=== PATIENT | female | born 2000 | race Caucasian/White ===

== ENCOUNTER 2025-04-14 09:21 | Inpatient (IN) | payer OTHER, SELFPAY ==
[2025-04-14] VITALS (8 sets, daily range): BP systolic 135–145; BP diastolic 93–105; PULSE 64–86; RESP 16–18; TEMP 36.4–37.1; O2SAT 98–100; BMI 34.4; BMI 34.1
--- NOTE | 2025-04-14 09:45 | US_ITS ---
PROCEDURE: GALLBLADDER 04/14/2025 REASON FOR EXAM: PAIN TECHNIQUE: Procedure Code: USGB Modality: US Procedure: GALLBLADDER COMPARISON: None. FINDINGS: Liver: Unremarkable. Gallbladder: The gallbladder is distended. Layering stones in the gallbladder. No gallbladder wall thickening. No pericholecystic fluid. The technologist reported a negative sonographic Rice's sign. Common bile duct: The common bile duct measures 6 mm in inner diameter which is within normal limits. Pancreas: Unremarkable as visualized. US/Gallbladder IMPRESSION: Cholelithiasis with no evidence of acute cholecystitis. Reading Location: [facility]
--- NOTE | 2025-04-14 09:46 | EDS_ITS ---
HPI HPI - GI History of Present Illness Chief Complaint: Abd Pain Narrative Narrative: 24-year-old female who by significant past medical history with the exception of being diagnosed with gallstones about a month ago in [place], presents with what she considers a gallbladder attack that she has been having more frequently. It was about a month ago when her symptoms began and she was diagnosed with gallstones. She states she has an appointment on Wednesday with a surgeon for possible outpatient cholecystectomy. Yesterday evening at around 6 PM after eating she developed right upper quadrant pain, nausea and vomiting. She states her last attack of biliary colic was earlier in the week on Wednesday, approximately 3 days ago, but it lasted longer than usual. She has been having more frequent attacks. While she denies any fevers or chills, no hematemesis, no problems with bowel movements, she still having pain in the right upper quadrant radiating to her back. She denies any lower abdominal pain or pelvic pain. Last menstrual period was last week. [facility] Medical History (Updated 04/14/25 @ 12:57 by Cornell Serna MD) Gallstones Home Medications ?Medication ?Instructions ?Recorded ?Last Taken ?Type NK 04/14/25 Unknown History Allergy/AdvReac Type Severity Reaction Status Date / Time No Known Allergies Allergy Verified 04/14/25 09:22 Social History Smoking Status: Never smoker ROS ROS ED ROS Narrative Review of systems is positive for right upper quadrant abdominal pain radiating to back, positive nausea and vomiting. No fevers or chills. No hematemesis. No problems with bowel movements. No exacerbating or alleviating factors. Increasing frequency of biliary colic episodes. Lasting longer as well. EXAM Physical Exam Narrative Exam Narrative: Afebrile. Vital signs noted. Nontoxic appearing. Cardiovascular examination reveals regular rate and rhythm. Lungs are clear to auscultation bilaterally. The abdomen is soft with positive tenderness to palpation of the right upper quadrant. No guarding or rebound. Questionable Rice sign. Positive bowel sounds. Neurological examination nonfocal, nonlateralizing. No noted jaundice or scleral icterus. Const Vital Signs: 04/14/25 09:23 04/14/25 11:56 04/14/25 12:20 Temperature 98.7 F Temperature Source Oral Pulse Rate 78 83 64 Respiratory Rate 18 16 18 Blood Pressure 145/105 H 144/101 H 145/98 H Blood Pressure Mean 118 115 113 Pulse Ox 98 100 100 Oxygen Delivery Method Room Air Room Air Room Air MDM MDM MDM Narrative Medical decision making narrative: The differential diagnosis includes but not limited to biliary colic versus acute cholecystitis versus choledocholithiasis/pancreatitis. Patient will be administered morphine and ondansetron for pain and nausea. She was bolused normal saline. An ultrasound, CBC, CMP, lipase, and serum were ordered.. Patient initially administered morphine for analgesia, but she states that her pain was worsening with it. She was then given fentanyl. I reviewed her laboratory work and she has a white count that is normal at 9.6, hemoglobin normal at 14.9, platelet count normal at 344. CMP is significant for glucose of 120 with a normal anion gap of 13, normal BUN, creatinine low at 0.69. AST is elevated at 554 with ALT of 403 and alk phos of 195. Total bilirubin elevated at 2.47. Lipase is greater than 3000. This is consistent with gallstone pancreatitis. Serum is negative. Ultrasound was obtained of the gallbladder/right upper quadrant which shows cholelithiasis without evidence of acute cholecystitis. MRI was available as they were here for another patient, so MRCP was ordered. I discussed patient with Dr. Curiel who has confirmed that gastroenterology is rounding and available for ERCP. Disposition is admitted in stable condition. History & Record Review Discussion w/independent historian: Patient and Family () Additional record(s) reviewed:: No prior records (No prior ED visit) Lab Data Attestation: I reviewed the patient's lab results. Labs: Laboratory Results - last 24 hr 04/14/25 10:00 WBC 9.6 RBC 5.16 Hgb 14.9 Hct 44.2 MCV 85.7 MCH 28.9 MCHC 33.7 RDW Std Deviation 40.2 RDW Coeff of Miles 12.9 Plt Count 344 MPV 9.2 Immature Gran % (Auto) 0.200 Neut % (Auto) 82.7 H Lymph % (Auto) 10.7 L [place] % (Auto) 5.7 Eos % (Auto) 0.4 Baso % (Auto) 0.3 Absolute Neuts (auto) 7.9 H Absolute Lymphs (auto) 1.03 Nucleated RBC % 0 Sodium 139 Potassium 4.2 Chloride 104 Carbon Dioxide 22.7 Anion Gap 13 BUN 8 Creatinine 0.69 L Est GFR (MDRD) Non-Af 124 BUN/Creatinine Ratio 12.0 Glucose 120 H Calcium 9.8 Total Bilirubin 2.47 H AST 554 H ALT 403 H Alkaline Phosphatase 195 H Total Protein 8.3 Albumin 4.5 Globulin 3.7 Albumin/Globulin Ratio 1.2 Lipase > 3000 H Serum , Qual NEGATIVE Radiography Diagnostic Testing: Clinical Impression(s) from Imaging Studies Gallbladder Ultrasound 04/14/25 09:45 IMPRESSION: Cholelithiasis with no evidence of acute cholecystitis. Reading Location: [facility] Discharge Plan Triage Chief Complaint: Abd Pain ED Provider: Cornell Serna Dx/Rx/DC Orders Clinical Impression: Gallstone pancreatitis, Nausea and vomiting, Transaminitis, Intractable epigastric abdominal pain Prescriptions: No Action NK Primary Care Provider: Jesica Feng NP Referrals: Jesica Feng NP, BUSINESS CONTINUITY MANAGEMENT DIRECTOR-C [Primary Care Provider, Medical] Print Language: Bangladeshi
[2025-04-14] MEDS: 0.9% Normal Saline (1000mL) 1,000 ML 999 ML IV (10:02)
[2025-04-14 10:11] LABS: Hematocrit 44.2 % (37-47); Hemoglobin 14.9 g/dL (12.0-15.0); Immature Granulocytes Count 0.020 X10^3/uL (0.0-0.0); Mean Corp Hgb Conc 33.7 g/dL (32-36); Mean Corpuscular Volume 85.7 fL (81-99); Mean Platelet Vol. 9.2 fl (6.2-12.0); NRBC Flagged by Analyzer 0 % (0-5); Platelet Count 344 K/mm3 (150-450); RBC Distribution Width CV 12.9 % (11.6-14.6); RBC Distribution Width SD 40.2 fl (35.1-43.9); Red Blood Count 5.16 M/mm3 (4.2-5.4); White Blood Count 9.6 K/mm3 (4.4-11.0)
[2025-04-14 10:26] LABS: Internal QC Validated? YES +Cl - CLEAR BKGD; Pregnancy, Serum, hCG Quali. NEGATIVE Negative; Record Kit Lot#, Serum Preg. 980607
[2025-04-14 10:32] LABS: AST(SGOT) 554 U/L (<=31); Alanine Aminotransfer ALT/SGPT 403 U/L (<=34); Albumin, Serum 4.5 g/dL (3.5-5.0); Alkaline Phosphatase 195 U/L (35-104); Anion Gap 13 (5-15); BUN 8 mg/dL (4-19); BUN/Creat Ratio 12.0 RATIO (10-20); Calcium,Total 9.8 mg/dL (7.6-11.0); Carbon Dioxide 22.7 mmol/L (21.0-32.0); Chloride 104 mmol/L (98-108); Globulin 3.7 g/dL (2.2-4.2); Glucose 120 mg/dL (70-99); Potassium 4.2 mmol/L (3.3-5.1)
[2025-04-14] MEDS: fentaNYL 100 MCG/2 ML Ampul 50 MCG IV ×2 (10:39→12:24)
--- NOTE | 2025-04-14 10:43 | MRI_ITS ---
PROCEDURE: MRCP ABDOMEN WITHOUT CONTRAST 04/14/2025 REASON FOR EXAM: RIGHT UPPER QUADRANT PAIN, HISTORY OF GALLSTONES TECHNIQUE: Procedure Code: MRIMRCP Modality: MR Procedure: MRCP ABDOMEN WITHOUT CONTRAST Multiplanar and multisequence images were obtained. COMPARISON: 14-Apr-2025 US FINDINGS: Diffusely swollen pancreas showing high signal with extensive surrounding fat stranding and edema associated non and partially encapsulated fluid signal extending along the mesenteric roots and retroperitoneal spaces. Distended gall bladder showing mural thickening and edema with multiple tiny low signal calculi and sludge. Relatively prominent intra and extra-hepatic biliary tracts with no obvious intraluminal low signal calculi or obvious masses. Average sized liver showing homogenous parenchymal signal. The spleen and adrenals are normal in size and signal intensity. Both kidneys are normal in size and position. No hydronephrosis or focal masses could be seen in both kidneys. Small and large bowel loops appear largely collapsed however, is grossly unremarkable. Stomach shows no significant abnormality. Minimal ascites. No significant lymph node enlargement is seen in the abdomen. The visualized osseous structure in thoracolumbar spine shows No marrow infiltrative lesions. MRI/MRCP Abdomen without Contrast IMPRESSION: Findings are suggestive of interstitial edematous pancreatitis with acute perip ancreatic fluid (Elizabeth C). Advise clinical and laboratory correlation. Gall bladder calculi with mural thickening/edema, possibly cholecystitis. Prominent biliary tracts with no obvious intraluminal low signal calculi or obv ious masses. Reading Location[facility]
[2025-04-14 10:56] LABS: Lipase > 3000 U/L (13-75)
--- NOTE | 2025-04-14 12:41 | HP.PCM.HOS_ITS ---
HPI - General General Date of Admission: 04/14/25 Date of Service: 04/14/25 Chief Complaint: Abdominal pain and nausea with vomiting HPI Narrative NEL ALBRECHT, is a 24 F who presented to [facility] ED on 04/14/2025 with abdominal pain and nausea with vomiting. Patient lives at home with her , has good functional status at baseline. She notes that she went to [facility] about a month ago and was diagnosed with gallstones there. She was going to meet with a surgeon this coming Wednesday to discuss possible outpatient cholecystectomy. Noted that she had been having more frequent gallbladder attacks over the past several weeks. She developed right upper quadrant pain and nausea with vomiting yesterday evening around 6 PM after eating dinner. She continued to have fairly consistent pain overnight and into this morning, so she came in for further evaluation. Labs in the ED notable for total bilirubin 2.47, AST 554, ALT 4 3, alk phos 195, lipase greater than 3000. Gallbladder ultrasound showed a distended gallbladder with layering stones in the gallbladder but no gallbladder wall thickening or pericholecystic fluid and normal common bile duct measurements. MRCP was completed with read currently pending. She otherwise had a normal white blood cell count and was afebrile, normotensive and mentating appropriately. Given concern for pancreatitis, hospitalist was contacted for admission. I saw the patient at bedside in the ED. Patient had been given doses of IV pain medication and noted feeling moderately improved with these. On abdominal exam she did still have tenderness to palpation fairly diffusely but her abdomen was soft and nondistended. She stated she was feeling thirsty but not hungry at this point. Denied any other acute concerns currently. Will be admitted for further management. [facility] Medical History (Updated 04/14/25 @ 12:57 by Cornell Serna MD) Gallstones Home Medications ?Medication ?Instructions ?Recorded ?Last Taken ?Type NK 04/14/25 Unknown History Allergy/AdvReac Type Severity Reaction Status Date / Time No Known Allergies Allergy Verified 04/14/25 09:22 Social History Smoking Status: Never smoker ROS Constitutional Constitutional: Reports fatigue; Denies chills, fever(s) or weakness Cardiovascular Cardiovascular: Denies chest pain Respiratory/Chest Respiratory/Chest: Denies shortness of breath at rest Gastrointestinal Gastrointestinal: Reports abdominal pain, nausea and vomiting; Denies constipation or diarrhea Genitourinary Genitourinary: Denies dysuria Musculoskeletal Musculoskeletal: Denies arthralgias or myalgias Neurologic Neurologic: Denies dizziness, focal weakness or headache(s) Vital Signs Vital Signs Vital Signs: 04/14/25 09:23 04/14/25 11:56 04/14/25 12:20 Temperature 98.7 F Temperature Source Oral Pulse Rate 78 83 64 Respiratory Rate 18 16 18 Blood Pressure 145/105 H 144/101 H 145/98 H Blood Pressure Mean 118 115 113 Pulse Ox 98 100 100 Oxygen Delivery Method Room Air Room Air Room Air Weight Weight: 93.8 kg Body Mass Index (BMI) 34.4 Physical Exam Const alert, oriented x3 and no apparent distress Constitutional Narrative: Young female, mildly fatigued and mildly uncomfortable appearing due to ongoing abdominal pain, otherwise sitting back in bed and answering questions appropriately. General Appearance: cooperative HEENT normocephalic, head/scalp atraumatic, hearing grossly normal bilaterally, nasal mucous membranes and turbinates normal and moist oral mucous membranes Eyes PERRL, EOMs intact bilaterally and conjunctivae normal Neck full ROM Chest inspection of chest normal Resp normal respiratory effort, normal air movement, no use of accessory muscles and clear to auscultation bilaterally Cardio regular rate, regular rhythm, no murmurs and peripheral pulses 2+ throughout GI GI Narrative: Abdomen mild to moderately tender diffusely on palpation; otherwise soft and nondistended on palpation. Back/Spine normal ROM Extremity normal to inspection, full ROM and no pedal edema Skin no rashes or lesions noted Psych mental status grossly normal Results Lab / Micro Data 04/14/25 10:00 04/14/25 10:00 Labs: Laboratory Results - last 24 hr 04/14/25 10:00: WBC 9.6, RBC 5.16, Hgb 14.9, Hct 44.2, MCV 85.7, MCH 28.9, MCHC 33.7, RDW Std Deviation 40.2, RDW Coeff of Miles 12.9, Plt Count 344, MPV 9.2, Immature Gran % (Auto) 0.200, Neut % (Auto) 82.7 H, Lymph % (Auto) 10.7 L, [place] % (Auto) 5.7, Eos % (Auto) 0.4, Baso % (Auto) 0.3, Absolute Neuts (auto) 7.9 H, Absolute Lymphs (auto) 1.03, Nucleated RBC % 0, Sodium 139, Potassium 4.2, Chloride 104, Carbon Dioxide 22.7, Anion Gap 13, BUN 8, Creatinine 0.69 L, Est GFR (MDRD) Non-Af 124, BUN/Creatinine Ratio 12.0, Glucose 120 H, Calcium 9.8, T otal Bilirubin 2.47 H, AST 554 H, ALT 403 H, Alkaline Phosphatase 195 H, Total Protein 8.3, Albumin 4.5, Globulin 3.7, Albumin/Globulin Ratio 1.2, Lipase > 3000 H, Serum , Qual NEGATIVE Imaging Radiology Impression Gallbladder Ultrasound 04/14/25 09:45 IMPRESSION: Cholelithiasis with no evidence of acute cholecystitis. Reading Location: [facility] Assessment & Plan Assessment/Plan (1) Gallstone pancreatitis: PLAN: Plan Patient is a 24-year-old female who presented to [facility] ED on 04/14/2025 with abdominal pain and nausea with vomiting. 1. Suspected gallstone pancreatitis ? Admit under inpatient status to [facility]. GI consulted. Labs on admit notable for T. bili 2.47, AST 554, ALT 403, alk phos 195, lipase greater than 3000. Gallbladder ultrasound showed cholelithiasis but no evidence of cholecystitis or common bile duct dilation. MRCP completed, read pending. Presentation seems most consistent with gallstone pancreatitis. Discussed with Dr. Rogers and will treat for now with aggressive IV fluids, pain control and IV Zosyn. Patient notably with normal WBC count, afebrile and with normal mentation so no concern for acute cholangitis. Okay for clear liquid diet for now. Tentatively planning for ERCP on Wednesday. Will follow closely. 2. Class I obesity ? BMI 34 on admit. Complicates hospital course and care. Encouraged lifestyle modifications. DVT prophylaxis: Lovenox CODE STATUS: Full code, verified Expected disposition: Home, TBD Total clinical time spent by myself addressing the patient's medical issues, reviewing all the data, and collaborating with patient's care team: 58 minutes. Charges/Coding Visit Charges Inpatient E&M: 57703 Init Hosp L2
[2025-04-14] MEDS: Piperacil/Tazobactam 3.375 GM in 0.9% Normal Saline (50mL MB+) 50 ML IV ×2 (15:01→20:17)
[2025-04-14] MEDS: 0.9% Normal Saline (1000mL) 1,000 ML 200 ML IV ×2 (15:01→20:17)
[2025-04-14] MEDS: 0.9% Saline Lock 10 ML Syringe IV (16:23)
[2025-04-14] MEDS: HYDROmorphone 0.5 MG/0.5 ML SYRINGE IV (16:23)
--- NOTE | 2025-04-14 21:01 | CON.PCM.GI_ITS ---
HPI Consult Data Date of Consult: 04/14/25 HPI Narrative Reason for Consultation: Gallstone pancreatitis HPI Narrative: NEL ALBRECHT, is a 24-year-old female who by significant past medical history with the exception of being diagnosed with gallstones about a month ago in [place], presents with what she considers a gallbladder attack that she has been having more frequently. It was about a month ago when her symptoms began and she was diagnosed with gallstones. She states she has an appointment on Wednesday with a surgeon for possible outpatient cholecystectomy. Yesterday evening at around 6 PM after eating she developed right upper quadrant pain, nausea and vomiting. She states her last attack of biliary colic was earlier in the week on Wednesday, approximately 3 days ago, but it lasted longer than usual. She has been having more frequent attacks. Total Bilirubin 2.47 H, AST 554 H, ALT 403 H, Alkaline Phosphatase 195 H, Lipase > 3000 H Ultrasound of the right upper quadrant: Liver: Unremarkable. Gallbladder: The gallbladder is distended. Layering stones in the gallbladder. No gallbladder wall thickening. No pericholecystic fluid. The technologist reported a negative sonographic Rice's sign. Common bile duct: The common bile duct measures 6 mm PFSH Medical History Gallstones Home Medications ?Medication ?Instructions ?Recorded ?Last Taken ?Type NK 04/14/25 Unknown History Allergy/AdvReac Type Severity Reaction Status Date / Time No Known Allergies Allergy Verified 04/14/25 09:22 Social History Smoking Status: Never smoker ROS Constitutional Constitutional: Reports fatigue; Denies chills, fever(s) or weakness Cardiovascular Cardiovascular: Denies chest pain Respiratory/Chest Respiratory/Chest: Denies shortness of breath at rest Gastrointestinal Gastrointestinal: Reports abdominal pain, nausea and vomiting; Denies constipation or diarrhea Genitourinary Genitourinary: Denies dysuria Musculoskeletal Musculoskeletal: Denies arthralgias or myalgias Neurologic Neurologic: Denies dizziness, focal weakness or headache(s) Physical Exam Const alert, oriented x3 and no apparent distress General Appearance: cooperative HEENT normocephalic, head/scalp atraumatic, hearing grossly normal bilaterally, nasal mucous membranes and turbinates normal and moist oral mucous membranes Eyes PERRL, EOMs intact bilaterally and conjunctivae normal Neck full ROM Chest inspection of chest normal Resp normal respiratory effort, normal air movement, no use of accessory muscles and clear to auscultation bilaterally Cardio regular rate, regular rhythm, no murmurs and peripheral pulses 2+ throughout GI GI Narrative: Abdomen mild to moderately tender diffusely on palpation; otherwise soft and nondistended on palpation. Back/Spine normal ROM Extremity normal to inspection, full ROM and no pedal edema Skin no rashes or lesions noted Psych mental status grossly normal Lab / Micro Data 04/14/25 10:00 04/14/25 10:00 Labs: Laboratory Results - last 24 hr 04/14/25 10:00: WBC 9.6, RBC 5.16, Hgb 14.9, Hct 44.2, MCV 85.7, MCH 28.9, MCHC 33.7, RDW Std Deviation 40.2, RDW Coeff of Miles 12.9, Plt Count 344, MPV 9.2, Immature Gran % (Auto) 0.200, Neut % (Auto) 82.7 H, Lymph % (Auto) 10.7 L, [place] % (Auto) 5.7, Eos % (Auto) 0.4, Baso % (Auto) 0.3, Absolute Neuts (auto) 7.9 H, Absolute Lymphs (auto) 1.03, Nucleated RBC % 0, Sodium 139, Potassium 4.2, Chloride 104, Carbon Dioxide 22.7, Anion Gap 13, BUN 8, Creatinine 0.69 L, Est GFR (MDRD) Non-Af 124, BUN/Creatinine Ratio 12.0, Glucose 120 H, Calcium 9.8, T otal Bilirubin 2.47 H, AST 554 H, ALT 403 H, Alkaline Phosphatase 195 H, Total Protein 8.3, Albumin 4.5, Globulin 3.7, Albumin/Globulin Ratio 1.2, Lipase > 3000 H, Serum , Qual NEGATIVE Imaging Radiology Impression Gallbladder Ultrasound 04/14/25 09:45 IMPRESSION: Cholelithiasis with no evidence of acute cholecystitis. Reading Location: [facility] Assessment & Plan Assessment/Plan (1) Intractable epigastric abdominal pain: (2) Transaminitis: (3) Nausea and vomiting: (4) Gallstone pancreatitis: PLAN: The patient is a 24-year-old female with a known history of cholelithiasis presenting with a worsening frequency and severity of biliary colic episodes. The elevated liver enzymes (AST, ALT, ALP, total bilirubin) along with the significantly elevated lipase suggest a gallstone-related obstruction, causing pancreatitis and potentially affecting the common bile duct. The distended gallbladder with layering stones is consistent with her history. Although the ultrasound did not show common bile duct dilation (6 mm is within the normal range) or signs of acute cholecystitis (e.g., wall thickening, sonographic Rice's sign), the combination of lab results and clinical symptoms points toward gallstone pancreatitis with possible cholangitis and/or common bile duct obstruction. The pending MRCP will provide further detail on the biliary tree and rule out choledocholithiasis. Plan Diagnosis: * Gallstone pancreatitis. * Consider rule out cholangitis/choledocholithiasis. Monitoring: * Frequent vital signs and pain reassessment. * NPO for bowel rest. Treatment: * Pain Management:?Administer analgesics as needed. * Fluid Resuscitation:?Begin aggressive IV fluid hydration. * Anti-emetics:?Administer as needed for nausea/vomiting. * Antibiotics:?Consider broad-spectrum antibiotics, especially if signs of cholangitis develop. Diagnostics: * Stat MRCP to further evaluate the biliary tree and common bile duct is pending * Monitor lipase, liver function tests, and bilirubin. Therapeutics: She will need ERCP. Charges/Coding Visit Charges Inpatient E&M: 67353 Init Hosp L3
[2025-04-15] VITALS (8 sets, daily range): BP systolic 123–141; BP diastolic 84–95; PULSE 76–125; RESP 16–17; TEMP 36.6–36.9; O2SAT 98–100
[2025-04-15] MEDS: 0.9% Normal Saline (1000mL) 1,000 ML 200 ML IV ×2 (00:22→05:26)
[2025-04-15] MEDS: Piperacil/Tazobactam 3.375 GM in 0.9% Normal Saline (50mL MB+) 50 ML IV ×3 (05:26→20:55)
[2025-04-15 05:45] LABS: Hematocrit 39.3 % (37-47); Hemoglobin 12.9 g/dL (12.0-15.0); Mean Corp Hgb Conc 32.8 g/dL (32-36); Mean Corpuscular Volume 88.7 fL (81-99); Mean Platelet Vol. 9.3 fl (6.2-12.0); Platelet Count 272 K/mm3 (150-450); RBC Distribution Width CV 13.1 % (11.6-14.6); RBC Distribution Width SD 42.3 fl (35.1-43.9); Red Blood Count 4.43 M/mm3 (4.2-5.4); White Blood Count 8.5 K/mm3 (4.4-11.0)
[2025-04-15 06:00] LABS: AST(SGOT) 125 U/L (<=31); Alanine Aminotransfer ALT/SGPT 225 U/L (<=34); Albumin, Serum 3.5 g/dL (3.5-5.0); Alkaline Phosphatase 155 U/L (35-104); Anion Gap 8 (5-15); BUN 4 mg/dL (4-19); BUN/Creat Ratio 7.4 RATIO (10-20); Calcium,Total 8.2 mg/dL (7.6-11.0); Carbon Dioxide 22.3 mmol/L (21.0-32.0); Chloride 108 mmol/L (98-108); Estimated Creatinine Clearance 174.59 ml/min (50-250); Globulin 2.7 g/dL (2.2-4.2); Glucose 97 mg/dL (70-99); Potassium 3.7 mmol/L (3.3-5.1)
[2025-04-15] MEDS: Senna/Docusate Sodium 1 Tablet 2 TABLET PO ×2 (08:39→20:57)
--- NOTE | 2025-04-15 10:42 | PN.HOSP_ITS ---
Reason for Visit Chief Complaint: Abdominal pain and nausea with vomiting Subjective Subjective Saw patient at bedside this morning, present. Patient remained fatigued appearing but was otherwise laying back comfortably in bed in no acute distress. She had a heating pad on her stomach and noted this was helpful for her overnight. Notes that her pain and nausea are mild to moderately improved from yesterday. No other new concerns this morning. Objective Data Objective Data Vital Signs: Vital Signs Temp Pulse Resp BP Pulse Ox O2 Del Method 98.5 F 107 H 17 141/94 H 100 Room Air 04/15/25 09:51 04/15/25 08:07 04/15/25 08:07 04/15/25 08:07 04/15/25 08:07 04/15/25 08:07 Oxygen Delivery Method Room Air Weight: 92.986 kg Body Mass Index (BMI) 34.1 Intake & Output: Intake and Output for Last 24 Hours 04/13/25 04/14/25 04/15/25 23:59 23:59 23:59 Intake Total 2049 3160.00 / 3160.00 Balance 2049 3160.00 / 3160.00 Lab / Micro Data 04/15/25 05:20 04/15/25 05:20 Labs: Laboratory Results - last 24 hr 04/14/25 10:00: Lipase > 3000 H 04/15/25 05:20: WBC 8.5, RBC 4.43, Hgb 12.9, Hct 39.3, MCV 88.7, MCH 29.1, MCHC 32.8, RDW Std Deviation 42.3, RDW Coeff of Miles 13.1, Plt Count 272, MPV 9.3, Sodium 138, Potassium 3.7, Chloride 108, Carbon Dioxide 22.3, Anion Gap 8, BUN 4, Creatinine 0.56 L, Estim Creat Clear Calc 174.59, Est GFR (MDRD) Non-Af 131, BUN/Creatinine Ratio 7.4 L, Glucose 97, Calcium 8.2, Total Bilirubin 1.02, AST 125 H, ALT 225 H, Alkaline Phosphatase 155 H, Total Protein 6.2, Albumin 3.5, Globulin 2.7, Albumin/Globulin Ratio 1.3 Radiography Diagnostic Testing: Radiology Impression Gallbladder Ultrasound 04/14/25 09:45 IMPRESSION: Cholelithiasis with no evidence of acute cholecystitis. Reading Location: [facility] MRCP 04/14/25 10:43 IMPRESSION: Findings are suggestive of interstitial edematous pancreatitis with acute peripancreatic fluid (Elizabeth C). Advise clinical and laboratory correlation. Gall bladder calculi with mural thickening/edema, possibly cholecystitis. Prominent biliary tracts with no obvious intraluminal low signal calculi or obvious masses. Reading Location: [place] [id number] Physical Exam Const alert, oriented x3 and no apparent distress Constitutional Narrative: Young female, class I obesity, mildly fatigued appearing with fairly flat affect, otherwise laying back in bed comfortably and answering questions appropriately. General Appearance: cooperative and comfortable HEENT normocephalic, head/scalp atraumatic, hearing grossly normal bilaterally, nasal mucous membranes and turbinates normal and moist oral mucous membranes Eyes PERRL, EOMs intact bilaterally and conjunctivae normal Neck full ROM Chest inspection of chest normal Resp normal respiratory effort, normal air movement, no use of accessory muscles and clear to auscultation bilaterally Cardio regular rate, regular rhythm, no murmurs and peripheral pulses 2+ throughout GI GI Narrative: Abdomen mildly tender to palpation diffusely. Otherwise soft and nondistended on palpation. Back/Spine normal ROM Extremity normal to inspection, full ROM and no pedal edema Skin no rashes or lesions noted Psych mental status grossly normal Assessment & Plan Assessment/Plan (1) Gallstone pancreatitis: PLAN: Plan Patient is a 24-year-old female who presented to [facility] ED on 04/14/2025 with abdominal pain and nausea with vomiting. 1. Suspected gallstone pancreatitis ? GI and general surgery following. Labs on admit notable for T. bili 2.47, AST 554, ALT 403, alk phos 195, lipase greater than 3000. Gallbladder ultrasound showed cholelithiasis but no evidence of cholecystitis or common bile duct dilation. MRCP showed findings suggestive of interstitial pancreatitis with acute peripancreatic fluid, gallbladder calculi with mural thickening and edema concerning for cholecystitis and prominent biliary tract with no obvious intraluminal calculi or masses. Presentation seems most consistent with gallstone pancreatitis. Notably with normal WBC count, afebrile and normal mentation on admission so no concern for acute cholangitis. LFTs trending down well on hospital day 2 and patient with improvement in pain and nausea, possibly due to patient passing a large gallstone. Will continue IV fluids, IV Zosyn and pain control today. Okay for liquid diet today. N.p.o. at midnight with plan for ERCP tomorrow. 2. Class I obesity ? BMI 34 on admit. Complicates hospital course and care. Encouraged lifestyle modifications. DVT prophylaxis: Lovenox CODE STATUS: Full code, verified Expected disposition: Home, TBD Total clinical time spent by myself addressing the patient's medical issues, reviewing all the data, and collaborating with patient's care team: 38 minutes. Charges/Coding Visit Charges Inpatient E&M: 13945 Subs Hosp L2
--- NOTE | 2025-04-15 13:25 | EX.PCM.CON.S ---
Assessment & Plan Assessment/Plan (1) Gallstone pancreatitis: PLAN: Plan The patient is a 24-year-old female who was admitted with abdominal pain and was found to have gallstone pancreatitis. The tentative plan is for her to undergo ERCP tomorrow. From a general surgery standpoint she would certainly benefit from cholecystectomy to prevent further recurrences of pancreatitis secondary to gallstones. I explained to her that this does not help resolve the current episode of pancreatitis, and prevents this from occurring in the future. We discussed options of having this performed during this hospitalization versus waiting for inflammation to subside and doing this as an outpatient. At this point I tend to lean towards outpatient cholecystectomy in a few weeks. The reason for this, is the fact that Sharon- pancreatic fluid was identified on MRI suggesting more advanced pancreatitis. Will continue to follow along and see how her pancreatitis resolves in the next couple of days. Patient and are agreeable to this plan. HPI Consult Data Date of Consult: 04/15/25 HPI Narrative Reason for Consultation: Gallstone pancreatitis HPI Narrative: NEL ALBRECHT, is a 24 F who presented to [facility] emergency department on 04/14/2025 with abdominal pain. Patient also presented with nausea and vomiting. It sounds as though patient has been having issues with gallstones for the past 1 to 2 months. She was actually supposed to meet with a general surgeon in [place] next week. Patient was having worsening right upper quadrant pain which prompted her visit to the emergency department. While in the emergency department, she underwent laboratory testing that showed an elevated bilirubin of about 2.5. Her AST and ALT were elevated as well. Alkaline phosphatase was about 200. Her lipase was greater than 3000. Right upper quadrant ultrasound showed a distended gallbladder with stones but no gallbladder wall thickening or surrounding fluid. She had an MRCP recently performed that showed no gallbladder wall thickening or fluid and common bile duct appeared normal. MRCP did show inflammation around the pancreas along with Sharon-pancreatic fluid consistent with pancreatitis. She is tentatively scheduled for ERCP tomorrow however her bilirubin has returned to normal. A general surgery consult was obtained to determine timing of cholecystectomy whether it is to be done during this hospitalization or performed in the near future as an outpatient. [facility] Medical History Gallstones Home Medications ?Medication ?Instructions ?Recorded ?Last Taken ?Type NK 04/14/25 Unknown History Allergy/AdvReac Type Severity Reaction Status Date / Time No Known Allergies Allergy Verified 04/14/25 09:22 Social History Smoking Status: Never smoker Physical Exam Narrative She is alert and oriented x 3. She is in no acute distress. Abdomen is soft. She has mild diffuse tenderness to palpation. Minimal right upper quadrant tenderness Lab / Micro Data 04/15/25 05:20 04/15/25 05:20 Labs: Laboratory Results - last 24 hr 04/15/25 05:20: WBC 8.5, RBC 4.43, Hgb 12.9, Hct 39.3, MCV 88.7, MCH 29.1, MCHC 32.8, RDW Std Deviation 42.3, RDW Coeff of Miles 13.1, Plt Count 272, MPV 9.3, Sodium 138, Potassium 3.7, Chloride 108, Carbon Dioxide 22.3, Anion Gap 8, BUN 4, Creatinine 0.56 L, Estim Creat Clear Calc 174.59, Est GFR (MDRD) Non-Af 131, BUN/Creatinine Ratio 7.4 L, Glucose 97, Calcium 8.2, Total Bilirubin 1.02, AST 125 H, ALT 225 H, Alkaline Phosphatase 155 H, Total Protein 6.2, Albumin 3.5, Globulin 2.7, Albumin/Globulin Ratio 1.3 Imaging Radiology Impression MRCP 04/14/25 10:43 IMPRESSION: Findings are suggestive of interstitial edematous pancreatitis with acute peripancreatic fluid (Elizabeth C). Advise clinical and laboratory correlation. Gall bladder calculi with mural thickening/edema, possibly cholecystitis. Prominent biliary tracts with no obvious intraluminal low signal calculi or obvious masses. Reading Location: [facility] Charges/Coding Visit Charges Inpatient E&M: 44587 Init Hosp L3
[2025-04-15] MEDS: 0.9% Normal Saline (1000mL) 1,000 ML 150 ML IV ×2 (13:47→19:40)
[2025-04-16] VITALS (16 sets, daily range): BP systolic 109–129; BP diastolic 69–85; PULSE 93–114; RESP 16–18; TEMP 36.6–38; O2SAT 96–100; BMI 34.1
[2025-04-16] MEDS: 0.9% Normal Saline (1000mL) 1,000 ML 150 ML IV (01:03)
[2025-04-16 04:13] LABS: Hematocrit 39.2 % (37-47); Hemoglobin 12.5 g/dL (12.0-15.0); Mean Corp Hgb Conc 31.9 g/dL (32-36); Mean Corpuscular Volume 88.7 fL (81-99); Mean Platelet Vol. 9.3 fl (6.2-12.0); Platelet Count 297 K/mm3 (150-450); RBC Distribution Width CV 13.1 % (11.6-14.6); RBC Distribution Width SD 42.2 fl (35.1-43.9); Red Blood Count 4.42 M/mm3 (4.2-5.4); White Blood Count 11.9 K/mm3 (4.4-11.0)
[2025-04-16 04:51] LABS: AST(SGOT) 45 U/L (<=31); Alanine Aminotransfer ALT/SGPT 140 U/L (<=34); Albumin, Serum 3.5 g/dL (3.5-5.0); Alkaline Phosphatase 134 U/L (35-104); Anion Gap 13 (5-15); BUN 4 mg/dL (4-19); BUN/Creat Ratio 6.8 RATIO (10-20); Calcium,Total 8.6 mg/dL (7.6-11.0); Carbon Dioxide 18.7 mmol/L (21.0-32.0); Chloride 107 mmol/L (98-108); Estimated Creatinine Clearance 184.47 ml/min (50-250); Globulin 3.2 g/dL (2.2-4.2); Glucose 85 mg/dL (70-99); Potassium 3.5 mmol/L (3.3-5.1)
[2025-04-16] MEDS: Piperacil/Tazobactam 3.375 GM in 0.9% Normal Saline (50mL MB+) 50 ML IV ×2 (05:24→14:37)
[2025-04-16 10:21] LABS: Lipase 271 U/L (13-75)
--- NOTE | 2025-04-16 10:42 | CASEMGMT ---
Dx:gallstone pancreatitis LACE:1 6-Clicks:24 Medical record reviewed and patient evaluated for identification of discharge planning needs. Based on this review, at this time criteria are not present to indicate a need for discharge planning. Will remain available to assist with discharge planning needs as identified or requested.
[2025-04-16] MEDS: Lactated Ringers 1,000 ML 15 ML IV (11:08)
[2025-04-16 11:23] LABS: Internal QC Validated? YES +Cl - CLEAR BKGD; Pregnancy, Urine Negative Negative
[2025-04-16 11:24] LABS: Record Kit Lot#,Urine Preg 0000980607
--- NOTE | 2025-04-16 11:40 | PRE.ANES_ITS ---
ASA Classification* ASA Classification ASA Classification: 2 Assessment & Plan Anesthesia* Anesthesia Assessment Anesthesia Assessment: Discussed sedation and/or anesthesia options, risks, benefits, and alternatives with patient/parents/legal guardian/POA. Questions invited. The patient/parents/legal guardian/POA seems to understand and agrees to proceed with anesthesia plan. Reviewed the physical assessment, medical history, allergy history and patient home medications list prior to surgery/procedure/anesthetic and documented any changes. Performed airway and anesthesia risk assessments. Anesthesia Type Anesthesia Type: General History Source History Obtained from:: Patient and Chart Anesthesia Focused Assessment* Temperature: 100.4 F Pulse Rate: 110 Blood Pressure: 119/81 Respiratory Rate: 16 Pulse Ox: 100 Oxygen Delivery Method: Room Air Airway Assessment Mouth opens: >3 cm Mallampati Score: IV Teeth Condition: Chipped/Broken (Patient has a couple of rotted teeth.) and Missing (Patient has several missing teeth. Rest are tight.) Neck Range of motion (ROM): Full ROM Labs Anesthesia Preop lab: CBC WBC, (4.4-11.0) 11.9 K/mm3 H Today, 03:44 RBC, (4.2-5.4) 4.42 M/mm3 Today, 03:44 Hgb, (12.0-15.0) 12.5 g/dL Today, 03:44 Hct, (37-47) 39.2 % Today, 03:44 Plt Count, (150-450) 297 K/mm3 Today, 03:44 CHEMISTRY Potassium, (3.3-5.1) 3.5 mmol/L Today, 03:44 Sodium, (133-145) 138 mmol/L Today, 03:44 BUN, (4-19) 4 mg/dL Today, 03:44 Creatinine, (0.70-1.20) 0.53 mg/dL L Today, 03:44 Glucose, (70-99) 85 mg/dL Today, 03:44 COAG Urine Test Negative Negative Today, 10:50 Pre-Assessment Diagnosis/Proposed Procedure Planned Operative Procedure(s): Endoscopic retrograde cholangiopancreatography Anesthesia History 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 When Was Last Pacemaker Check QUESTION #4 FULL TEXT: You/Your Family Experience fever (hyperthermia) with Anesthesia Last Oral Intake Last Oral intake: Last Oral Intake NPO since 00:00 04/16/25 08:55 Meds taken in AM with sips of water? Meds patient instructed to take am of surgery Any additional information?: Yes Meds taken in AM with sips of water?: Yes PONV PONV - livestock farmers: PONV - livestock farmers Female HX of Motion Sickness HX of N/V After Surgery Non-Smoker Duration of Surgery greater than 60 minutes Number of Risk Factors PONV Score Height & Weight Height & Weight: Anesthesia: Height & Weight Height 5 ft 5 in 04/16/25 08:55 Weight: 92.986 kg 04/16/25 08:55 Body Mass Index (BMI) 34.1 04/16/25 08:55 Respiratory Assessment Respiratory Assessment - livestock farmers: Respiratory Tract Infection Hx - livestock farmers Hx Respiratory Tract Infection No 04/16/25 08:58 STOP Sleep Apnea STOP Sleep Apnea - livestock farmers: STOP Sleep Apnea - livestock farmers Hx Hypertension No 04/14/25 14:07 Hx Sleep Apnea No 04/14/25 14:07 CPAP BIPAP Do you snore loudly (louder No 04/14/25 14:07 than talking or can be heard Do you often feel tired/ No 04/14/25 14:07 fatigued/ sleepy during daytime? Has anyone observed you stop No 04/14/25 14:07 breathing during sleep? STOP Results Negative 04/14/25 14:07 QUESTION #5 FULL TEXT : Do you snore loudly (louder than talking or can be heard through closed doors)? 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 Specify any problems Hx of Preganancy in last 3 Yes 04/14/25 14:07 Months Nurse Filling Out Transfusion [id number] 04/14/25 14:07 & Questions: Date: 04/14/25 04/14/25 14:07 Time: 14:21 04/14/25 14:07 Patient unable to answer at this time (ie. confused, unrespo /Reproduction History /Reproductive History - livestock farmers: /Reproductive Hx- livestock farmers Hx Now No 04/16/25 08:58 Gestational Age (in weeks): EDC: Hx Hx Para Hx Section SAB No 04/16/25 08:58 Active Medications Active Medications: Current Medications Generic Name Dose Route Start Last Admin Trade Name Freq PRN Reason Stop Dose Admin Acetaminophen 650 mg 04/14/25 14:07 04/16/25 03:38 Acetaminophen 325 Mg Tablet PO 650 mg Q6H PRN PRN Administration Pain 1-10 Or Fever>100.7 Enoxaparin Sodium 40 mg 04/15/25 10:00 04/15/25 08:39 Enoxaparin 40 Mg/0.4 Ml Syringe SC 40 mg DAILY CALLUM Administration Hydromorphone HCl 0.5 mg 04/14/25 14:07 04/14/25 16:23 Hydromorphone 0.5 Mg/0.5 Ml Syringe IV 0.5 mg Q4H PRN PRN Administration Pain Score 6-10 Piperacillin Sod/Tazobactam 50 mls @ 12.5 mls/hr 04/14/25 14:07 04/16/25 09:42 Sod 3.375 gm/ Sodium Chloride IV Infused Q8 CALLUM Infusion Sodium Chloride 250 mls @ 15 mls/hr 04/14/25 14:17 IV .[id number] PRN Saline Flush Sodium Chloride 250 mls @ 15 mls/hr 04/14/25 14:17 IV .[id number] PRN Additional IVPB Infusion Lactated Ringer's 1,000 mls @ 15 mls/hr 04/16/25 11:15 04/16/25 11:08 IV 15 mls/hr .Q48H CALLUM Administration Melatonin 3 mg 04/14/25 14:07 Melatonin 3 Mg Tablet PO QHS PRN PRN INSOMNIA Ondansetron HCl 4 mg 04/14/25 14:07 Ondansetron 4 Mg/2 Ml Vial IV Q8H PRN PRN NAUSEA/VOMITING Oxycodone HCl 5 mg 04/14/25 14:07 04/16/25 03:38 Oxycodone 5 Mg Tablet PO 5 mg Q4H PRN PRN Administration Pain Score 4-10 Senna/Docusate Sodium 2 tablet 04/15/25 08:00 04/15/25 20:57 Senna/Docusate Sodium 1 Tablet PO 2 tablet BID CALLUM Administration Sodium Chloride 10 - 40 ml 04/14/25 14:17 04/14/25 16:23 0.9% Saline Lock 10 Ml Syringe IV 10 ml UD PRN Administration SALINE FLUSH PFSH Medical History Gallstones Home Medications ?Medication ?Instructions ?Recorded ?Last Taken ?Type NK 04/14/25 Unknown History Allergy/AdvReac Type Severity Reaction Status Date / Time No Known Allergies Allergy Verified 04/14/25 09:22 no surgical history Social History Smoking Status: Never smoker Review of Systems (Anesthesia) ROS Narrative System reviewed and no additional complaints, except as documented.
--- NOTE | 2025-04-16 12:04 | PN_ITS ---
Progress Note Patient is getting little bit better today. Physical Exam Const alert, oriented x3 and no apparent distress General Appearance: cooperative and comfortable HEENT normocephalic, head/scalp atraumatic, hearing grossly normal bilaterally, nasal mucous membranes and turbinates normal and moist oral mucous membranes Eyes PERRL, EOMs intact bilaterally and conjunctivae normal Neck full ROM Chest inspection of chest normal Resp normal respiratory effort, normal air movement, no use of accessory muscles and clear to auscultation bilaterally Cardio regular rate, regular rhythm, no murmurs and peripheral pulses 2+ throughout GI GI Narrative: Abdomen mildly tender to palpation diffusely. Otherwise soft and nondistended on palpation. Back/Spine normal ROM Extremity normal to inspection, full ROM and no pedal edema Skin no rashes or lesions noted Psych mental status grossly normal Assessment & Plan Assessment/Plan (1) Intractable epigastric abdominal pain: (2) Transaminitis: (3) Nausea and vomiting: (4) Gallstone pancreatitis: PLAN: * Acute gallstone pancreatitis:?The patient's clinical presentation, elevated liver enzymes (AST, ALT, alkaline phosphatase, bilirubin), and imaging findings (pancreatitis, dilated common bile duct, cholecystitis) are highly consistent with acute pancreatitis caused by a gallstone obstructing the bile duct. * Cholecystitis:?Gallbladder mural thickening and edema on MRCP suggest acute cholecystitis in addition to the gallstone pancreatitis. * Elizabeth C pancreatitis:?The CT findings of interstitial edematous pancreatitis with acute peripancreatic fluid collection indicate a moderate severity of pancreatitis. Plan * Monitor and stabilize:?Closely monitor the patient's vital signs and clinical status. Provide supportive care, including intravenous fluids and pain control. * Endoscopic Retrograde Cholangiopancreatography:?Given the dilated common bile duct, the presence of choledocholithiasis (bile duct stone) is highly suspected despite not being explicitly seen on MRCP. An ERCP is indicated to visualize the bile ducts and remove any obstructing gallstones to relieve the obstruction and prevent further pancreatic inflammation. * Cholecystectomy: Patient has been seen by general surgery regarding laparoscopic cholecystectomy after the patient has recovered from the acute pancreatitis. The cholecystectomy is necessary to prevent recurrence of gallstone-related complications. Visit Charges Inpatient E&M: 70936 Subs Hosp L3
--- NOTE | 2025-04-16 12:15 | RAD_ITS ---
PROCEDURE: ERCP BILIARY/PANCREAS 04/16/2025 REASON FOR EXAM: ERCP TECHNIQUE: Procedure Code: RADERCP Modality: DX Procedure: ERCP BILIARY/PANCREAS. Fluoroscopic services provided for ERCP. Fluoroscopy: 28.6 seconds. 7.8 mGy radiation dose. 5 images were submitted. COMPARISON: None FINDINGS: Intraoperative imaging provided for ERCP. The ducts are not dilated. RAD/ERCP Biliary/Pancreas IMPRESSION: Intraoperative imaging provided for ERCP. Reading Location: [facility]
--- NOTE | 2025-04-16 12:53 | OP.ERCP_ITS ---
Patient Name: Beth Arechiga Procedure Date: 04/16/2025 11:59 AM Date of : 2000 Age: 24 Procedure: ERCP Indications: Bile duct stone(s), Abdominal pain of suspected biliary origin, Abdominal pain of suspected pancreatic origin, Evaluation and possible treatment of bile duct stone(s), Jaundice, Elevated liver enzymes, Acute pancreatitis Providers: Alonzo Rogers DO Medicines: Monitored Anesthesia Care Patient Profile: This is a 24 year old female. Refer to note in patient chart for documentation of history and physical. Patient has symptoms of acute right upper quadrant abdominal pain and acute jaundice. This patient has no history of previous ERCP. This patient has no history of surgical alteration of the upper digestive tract anatomy. Complications: No immediate complications. Procedure: Pre-Anesthesia Assessment: - Prior to the procedure, a History and Physical was performed, and patient medications and allergies were reviewed. The patient is competent. The risks and benefits of the procedure and the sedation options and risks were discussed with the patient. All questions were answered and informed consent was obtained. Patient identification and proposed procedure were verified by the physician in the pre-procedure area. Mental Status Examination: alert and oriented. Airway Examination: normal oropharyngeal airway and neck mobility. Respiratory Examination: clear to auscultation. CV Examination: normal. Prophylactic Antibiotics: The patient does not require prophylactic antibiotics. Prior Anticoagulants: The patient has taken no anticoagulant or antiplatelet agents except for NSAID medication. ASA Grade Assessment: II - A patient with mild systemic disease. After reviewing the risks and benefits, the patient was deemed in satisfactory condition to undergo the procedure. The anesthesia plan was to use monitored anesthesia care (MAC). Immediately prior to administration of medications, the patient was re-assessed for adequacy to receive sedatives. The heart rate, respiratory rate, oxygen saturations, blood pressure, adequacy of pulmonary ventilation, and response to care were monitored throughout the procedure. The physical status of the patient was re-assessed after the procedure. After obtaining informed consent, the scope was passed under direct vision. Throughout the procedure, the patient's blood pressure, pulse, and oxygen saturations were monitored continuously. The Duodenoscope was introduced through the mouth, and advanced to the duodenum and used to inject contrast into the bile duct. The ERCP was accomplished without difficulty. The patient tolerated the procedure well. Scope In: 12:37:30 PM Scope Out: 12:46:58 PM Total Procedure Duration Time 0 hours 9 minutes 28 seconds Findings: The labeling associate film was normal. The esophagus was successfully intubated under direct vision. The scope was advanced to a normal major papilla in the descending duodenum without detailed examination of the pharynx, larynx and associated structures, and upper GI tract. The upper GI tract was grossly normal. A long 0.021 inch Jagwire was passed into the biliary tree. The short-nosed traction sphincterotome was passed over the guidewire and the bile duct was then deeply cannulated. Contrast was injected. I personally interpreted the bile duct images. There was brisk flow of contrast through the ducts. Image quality was adequate. Contrast extended to the entire biliary tree. Opacification of the entire opacified area, main bile duct, common bile duct, cystic duct, gallbladder, common hepatic duct, hepatic duct bifurcation, left and right hepatic ducts and all intrahepatic branches and entire biliary tree was successful. The maximum diameter of the ducts was 10 mm. The lower third of the main bile duct contained a single localized stenosis 6 mm in length. The main bile duct and common hepatic duct were diffusely dilated, acquired. The largest diameter was 10 mm. A 5 mm biliary sphincterotomy was made with a traction (standard) sphincterotome using ERBE electrocautery. There was no post-sphincterotomy bleeding. The biliary tree was swept with a 12 mm balloon starting at the upper third of the main bile duct, middle third of the main bile duct, lower third of the main duct and bifurcation. One stone was removed. No stones remained. One 10 Fr by 5 cm temporary stent was placed 5 cm into the common bile duct. Bile flowed through the stent. The stent was in good position. Impression: - A single localized biliary stricture was found in the lower third of the main bile duct. The stricture was inflammatory. - The entire main bile duct and common hepatic duct were dilated, acquired. - Choledocholithiasis was found. Complete removal was accomplished by biliary sphincterotomy and balloon extraction. - A biliary sphincterotomy was performed. - The biliary tree was swept. - One temporary stent was placed into the common bile duct. Procedure Code(s): --- Professional --- 65331, Endoscopic retrograde cholangiopancreatography (ERCP); with placement of endoscopic stent into biliary or pancreatic duct, including pre- and post-dilation and guide wire passage, when performed, including sphincterotomy, when performed, each stent [id number], Endoscopic retrograde cholangiopancreatography (ERCP); with removal of calculi/debris from biliary/pancreatic duct(s) 86293, 26, Endoscopic catheterization of the biliary ductal system, radiological supervision and interpretation CPT copyright 2021 [employer]. All rights reserved. The codes documented in this report are preliminary and upon repair tech review may be revised to meet current compliance requirements. Alonzo Rogers DO 04/16/2025 12:53:21 PM This report has been signed electronically. Number of Addenda: 0 Note Initiated On: 04/16/2025 11:59 AM
--- NOTE | 2025-04-16 12:54 | OP.PROVAT_ITS ---
04/16/2025 Jesica Feng Strip Deburrer, Strip Deburrer-c Re : ERCP procedure for Beth Arechiga Lisetter Ping This procedure was performed on Wednesday, April 16, 2025. My impressions and recommendations are as follows: Impressions : - A single localized biliary stricture was found in the lower third of the main bile duct. The stricture was inflammatory. - The entire main bile duct and common hepatic duct were dilated, acquired. - Choledocholithiasis was found. Complete removal was accomplished by biliary sphincterotomy and balloon extraction. - A biliary sphincterotomy was performed. - The biliary tree was swept. - One temporary stent was placed into the common bile duct. Recommendations : My findings are described in the full procedure note, which is enclosed. If I can be of further assistance, please feel free to contact me at . Sincerely, Alonzo Rogers, 04/16/2025 12:53:21 PM This report has been signed electronically.
--- NOTE | 2025-04-16 13:16 | PCM.POST.ANE ---
Anesthesia: Postop Eval I Current Vital Signs Temperature: 98.2 F Pulse Rate: 102 Blood Pressure: 115/72 Respiratory Rate: 18 Pulse Ox: 96 Oxygen Delivery Method: Room Air Assessment Airway patent: Yes Spontaneous unlabored respirations: Yes Mental status: Awake nausea: No Vomiting: No Anesthesia Complication: No Fluid Hydration Crystalloid volume administer (ml): 900 Total IV fluid infused: 900 Progress Note Anesthesia document: Postop Eval 1 completed: Yes
--- NOTE | 2025-04-16 13:27 | PN.SURG_ITS ---
Subjective Subjective Patient off the floor for ERCP. I did discuss with Dr. Rogers the findings of the ERCP. Patient had a small inflammatory stricture along with a small associated stone. Objective Data Objective Data Vital Signs: Vital Signs Temp Pulse Resp BP Pulse Ox O2 Del Method 98.2 F 102 H 18 115/72 96 Room Air 04/16/25 13:17 04/16/25 13:17 04/16/25 13:17 04/16/25 13:17 04/16/25 13:17 04/16/25 13:17 Oxygen Delivery Method Room Air Weight: 205 lb Body Mass Index (BMI) 34.1 Intake & Output: Intake and Output for Last 24 Hours 04/14/25 04/15/25 04/16/25 23:59 23:59 23:59 Intake Total 2049 4405.00 / 4405.00 1107.5 / 1107.5 Balance 2049 4405.00 / 4405.00 1107.5 / 1107.5 Lab / Micro Data 04/16/25 03:44 04/16/25 03:44 Labs: Laboratory Results - last 24 hr 04/16/25 03:44: WBC 11.9 H, RBC 4.42, Hgb 12.5, Hct 39.2, MCV 88.7, MCH 28.3, M CHC 31.9 L, RDW Std Deviation 42.2, RDW Coeff of Miles 13.1, Plt Count 297, MPV 9.3, Sodium 138, Potassium 3.5, Chloride 107, Carbon Dioxide 18.7 L, Anion Gap 13, BUN 4, Creatinine 0.53 L, Estim Creat Clear Calc 184.47, Est GFR (MDRD) Non- Af 133, BUN/Creatinine Ratio 6.8 L, Glucose 85, Calcium 8.6, Total Bilirubin 0.89, AST 45 H, ALT 140 H, Alkaline Phosphatase 134 H, Total Protein 6.7, Albumin 3.5, Globulin 3.2, Albumin/Globulin Ratio 1.1, Lipase 271 H 04/16/25 10:50: Urine Test Negative Physical Exam Narrative Patient not seen today as she was in recovery after ERCP and still sleeping Assessment & Plan Assessment/Plan (1) Gallstone pancreatitis: PLAN: Plan Patient is a 24-year-old female with at least moderate to significant gallstone pancreatitis. Lipase is still in the range of 300 down from 3002 days ago. Patient's status post ERCP and stent placement. Given the amount of pancreatitis is visualized by MRCP, would tend to favor interval cholecystectomy to prevent future episodes of gallstone pancreatitis. Studies seem to indicate that with moderate to severe pancreatitis, it is safer to wait a period of time to perform cholecystectomy rather than cholecystectomy at time of admission. Charges/Coding Visit Charges Inpatient E&M: 55960 Subs Hosp L3
[2025-04-16] MEDS: Lactated Ringers 1,000 ML 999 ML IV (13:35)
[2025-04-16] MEDS: 0.9% Normal Saline (1000mL) 1,000 ML 250 ML IV (14:33)
[2025-04-16] MEDS: 0.9% Saline Lock 10 ML Syringe IV (14:33)
--- NOTE | 2025-04-16 17:41 | PCM.POSTANE2 ---
Anesthesia Postop Eval I Sum Postop Eval Completion status Anesthesia document: Postop Eval 1 completed: Yes Anesthesia Postop Eval I Summary Anesthesia Postop Eval I Summary: Anesthesia Postop Eval I: Assessment Summary Airway patent Yes 04/16/25 13:17 [email or web address] Spontaneous unlabored Yes 04/16/25 13:17 [email or web address] respirations Mental status Awake 04/16/25 13:17 [email or web address] nausea No 04/16/25 13:17 [email or web address] Vomiting No 04/16/25 13:17 [email or web address] Anesthesia Postop Eval I: Fluid Summary Crystalloid volume administer 900 04/16/25 13:17 [email or web address] (ml) Colloids volume administered ( ml) Blood Product volume administered (ml) Total IV fluid infused 900 04/16/25 13:17 [email or web address] Anesthesia Postop Eval I: Summary Notes Anesthesia Complication No 04/16/25 13:17 [email or web address] Anesthesia Complication Comment: Post-operative progress note Anesthesia: Postop Eval II Evaluation Mental status: Awake and Calm Pain Level: 1 nausea: No Vomiting: No Complications Anesthesia Complication: No
--- NOTE | 2025-04-16 18:55 | DCINST_ITS ---
Discharge Instructions DC O2, CPAP, BIPAP needs Home O2 Discharge instructions: No Dressing / Incision Discharge Activity: Return to Normal Activity Dressing / Incision Call your doctor if you observe: Fever of 101 or Higher, Shortness of breath, Dizziness, Fainting spells, Swelling in the ankles, Chest pain and Increased palpitations (irregular heartbeat) Follow Up Care Test Results: Test results from this visit will be discussed in further detail at your follow- up appointment, if applicable. Discharge Plan Admission Admit Date/Time: 04/14/25 12:41 Attending Provider: Tong Woods Primary Care Provider: Jesica Feng NP Consulting Providers: Louie Jean-Baptiste; Alonzo Rogers; Colleen Urbina; Amada Jones; Brea Miranda; Amaury Patel; Raghavendra Curiel Discharge Orders/Prescriptions Prescriptions: New oxycodone 5 mg Tablet 5 mg PO Q4H PRN PRN (Reason: Pain Score 4-10) 3 Days Qty: 10 0RF amoxicillin-pot clavulanate 875-125 mg tablet 1 tab PO BID Qty: 14 0RF Referrals / Follow Up: Alonzo Rogers DO [Med Staff - Active Staff, Gastroenterology] - Within 1 Month Amaury Patel MD [Med Staff - Active Staff, General Surgery] - Within 2 Weeks Jesica Feng NP, [employer] [Primary Care Provider, Medical] - Within 1 Week Disposition Disposition (needs filled in before D/C Order can be placed): Home, Self Care
--- NOTE | 2025-04-16 19:00 | PCM.DC.SUM ---
Providers Date of Admission: 04/14/25 Primary Care Physician: Jesica Feng, DA Consultations 04/14/25 14:07 Consult: Gastroenterology Routine Consulting Provider: [facility] Reason for Consult: suspected gallstone pancreatitis EMERGENT Consult: No Notified: Yes Date Notified: 04/14/25 Time Notified: 14:17 Method of Notification: Text 04/15/25 11:19 Consult: General Surgery Routine Consulting Provider: Amaury Patel Reason for Consult: gallstone pancreatitis EMERGENT Consult: No Notified: Yes Date Notified: 04/15/25 Time Notified: 11:28 Method of Notification: Text Reason For Visit: GALLSTONE PANCREATITIS Diagnosis Discharge Diagnosis (1) Gallstone pancreatitis: Status: Acute Code(s): K85.10 - Biliary acute pancreatitis without necrosis or infection Medications at Discharge Home Medications amoxicillin 875 mg-potassium clavulanate 125 mg tablet 1 tab PO BID #14 tabs 04/16/25 oxycodone 5 mg tablet 5 mg PO Q4H PRN PRN Pain Score 4-10 3 days #10 tabs 04/16/25 Hospital Course Operations ERCP Procedures None Summary of Care Provided Minutes Spent on Discharge: 36 Hospital Course: Per HPI: NEL ALBRECHT, is a 24 F who presented to [facility] ED on 04/14/2025 with abdominal pain and nausea with vomiting. Patient lives at home with her , has good functional status at baseline. She notes that she went to [facility] about a month ago and was diagnosed with gallstones there. She was going to meet with a surgeon this coming Wednesday to discuss possible outpatient cholecystectomy. Noted that she had been having more frequent gallbladder attacks over the past several weeks. She developed right upper quadrant pain and nausea with vomiting yesterday evening around 6 PM after eating dinner. She continued to have fairly consistent pain overnight and into this morning, so she came in for further evaluation. Labs in the ED notable for total bilirubin 2.47, AST 554, ALT 4 3, alk phos 195, lipase greater than 3000. Gallbladder ultrasound showed a distended gallbladder with layering stones in the gallbladder but no gallbladder wall thickening or pericholecystic fluid and normal common bile duct measurements. MRCP was completed with read currently pending. She otherwise had a normal white blood cell count and was afebrile, normotensive and mentating appropriately. Given concern for pancreatitis, hospitalist was contacted for admission. I saw the patient at bedside in the ED. Patient had been given doses of IV pain medication and noted feeling moderately improved with these. On abdominal exam she did still have tenderness to palpation fairly diffusely but her abdomen was soft and nondistended. She stated she was feeling thirsty but not hungry at this point. Denied any other acute concerns currently. Will be admitted for further management. Hospital Course: 1. Gallstone pancreatitis?24-year-old female presented to the hospital with right upper quadrant abdominal pain as well as nausea and vomiting. She was found to have acute and elevated lipase as well as LFTs. Her bilirubin was elevated though this subsequently improved appearing to have passed a gallstone. She been having issues for at least a month that she had gone to an outside hospital a month ago with similar issues. She is planning on following up with a general surgeon at that time however this episode occurred prior to having her cholecystectomy. She underwent an ERCP on 04/16/2025 that demonstrated a small gallstone in her duct with inflammatory stricture. The ducts were swept and a temporary stent was placed. On return from her ERCP she was started on a low-fat regular diet which she tolerated without any significant abdominal pain. I discussed with gastroenterology the possibility of discharge which they agreed to recommending 7 days of Augmentin on discharge. I discussed with the patient and her the plan for discharge and she expressed understanding of the risks and benefits of going home and would like to go home today. Will continue with Augmentin for 7 days and provide 3 days of pain medication. I recommend that she follow-up with gastroenterology in a month for stent removal and I also recommend that she follow-up with general surgery for cholecystectomy once inflammation has improved. Also recommend she follow-up with primary care doctor in 3 to 5 days. Physical Exam Narrative General: Alert, Oriented x3, Cooperative, No apparent distress HEENT: Atraumatic, PERRLA, EOMI, Normocephalic Oral: Moist Mucosa Neck: Supple, No JVD Lungs: Clear to auscultation, Normal air movement, No rhonchi, No wheeze, No rales Cardiovascular: Regular rate, Regular Rhythm, Normal S1, Normal S2, No murmurs Abdomen: Soft, minimally tender, Non-Distended, No Hepato-splenomegaly Extremities: No edema, Capillary Refill Less than 3 Seconds Skin: No rashes, No breakdown Musculoskeletal: No Tenderness to Palpation of Joints or Extremities Neurological: No focal neurological deficits, moves all extremities Psych/Mental Status: Normal Affect, Appropriate Weight / BMI Weight Weight: 205 lb Body Mass Index (BMI) 34.1 ABG / Lab / Microbiology Data 04/16/25 03:44 04/16/25 03:44 Laboratory: Laboratory Results - last 24 hr 04/16/25 03:44: Lipase 271 H 04/16/25 10:50: Urine Test Negative Radiography Diagnostic Testing: Radiology Impression Endo Retro Cholangiopancreatogram 04/16/25 12:15 IMPRESSION: Intraoperative imaging provided for ERCP. Reading Location: [id number] D/C Instructions Call your doctor if you observe: Fever of 101 or Higher, Shortness of breath, Dizziness, Fainting spells, Swelling in the ankles, Chest pain and Increased palpitations (irregular heartbeat) DC O2, CPAP, BIPAP Needs Home O2 Discharge instructions: No Meaningful Use Info Meaningful Use Meaningful Use Diagnoses (Choose all that apply): None applicable Discharge Plan Admission Admit Date/Time: 04/14/25 12:41 Attending Provider: Tong Woods Primary Care Provider: Jesica Feng NP Consulting Providers: Louie Jean-Baptiste; Alonzo Rogers; Colleen Urbina; Amada Jones; Brea Miranda; Amaury Patel; Raghavendra Curiel Discharge Orders/Prescriptions Prescriptions: New oxycodone 5 mg Tablet 5 mg PO Q4H PRN PRN (Reason: Pain Score 4-10) 3 Days Qty: 10 0RF amoxicillin-pot clavulanate 875-125 mg tablet 1 tab PO BID Qty: 14 0RF Referrals / Follow Up: Alonzo Rogers DO [Med Staff - Active Staff, Gastroenterology] - Within 1 Month Amaury Patel MD [Med Staff - Active Staff, General Surgery] - Within 2 Weeks Jesica Feng NP, [employer] [Primary Care Provider, Medical] - Within 1 Week Disposition Disposition (needs filled in before D/C Order can be placed): Home, Self Care Charges/Coding Visit Charges Inpatient E&M: 28722 Disch Hosp >30min
== END 2025-04-16 21:06 | disposition home or self-care (01) | DRG 440 ==
LOC: ED 10:49 → MS3 13:44
PROVIDERS: Internal Medicine Gastroenterology; Physician Assistant; Admitting Provider Hospitalist; Emergency Provider Emergency Medicine; PCP Nurse Practitioner Family; Visit Provider Family Medicine
PROC: 0FC98ZZ Extirpation of Matter from Common Bile Duct, Via Natural or Artificial Opening Endoscopic (ICD-10-PCS; CPT 43260; principal; 2025-04-16 11:40)
DX: K85.10 Biliary acute pancreatitis without necrosis or infection (principal); E66.811 Obesity, class 1; Z68.34 Body mass index [BMI] 34.0-34.9, adult; R74.01 Elevation of levels of liver transaminase levels
CPT/HCPCS: 36415; 74181; 74330; 76000; 76705; 80053; 81025; 83690; 84703; 85025; 85027; 93005; 94668; 99284; C2625; A4216; J2405

== ENCOUNTER 2025-04-18 10:39 | Inpatient (IN) | payer OTHER, SELFPAY ==
[2025-04-18] VITALS (8 sets, daily range): BP systolic 132–154; BP diastolic 80–114; PULSE 98–114; RESP 15–18; TEMP 36.8–37.3; O2SAT 94–99; BMI 34.4; BMI 34.6
--- NOTE | 2025-04-18 11:19 | ED.VIS.GI ---
HPI HPI - GI History of Present Illness Chief Complaint: Abd Pain Detail of Chief Complaint: Abdominal pain Informant: patient Narrative Narrative: Patient presents with abdominal pain that started this morning. Patient states that she was admitted last weekend and 3 days ago had a ERCP with a stent placed in her bile duct. She was discharged to home and had been doing relatively well till this morning. She denies nausea or vomiting. She denies fever. Denies urinary symptoms. Patient also states she had pancreatitis at the time and she was told they would not take her gallbladder until that improved. [facility] Medical History Gallstones Home Medications ?Medication ?Instructions ?Recorded ?Last Taken ?Type amoxicillin 875 mg-potassium 1 tab PO BID #14 tabs 04/16/25 Unknown Rx clavulanate 125 mg tablet oxycodone 5 mg tablet 5 mg PO Q4H PRN PRN Pain Score 04/16/25 Unknown Rx 4-10 3 days #10 tabs Allergy/AdvReac Type Severity Reaction Status Date / Time No Known Allergies Allergy Verified 04/18/25 10:43 Social History Smoking Status: Never smoker ROS ROS ED Review of Systems ROS Unobtainable: other Constitutional Constitutional ED: Reports lethargy; Denies chills, fever(s), sweats or weight loss Eyes Eyes: Denies blurry vision, change in vision or diplopia ENT ENT ED: Denies rhinorrhea or sore throat Cardiovascular Cardiovascular: Denies chest pain, orthopnea or racing heartbeat Respiratory/Chest Respiratory/Chest: Denies cough, dyspnea, dyspnea on exertion, orthopnea or sputum Gastrointestinal Gastrointestinal: Reports abdominal pain; Denies diarrhea, nausea or vomiting Genitourinary Genitourinary ED: Denies dysuria, hematuria or urinary frequency Musculoskeletal Musculoskeletal: Denies arthralgias, back pain, myalgias or neck pain Integumentary Denies abscess, Abrasions or rash Neurologic Neurologic: Denies headache(s) or weakness Psychiatric Psychiatric: Denies anxiety, depression or suicidal thoughts Endocrine Endocrinology: Denies polydipsia, polyphagia or polyuria Hematologic/Lymphatic Hematologic/Lymphatic: Denies easy bleeding, easy bruising or lymphadenopathy Allergic/Immunologic Allergic/Immunologic ED: Denies mouth swelling, tongue swelling or urticaria EXAM Physical Exam Const Vital Signs: 04/18/25 10:41 04/18/25 13:00 04/18/25 14:00 Temperature 99.1 F 98.3 F Temperature Source Oral Oral Pulse Rate 111 H 103 H 103 H Respiratory Rate 16 18 18 Blood Pressure 154/114 H 139/95 H 138/91 H Blood Pressure Mean 127 109 106 Pulse Ox 99 98 Oxygen Delivery Method Room Air Room Air 04/18/25 14:55 Temperature 98.7 F Temperature Source Pulse Rate 114 H Respiratory Rate 18 Blood Pressure 140/98 H Blood Pressure Mean 112 Pulse Ox 94 Oxygen Delivery Method Positive well nourished and well developed General Appearance ED: well developed and NAD HEENT Reports TM's clear and moist mucous membranes normocephalic and atraumatic; Negative for trauma or tenderness Tympanic Membrane ED: Yes TM's clear Eyes PERRL and EOMs intact bilaterally General Eye ED: Negative for pale conjunctiva or scleral icterus Neck no lymphadenopathy, supple and no JVD General: Negative for tenderness Chest Wall inspection of chest normal and palpation of chest normal Chest: Negative for tenderness Resp normal respiratory effort and clear to auscultation bilaterally Effort and Inspection: Negative for respiratory distress or pain with movement Auscultation: Negative for rhonchi, wheezes or diminished lung sounds Cardio regular rate, regular rhythm, S1 normal heart sound, S2 normal heart sound and no murmurs Peripheral Pulses: pulses 2+ throughout GI normal to inspection, nondistended, normoactive bowel sounds, soft to palpation, non-distended and no masses GI Narrative: Patient presents with tenderness to palpation over the epigastric region and right upper quadrant. There is a mild guarding. There is no rebound, rigidity, or peritoneal signs. Back/Spine no CVA tenderness and no thoracic nor lumbar tenderness Extremity normal to inspection General Extremety ED: Negative for edema General Extremity: Negative for edema Neuro oriented x3, CN's II-XII intact bilaterally, no sensory deficits noted and gait normal Sensorium / Orientation: awake, alert, oriented to person, oriented to place and oriented to time Motor Exam: strength 5/5 throughout and strength abnormal Psych mental status grossly normal Skin no rashes or lesions noted and no wounds MDM MDM MDM Narrative Medical decision making narrative: Patient presents with ongoing abdominal pain after being admitted to the hospital for gallstones and had stent placed to the bile duct by Dr. Rogers. Developed more pain last evening and more severe today despite oxycodone at home. Tenderness to palpation over the epigastric region radiating to her back. IV line established. She was medicated with Dilaudid and Zofran. CBC with differential obtained showed white count 9.7 with hemoglobin 11.3 and platelet count of 351. Chemistries unremarkable. LFTs showed minimal elevation in ALT at 58 and alk phos of 109 however these are improved compared to during her admission. hCG was negative. Lipase was normal at 51. CT scan of the abdomen pelvis was obtained to evaluate her stent placement and evaluate for cause of pain. Still had evidence of inflammatory changes around the pancreas as well as gallstones with Demetrio cholecystic fluid and gallbladder wall thickening. Discussed case with hospitalist who knows patient and admitted patient during her stay. He will evaluate patient for admission and he will consult with GI as well as general surgery for definitive care. Lab Data Attestation: I reviewed the patient's lab results. Labs: Laboratory Results - last 24 hr 04/18/25 11:45 WBC 9.7 RBC 3.89 L Hgb 11.3 L Hct 33.3 L MCV 85.6 MCH 29.0 MCHC 33.9 D RDW Std Deviation 41.8 RDW Coeff of Miles 13.2 Plt Count 351 MPV 9.0 Immature Gran % (Auto) 0.400 Neut % (Auto) 71.1 H Lymph % (Auto) 20.8 [place] % (Auto) 6.7 Eos % (Auto) 0.6 Baso % (Auto) 0.4 Absolute Neuts (auto) 6.9 Absolute Lymphs (auto) 2.01 Nucleated RBC % 0 Sodium 140 Potassium 2.9 L Chloride 104 Carbon Dioxide 24.5 Anion Gap 11 BUN 4 Creatinine 0.56 L Estim Creat Clear Calc 175.57 Est GFR (MDRD) Non-Af 131 BUN/Creatinine Ratio 6.4 L Glucose 87 Calcium 8.9 Total Bilirubin 0.37 AST 13 ALT 58 H Alkaline Phosphatase 109 H Total Protein 6.7 Albumin 3.6 Globulin 3.1 Albumin/Globulin Ratio 1.1 Lipase 51 Serum , Qual NEGATIVE Radiography Diagnostic Testing: Clinical Impression(s) from Imaging Studies Abdomen/Pelvis CT 04/18/25 12:30 IMPRESSION: Findings in keeping with acute pancreatitis as described. Biliary stent is seen within the common bile duct. Multiple small gallstones with the small amount of pericholecystic fluid and gallbladder wall thickening. Reading Location: [id number] Discharge Plan Dx/Rx/DC Orders Clinical Impression: Abdominal pain, Pancreatitis, Cholelithiasis Disposition Disposition: Acute Care Hospital [facility]
[2025-04-18 11:57] LABS: Hematocrit 33.3 % (37-47); Hemoglobin 11.3 g/dL (12.0-15.0); Immature Granulocytes Count 0.040 X10^3/uL (0.0-0.0); Mean Corp Hgb Conc 33.9 g/dL (32-36); Mean Corpuscular Volume 85.6 fL (81-99); Mean Platelet Vol. 9.0 fl (6.2-12.0); NRBC Flagged by Analyzer 0 % (0-5); Platelet Count 351 K/mm3 (150-450); RBC Distribution Width CV 13.2 % (11.6-14.6); RBC Distribution Width SD 41.8 fl (35.1-43.9); Red Blood Count 3.89 M/mm3 (4.2-5.4); White Blood Count 9.7 K/mm3 (4.4-11.0)
[2025-04-18 12:09] LABS: Internal QC Validated? YES +Cl - CLEAR BKGD; Pregnancy, Serum, hCG Quali. NEGATIVE Negative; Record Kit Lot#, Serum Preg. 0000980607
[2025-04-18] MEDS: 0.9% Normal Saline (1000mL) 1,000 ML 125 ML IV ×2 (12:13→17:18)
--- NOTE | 2025-04-18 12:30 | CT_ITS ---
PROCEDURE: CT/Abdomen/Pelvis W IV Cont ONLY
[2025-04-18 12:35] LABS: AST(SGOT) 13 U/L (<=31); Alanine Aminotransfer ALT/SGPT 58 U/L (<=34); Albumin, Serum 3.6 g/dL (3.5-5.0); Alkaline Phosphatase 109 U/L (35-104); Anion Gap 11 (5-15); BUN 4 mg/dL (4-19); BUN/Creat Ratio 6.4 RATIO (10-20); Calcium,Total 8.9 mg/dL (7.6-11.0); Carbon Dioxide 24.5 mmol/L (21.0-32.0); Chloride 104 mmol/L (98-108); Estimated Creatinine Clearance 175.57 ml/min (50-250); Globulin 3.1 g/dL (2.2-4.2); Glucose 87 mg/dL (70-99); Lipase 51 U/L (13-75); Potassium 2.9 mmol/L (3.3-5.1)
--- NOTE | 2025-04-18 14:07 | PCM.HP.STD ---
HPI - General General Date of Admission: 04/18/25 Date of Service: 04/18/25 Chief Complaint: Recurrent abdominal pain HPI Narrative NEL ALBRECHT, is a 24 F who presented to [facility] ED on 04/18/2025 with recurrent abdominal pain. Patient was hospitalized here from 04/14-04/16 for gallstone pancreatitis. ERCP with Dr. Rogers on 04/16 with choledocholithiasis found with complete removal, single localized biliary stricture found in the lower third of the main bile duct, one temporary stent placed into the common bile duct. Patient feeling well postoperatively and was able to tolerate diet, so she was discharged home that evening. She returned to the ED today with recurrent abdominal pain. CT abdomen pelvis showed continued acute pancreatitis and multiple small gallstones with gallbladder wall thickening. However, lipase and LFTs were continue to downtrend well. She was given doses of pain medication without much improvement, so hospitalist was contacted for admission. I saw the patient at bedside in the ED, was present. Patient was sitting back fairly comfortably in bed and answering questions appropriately. She has a flat affect and this was present on prior admission as well. She reported mild improvement in pain with the pain medication. Notes that she feels thirsty currently, does not feel hungry. No other acute concerns currently. Will be admitted for further management. [facility] Medical History Anxiety Depression Gallstones Home Medications ?Medication ?Instructions ?Recorded ?Last Taken ?Type amoxicillin 875 mg-potassium 1 tab PO BID #14 tabs 04/16/25 04/18/25 05:30 Rx clavulanate 125 mg tablet oxycodone 5 mg tablet 5 mg PO Q4H PRN PRN Pain Score 04/16/25 Unknown Rx 4-10 3 days #10 tabs Allergy/AdvReac Type Severity Reaction Status Date / Time No Known Allergies Allergy Verified 04/18/25 10:43 Social History Smoking Status: Never smoker ROS Constitutional Constitutional: Reports fatigue; Denies chills, fever(s) or weakness Cardiovascular Cardiovascular: Denies chest pain Respiratory/Chest Respiratory/Chest: Denies shortness of breath at rest Gastrointestinal Gastrointestinal: Reports abdominal pain; Denies constipation, diarrhea, nausea or vomiting Musculoskeletal Musculoskeletal: Denies arthralgias or myalgias Neurologic Neurologic: Denies dizziness, focal weakness or headache(s) Vital Signs Vital Signs Vital Signs: 04/18/25 10:41 04/18/25 13:00 Temperature 99.1 F 98.3 F Temperature Source Oral Oral Pulse Rate 111 H 103 H Respiratory Rate 16 18 Blood Pressure 154/114 H 139/95 H Blood Pressure Mean 127 109 Pulse Ox 99 98 Oxygen Delivery Method Room Air Room Air Weight Weight: 93.984 kg Body Mass Index (BMI) 34.4 Physical Exam Const alert, oriented x3 and no apparent distress Constitutional Narrative: Young female, class I obesity, flat affect, fairly comfortable appearing, otherwise sitting back in bed and answering questions appropriately, in no acute distress. General Appearance: cooperative HEENT normocephalic, head/scalp atraumatic, hearing grossly normal bilaterally, nasal mucous membranes and turbinates normal and moist oral mucous membranes Eyes PERRL, EOMs intact bilaterally and conjunctivae normal Neck full ROM Chest inspection of chest normal Resp normal respiratory effort, normal air movement, no use of accessory muscles and clear to auscultation bilaterally Cardio no murmurs and peripheral pulses 2+ throughout Cardio Narrative: Tachycardic, regular rhythm. GI GI Narrative: Abdomen mildly tender diffusely to palpation but otherwise soft and nondistended. Back/Spine normal ROM Extremity normal to inspection, full ROM and no pedal edema Skin no rashes or lesions noted Psych mental status grossly normal Psych Narrative: Flat affect noted. Results Lab / Micro Data 04/18/25 11:45 04/18/25 11:45 Labs: Laboratory Results - last 24 hr 04/18/25 11:45: WBC 9.7, RBC 3.89 L, Hgb 11.3 L, Hct 33.3 L, MCV 85.6, MCH 29.0, MCHC 33.9 D, RDW Std Deviation 41.8, RDW Coeff of Miles 13.2, Plt Count 351, MPV 9.0, Immature Gran % (Auto) 0.400, Neut % (Auto) 71.1 H, Lymph % (Auto) 20.8, Armstrong % (Auto) 6.7, Eos % (Auto) 0.6, Baso % (Auto) 0.4, Absolute Neuts (auto) 6.9, Absolute Lymphs (auto) 2.01, Nucleated RBC % 0, Sodium 140, Potassium 2.9 L, Chloride 104, Carbon Dioxide 24.5, Anion Gap 11, BUN 4, Creatinine 0.56 L, Estim Creat Clear Calc 175.57, Est GFR (MDRD) Non-Af 131, BUN/Creatinine Ratio 6.4 L, Glucose 87, Calcium 8.9, Total Bilirubin 0.37, AST 13, ALT 58 H, Alkaline Phosphatase 109 H, Total Protein 6.7, Albumin 3.6, Globulin 3.1, Albumin/Globulin Ratio 1.1, Lipase 51, Serum , Qual NEGATIVE Imaging Radiology Impression Abdomen/Pelvis CT 04/18/25 12:30 IMPRESSION: Findings in keeping with acute pancreatitis as described. Biliary stent is seen within the common bile duct. Multiple small gallstones with the small amount of pericholecystic fluid and gallbladder wall thickening. Reading Location: [id number] Assessment & Plan Assessment/Plan (1) Abdominal pain: PLAN: Plan Patient is a 24-year-old female who presented to [facility] on 04/18/2025 with recurrent abdominal pain. 1. Recurrent abdominal pain in setting of recent gallstone pancreatitis ? Admit under inpatient status to [facility]. GI and general surgery consulted. Recently hospitalized from 04/14-04/16 for gallstone pancreatitis. ERCP on 04/16 with choledocholithiasis found with complete removal, single localized biliary stricture found in the lower third of the main bile duct, one temporary stent placed into the common bile duct. Repeat CT abdomen pelvis on this admit showed ongoing acute pancreatitis, multiple small gallstones with small amount of pericholecystic fluid and gallbladder wall thickening. Lipase and LFTs have downtrended significantly from previous admission. Suspect recurrent pain may be due to ongoing pancreatitis. Will give judicious IV fluids overnight and as needed medications ordered for pain control. Okay for clear liquid diet for now, will keep n.p.o. at midnight. Appreciate further specialist recommendations. 2. Hypokalemia ? Potassium 2.9 on admit. Mag and Phos ordered. Will replete as needed. 3. Mild normocytic anemia ? Hemoglobin 11.3 on admit, was 12.5 on recent admission. Iron studies with ferritin ordered. Follow-up a.m. CBC. 4. Class I obesity ? BMI 34 on admit. Complicates hospital course and care. Encouraged lifestyle modifications. DVT prophylaxis: Lovenox CODE STATUS: Full code, verified Expected disposition: Home, TBD Total clinical time spent by myself addressing the patient's medical issues, reviewing all the data, and collaborating with patient's care team: 59 minutes. Charges/Coding Visit Charges Inpatient E&M: 84450 Init Hosp L2
--- NOTE | 2025-04-18 17:28 | EX.PCM.CON.G ---
HPI Consult Data Date of Consult: 04/18/25 HPI Narrative Reason for Consultation: Pancreatitis HPI Narrative: NEL ALBRECHT, is a 24 F who presents s to the Emergency Department (ED) on 04/18/2025 with worsening abdominal pain, following a recent hospitalization for gallstone pancreatitis. She had undergone an ERCP on 04/16/2025 with temporary biliary stenting and was discharged home on a low-fat diet. Patient is a 24-year-old female with a history of symptomatic gallstones. One month prior to her last hospitalization, she was diagnosed with gallstones at [facility] following similar symptoms. She reports an increase in the frequency of gallbladder attacks in recent weeks. The current illness began on 04/13/2025 at approximately 6 PM, with right upper quadrant pain, nausea, and vomiting, following dinner. The pain persisted overnight and prompted her presentation to [facility] ED on 04/14/2025. Diagnosed with gallstone pancreatitis and cholecystitis. Underwent ERCP on 04/16/2025, which confirmed a small gallstone in the common bile duct and an inflammatory stricture. A temporary stent was placed after duct sweeping. Following the procedure, she was started on a low-fat diet and was discharged home on 04/16/2025 after tolerating it well. She now presents on 04/18/2025 with worsening abdominal pain.] Labs (04/18/2025): WBC:?Normal Hgb:?11.3 (decreased from 12.5) Hct:?33.3% (decreased from 39.2%) K:?2.9 (decreased) BUN:?4 ALT:?58 (decreased from 140) Alk Phos:?109 (decreased from 134) Total Bili:?0.37 (decreased from 2.4) Imaging (CT Abdomen/Pelvis, 04/18/2025): Acute pancreatitis. Normal biliary stent. Multiple stones and cholecystitis. [facility] Medical History Anxiety Depression Gallstones Home Medications ?Medication ?Instructions ?Recorded ?Last Taken ?Type amoxicillin 875 mg-potassium 1 tab PO BID #14 tabs 04/16/25 04/18/25 05:30 Rx clavulanate 125 mg tablet oxycodone 5 mg tablet 5 mg PO Q4H PRN PRN Pain Score 04/16/25 Unknown Rx 4-10 3 days #10 tabs Allergy/AdvReac Type Severity Reaction Status Date / Time No Known Allergies Allergy Verified 04/18/25 10:43 Social History Smoking Status: Never smoker ROS Constitutional Constitutional: Denies fatigue, fever(s), poor appetite, weight gain or weight loss Gastrointestinal Gastrointestinal: Denies belching, bloating, change in bowel habits, change in stool character, chewing difficulty, coffee ground emesis, constipation, cramping, diarrhea, dyspepsia, dysphagia, early satiety, excessive flatus, fecal incontinence, heartburn, hematemesis, hematochezia, hemorrhoids, loose stools, melena, nausea, odynophagia, rectal bleeding, tenesmus, vomiting or weight changes Physical Exam Const alert, oriented x3, no apparent distress and healthy appearing General Appearance: cooperative GI normal to inspection, nondistended, normoactive bowel sounds, soft to palpation, non-tender and non-distended Percussion: normal to percussion Rectal Exam: deferred Lab / Micro Data 04/18/25 11:45 04/18/25 11:45 Labs: Laboratory Results - last 24 hr 04/18/25 11:45: WBC 9.7, RBC 3.89 L, Hgb 11.3 L, Hct 33.3 L, MCV 85.6, MCH 29.0, MCHC 33.9 D, RDW Std Deviation 41.8, RDW Coeff of Miles 13.2, Plt Count 351, MPV 9.0, Immature Gran % (Auto) 0.400, Neut % (Auto) 71.1 H, Lymph % (Auto) 20.8, [place] % (Auto) 6.7, Eos % (Auto) 0.6, Baso % (Auto) 0.4, Absolute Neuts (auto) 6.9, Absolute Lymphs (auto) 2.01, Nucleated RBC % 0, Sodium 140, Potassium 2.9 L, Chloride 104, Carbon Dioxide 24.5, Anion Gap 11, BUN 4, Creatinine 0.56 L, Estim Creat Clear Calc 175.57, Est GFR (MDRD) Non-Af 131, BUN/Creatinine Ratio 6.4 L, Glucose 87, Calcium 8.9, Total Bilirubin 0.37, AST 13, ALT 58 H, Alkaline Phosphatase 109 H, Total Protein 6.7, Albumin 3.6, Globulin 3.1, Albumin/Globulin Ratio 1.1, Lipase 51, Serum , Qual NEGATIVE Imaging Radiology Impression Abdomen/Pelvis CT 04/18/25 12:30 IMPRESSION: Findings in keeping with acute pancreatitis as described. Biliary stent is seen within the common bile duct. Multiple small gallstones with the small amount of pericholecystic fluid and gallbladder wall thickening. Reading Location: [id number] Assessment & Plan Assessment/Plan (1) Cholelithiasis: (2) Pancreatitis: (3) Abdominal pain: PLAN: ?24-year-old female with a history of gallstone pancreatitis and cholecystitis who presents with a recurrent episode of abdominal pain following ERCP with biliary stenting. Her clinical picture is complicated by a decrease in hemoglobin and hematocrit and hypokalemia, though her liver function tests and bilirubin have improved since the initial presentation. The current CT scan shows persistent acute pancreatitis and cholecystitis, despite the stent appearing to be in a normal position. The worsening abdominal pain is concerning for a flare-up of her pancreatitis or cholecystitis. Acute pancreatitis:?Her initial presentation on 04/14/2025 included significantly elevated lipase and imaging confirming acute pancreatitis, likely caused by a gallstone. While her LFTs and bilirubin have improved since the ERCP, the new CT scan confirms ongoing inflammation. Cholecystitis:?The CT scan findings of a distended gallbladder with multiple stones, coupled with her history of gallbladder attacks and current abdominal pain, indicate acute cholecystitis. Post-ERCP status:?The biliary stent appears normal, suggesting the ERCP successfully addressed the ductal obstruction. However, the continued symptoms and new imaging findings point to an ongoing biliary issue stemming from the gallbladder. Anemia and hypokalemia:?The drop in hemoglobin/hematocrit and the low potassium level warrant further investigation and correction. Plan Surgical Consult:?Consult with a general surgeon immediately regarding definitive management with a cholecystectomy for both the acute cholecystitis and to prevent future gallstone pancreatitis. Monitor Status:?Continue to monitor her abdominal pain, vital signs, and laboratory values, including a follow-up complete blood count and electrolyte panel. Address Anemia:?Investigate the cause of the decrease in hemoglobin and hematocrit. Follow with successive hemoglobin and hematocrit. I would like to see the hematocrit persistently less than 35 in the setting of acute or subacute pancreatitis. Correct Electrolyte Imbalance:?Administer potassium supplementation to correct the hypokalemia. Pain Management:?Provide appropriate pain control, with consideration for pancreatitis-related pain. Diet:?Continue the low-fat diet regimen. Fluid Management:?Maintain adequate hydration with intravenous fluids, adjusting based on her electrolyte levels and clinical status. Change normal saline to lactated Ringer's at 250 cc an hour. Charges/Coding Visit Charges Inpatient E&M: 46157 Init Hosp L3
--- NOTE | 2025-04-18 18:05 | EX.PCM.CON.S ---
Assessment & Plan Assessment/Plan (1) Gallstone pancreatitis: PLAN: Patient 24-year-old female who has required readmission for management of symptoms related to a primary diagnosis of gallstone pancreatitis now status post ERCP with common duct stenting. Surgery evaluated patient during her last admission and determined she should undergo cholecystectomy in a delayed fashion to minimize her operative risk as it related to significant pancreatic inflammation. In my evaluation today patient primarily complains of epigastric and left upper quadrant pain. In my independent review of her CT imaging there appears to be some progression of the peripancreatic edema and fluid around the tail of the pancreas in particular. She, furthermore, had a negative Rice sign on exam. This suggests that her primary issue remains the sequelae of her pancreatitis rather than development of cholecystitis and it is probable that the inflammatory change noted about her gallbladder is simply secondary from the edema related to the pancreatitis. This impression was shared with patient and also discussed with patient's initial consulting surgeon Dr. Patel who will assume care of patient tomorrow. Will await his evaluation for final treatment plan but at this point not planning for imminent cholecystectomy. Agree with supportive care measures recommended by gastroenterology to include ongoing IV fluid resuscitation, correction of hypokalemia, and introduction of a low-fat diet when appropriate. Will continue to follow. Robles Elizondo MD General Surgery Endocrine Surgery Pager: [facility] [address] [place] [address], [address] [place] [address] Office: [phone] HPI Consult Data Date of Consult: 04/18/25 HPI Narrative Reason for Consultation: History of gallstone pancreatitis with present concern for possible acute c HPI Narrative: NEL ALBRECHT, is a 24 F who presents to [facility] after recent discharge 04/16/2025 following treatment for gallstone pancreatitis. Patient was just admitted 04/14/2025 and underwent ERCP with gastroenterology on 04/16/2025 with clearance of the common bile duct and stent placement. She states that she is doing well upon discharge but last evening developed mild pain that progressed through the morning and became intense epigastric pain to the point that she sought evaluation. She describes the pain as having a radiating character through to her back. She notes that she had some chills at home but did not record a fever when her temperature was taken. She states that her last bowel movement was 2 days ago and denies any unusual characteristics with her urine. She does state that she is hungrier than her last admission. Patient's ED workup notable for CMP that showed improvements ALT and alkaline phosphatase with normalization of her AST and T. bili values. Additionally, patient's lipase was within normal limits. White blood cell count was also notably normal. CT imaging of the abdomen pelvis was obtained which was read by radiology as showing thickened gallbladder wall with Demetrio cholecystic fluid as well as fluid around the pancreas in keeping with acute pancreatitis. [facility] Medical History Anxiety Depression Gallstones Home Medications ?Medication ?Instructions ?Recorded ?Last Taken ?Type amoxicillin 875 mg-potassium 1 tab PO BID #14 tabs 04/16/25 04/18/25 05:30 Rx clavulanate 125 mg tablet oxycodone 5 mg tablet 5 mg PO Q4H PRN PRN Pain Score 04/16/25 Unknown Rx 4-10 3 days #10 tabs Allergy/AdvReac Type Severity Reaction Status Date / Time No Known Allergies Allergy Verified 04/18/25 10:43 Social History Smoking Status: Never smoker Physical Exam Const Constitutional Narrative: Patient appears fatigued and relaxed but is overall cooperative. Resp normal respiratory effort GI GI Narrative: Obese, abdominal striae present, abdominal wall radiating heat from recent heating pad application. Abdomen is nondistended, soft, and tender to palpation in the epigastrium as well as the left upper quadrant. There is mild tenderness with palpation of the right upper quadrant but negative Rice sign. Lab / Micro Data 04/18/25 11:45 04/18/25 11:45 Labs: Laboratory Results - last 24 hr 04/18/25 11:45: WBC 9.7, RBC 3.89 L, Hgb 11.3 L, Hct 33.3 L, MCV 85.6, MCH 29.0, MCHC 33.9 D, RDW Std Deviation 41.8, RDW Coeff of Miles 13.2, Plt Count 351, MPV 9.0, Immature Gran % (Auto) 0.400, Neut % (Auto) 71.1 H, Lymph % (Auto) 20.8, [place] % (Auto) 6.7, Eos % (Auto) 0.6, Baso % (Auto) 0.4, Absolute Neuts (auto) 6.9, Absolute Lymphs (auto) 2.01, Nucleated RBC % 0, Sodium 140, Potassium 2.9 L, Chloride 104, Carbon Dioxide 24.5, Anion Gap 11, BUN 4, Creatinine 0.56 L, Estim Creat Clear Calc 175.57, Est GFR (MDRD) Non-Af 131, BUN/Creatinine Ratio 6.4 L, Glucose 87, Calcium 8.9, Total Bilirubin 0.37, AST 13, ALT 58 H, Alkaline Phosphatase 109 H, Total Protein 6.7, Albumin 3.6, Globulin 3.1, Albumin/Globulin Ratio 1.1, Lipase 51, Serum , Qual NEGATIVE Imaging Radiology Impression Abdomen/Pelvis CT 04/18/25 12:30 IMPRESSION: Findings in keeping with acute pancreatitis as described. Biliary stent is seen within the common bile duct. Multiple small gallstones with the small amount of pericholecystic fluid and gallbladder wall thickening. Reading Location: [id number] Charges/Coding Visit Charges Inpatient E&M: 60122 Init Hosp L2
[2025-04-18] MEDS: Lactated Ringers 1,000 ML 250 ML IV ×2 (18:44→23:11)
[2025-04-18 22:06] LABS: Ferritin 169 ng/mL (22-378); Iron 16 ug/dL (50-170); Iron Binding Capacity,Total 302 ug/dL (250-450); Iron Binding Capacity,Unsat 286 ug/dL (228-428); Magnesium 1.7 mg/dL (1.5-2.2)
[2025-04-18] MEDS: Potassium Chloride Oral Tablet 20 MEQ 40 MEQ PO (22:07)
[2025-04-18] MEDS: Piperacil/Tazobactam 3.375 GM in 0.9% Normal Saline (50mL MB+) 50 ML IV (22:07)
[2025-04-19] VITALS (7 sets, daily range): BP systolic 123–139; BP diastolic 80–91; PULSE 77–112; RESP 17–18; TEMP 36.4–38.1; O2SAT 96–99
[2025-04-19] MEDS: 0.9% Normal Saline (1000mL) 1,000 ML 250 ML IV ×2 (00:44→04:47)
[2025-04-19] MEDS: Piperacil/Tazobactam 3.375 GM in 0.9% Normal Saline (50mL MB+) 50 ML IV (05:15)
[2025-04-19 07:11] LABS: Hematocrit 32.7 % (37-47); Hemoglobin 10.7 g/dL (12.0-15.0); Mean Corp Hgb Conc 32.7 g/dL (32-36); Mean Corpuscular Volume 86.5 fL (81-99); Mean Platelet Vol. 9.0 fl (6.2-12.0); Platelet Count 331 K/mm3 (150-450); RBC Distribution Width CV 13.3 % (11.6-14.6); RBC Distribution Width SD 42.2 fl (35.1-43.9); Red Blood Count 3.78 M/mm3 (4.2-5.4); White Blood Count 11.3 K/mm3 (4.4-11.0)
[2025-04-19 07:37] LABS: AST(SGOT) 11 U/L (<=31); Alanine Aminotransfer ALT/SGPT 39 U/L (<=34); Albumin, Serum 3.2 g/dL (3.5-5.0); Alkaline Phosphatase 79 U/L (35-104); Anion Gap 11 (5-15); BUN 3 mg/dL (4-19); BUN/Creat Ratio 6.3 RATIO (10-20); Calcium,Total 8.6 mg/dL (7.6-11.0); Carbon Dioxide 21.9 mmol/L (21.0-32.0); Chloride 107 mmol/L (98-108); Estimated Creatinine Clearance 201.00 ml/min (50-250); Globulin 3.0 g/dL (2.2-4.2); Glucose 95 mg/dL (70-99); Potassium 3.2 mmol/L (3.3-5.1)
--- NOTE | 2025-04-19 08:04 | NURSING ---
pt a&ox3. RA no distress noted. abd soft, tender w/ palpation. pt states pain mild/tolerable at this time. pt denies all needs. bedside and Dr. Woods in to see patient. call light within reach. CUSTOMER SUPPORT SPECIALIST documentation being reviewed.
--- NOTE | 2025-04-19 08:20 | PCM.PN.SRG ---
Subjective Subjective Patient evaluated resting comfortably in bed. She notes pain is minimal this morning. She notes most of the discomfort is in the epigastric and left upper quadrant pain. She denies pain in the RUQ. Objective Data Objective Data Vital Signs: Vital Signs Temp Pulse Resp BP Pulse Ox O2 Del Method 97.6 F L 77 18 123/80 H 99 Room Air 04/19/25 07:41 04/19/25 07:41 04/19/25 07:41 04/19/25 07:41 04/19/25 07:41 04/19/25 07:41 Oxygen Delivery Method Room Air Weight: 207 lb 14.334 oz Body Mass Index (BMI) 34.6 Intake & Output: Intake and Output for Last 24 Hours 04/17/25 04/18/25 04/19/25 23:59 23:59 23:59 Intake Total 2333.34 / 2533.34 2357.5 / 2357.5 Balance 2333.34 / 2533.34 2357.5 / 2357.5 Lab / Micro Data 04/19/25 06:56 04/19/25 06:56 Labs: Laboratory Results - last 24 hr 04/18/25 11:45: WBC 9.7, RBC 3.89 L, Hgb 11.3 L, Hct 33.3 L, MCV 85.6, MCH 29.0, MCHC 33.9 D, RDW Std Deviation 41.8, RDW Coeff of Miles 13.2, Plt Count 351, MPV 9.0, Immature Gran % (Auto) 0.400, Neut % (Auto) 71.1 H, Lymph % (Auto) 20.8, [place] % (Auto) 6.7, Eos % (Auto) 0.6, Baso % (Auto) 0.4, Absolute Neuts (auto) 6.9, Absolute Lymphs (auto) 2.01, Nucleated RBC % 0, Sodium 140, Potassium 2.9 L, Chloride 104, Carbon Dioxide 24.5, Anion Gap 11, BUN 4, Creatinine 0.56 L, Estim Creat Clear Calc 175.57, Est GFR (MDRD) Non-Af 131, BUN/Creatinine Ratio 6.4 L, Glucose 87, Calcium 8.9, Phosphorus 2.8, Magnesium 1.7, Iron 16 L, TIBC 302, Iron Saturation 5.3 L, Unsaturated IBC 286, Ferritin 169, Total Bilirubin 0.37, AST 13, ALT 58 H, Alkaline Phosphatase 109 H, Total Protein 6.7, Albumin 3.6, Globulin 3.1, Albumin/Globulin Ratio 1.1, Lipase 51, Serum , Qual NEGATIVE 04/19/25 06:56: WBC 11.3 H, RBC 3.78 L, Hgb 10.7 L, Hct 32.7 L, MCV 86.5, MCH 28.3, MCHC 32.7, RDW Std Deviation 42.2, RDW Coeff of Miles 13.3, Plt Count 331, MPV 9.0, Sodium 140, Potassium 3.2 L, Chloride 107, Carbon Dioxide 21.9, Anion Gap 11, BUN 3 L, Creatinine 0.49 L, Estim Creat Clear Calc 201.00, Est GFR (MDRD) Non-Af 135, BUN/Creatinine Ratio 6.3 L, Glucose 95, Calcium 8.6, Total Bilirubin 0.45, AST 11, ALT 39 H, Alkaline Phosphatase 79, Total Protein 6.2, Albumin 3.2 L, Globulin 3.0, Albumin/Globulin Ratio 1.1 Radiography Diagnostic Testing: Radiology Impression Abdomen/Pelvis CT 04/18/25 12:30 IMPRESSION: Findings in keeping with acute pancreatitis as described. Biliary stent is seen within the common bile duct. Multiple small gallstones with the small amount of pericholecystic fluid and gallbladder wall thickening. Reading Location: [facility] Physical Exam GI GI Narrative: Abdomen- soft, tenderness in the epigastric and LUQ region. Hypoactive bowel sounds. Assessment & Plan Assessment/Plan (1) Pancreatitis: QUALIFIERS: Chronicity: acute Pancreatitis type: biliary Acute pancreatitis complication: unspecified Qualified Code(s): K85.10 - Biliary acute pancreatitis without necrosis or infection (2) Abdominal pain: QUALIFIERS: Abdominal location: upper abdomen, unspecified Qualified Code(s): R10.10 - Upper abdominal pain, unspecified (3) Cholelithiasis: QUALIFIERS: Cholelithiasis location: gallbladder Cholecystitis presence: with cholecystitis Biliary obstruction: without biliary obstruction Cholecystitis acuity: acute Qualified Code(s): K80.00 - Calculus of gallbladder with acute cholecystitis without obstruction PLAN: Plan I am following this patient in conjunction with Dr. Patel. He will independently evaluate this patient. Labs reviewed Continue IV fluid support Continue full liquid diet No surgical intervention planned at this time to remove the gallbladder An outpatient cholecystectomy would be recommended to allow the inflammation to the pancreas resolve We will continue to monitor this patient Charges/Coding Visit Charges Inpatient E&M: 15250 Subs Hosp L2
--- NOTE | 2025-04-19 09:34 | PCM.PN.HOSP ---
Subjective Subjective Doing well, minimal to no pain in her abdomen today Objective Data Objective Data Vital Signs: Vital Signs Temp Pulse Resp BP Pulse Ox O2 Del Method 97.6 F L 77 18 123/80 H 98 Room Air 04/19/25 07:41 04/19/25 07:41 04/19/25 07:41 04/19/25 07:41 04/19/25 07:57 04/19/25 07:57 Oxygen Delivery Method Room Air Weight: 207 lb 14.334 oz Body Mass Index (BMI) 34.6 Intake & Output: Intake and Output for Last 24 Hours 04/18/25 04/19/25 04/20/25 03:59 03:59 03:59 Intake Total 3570.84 / 3570.84 2170 / 2170 Balance 3570.84 / 3570.84 2170 / 2170 Lab / Micro Data 04/19/25 06:56 04/19/25 06:56 Labs: Laboratory Results - last 24 hr 04/18/25 11:45: WBC 9.7, RBC 3.89 L, Hgb 11.3 L, Hct 33.3 L, MCV 85.6, MCH 29.0, MCHC 33.9 D, RDW Std Deviation 41.8, RDW Coeff of Miles 13.2, Plt Count 351, MPV 9.0, Immature Gran % (Auto) 0.400, Neut % (Auto) 71.1 H, Lymph % (Auto) 20.8, [place] % (Auto) 6.7, Eos % (Auto) 0.6, Baso % (Auto) 0.4, Absolute Neuts (auto) 6.9, Absolute Lymphs (auto) 2.01, Nucleated RBC % 0, Sodium 140, Potassium 2.9 L, Chloride 104, Carbon Dioxide 24.5, Anion Gap 11, BUN 4, Creatinine 0.56 L, Estim Creat Clear Calc 175.57, Est GFR (MDRD) Non-Af 131, BUN/Creatinine Ratio 6.4 L, Glucose 87, Calcium 8.9, Phosphorus 2.8, Magnesium 1.7, Iron 16 L, TIBC 302, Iron Saturation 5.3 L, Unsaturated IBC 286, Ferritin 169, Total Bilirubin 0.37, AST 13, ALT 58 H, Alkaline Phosphatase 109 H, Total Protein 6.7, Albumin 3.6, Globulin 3.1, Albumin/Globulin Ratio 1.1, Lipase 51, Serum , Qual NEGATIVE 04/19/25 06:56: WBC 11.3 H, RBC 3.78 L, Hgb 10.7 L, Hct 32.7 L, MCV 86.5, MCH 28.3, MCHC 32.7, RDW Std Deviation 42.2, RDW Coeff of Miles 13.3, Plt Count 331, MPV 9.0, Sodium 140, Potassium 3.2 L, Chloride 107, Carbon Dioxide 21.9, Anion Gap 11, BUN 3 L, Creatinine 0.49 L, Estim Creat Clear Calc 201.00, Est GFR (MDRD) Non-Af 135, BUN/Creatinine Ratio 6.3 L, Glucose 95, Calcium 8.6, Total Bilirubin 0.45, AST 11, ALT 39 H, Alkaline Phosphatase 79, Total Protein 6.2, Albumin 3.2 L, Globulin 3.0, Albumin/Globulin Ratio 1.1 Radiography Diagnostic Testing: Radiology Impression Abdomen/Pelvis CT 04/18/25 12:30 IMPRESSION: Findings in keeping with acute pancreatitis as described. Biliary stent is seen within the common bile duct. Multiple small gallstones with the small amount of pericholecystic fluid and gallbladder wall thickening. Reading Location: [id number] Physical Exam Narrative General: Alert, Oriented x3, Cooperative, No apparent distress HEENT: Atraumatic, PERRLA, EOMI, Normocephalic Oral: Moist Mucosa Neck: Supple, No JVD Lungs: Diminished, Normal air movement, No rhonchi, No wheeze, No rales Cardiovascular: Regular rate, Regular Rhythm, Normal S1, Normal S2, No murmurs Abdomen: Soft, Non Tender, Non-Distended, No Hepato-splenomegaly Extremities: No edema, Capillary Refill Less than 3 Seconds Skin: No rashes, No breakdown Musculoskeletal: No Tenderness to Palpation of Joints or Extremities Neurological: No focal neurological deficits, moves all extremities Psych/Mental Status: Normal Affect, Appropriate Assessment & Plan Assessment/Plan (1) Abdominal pain: QUALIFIERS: Abdominal location: upper abdomen, unspecified Qualified Code(s): R10.10 - Upper abdominal pain, unspecified PLAN: Plan 1. Improving gallstone pancreatitis ? Lab work and all of her serum markers are improving ? Denies any pain today ? Continue with low-fat diet ? Does not appear that we will plan for any type of surgical intervention on the inpatient side ? Will discuss with her the possibility for discharge if she would like to go home today or tomorrow I would continue to advance her diet to low-fat ? Hypokalemia is improving will replace and monitor DVT: Kaela Charges/Coding Visit Charges Inpatient E&M: 13527 Subs Hosp L2
--- NOTE | 2025-04-19 10:40 | CASEMGMT ---
RN?CM?ASSESSMENT ? RN?CM?to room to meet with patient for initial transition planning/care coordination?assessment.?RN?CM?introduced self and role at [facility].? Pt voices understanding and consents to?assessment?at this time.? Pt resting in bed in no distress at this time.? Pt is A/O at this time and answers all questions appropriately.?? Care providers, pharmacy, and demographics verified/updated at this time. Pt was just admitted to [facility] 04/14-04/16 for gallstone pancreatitis. See CM readmission intervention. ? Strata: 1 PCP: Jesica Feng NP Specialists: Dr Falcon. Pt was to f/u with Dr Patel in 2 weeks from discharge 04/16. Appt had not been scheduled yet. states will call and schedule this if still needed after discharging. Preferred Pharmacy: [facility] Retail Insurance: [facility] Prescription Benefit:?none LNOK: Deonte Living Arrangements: Lives w/ & 10-wk-old son in home w/walk-in basement and flight of stairs to get to main part of home. Independent. Transportation:?Hire drivers DME: ? Denies using any DME and denies needs.? HHC/SNF: No hx of either. ? Pt wishes to return home and states has no concerns with going home at time of discharge. CM?to follow for any discharge planning/needs.?Advised pt and to ask for?CM?if any further questions/concerns/needs arise.? They voice understanding. ? PLAN:??Home ? Nadeem BSN?RN?CM ? ?
[2025-04-19] MEDS: Potassium Chloride Oral Tablet 20 MEQ 40 MEQ PO (10:59)
--- NOTE | 2025-04-19 12:24 | NURSING ---
SN and POWDER WORKER TNT documentation reviewed. pt resting quietly. medicated for pain. denies nausea at present. states had a late breakfast and wasn't sure if the food increased her pain. bedside. denies all further needs. call light within reach.
--- NOTE | 2025-04-19 16:35 | NURSING ---
timber faller documentation reviewed.
--- NOTE | 2025-04-19 17:55 | NURSING ---
machine tech documentation reviewed
[2025-04-19] MEDS: 0.9% Saline Lock 10 ML Syringe IV (21:39)
[2025-04-20 04:45] VITALS: BP 126/92; PULSE 83; RESP 18; TEMP 36.7; O2SAT 99
[2025-04-20 06:58] LABS: Hematocrit 36.5 % (37-47); Hemoglobin 11.9 g/dL (12.0-15.0); Immature Granulocytes Count 0.070 X10^3/uL (0.0-0.0); Mean Corp Hgb Conc 32.6 g/dL (32-36); Mean Corpuscular Volume 86.7 fL (81-99); Mean Platelet Vol. 8.8 fl (6.2-12.0); NRBC Flagged by Analyzer 0 % (0-5); Platelet Count 387 K/mm3 (150-450); RBC Distribution Width CV 13.2 % (11.6-14.6); RBC Distribution Width SD 41.4 fl (35.1-43.9); Red Blood Count 4.21 M/mm3 (4.2-5.4); White Blood Count 11.8 K/mm3 (4.4-11.0)
[2025-04-20 07:25] LABS: AST(SGOT) 11 U/L (<=31); Alanine Aminotransfer ALT/SGPT 29 U/L (<=34); Albumin, Serum 3.4 g/dL (3.5-5.0); Alkaline Phosphatase 108 U/L (35-104); Anion Gap 12 (5-15); BUN 5 mg/dL (4-19); BUN/Creat Ratio 9.8 RATIO (10-20); Calcium,Total 9.3 mg/dL (7.6-11.0); Carbon Dioxide 22.8 mmol/L (21.0-32.0); Chloride 105 mmol/L (98-108); Estimated Creatinine Clearance 196.98 ml/min (50-250); Globulin 3.4 g/dL (2.2-4.2); Glucose 92 mg/dL (70-99); Potassium 3.7 mmol/L (3.3-5.1)
[2025-04-20 09:45] VITALS: BP 136/96; PULSE 74; RESP 18; TEMP 36.8; O2SAT 99
--- NOTE | 2025-04-20 14:40 | DCINST_ITS ---
Discharge Instructions
--- NOTE | 2025-04-20 14:40 | PCM.DC ---
Discharge Instructions DC O2, CPAP, BIPAP needs Home O2 Discharge instructions: No Dressing / Incision Discharge Activity: Return to Normal Activity Dressing / Incision Call your doctor if you observe: Fever of 101 or Higher, Shortness of breath, Dizziness, Fainting spells, Swelling in the ankles, Chest pain and Increased palpitations (irregular heartbeat) Follow Up Care Test Results: Test results from this visit will be discussed in further detail at your follow-up appointment, if applicable. Discharge Plan Admission Admit Date/Time: 04/18/25 14:54 Attending Provider: Tong Woods Primary Care Provider: Jesica Feng NP Consulting Providers: Louie Jean-Baptiste; Alonzo Rogers; Colleen Urbina; Amada Jones; Brea Miranda; Robles Elizondo; Raghavendra Curiel Instructions Patient Instructions: Pancreatitis Acute Dc, ED Pancreatitis Discharge Orders/Prescriptions Prescriptions: Continued oxycodone 5 mg Tablet 5 mg PO Q4H PRN PRN (Reason: Pain Score 4-10) 3 Days Qty: 10 0RF amoxicillin-pot clavulanate 875-125 mg tablet 1 tab PO BID Qty: 14 0RF Referrals / Follow Up: Alonzo Rogers DO [Med Staff - Active Staff, Gastroenterology] - Within 1 Month Amaury Patel MD [Med Staff - Active Staff, General Surgery] - Within 2 Weeks Jesica Feng NP, DATA PROCESSING SYSTEMS PROJECT PLANNER-C [Primary Care Provider, Medical] - Within 1 Week Disposition Disposition (needs filled in before D/C Order can be placed): Home, Self Care
[2025-04-20 14:42] VITALS: BP 146/95; PULSE 110; RESP 18; TEMP 37.2; O2SAT 99
--- NOTE | 2025-04-20 14:52 | PHA.DC_ITS ---
Pharmacy DC Med Reconciliation
--- NOTE | 2025-04-20 14:52 | PHA.DC.MR.R ---
Pharmacy [place] Med Reconciliation Pharmacy Service has performed discharge medication reconciliation for this patient. The patient's discharge medication list was reviewed for discrepancies and discrepancies were resolved. Medications at Discharge Home Medications amoxicillin 875 mg-potassium clavulanate 125 mg tablet 1 tab PO BID #14 tabs 04/16/25 oxycodone 5 mg tablet 5 mg PO Q4H PRN PRN Pain Score 4-10 3 days #10 tabs 04/16/25
--- NOTE | 2025-04-20 15:00 | PCM.PN.SRG ---
Subjective Subjective The patient was seen and evaluated this afternoon on rounds. Her pain is much improved. She has been tolerating diet. She and her are anxious to be discharged and go home Objective Data Objective Data Vital Signs: Vital Signs Temp Pulse Resp BP Pulse Ox O2 Del Method 98.2 F 74 18 136/96 H 99 Room Air 04/20/25 09:45 04/20/25 09:45 04/20/25 09:45 04/20/25 09:45 04/20/25 09:45 04/20/25 09:49 Oxygen Delivery Method Room Air Weight: 207 lb 14.334 oz Body Mass Index (BMI) 34.6 Intake & Output: Intake and Output for Last 24 Hours 04/18/25 04/19/25 04/20/25 23:59 23:59 23:59 Intake Total 2333.34 / 2533.34 3527.5 / 3527.5 500 / 500 Balance 2333.34 / 2533.34 3527.5 / 3527.5 500 / 500 Lab / Micro Data 04/20/25 06:10 04/20/25 06:10 Labs: Laboratory Results - last 24 hr 04/20/25 06:10: WBC 11.8 H, RBC 4.21, Hgb 11.9 L, Hct 36.5 L, MCV 86.7, MCH 28.3, MCHC 32.6, RDW Std Deviation 41.4, RDW Coeff of Miles 13.2, Plt Count 387, MPV 8.8, Immature Gran % (Auto) 0.600, Neut % (Auto) 75.9 H, Lymph % (Auto) 15.0 L, [place] % (Auto) 7.4, Eos % (Auto) 0.8, Baso % (Auto) 0.3, Absolute Neuts (auto) 8.9 H, Absolute Lymphs (auto) 1.76, Nucleated RBC % 0, Sodium 140, Potassium 3.7, Chloride 105, Carbon Dioxide 22.8, Anion Gap 12, BUN 5, Creatinine 0.50 L, Estim Creat Clear Calc 196.98, Est GFR (MDRD) Non-Af 134, BUN/Creatinine Ratio 9.8 L, Glucose 92, Calcium 9.3, Total Bilirubin 0.34, AST 11, ALT 29, Alkaline Phosphatase 108 H, Total Protein 6.8, Albumin 3.4 L, Globulin 3.4, Albumin/Globulin Ratio 1.0 Physical Exam Narrative Abdomen is soft and minimally tender Const oriented x3 and no apparent distress Assessment & Plan Assessment/Plan (1) Gallstone pancreatitis: PLAN: Plan The patient is a 24-year-old female admitted with gallstone pancreatitis last week. She was readmitted secondary to worsening pancreatitis. She is now improving. Due to the amount of fluid seen on MRCP as it relates to the pancreas, I have recommended that we perform a an interval cholecystectomy in the near future rather than proceeding with cholecystectomy during this admission. The inflammation that is present now would only increase the risks of surgery. Patient feels ready to be discharged to home. Will discuss with admitting physician but I feel that it is appropriate to let her return home. Charges/Coding Visit Charges Inpatient E&M: 22856 Subs Hosp L3
--- NOTE | 2025-04-20 15:38 | PCM.DC.SUM ---
Providers Date of Admission: 04/18/25 Primary Care Physician: Jesica Feng, ROMÁN-C Consultations 04/18/25 16:02 Consult: Gastroenterology Routine Consulting Provider: Kwabena Gastroenterivonne Reason for Consult: recurrent abd pain, recent gallstone pancreatitis EMERGENT Consult: No Notified: Yes Date Notified: 04/18/25 Time Notified: 16:04 Method of Notification: Text Consult: General Surgery Routine Consulting Provider: Robles Elizondo Reason for Consult: recurrent abd pain, recent gallstone pancreatitis EMERGENT Consult: No Notified: Yes Date Notified: 04/18/25 Time Notified: 16:06 Method of Notification: Text Reason For Visit: ABDOMINAL PAIN Diagnosis Discharge Diagnosis (1) Gallstone pancreatitis: Status: Acute Code(s): K85.10 - Biliary acute pancreatitis without necrosis or infection Medications at Discharge Home Medications amoxicillin 875 mg-potassium clavulanate 125 mg tablet 1 tab PO BID #14 tabs 04/16/25 oxycodone 5 mg tablet 5 mg PO Q4H PRN PRN Pain Score 4-10 3 days #10 tabs 04/16/25 Hospital Course Operations None Procedures None Summary of Care Provided Minutes Spent on Discharge: 35 Hospital Course: Per HPI: NEL ALBRECHT, is a 24 F who presented to [facility] ED on 04/18/2025 with recurrent abdominal pain. Patient was hospitalized here from 04/14-04/16 for gallstone pancreatitis. ERCP with Dr. Rogers on 04/16 with choledocholithiasis found with complete removal, single localized biliary stricture found in the lower third of the main bile duct, one temporary stent placed into the common bile duct. Patient feeling well postoperatively and was able to tolerate diet, so she was discharged home that evening. She returned to the ED today with recurrent abdominal pain. CT abdomen pelvis showed continued acute pancreatitis and multiple small gallstones with gallbladder wall thickening. However, lipase and LFTs were continue to downtrend well. She was given doses of pain medication without much improvement, so hospitalist was contacted for admission. I saw the patient at bedside in the ED, was present. Patient was sitting back fairly comfortably in bed and answering questions appropriately. She has a flat affect and this was present on prior admission as well. She reported mild improvement in pain with the pain medication. Notes that she feels thirsty currently, does not feel hungry. No other acute concerns currently. Will be admitted for further management. Hospital Course: 1. Improved gallstone pancreatitis?24-year-old female presented initially to the hospital with right upper quadrant abdominal pain on 04/14/2025. At that time she was evaluated by general surgery and gastroenterology, she underwent an ERCP with stone removal and a temporary stent placement. Given the inflammation and her lipase at that time was greater than 3000 General Surgery requested to hold off for cholecystectomy until the inflammation had improved. She was discharged on the day of her ERCP as she had significant improvement in her pain and was tolerating a diet. She was discharged with oxycodone and 7 days of Augmentin. She presented back to the hospital 04/18/2025, less than 48 hours after discharge because of pain. At this point all of her laboratory markers were significantly improved and her lipase was normal. CT of the abdomen at this time showed some inflammation around the tail of her pancreas. She was continued on IV antibiotics and she was evaluated by gastroenterology and general surgery. General surgery still feels that they need to wait until the inflammation improves and gastroenterology felt that the stent was in good position. I discussed with her the possibility of discharge today she expressed understanding of the risk and benefits of going home and she is okay with going home today. The case was discussed with gastroenterology and general surgery all of whom felt that she was stable for discharge home and they had separate conversations with her about this. She will continue with the previously prescribed medications on her last discharge and she will need outpatient follow-up once again with gastroenterology in a month to remove the stent as well as general surgery for her outpatient cholecystectomy. Physical Exam Narrative General: Alert, Oriented x3, Cooperative, No apparent distress HEENT: Atraumatic, PERRLA, EOMI, Normocephalic Oral: Moist Mucosa Neck: Supple, No JVD Lungs: Diminished, Normal air movement, No rhonchi, No wheeze, No rales Cardiovascular: Regular rate, Regular Rhythm, Normal S1, Normal S2, No murmurs Abdomen: Soft, Non Tender, Non-Distended, No Hepato-splenomegaly Extremities: No edema, Capillary Refill Less than 3 Seconds Skin: No rashes, No breakdown Musculoskeletal: No Tenderness to Palpation of Joints or Extremities Neurological: No focal neurological deficits, moves all extremities Psych/Mental Status: Normal Affect, Appropriate Weight / BMI Weight Weight: 207 lb 14.334 oz Body Mass Index (BMI) 34.6 ABG / Lab / Microbiology Data 04/20/25 06:10 04/20/25 06:10 Laboratory: Laboratory Results - last 24 hr 04/20/25 06:10: WBC 11.8 H, RBC 4.21, Hgb 11.9 L, Hct 36.5 L, MCV 86.7, MCH 28.3, MCHC 32.6, RDW Std Deviation 41.4, RDW Coeff of Miles 13.2, Plt Count 387, MPV 8.8, Immature Gran % (Auto) 0.600, Neut % (Auto) 75.9 H, Lymph % (Auto) 15.0 L, [place] % (Auto) 7.4, Eos % (Auto) 0.8, Baso % (Auto) 0.3, Absolute Neuts (auto) 8.9 H, Absolute Lymphs (auto) 1.76, Nucleated RBC % 0, Sodium 140, Potassium 3.7, Chloride 105, Carbon Dioxide 22.8, Anion Gap 12, BUN 5, Creatinine 0.50 L, Estim Creat Clear Calc 196.98, Est GFR (MDRD) Non-Af 134, BUN/Creatinine Ratio 9.8 L, Glucose 92, Calcium 9.3, Total Bilirubin 0.34, AST 11, ALT 29, Alkaline Phosphatase 108 H, Total Protein 6.8, Albumin 3.4 L, Globulin 3.4, Albumin/Globulin Ratio 1.0 D/C Instructions Call your doctor if you observe: Fever of 101 or Higher, Shortness of breath, Dizziness, Fainting spells, Swelling in the ankles, Chest pain and Increased palpitations (irregular heartbeat) DC O2, CPAP, BIPAP Needs Home O2 Discharge instructions: No Meaningful Use Info Meaningful Use Meaningful Use Diagnoses (Choose all that apply): None applicable Discharge Plan Admission Admit Date/Time: 04/18/25 14:54 Attending Provider: Tong Woods Primary Care Provider: Jesica Feng NP Consulting Providers: Louie Jean-Baptiste; Alonzo Rogers; Colleen Urbina; Amada Jones; Brea Miranda; Robles Elizondo; Raghavendra Curiel Instructions Patient Instructions: Pancreatitis Acute Dc, ED Pancreatitis Discharge Orders/Prescriptions Prescriptions: Continued oxycodone 5 mg Tablet 5 mg PO Q4H PRN PRN (Reason: Pain Score 4-10) 3 Days Qty: 10 0RF amoxicillin-pot clavulanate 875-125 mg tablet 1 tab PO BID Qty: 14 0RF Referrals / Follow Up: Alonzo Rogers DO [Med Staff - Active Staff, Gastroenterology] - Within 1 Month Amaury Patel MD [Med Staff - Active Staff, General Surgery] - Within 2 Weeks Jesica Feng [employer], [employer]-C [Primary Care Provider, Medical] - Within 1 Week Disposition Disposition (needs filled in before D/C Order can be placed): Home, Self Care Charges/Coding Visit Charges Inpatient E&M: 56080 Disch Hosp >30min
== END 2025-04-20 15:52 | disposition home or self-care (01) | DRG 440 ==
LOC: ED 11:26 → MS3 15:14
PROVIDERS: Admitting Provider Hospitalist; Emergency Provider Emergency Medicine; PCP Nurse Practitioner Family; Visit Provider Family Medicine
DX: K85.10 Biliary acute pancreatitis without necrosis or infection (principal); D64.9 Anemia, unspecified; E66.811 Obesity, class 1; E87.6 Hypokalemia; Z68.34 Body mass index [BMI] 34.0-34.9, adult
CPT/HCPCS: 36415; 74177; 80053; 82728; 83540; 83550; 83690; 83735; 84100; 84703; 85025; 85027; 94668; 99283; A4216; J2405

== ENCOUNTER 2025-06-15 08:31 | Day surgery (SDC) | payer SELFPAY, OTHER ==
[2025-06-15] VITALS (15 sets, daily range): BP systolic 108–121; BP diastolic 61–89; PULSE 81–101; RESP 16–18; TEMP 36.1–36.8; O2SAT 93–99; BMI 33.3
--- OUTSIDE RECORDS SUMMARY | 2025-06-15 08:40 | XMS RPT_ITS | CCD ---
Author Organization [facility] Care Team Providers Care Polisher Aluminum Name Role Phone Uptain CNM, Crystal K Unavailable Uptain CNM, Crystal K Unavailable Ash DUVALN, Daysi Unavailable Unavailable Unavailable Unavailable Ora MANCIA, Krysten Unavailable Chante SOLIS, Lars Unavailable Unavailable Brie Deng MA Unavailable Unavailable UPTAIN, CRYSTAL CNM Attending Unavailable UPTAIN, CRYSTAL CNM Admitting Unavailable UPTAIN, CRYSTAL CNM Primary Care Unavailable UPTAIN, CRYSTAL CNM Attending Unavailable UPTAIN, CRYSTAL CNM Admitting Unavailable UPTAIN, CRYSTAL CNM Primary Care Unavailable DIDALEX SMITH DO Admitting Unavailable DIDALEX SMITH DO Primary Care Unavailable DIDALEX SMITH DO Attending Unavailable DIDALEX SMITH DO Admitting Unavailable DIDALEX SMITH DO Primary Care Unavailable DIDALEX SMITH DO Attending Unavailable Raghavendra Curiel Admitting Unavailable Raghavendra Curiel Attending Unavailable Ping FARM LABORER, [facility] Unavailabl e Estiven, Louie Consulting Unavailable Friend, Alonzo Consulting Unavailable Colleen Urbina Consulting Unavailable Amada Jones Consulting Unavailable Brea Miranda Consulting Unavailable Raghavendra Curiel Consulting Unavailable Raghavendra Curiel Admitting Unavailable Estiven, Louie Consulting Unavailable Ping FARM LABORER, [facility] Primary Care Unavailabl e Tong Woods Attending Unavailable Friend, Alonzo Consulting Unavailable Carlitos, Colleen Consulting Unavailable Amada Jones Consulting Unavailable Brea Miranda Consulting Unavailable Amaury Patel Consulting Unavailable Raghavendra Curiel Consulting Unavailable Estiven, Louie Consulting Unavailable Ping FARM LABORER, [facility] Primary Care Unavailabl e Raghavendra Curiel Admitting Unavailable Tong Woods Attending Unavailable Friend, Alonzo Consulting Unavailable Carlitos, Colleen Consulting Unavailable Amada Jones Consulting Unavailable Atanaselver Brea Consulting Unavailable Robles Elizondo Consulting Unavailable Raghavendra Curiel Consulting Unavailable Friend, Alonzo Attending Unavailable Louie Jean-Baptiste Consulting Unavailable Ping FRANCE, Jesica Bernal Primary Care Unavailabl e Raghavendra Curiel Admitting Unavailable Chuck, Tong Stella Referring Unavailable Friend, Alonzo Consulting Unavailable Colleen Urbina Consulting Unavailable Amada Jones Consulting Unavailable Brea Miranda Consulting Unavailable Robles Elizondo Consulting Unavailable Raghavendra Curiel Consulting Unavailable Robles Elizondo Attending Unavailable Raghavendra Curiel Attending Unavailable Jesica Gtz Attending Unavailable Kotsonis, Tong F Consulting Unavailable Kotsonis, Tong F Attending Unavailable Amanda, Amaury Finn Attending Unavailable Friend, Alonzo Attending Unavailable Raghavendra Curiel Referring Unavailable Kotsonis, Tong F Referring Unavailable Amanda, Amaury Finn Attending Unavailable WanAmaury bonds Consulting Unavailable Kotsonis, Tong F Consulting Unavailable Kotsonis Tong F Attending Unavailable Medications Current Medications Medication Drug Class(es) Dates Sig (Normalized) Sig (Original) (20 sources) progesterone 200 mg oral capsule (20 sources) Progesterone Start: 2024 End: 02-14-2025 proGESTerone micronized 200 mg capsule ; 1 (one) capsule as directed for 0 days Quantity: 120 {Capsule} Refills: 0 Ordered: 14-Feb-2025 BLANCHE Payan Start: 12-Oct-2024 End: 14-Feb-2025 Status: Inactive Comments: si by mouth and 2 vaginal at night before bed Comment on above: si by mouth and 2 vaginal at night before bed Problems Active Problems Problem Classification Problem Date Documented Date Episodic/Chronic Abdominal pain (6 sources) Epigastric pain; Translations: [Unspecified abdominal pain] Onset: 02-26-2025 Episodic Biliary tract disease (3 sources) Other cholelithiasis without obstruction; Translations: [Calculus of gallbladder without cholecystitis without obstruction] Onset: 02-26-2025 Episodic Complications of surgical procedures or medical care (20 sources) Not up to date with immunizations; Translations: [Personal history of underimmunization status] 10-13-2024 Episodic Comment on above: no records in [facility] Diabetes mellitus without complication (20 sources) Hyperglycemia; Translations: [Hyperglycemia, unspecified] 12-13-2024 Episodic Hypertension complicating ; childbirth and the puerperium (20 sources) Hypertension AND/OR vomiting complicating childbirth AND/OR puerperium; Translations: [Gestational [-induced] hypertension without significant proteinuria, unspecified trimester] 02-01-2025 Episodic Nausea and vomiting (2 sources) Nausea with vomiting, unspecified; Translations: [Nausea with vomiting, unspecified] Onset: 05-01-2025 Episodic Other complications of (20 sources) RhD negative; Translations: [Other specified related conditions, third trimester] 12-13-2024 Episodic Other complications of (16 sources) Reduced movement; Translations: [Decreased movements, unspecified trimester, not applicable or unspecified] 02-01-2025 Episodic Other and delivery including normal (20 sources) Normal ; Translations: [Encounter for supervision of other normal , second trimester] 2024 Episodic Other screening for suspected conditions (not mental disorders or infectious disease) (20 sources) Other specified abnormal findings of blood chemistry; Translations: [Other abnormal blood chemistry] 2024 Episodic Pancreatic disorders (not diabetes) (2 sources) Biliary acute pancreatitis without necrosis or infection; Translations: [Acute pancreatitis without necrosis or infection, unspecified] Onset: 05-02-2025 Episodic Residual codes; unclassified (20 sources) Gestation period, 22 weeks; Translations: [22 weeks gestation of ] 2024 Episodic Residual codes; unclassified (20 sources) Non-smoker; Translations: [Other specified health status] 10-13-2024 Episodic Residual codes; unclassified (20 sources) Gestation period, 26 weeks; Translations: [26 weeks gestation of ] 11-09-2024 Episodic Residual codes; unclassified (20 sources) Gestation period, 31 weeks; Translations: [31 weeks gestation of ] 12-13-2024 Episodic Residual codes; unclassified (20 sources) Gestation period, 34 weeks; Translations: [34 weeks gestation of ] 01-04-2025 Episodic Residual codes; unclassified (20 sources) Gestation period, 36 weeks; Translations: [36 weeks gestation of ] 01-16-2025 Episodic Residual codes; unclassified (16 sources) Gestation period, 38 weeks; Translations: [38 weeks gestation of ] 02-01-2025 Episodic Unclassified (20 sources) Number of Pregnancies 2024 Comment on above: 1. Unclassified (2 sources) Number of Children 02-14-2025 Comment on above: 1. Unclassified (2 sources) Vaginal deliveries 02-14-2025 Comment on above: 1. Unclassified (1 source) Elevation of levels of liver transaminase levels; Translations: [Elevation of levels of liver transaminase levels] Onset: 05-01-2025 Viral infection (20 sources) Varicella 10-13-2024 Episodic Comment on above: reports no disease o r vaccine Past or Other Problems Problem Classification Problem Date Documented Da te Episodic/Chronic Unclassified (20 sources) visit - The patient is here for a 22 week (2) visit. Note for visit: This patient is a transfer from [facility], they were not happy with the care there, so they decided to transfer hereShe is currently on progesterone. Her last progesterone draw was 3 weeks ago and it was 19. So currently she is doing progesterone 200 mg 1 capsule vaginally, also progesterone 2 ml twice weekly 2024 Unclassified (19 sources) visit - The patient is here for a 26 week visit. 11-09-2024 Unclassified (18 sources) visit - The patient is here for a 31 week (1 day) visit. 12-13-2024 Unclassified (14 sources) visit - The patient is here for a 34 week (2 days) visit. 01-04-2025 Unclassified (13 sources) visit - The patient is here for a 36 week (0 days) visit. 01-16-2025 Unclassified (11 sources) visit - The patient is here for a 38 week (2) visit. 02-01-2025 Unclassified (1 source) Post- visit - The patient is here for a scheduled follow-up visit after a vaginal delivery. The was complicated by gestational hypertension. The patient feels well with no complaints, is sleeping well and has good energy level. There are no urinary problems. There are no bowel problems. Perineum/wound: perineum healing well. Note for Post- visit: -Needs to follow up blood pressure. 02-14-2025 Unclassified (1 source) Post- visit - The patient is here for a scheduled follow-up visit after a vaginal delivery. The was complicated by gestational hypertension. The patient feels well with no complaints, is sleeping well and has good energy level. There are no urinary problems. There are no bowel problems. Perineum/wound: perineum healing well. Note for Post- visit: -Needs to follow up blood pressure. No headaches. Not on meds. Not checking bp at home. 02-14-2025 Results Test Name Value Interpretation Reference Range Facility 36on 04-25-2025 36 LM for patient to return call to discuss date and time for an appt that I scheduled but can have them come in sooner. DP [facility] 36on 04-23-2025 36 Name of Caller: Carmela emmanuel Contact (voicemail only - neighborhood phone -- [employer]) Reason for Appointment: Patient has gallstones and was suggested to call you by friends of theirs Weavers -- fax number was given for all testing that's already been done Office Name: Surgery Medication Refills need, if any: n/a Medication Name: n/a [facility] CBC W/Diff, Automatedon 10-3 Absolute Lymph 1.76 X10 3/uL Normal 0.83-4.51 [facility] Comment on above: Performed By: #### L 500.4050, L100.0100 ####[facility] [address] [place], [address] Absolute Neut 8.9 X10 3/uL High 2.0-7.7 [facility] Comment on above: Performed By: #### L 500.4050, L100.0100 ####[facility] [address] [place], [address] Basophils/100 WBC (Bld) 0.3 % Normal 0-1 [facility] Comment on above: Performed By: #### L 500.4050, L100.0100 ####[facility] [address] [place], [address] Eosinophils/100 WBC (Bld) 0.8 % Normal 0-5 [facility] Comment on above: Performed By: #### L 500.4050, L100.0100 ####[facility] [address] [place], [address] Erythrocyte distribution width (RBC) [Ratio] 13.2 % Normal 11.6-14.6 [facility] Comment on above: Performed By: #### L 500.4050, L100.0100 ####[facility] [address] [place], [address] Hematocrit (Bld) [Volume fraction] 36.5 % Low 37-47 [facility] Comment on above: Performed By: #### L 500.4050, L100.0100 ####[facility] [address] [place], [address] Hemoglobin (Bld) [Mass/Vol] 11.9 g/dL Low 12.0-15.0 [facility] Comment on above: Performed By: #### L 500.4050, L100.0100 ####[facility] [address] [place], [address] IG% 0.600 Normal 0.0-0.9 [facility] Comment on above: Result Comment: IG% - Immature Granulocytes (promyelocytes, myelocytes and metamyelocytes) > 1% indicates that a LEFT SHIFT is Present. Performed By: #### L 500.4050, L100.0100 ####[facility] [address] [place], [address] Lymphocytes/100 WBC (Bld) 15.0 % Low 19-41 [facility] Comment on above: Performed By: #### L 500.4050, L100.0100 ####[facility] [address] [place], [address] MCH (RBC) [Entitic mass] 28.3 pg Normal 27.0-32.0 [facility] Comment on above: Performed By: #### L 500.4050, L100.0100 ####[facility] [address] [place], [address] MCHC (RBC) [Mass/Vol] 32.6 g/dL Normal 32-36 [facility] Comment on above: Performed By: #### L 500.4050, L100.0100 ####[facility] [address] [place], [address] MCV (RBC) [Entitic vol] 86.7 fL Normal 81-99 [facility] Comment on above: Performed By: #### L 500.4050, L100.0100 ####[facility] [address] [place], [address] Monocytes/100 WBC (Bld) 7.4 % Normal 0-10 [facility] Comment on above: Performed By: #### L 500.4050, L100.0100 ####[facility] [address] [place], [address] Neutrophils/100 WBC (Bld) 75.9 % High 47-70 [facility] Comment on above: Performed By: #### L 500.4050, L100.0100 ####[facility] [address] [place], [address] Nucleated RBC (Bld) [#/Vol] 0 10*3/uL Normal 0-5 [facility] Comment on above: Performed By: #### L 500.4050, L100.0100 ####[facility] [address] [place], [address] Platelet mean volume (Bld) [Entitic vol] 8.8 fL Normal 6.2-12.0 [facility] Comment on above: Performed By: #### L 500.4050, L100.0100 ####[facility] [address] [place], [address] Platelets (Bld) [#/Vol] 387 10*3/uL Normal 150-450 [facility] Comment on above: Performed By: #### L 500.4050, L100.0100 ####[facility] [address] [place], [address] RBC (Bld) [#/Vol] 4.21 10*6/uL Normal 4.2-5.4 [facility] Comment on above: Performed By: #### L 500.4050, L100.0100 ####[facility] [address] [place], [address] RDW SD 41.4 fl Normal 35.1-43.9 [facility] Comment on above: Performed By: #### L 500.4050, L100.0100 ####[facility] [address] [place], [address] WBC (Bld) [#/Vol] 11.8 10*3/uL High 4.4-11.0 [facility] Comment on above: Performed By: #### L 500.4050, L100.0100 ####[facility] [address] [place], [address] Comprehensive Metabolic Prof ilon 04-20-2025 Albumin [Mass/Vol] 3.4 g/dL Low 3.5-5.0 [facility] Comment on above: Performed By: #### L 500.4050, L100.0100 ####[facility] [address] [place], [address] Albumin/Globulin [Mass ratio] 1.0 {ratio} Normal 0.9-2.4 [facility] Comment on above: Performed By: #### L 500.4050, L100.0100 ####[facility] [address] [place], [address] ALK PHOS 108 U/L High 35-104 [facility] Comment on above: Performed By: #### L 500.4050, L100.0100 ####[facility] [address] [place], [address] ALT [Catalytic activity/Vol] 29 U/L Normal <=34 [facility] Comment on above: Performed By: #### L 500.4050, L100.0100 ####[facility] [address] [place], [address] AST [Catalytic activity/Vol] 11 U/L Normal <=31 [facility] Comment on above: Performed By: #### L 500.4050, L100.0100 ####[facility] [address] [place], [address] Bilirubin [Mass/Vol] 0.34 mg/dL Normal 0.00-1.30 [facility] Comment on above: Performed By: #### L 500.4050, L100.0100 ####[facility] [address] [place], [address] BUN/CRE 9.8 RATIO Low 10-20 [facility] Comment on above: Performed By: #### L 500.4050, L100.0100 ####[facility] [address] [place], [address] Calcium [Mass/Vol] 9.3 mg/dL Normal 7.6-11.0 [facility] Comment on above: Performed By: #### L 500.4050, L100.0100 ####[facility] [address] [place], [address] Chloride [Moles/Vol] 105 mmol/L Normal 98-108 [facility] Comment on above: Performed By: #### L 500.4050, L100.0100 ####[facility] [address] [place], [address] CO2 [Moles/Vol] 22.8 mmol/L Normal 21.0-32.0 [facility] Comment on above: Performed By: #### L 500.4050, L100.0100 ####[facility] [address] [place], [address] Creatinine [Mass/Vol] 0.50 mg/dL Low 0.70-1.20 [facility] Comment on above: Performed By: #### L 500.4050, L100.0100 ####[facility] [address] [place], [address] ECRCL 196.98 ml/min Normal 50-250 [facility] Comment on above: Performed By: #### L 500.4050, L100.0100 ####[facility] [address] [place], [address] GAP 12 Normal 5-15 [facility] Comment on above: Performed By: #### L 500.4050, L100.0100 ####[facility] [address] [place], [address] GFR/1.73 sq M.predicted among non-blacks MDRD (S/P/Bld) [Vol rate/Area] 134 mL/min/{1.73_m2} Normal >60 [facility] Comment on above: Result Comment: mL/m in/1.73m2 CKD-EPI Creatinine Equation (2020) Performed By: #### L 500.4050, L100.0100 ####[facility] [address] [place], [address] Globulin (S) [Mass/Vol] 3.4 g/dL Normal 2.2-4.2 [facility] Comment on above: Performed By: #### L 500.4050, L100.0100 ####[facility] [address] [place], [address] Glucose [Mass/Vol] 92 mg/dL Normal 70-99 [facility] Comment on above: Performed By: #### L 500.4050, L100.0100 ####[facility] [address] [place], [address] Potassium [Moles/Vol] 3.7 mmol/L Normal 3.3-5.1 [facility] Comment on above: Performed By: #### L 500.4050, L100.0100 ####[facility] [address] [place], [address] Sodium [Moles/Vol] 140 mmol/L Normal 133-145 [facility] Comment on above: Performed By: #### L 500.4050, L100.0100 ####[facility] [address] [place], [address] T PROT 6.8 g/dL Normal 5.9-8.4 [facility] Comment on above: Performed By: #### L 500.4050, L100.0100 ####[facility] [address] [place], [address] Urea nitrogen [Mass/Vol] 5 mg/dL Normal 4-19 [facility] Comment on above: Performed By: #### L 500.4050, L100.0100 ####[facility] [address] 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 Discharge Plan Admission Admit Date/Time: 04/18/25 14:54 Attending Provider: Tong Woods Primary Care Provider: Jesica Feng NP Consulting Providers: Louie Jean-Baptiste; Alonzo Rogers; Colleen Urbina; Amada Jones; Brea Miranda; Robles Elizondo; Raghavendra Curiel Instructions Patient Instructions: Pancreatitis Acute Dc, ED Pancreatitis Discharge Orders/Prescriptions Prescriptions: Continued oxycodone 5 mg Tablet 5 mg PO Q4H PRN PRN (Reason: Pain Score 4-10) 3 Days Qty: 10 0RF amoxicillin-pot clavulanate 875-125 mg tablet 1 tab PO BID Qty: 14 0RF Referrals / Follow Up: Alonzo Rgoers DO [Med Staff - Active Staff, Gastroenterology] - Within 1 Month Amaury Patel MD [Med Staff - Active Staff, General Surgery] - Within 2 Weeks Jesica Feng NP, FARM LABORER-C [Primary Care Provider, Medical] - Within 1 Week Disposition Disposition (needs filled in before D/C Order can be placed): Home, Self Care 04/20/25 1442 Tong Woods MD CC: FARM LABORER-C Jesica Feng; FARM LABORER-C Colleen Urbina; FARM LABORER-C Amada Jones; Dr. Raghavendra Cureil DO; Dr. Robles Elizondo MD; Dr. Louie Jean-Baptiste MD; JUNG Reid; Alonzo Rogers DO Signed Normal [facility] CBC-Complete Blood Cnt No Di ffon 04-19-2025 Erythrocyte distribution width (RBC) [Ratio] 13.3 % Normal 11.6-14.6 [facility] Comment on above: Performed By: #### L 100.0500, L500.4050 #### [facility] [address] [place], [address] Hematocrit (Bld) [Volume fraction] 32.7 % Low 37-47 [facility] Comment on above: Performed By: #### L 100.0500, L500.4050 #### [facility] [address] [place], [address] Hemoglobin (Bld) [Mass/Vol] 10.7 g/dL Low 12.0-15.0 [facility] Comment on above: Performed By: #### L 100.0500, L500.4050 #### [facility] [address] [place], [address] MCH (RBC) [Entitic mass] 28.3 pg Normal 27.0-32.0 [facility] Comment on above: Performed By: #### L 100.0500, L500.4050 #### [facility] [address] [place], [address] MCHC (RBC) [Mass/Vol] 32.7 g/dL Normal 32-36 [facility] Comment on above: Performed By: #### L 100.0500, L500.4050 #### [facility] [address] [place], [address] MCV (RBC) [Entitic vol] 86.5 fL Normal 81-99 [facility] Comment on above: Performed By: #### L 100.0500, L500.4050 #### [facility] [address] [place], [address] Platelet mean volume (Bld) [Entitic vol] 9.0 fL Normal 6.2-12.0 [facility] Comment on above: Performed By: #### L 100.0500, L500.4050 #### [facility] [address] [place], [address] Platelets (Bld) [#/Vol] 331 10*3/uL Normal 150-450 [facility] Comment on above: Performed By: #### L 100.0500, L500.4050 #### [facility] [address] [place], [address] RBC (Bld) [#/Vol] 3.78 10*6/uL Low 4.2-5.4 [facility] Comment on above: Performed By: #### L 100.0500, L500.4050 #### [facility] [address] [place], [address] RDW SD 42.2 fl Normal 35.1-43.9 [facility] Comment on above: Performed By: #### L 100.0500, L500.4050 #### [facility] [address] [place], [address] WBC (Bld) [#/Vol] 11.3 10*3/uL High 4.4-11.0 [facility] Comment on above: Performed By: #### L 100.0500, L500.4050 #### [facility] [address] [place], [address] Comprehensive Metabolic Prof [facility] 04-19-2025 Albumin [Mass/Vol] 3.2 g/dL Low 3.5-5.0 [facility] Comment on above: Performed By: #### L 100.0500, L500.4050 #### [facility] [address] [place], [address] Albumin/Globulin [Mass ratio] 1.1 {ratio} Normal 0.9-2.4 [facility] Comment on above: Performed By: #### L 100.0500, L500.4050 #### [facility] [address] [place], [address] ALK PHOS 79 U/L Normal 35-104 [facility] Comment on above: Performed By: #### L 100.0500, L500.4050 #### [facility] [address] [place], [address] ALT [Catalytic activity/Vol] 39 U/L High <=34 [facility] Comment on above: Performed By: #### L 100.0500, L500.4050 #### [facility] [address] [place], [address] AST [Catalytic activity/Vol] 11 U/L Normal <=31 [facility] Comment on above: Performed By: #### L 100.0500, L500.4050 #### [facility] [address] [place], [address] Bilirubin [Mass/Vol] 0.45 mg/dL Normal 0.00-1.30 [facility] Comment on above: Performed By: #### L 100.0500, L500.4050 #### [facility] [address] [place], [address] BUN/CRE 6.3 RATIO Low 10-20 [facility] Comment on above: Performed By: #### L 100.0500, L500.4050 #### [facility] [address] [place], [address] Calcium [Mass/Vol] 8.6 mg/dL Normal 7.6-11.0 [facility] Comment on above: Performed By: #### L 100.0500, L500.4050 #### [facility] [address] [place], [address] Chloride [Moles/Vol] 107 mmol/L Normal 98-108 [facility] Comment on above: Performed By: #### L 100.0500, L500.4050 #### [facility] [address] [place], [address] CO2 [Moles/Vol] 21.9 mmol/L Normal 21.0-32.0 [facility] Comment on above: Performed By: #### L 100.0500, L500.4050 #### [facility] [address] [place], [address] Creatinine [Mass/Vol] 0.49 mg/dL Low 0.70-1.20 [facility] Comment on above: Performed By: #### L 100.0500, L500.4050 #### [facility] [address] [place], [address] ECRCL 201.00 ml/min Normal 50-250 [facility] Comment on above: Performed By: #### L 100.0500, L500.4050 #### [facility] [address] [place], [address] GAP 11 Normal 5-15 [facility] Comment on above: Performed By: #### L 100.0500, L500.4050 #### [facility] [address] [place], [address] GFR/1.73 sq M.predicted among non-blacks MDRD (S/P/Bld) [Vol rate/Area] 135 mL/min/{1.73_m2} Normal >60 [facility] Comment on above: Result Comment: mL/m in/1.73m2 CKD-EPI Creatinine Equation (2020) Performed By: #### L 100.0500, L500.4050 #### [facility] [address] [place], [address] Globulin (S) [Mass/Vol] 3.0 g/dL Normal 2.2-4.2 [facility] Comment on above: Performed By: #### L 100.0500, L500.4050 #### [facility] [address] [place], [address] Glucose [Mass/Vol] 95 mg/dL Normal 70-99 [facility] Comment on above: Performed By: #### L 100.0500, L500.4050 #### [facility] [address] [place], [address] Potassium [Moles/Vol] 3.2 mmol/L Low 3.3-5.1 [facility] Comment on above: Performed By: #### L 100.0500, L500.4050 #### [facility] [address] [place], [address] Sodium [Moles/Vol] 140 mmol/L Normal 133-145 [facility] Comment on above: Performed By: #### L 100.0500, L500.4050 #### [facility] [address] [place], [address] T PROT 6.2 g/dL Normal 5.9-8.4 [facility] Comment on above: Performed By: #### L 100.0500, L500.4050 #### [facility] [address] [place], [address] Urea nitrogen [Mass/Vol] 3 mg/dL Low 4-19 [facility] Comment on above: Performed By: #### L 100.0500, L500.4050 #### [facility] [address] [place], [address] Abdomen/Pelvis W IV Cont ONL Yon 04-18-2025 Abdomen/Pelvis W IV Cont ONLY [facility] [address] [place] [address] Abdomen/Pelvis W IV Cont ONLY MR#: [id number] Acct: [id number] Name: NEL ALBRECHT Rep #: [id number] : 2000 F 24 From: Jorge Luis garcia MD PCP: Jesica Feng, ROMÁN-C Status: REG ER Study: Abdomen/Pelvis W IV Cont ONLY Date of Exam: Exam# [id number] Ordering Dr: Rachael Leon DO PROCEDURE: ABDOMEN/PELVIS W IV CONT ONLY 04/18/2025 REASON FOR EXAM: ABDOMINAL PAIN History of pancreatitis. Recent ERCP. TECHNIQUE: Procedure Code: [id number] Modality: CT Procedure: ABDOMEN/PELVIS W IV CONT ONLY Coronal and Sagittal reconstruction series were provided. CONTRAST: Isovue 370 VOLUME: 100 mL One or more dose reduction techniques were used (e.g., Automated exposure control, adjustment of the mA and/or kV according to patient size, use of iterative reconstruction technique. RADIATION DOSE SUMMARY: CTDlvol: 16.25 mGy DLP: 1204.11 mGycm COMPARISON: None FINDINGS: Lung bases: Small bilateral pleural effusions left greater than right with the right basilar atelectasis and atelectasis and/or infiltrate in the left lower lobe. Liver: Normal size. No mass. Gallbladder: Multiple small gallstones are seen along the dependent portion of the gallbladder lumen. Mild degree of pericholecystic fluid and bladder wall thickening. A biliary stent is seen within the common bile duct. Spleen: Normal size. Pancreas: Diffuse enlargement of the pancreas with peripancreatic fluid more prominent in the tail portion of the pancreas. Fluid is seen along the anterior perirenal space. Findings are in keeping with pancreatitis. Adrenals: Unremarkable Kidneys: Normal renal sizes. No hydronephrosis. Bladder: Unremarkable Reproductive Organs: Normal uterine size and contour. Ovaries are unremarkable. Bowel: Nonspecific bowel gas pattern. Appendix: High density material is seen within the appendiceal lumen suggestive of either retained barium from prior study versus appendicolith. No inflammatory changes are seen. Lymph nodes: Unremarkable. Vasculature: The abdominal aorta and IVC are normal. Peritoneum / Retroperitoneum: Small amount of free fluid is seen Bones: Unremarkable CT/Abdomen/Pelvis W IV Cont ONLY IMPRESSION: Findings in keeping with acute pancreatitis as described. Biliary stent is seen within the common bile duct. Multiple small gallstones with the small amount of pericholecystic fluid and gallbladder wall thickening. Reading Location: [id number] CC: DA Feng; Dr. Rachael Leon DO Brick Tosser: Signed Normal [facility] CBC W/Diff, Automatedon 10-2 Absolute Lymph 2.01 X10 3/uL Normal 0.83-4.51 [facility] Comment on above: Performed By: #### L 501.2450, L100.0100, L500.4050, L700.6800 #### [facility] [address] [place], [address] Absolute Neut 6.9 X10 3/uL Normal 2.0-7.7 [facility] Comment on above: Performed By: #### L 501.2450, L100.0100, L500.4050, L700.6800 #### [facility] [address] [place], [address] Basophils/100 WBC (Bld) 0.4 % Normal 0-1 [facility] Comment on above: Performed By: #### L 501.2450, L100.0100, L500.4050, L700.6800 #### [facility] [address] [place], [address] Eosinophils/100 WBC (Bld) 0.6 % Normal 0-5 [facility] Comment on above: Performed By: #### L 501.2450, L100.0100, L500.4050, L700.6800 #### [facility] [address] [place], [address] Erythrocyte distribution width (RBC) [Ratio] 13.2 % Normal 11.6-14.6 [facility] Comment on above: Performed By: #### L 501.2450, L100.0100, L500.4050, L700.6800 #### [facility] [address] [place], [address] Hematocrit (Bld) [Volume fraction] 33.3 % Low 37-47 [facility] Comment on above: Performed By: #### L 501.2450, L100.0100, L500.4050, L700.6800 #### [facility] [address] [place], [address] Hemoglobin (Bld) [Mass/Vol] 11.3 g/dL Low 12.0-15.0 [facility] Comment on above: Performed By: #### L 501.2450, L100.0100, L500.4050, L700.6800 #### [facility] [address] [place], [address] IG% 0.400 Normal 0.0-0.9 [facility] Comment on above: Result Comment: IG% - Immature Granulocytes (promyelocytes, myelocytes and metamyelocytes) > 1% indicates that a LEFT SHIFT is Present. Performed By: #### L 501.2450, L100.0100, L500.4050, L700.6800 #### [facility] [address] [place], [address] Lymphocytes/100 WBC (Bld) 20.8 % Normal 19-41 [facility] Comment on above: Performed By: #### L 501.2450, L100.0100, L500.4050, L700.6800 #### [facility] [address] [place], [address] MCH (RBC) [Entitic mass] 29.0 pg Normal 27.0-32.0 [facility] Comment on above: Performed By: #### L 501.2450, L100.0100, L500.4050, L700.6800 #### [facility] [address] [place], [address] MCHC (RBC) [Mass/Vol] 33.9 g/dL Normal 32-36 [facility] Comment on above: Performed By: #### L 501.2450, L100.0100, L500.4050, L700.6800 #### [facility] [address] [place], [address] MCV (RBC) [Entitic vol] 85.6 fL Normal 81-99 [facility] Comment on above: Performed By: #### L 501.2450, L100.0100, L500.4050, L700.6800 #### [facility] [address] [place], [address] Monocytes/100 WBC (Bld) 6.7 % Normal 0-10 [facility] Comment on above: Performed By: #### L 501.2450, L100.0100, L500.4050, L700.6800 #### [facility] [address] [place], [address] Neutrophils/100 WBC (Bld) 71.1 % High 47-70 [facility] Comment on above: Performed By: #### L 501.2450, L100.0100, L500.4050, L700.6800 #### [facility] [address] [place], [address] Nucleated RBC (Bld) [#/Vol] 0 10*3/uL Normal 0-5 [facility] Comment on above: Performed By: #### L 501.2450, L100.0100, L500.4050, L700.6800 #### [facility] [address] [place], [address] Platelet mean volume (Bld) [Entitic vol] 9.0 fL Normal 6.2-12.0 [facility] Comment on above: Performed By: #### L 501.2450, L100.0100, L500.4050, L700.6800 #### [facility] [address] [place], [address] Platelets (Bld) [#/Vol] 351 10*3/uL Normal 150-450 [facility] Comment on above: Performed By: #### L 501.2450, L100.0100, L500.4050, L700.6800 #### [facility] [address] [place], [address] RBC (Bld) [#/Vol] 3.89 10*6/uL Low 4.2-5.4 [facility] Comment on above: Performed By: #### L 501.2450, L100.0100, L500.4050, L700.6800 #### [facility] [address] [place], [address] RDW SD 41.8 fl Normal 35.1-43.9 [facility] Comment on above: Performed By: #### L 501.2450, L100.0100, L500.4050, L700.6800 #### [facility] [address] [place], [address] WBC (Bld) [#/Vol] 9.7 10*3/uL Normal 4.4-11.0 [facility] Comment on above: Performed By: #### L 501.2450, L100.0100, L500.4050, L700.6800 #### [facility] [address] [place], [address] Comprehensive Metabolic Prof [facility] 04-18-2025 Albumin [Mass/Vol] 3.6 g/dL Normal 3.5-5.0 [facility] Comment on above: Performed By: #### L 501.2450, L100.0100, L500.4050, L700.6800 ####[facility] [address] [place], [address] Albumin/Globulin [Mass ratio] 1.1 {ratio} Normal 0.9-2.4 [facility] Comment on above: Performed By: #### L 501.2450, L100.0100, L500.4050, L700.6800 ####[facility] [address] [place], [address] ALK PHOS 109 U/L High 35-104 [facility] Comment on above: Performed By: #### L 501.2450, L100.0100, L500.4050, L700.6800 ####[facility] [address] [place], [address] ALT [Catalytic activity/Vol] 58 U/L High <=34 [facility] Comment on above: Performed By: #### L 501.2450, L100.0100, L500.4050, L700.6800 ####[facility] [address] [place], [address] AST [Catalytic activity/Vol] 13 U/L Normal <=31 [facility] Comment on above: Performed By: #### L 501.2450, L100.0100, L500.4050, L700.6800 ####[facility] [address] [place], [address] Bilirubin [Mass/Vol] 0.37 mg/dL Normal 0.00-1.30 [facility] Comment on above: Performed By: #### L 501.2450, L100.0100, L500.4050, L700.6800 ####[facility] [address] [place], [address] BUN/CRE 6.4 RATIO Low 10-20 [facility] Comment on above: Performed By: #### L 501.2450, L100.0100, L500.4050, L700.6800 ####[facility] [address] [place], [address] Calcium [Mass/Vol] 8.9 mg/dL Normal 7.6-11.0 [facility] Comment on above: Performed By: #### L 501.2450, L100.0100, L500.4050, L700.6800 ####[facility] [address] [place], [address] Chloride [Moles/Vol] 104 mmol/L Normal 98-108 [facility] Comment on above: Performed By: #### L 501.2450, L100.0100, L500.4050, L700.6800 ####[facility] [address] [place], [address] CO2 [Moles/Vol] 24.5 mmol/L Normal 21.0-32.0 [facility] Comment on above: Performed By: #### L 501.2450, L100.0100, L500.4050, L700.6800 ####[facility] [address] [place], [address] Creatinine [Mass/Vol] 0.56 mg/dL Low 0.70-1.20 [facility] Comment on above: Performed By: #### L 501.2450, L100.0100, L500.4050, L700.6800 ####[facility] [address] [place], [address] ECRCL 175.57 ml/min Normal 50-250 [facility] Comment on above: Performed By: #### L 501.2450, L100.0100, L500.4050, L700.6800 ####[facility] [address] [place], [address] GAP 11 Normal 5-15 [facility] Comment on above: Performed By: #### L 501.2450, L100.0100, L500.4050, L700.6800 ####[facility] [address] [place], [address] GFR/1.73 sq M.predicted among non-blacks MDRD (S/P/Bld) [Vol rate/Area] 131 mL/min/{1.73_m2} Normal >60 [facility] Comment on above: Result Comment: mL/m in/1.73m2 CKD-EPI Creatinine Equation (2020) Performed By: #### L 501.2450, L100.0100, L500.4050, L700.6800 ####[facility] [address] [place], [address] Globulin (S) [Mass/Vol] 3.1 g/dL Normal 2.2-4.2 [facility] Comment on above: Performed By: #### L 501.2450, L100.0100, L500.4050, L700.6800 ####[facility] [address] [place], [address] Glucose [Mass/Vol] 87 mg/dL Normal 70-99 [facility] Comment on above: Performed By: #### L 501.2450, L100.0100, L500.4050, L700.6800 ####[facility] [address] [place], [address] Potassium [Moles/Vol] 2.9 mmol/L Low 3.3-5.1 [facility] Comment on above: Performed By: #### L 501.2450, L100.0100, L500.4050, L700.6800 ####[facility] [address] [place], [address] Sodium [Moles/Vol] 140 mmol/L Normal 133-145 [facility] Comment on above: Performed By: #### L 501.2450, L100.0100, L500.4050, L700.6800 ####[facility] [address] [place], [address] T PROT 6.7 g/dL Normal 5.9-8.4 [facility] Comment on above: Performed By: #### L 501.2450, L100.0100, L500.4050, L700.6800 ####[facility] [address] [place], [address] Urea nitrogen [Mass/Vol] 4 mg/dL Normal 4-19 [facility] Comment on above: Performed By: #### L 501.2450, L100.0100, L500.4050, L700.6800 ####[facility] [address] [place], [address] Consultation - Surgicalon Consultation - Surgical [facility] Medical Records Department [address] [facility] [place] [address] Consultation - Surgical 04/18/25 1805 MR#: [id number] Acct: [id number] Name: NEL ALBRECHT Rep #: [id number] : 2000 24 From: Robles Elizondo MD PCP: DA Bowling Status:ADM IN Location: [facility] EV418-7 Assessment Plan Assessment/Plan (1) Gallstone pancreatitis: PLAN: Patient 24-year-old female who has required readmission for management of symptoms related to a primary diagnosis of gallstone pancreatitis now status post ERCP with common duct stenting. Surgery evaluated patient during her last admission and determined she should undergo cholecystectomy in a delayed fashion to minimize her operative risk as it related to significant pancreatic inflammation. In my evaluation today patient primarily complains of epigastric and left upper quadrant pain. In my independent review of her CT imaging there appears to be some progression of the peripancreatic edema and fluid around the tail of the pancreas in particular. She, furthermore, had a negative Rice sign on exam. This suggests that her primary issue remains the sequelae of her pancreatitis rather than development of cholecystitis and it is probable that the inflammatory change noted about her gallbladder is simply secondary from the edema related to the pancreatitis. This impression was shared with patient and also discussed with patient's initial consulting surgeon Dr. Patel who will assume care of patient tomorrow. Will await his evaluation for final treatment plan but at this point not planning for imminent cholecystectomy. Agree with supportive care measures recommended by gastroenterology to include ongoing IV fluid resuscitation, correction of hypokalemia, and introduction of a low-fat diet when appropriate. Will continue to follow. Robles Elizondo MD General Surgery Endocrine Surgery Pager: [facility] [address] [place] [address], [facility], [address] [place] [address] Office: [phone] HPI Consult Data Date of Consult: 04/18/25 HPI Narrative Reason for Consultation: History of gallstone pancreatitis with present concern for possible acute c HPI Narrative: NEL ALBRECHT, is a 24 F who presents to [facility] after recent discharge 04/16/2025 following treatment for gallstone pancreatitis. Patient was just admitted 04/14/2025 and underwent ERCP with gastroenterology on 04/16/2025 with clearance of the common bile duct and stent placement. She states that she is doing well upon discharge but last evening developed mild pain that progressed through the morning and became intense epigastric pain to the point that she sought evaluation. She describes the pain as having a radiating character through to her back. She notes that she had some chills at home but did not record a fever when her temperature was taken. She states that her last bowel movement was 2 days ago and denies any unusual characteristics with her urine. She does state that she is hungrier than her last admission. Patient's ED workup notable for CMP that showed improvements ALT and alkaline phosphatase with normalization of her AST and T. bili values. Additionally, patient's lipase was within normal limits. White blood cell count was also notably normal. CT imaging of the abdomen pelvis was obtained which was read by radiology as showing thickened gallbladder wall with Demetrio cholecystic fluid as well as fluid around the pancreas in keeping with acute pancreatitis. [facility] Medical History Anxiety Depression Gallstones Home Medications ???Medication ???Instructions ???Recorded ???Last Taken ???Type amoxicillin 875 mg-potassium 1 tab PO BID #14 tabs 04/16/25 05:30 Rx clavulanate 125 mg tablet oxycodone 5 mg tablet 5 mg PO Q4H PRN PRN Pain Score Unknown Rx 4-10 3 days #10 tabs Allergy/AdvReac Type Severity Reaction Status Date / Time No Known Allergies Allergy Verified 04/18/25 10:43 Social History Smoking Status: Never smoker Physical Exam Const Constitutional Narrative: Patient appears fatigued and relaxed but is overall cooperative. Resp normal respiratory effort GI GI Narrative: Obese, abdominal striae present, abdominal wall radiating heat from recent heating pad application. Abdomen is nondistended, soft, and tender to palpation in the epigastrium as well as the left upper quadrant. There is mild tenderness with palpation of the right upper quadrant but negative Rice sign. Lab / Micro Data 04/18/25 11:45 04/18/25 11:45 Labs: Laboratory Results - last 24 hr 04/18/25 11:45: WBC 9.7, RBC 3.89 L, Hgb 11.3 L, Hct 33.3 L (more content not included)... Normal [facility] Emergency Department Summary on 04-18-2025 Emergency Department Summary [facility] Medical Records Department [address] [place] [address] Emergency Department Summary 04/18/25 MR#: [id number] Acct: [id number] Name: NEL ALBRECHT Rep #: [id number] : 2000 24 From: Rachael Leon DO PCP: Jesica Feng NP-C Status:ADM IN Location: [facility] [place] [id number] HPI HPI - GI History of Present Illness Chief Complaint: Abd Pain Detail of Chief Complaint: Abdominal pain Informant: patient Narrative Narrative: Patient presents with abdominal pain that started this morning. Patient states that she was admitted last weekend and 3 days ago had a ERCP with a stent placed in her bile duct. She was discharged to home and had been doing relatively well till this morning. She denies nausea or vomiting. She denies fever. Denies urinary symptoms. Patient also states she had pancreatitis at the time and she was told they would not take her gallbladder until that improved. [facility] Medical History Gallstones Home Medications ???Medication ???Instructions ???Recorded ???Last Taken ???Type amoxicillin 875 mg-potassium 1 tab PO BID #14 tabs 04/16/25 Unk nown Rx clavulanate 125 mg tablet oxycodone 5 mg tablet 5 mg PO Q4H PRN PRN Pain Score Unknown Rx 4-10 3 days #10 tabs Allergy/AdvReac Type Severity Reaction Status Date / Time No Known Allergies Allergy Verified 04/18/25 10:43 Social History Smoking Status: Never smoker ROS ROS ED Review of Systems ROS Unobtainable: other Constitutional Constitutional ED: Reports lethargy; Denies chills, fever(s), sweats or weight loss Eyes Eyes: Denies blurry vision, change in vision or diplopia ENT ENT ED: Denies rhinorrhea or sore throat Cardiovascular Cardiovascular: Denies chest pain, orthopnea or racing heartbeat Respiratory/Chest Respiratory/Chest: Denies cough, dyspnea, dyspnea on exertion, orthopnea or sputum Gastrointestinal Gastrointestinal: Reports abdominal pain; Denies diarrhea, nausea or vomiting Genitourinary Genitourinary ED: Denies dysuria, hematuria or urinary frequency Musculoskeletal Musculoskeletal: Denies arthralgias, back pain, myalgias or neck pain Integumentary Denies abscess, Abrasions or rash Neurologic Neurologic: Denies headache(s) or weakness Psychiatric Psychiatric: Denies anxiety, depression or suicidal thoughts Endocrine Endocrinology: Denies polydipsia, polyphagia or polyuria Hematologic/Lymphatic Hematologic/Lymphatic: Denies easy bleeding, easy bruising or lymphadenopathy Allergic/Immunologic Allergic/Immunologic ED: Denies mouth swelling, tongue swelling or urticaria EXAM Physical Exam Const Vital Signs: 04/18/25 10:41 04/18/25 13:00 04/18/25 14:00 Temperature 99.1 F 98.3 F Temperature Source Oral Oral Pulse Rate 111 H 103 H 103 H Respiratory Rate 16 18 18 Blood Pressure 154/114 H 139/95 H 138/91 H Blood Pressure Mean 127 109 106 Pulse Ox 99 98 Oxygen Delivery Method Room Air Room Air 04/18/25 14:55 Temperature 98.7 F Temperature Source Pulse Rate 114 H Respiratory Rate 18 Blood Pressure 140/98 H Blood Pressure Mean 112 Pulse Ox 94 Oxygen Delivery Method Positive well nourished and well developed General Appearance ED: well developed and NAD HEENT Reports TM's clear and moist mucous membranes normocephalic and atraumatic; Negative for trauma or tenderness Tympanic Membrane ED: Yes TM's clear Eyes PERRL and EOMs intact bilaterally General Eye ED: Negative for pale conjunctiva or scleral icterus Neck no lymphadenopathy, supple and no JVD General: Negative for tenderness Chest Wall inspection of chest normal and palpation of chest normal Chest: Negative for tenderness Resp normal respiratory effort and clear to auscultation bilaterally Effort and Inspection: Negative for respiratory distress or pain with movement Auscultation: Negative for rhonchi, wheezes or diminished lung sounds Cardio regular rate, regular rhythm, S1 normal heart sound, S2 normal heart sound and no murmurs Peripheral Pulses: pulses 2+ throughout GI normal to inspection, nondistended, normoactive bowel sounds, soft to palpation, non-distended and no masses GI Narrative: Patient presents with tenderness to palpation over the epigastric region and right upper quadrant. There is a mild guarding. There is no rebound, rigidity, or peritoneal signs. Back/Spine no CVA tenderness and no thoracic nor lumbar tenderness Extremity normal to inspection General Extremety ED: Negative for edema General Extremity: Negative for edema Neuro oriented x3, CN's II-XII intact bilaterally, no sensory deficits noted and gait normal Sensorium / Orientation: a (more content not included)... Normal [facility] Ferritinon 04-18-2025 Ferritin [Mass/Vol] 169 ng/mL Normal 22-378 [facility] Comment on above: Order Comment: Comme nts: ok to add onComments: ok to add on Performed By: #### L 503.6550, L503.6030, L501.5200, L501.2300 ####[facility] [address] [place], [address] H AND P Exam - Hospitaliston 04-18-2025 H&P Exam - Hospitalist [facility] Medical Records Department [address] [place] [address] H P Exam - Hospitalist 04/18/25 1407 MR#: [id number] Acct: [id number] Name: NEL ALBRECHT Rep #: [id number] : 2000 24 From: Raghavendra Curiel DO PCP: Jesica Feng, FARM LABORER-C Status:ADM IN Location: [facility] [id number] HPI - General General Date of Admission: 04/18/25 Date of Service: 04/18/25 Chief Complaint: Recurrent abdominal pain HPI Narrative NEL STODDARDHERMINIA, is a 24 F who presented to [facility] ED on 04/18/2025 with recurrent abdominal pain. Patient was hospitalized here from 04/14-04/16 for gallstone pancreatitis. ERCP with Dr. Rogers on 04/16 with choledocholithiasis found with complete removal, single localized biliary stricture found in the lower third of the main bile duct, one temporary stent placed into the common bile duct. Patient feeling well postoperatively and was able to tolerate diet, so she was discharged home that evening. She returned to the ED today with recurrent abdominal pain. CT abdomen pelvis showed continued acute pancreatitis and multiple small gallstones with gallbladder wall thickening. However, lipase and LFTs were continue to downtrend well. She was given doses of pain medication without much improvement, so hospitalist was contacted for admission. I saw the patient at bedside in the ED, was present. Patient was sitting back fairly comfortably in bed and answering questions appropriately. She has a flat affect and this was present on prior admission as well. She reported mild improvement in pain with the pain medication. Notes that she feels thirsty currently, does not feel hungry. No other acute concerns currently. Will be admitted for further management. [facility] Medical History Anxiety Depression Gallstones Home Medications ???Medication ???Instructions ???Recorded ???Last Taken ???Type amoxicillin 875 mg-potassium 1 tab PO BID #14 tabs 04/16/25 05:30 Rx clavulanate 125 mg tablet oxycodone 5 mg tablet 5 mg PO Q4H PRN PRN Pain Score Unknown Rx 4-10 3 days #10 tabs Allergy/AdvReac Type Severity Reaction Status Date / Time No Known Allergies Allergy Verified 04/18/25 10:43 Social History Smoking Status: Never smoker ROS Constitutional Constitutional: Reports fatigue; Denies chills, fever(s) or weakness Cardiovascular Cardiovascular: Denies chest pain Respiratory/Chest Respiratory/Chest: Denies shortness of breath at rest Gastrointestinal Gastrointestinal: Reports abdominal pain; Denies constipation, diarrhea, nausea or vomiting Musculoskeletal Musculoskeletal: Denies arthralgias or myalgias Neurologic Neurologic: Denies dizziness, focal weakness or headache(s) Vital Signs Vital Signs Vital Signs: 04/18/25 10:41 04/18/25 13:00 Temperature 99.1 F 98.3 F Temperature Source Oral Oral Pulse Rate 111 H 103 H Respiratory Rate 16 18 Blood Pressure 154/114 H 139/95 H Blood Pressure Mean 127 109 Pulse Ox 99 98 Oxygen Delivery Method Room Air Room Air Weight Weight: 93.984 kg Body Mass Index (BMI) 34.4 Physical Exam Const alert, oriented x3 and no apparent distress Constitutional Narrative: Young female, class I obesity, flat affect, fairly comfortable appearing, otherwise sitting back in bed and answering questions appropriately, in no acute distress. General Appearance: cooperative HEENT normocephalic, head/scalp atraumatic, hearing grossly normal bilaterally, nasal mucous membranes and turbinates normal and moist oral mucous membranes Eyes PERRL, EOMs intact bilaterally and conjunctivae normal Neck full ROM Chest inspection of chest normal Resp normal respiratory effort, normal air movement, no use of accessory muscles and clear to auscultation bilaterally Cardio no murmurs and peripheral pulses 2+ throughout Cardio Narrative: Tachycardic, regular rhythm. GI GI Narrative: Abdomen mildly tender diffusely to palpation but otherwise soft and nondistended. Back/Spine normal ROM Extremity normal to inspection, full ROM and no pedal edema Skin no rashes or lesions noted Psych mental status grossly normal Psych Narrative: Flat affect noted. Results Lab / Micro Data 04/18/25 11:45 04/18/25 11:45 Labs: Laboratory Results - last 24 hr 04/18/25 11:45: WBC 9.7, RBC 3.89 L, Hgb 11.3 L, Hct 33.3 L, MCV 85.6, MCH 29.0, MCHC 33.9 D, RDW Std Deviation 41.8, RDW Coeff of Miles 13.2, Plt Count 351, MPV 9.0, Immature Gran % (Auto) 0.400, N eut % (Auto) 71.1 H, Lymph % (Auto) 20.8, [place] % (Auto) 6.7, Eos % (Auto) 0.6, Baso % (Auto) 0.4, Absolute Neuts (auto) 6.9, Absolute Lymphs (auto) 2. (more content not included)... Normal [facility] Iron+Iron Binding Capacityon 04-18-2025 Iron [Mass/Vol] 16 ug/dL Low 50-170 [facility] Comment on above: Order Comment: Comme nts: ok to add onComments: ok to add onok to add on Performed By: #### L 503.6550, L503.6030, L501.5200, L501.2300 ####[facility] [address] [place], [address] IRON SATURATION 5.3 Low 13-59 [facility] Comment on above: Order Comment: Comme nts: ok to add onComments: ok to add onok to add on Performed By: #### L 503.6550, L503.6030, L501.5200, L501.2300 ####[facility] [address] [place], [address] TIBC 302 ug/dL Normal 250-450 [facility] Comment on above: Order Comment: Comme nts: ok to add onComments: ok to add onok to add on Performed By: #### L 503.6550, L503.6030, L501.5200, L501.2300 ####[facility] [address] [place], [address] UIBC 286 ug/dL Normal 228-428 [facility] Comment on above: Order Comment: Comme nts: ok to add onComments: ok to add onok to add on Performed By: #### L 503.6550, L503.6030, L501.5200, L501.2300 ####[facility] [address] [place], [address] Lipaseon 04-18-2025 Lipase [Catalytic activity/Vol] 51 U/L Normal 13-75 [facility] Comment on above: Result Comment: Dwayne maya note: LIPASE revised reference range effective 22. New Lipase methodology. Expected to produce lower values than the previous assay method. NEW Reference Range: 13 - 75 U/L Performed By: #### L 501.2450, L100.0100, L500.4050, L700.6800 ####[facility] [address] [place], [address] MR/CON.PCM.GIon 04-18-2025 MR/CON.PCM.GI [facility] Medical Records Department [address] [place] [address] Consultation - GI 04/18/25 1728 MR#: [id number] Acct: [id number] Name: NEL ALBRECHT Rep #: [id number] : 2000 24 From: Alonzo Friend DO PCP: DA Bowling Status:ADM IN Location: [facility] [facility] [id number] HPI Consult Data Date of Consult: 04/18/25 HPI Narrative Reason for Consultation: Pancreatitis HPI Narrative: NEL ALBRECHT, is a 24 F who presents s to the Emergency Department (ED) on 04/18/2025 with worsening abdominal pain, following a recent hospitalization for gallstone pancreatitis. She had undergone an ERCP on 04/16/2025 with temporary biliary stenting and was discharged home on a low-fat diet. * Patient is a 24-year-old female with a history of symptomatic gallstones. * One month prior to her last hospitalization, she was diagnosed with gallstones at [facility] following similar symptoms. * She reports an increase in the frequency of gallbladder attacks in recent weeks. * The current illness began on 04/13/2025 at approximately 6 PM, with right upper quadrant pain, nausea, and vomiting, following dinner. * The pain persisted overnight and prompted her presentation to [facility] ED on 04/14/2025. * Diagnosed with gallstone pancreatitis and cholecystitis. * Underwent ERCP on 04/16/2025, which confirmed a small gallstone in the common bile duct and an inflammatory stricture. A temporary stent was placed after duct sweeping. * Following the procedure, she was started on a low-fat diet and was discharged home on 04/16/2025 after tolerating it well. * She now presents on 04/18/2025 with worsening abdominal pain.] Labs (04/18/2025): * WBC:???Normal * Hgb:???11.3 (decreased from 12.5) * Hct:???33.3% (decreased from 39.2%) * K:???2.9 (decreased) * BUN:???4 * ALT:???58 (decreased from 140) * Alk Phos:???109 (decreased from 134) * Total Bili:???0.37 (decreased from 2.4) Imaging (CT Abdomen/Pelvis, 04/18/2025): * Acute pancreatitis. * Normal biliary stent. * Multiple stones and cholecystitis. [facility] Medical History Anxiety Depression Gallstones Home Medications ???Medication ???Instructions ???Recorded ???Last Taken ???Type amoxicillin 875 mg-potassium 1 tab PO BID #14 tabs 04/16/25 05:30 Rx clavulanate 125 mg tablet oxycodone 5 mg tablet 5 mg PO Q4H PRN PRN Pain Score Unknown Rx 4-10 3 days #10 tabs Allergy/AdvReac Type Severity Reaction Status Date / Time No Known Allergies Allergy Verified 04/18/25 10:43 Social History Smoking Status: Never smoker ROS Constitutional Constitutional: Denies fatigue, fever(s), poor appetite, weight gain or weight loss Gastrointestinal Gastrointestinal: Denies belching, bloating, change in bowel habits, change in stool character, chewing difficulty, coffee ground emesis, constipation, cramping, diarrhea, dyspepsia, dysphagia, early satiety, excessive flatus, fecal incontinence, heartburn, hematemesis, hematochezia, hemorrhoids, loose stools, melena, nausea, odynophagia, rectal bleeding, tenesmus, vomiting or weight changes Physical Exam Const alert, oriented x3, no apparent distress and healthy appearing General Appearance: cooperative GI normal to inspection, nondistended, normoactive bowel sounds, soft to palpation, non-tender and non- distended Percussion: normal to percussion Rectal Exam: deferred Lab / Micro Data 04/18/25 11:45 04/18/25 11:45 Labs: Laboratory Results - last 24 hr 04/18/25 11:45: WBC 9.7, RBC 3.89 L, Hgb 11.3 L, Hct 33.3 L, MCV 85.6, MCH 29.0, MCHC 33.9 D, RDW Std Deviation 41.8, RDW Coeff of Miles 13.2, Plt Count 351, MPV 9.0, Immature Gran % (Auto) 0.400, N eut % (Auto) 71.1 H, Lymph % (Auto) 20.8, [place] % (Auto) 6.7, Eos % (Auto) 0.6, Baso % (Auto) 0.4, Absolute Neuts (auto) 6.9, Absolute Lymphs (auto) 2.01, Nucleated RBC % 0, Sodium 140, Potassium 2.9 L, Chloride 104, Carbon Dioxide 24.5, Anion Gap 11, BUN 4, Creatinine 0.56 L, Estim Creat Clear Calc 175.57, Est GFR (MDRD) Non-Af 131, BUN/Creatinine Ratio 6.4 L, Glucose 87, Calcium 8.9, Total Bilirubin 0.37, AST 13, ALT 58 H, Alkaline Phosphatase 109 H, Total Protein 6.7, Albumin 3.6, Globulin 3.1, Albumin/Globulin Ratio 1.1, Lipase 51, Serum , Qual NEGATIVE Imaging Radiology Impression Abdomen/Pelvis CT 04/18/25 12:30 IMPRESSION: Findings in keeping with acute pancreatitis as described. Biliary stent is seen within the common bile duct. Multiple small gallstones with the small amount of pericholecystic fluid and gallbladder wall thickening. Reading Location: [facility] (more content not included)... Normal [facility] Magnesiumon 04-18-2025 Magnesium [Mass/Vol] 1.7 mg/dL Normal 1.5-2.2 [facility] Comment on above: Order Comment: Comme nts: ok to add onComments: ok to add on Performed By: #### L 503.3357, L503.6030, L501.5200, L501.2300 ####[facility] [address] [place], [address] Phosphoruson 04-18-2025 Phosphate [Mass/Vol] 2.8 mg/dL Normal 2.7-4.5 [facility] Comment on above: Order Comment: Comme nts: ok to add onComments: ok to add on Performed By: #### L 503.6550, L503.6030, L501.5200, L501.2300 ####[facility] [address] [place], [address] ,Serum,hCG Quali.on 04-18-2025 HCG, SERUM QUAL Negative Normal [facility] Comment on above: Performed By: #### L 501.2450, L100.0100, L500.4050, L700.6800 #### [facility] [address] [place], [address] CBC-Complete Blood Cnt No Di ffon 04-16-2025 Erythrocyte distribution width (RBC) [Ratio] 13.1 % Normal 11.6-14.6 [facility] Comment on above: Performed By: #### L 100.0500, L500.4050 ####[facility] [address] [place], [address] Hematocrit (Bld) [Volume fraction] 39.2 % Normal 37-47 [facility] Comment on above: Performed By: #### L 100.0500, L500.4050 ####[facility] [address] [place], [address] Hemoglobin (Bld) [Mass/Vol] 12.5 g/dL Normal 12.0-15.0 [facility] Comment on above: Performed By: #### L 100.0500, L500.4050 ####[facility] [address] [place], [address] MCH (RBC) [Entitic mass] 28.3 pg Normal 27.0-32.0 [facility] Comment on above: Performed By: #### L 100.0500, L500.4050 ####[facility] [address] [place], [address] MCHC (RBC) [Mass/Vol] 31.9 g/dL Low 32-36 [facility] Comment on above: Performed By: #### L 100.0500, L500.4050 ####[facility] [address] [place], [address] MCV (RBC) [Entitic vol] 88.7 fL Normal 81-99 [facility] Comment on above: Performed By: #### L 100.0500, L500.4050 ####[facility] [address] [place], [address] Platelet mean volume (Bld) [Entitic vol] 9.3 fL Normal 6.2-12.0 [facility] Comment on above: Performed By: #### L 100.0500, L500.4050 ####[facility] [address] [place], [address] Platelets (Bld) [#/Vol] 297 10*3/uL Normal 150-450 [facility] Comment on above: Performed By: #### L 100.0500, L500.4050 ####[facility] [address] [place], [address] RBC (Bld) [#/Vol] 4.42 10*6/uL Normal 4.2-5.4 [facility] Comment on above: Performed By: #### L 100.0500, L500.4050 ####[facility] [address] [place], [address] RDW SD 42.2 fl Normal 35.1-43.9 [facility] Comment on above: Performed By: #### L 100.0500, L500.4050 ####[facility] [address] [place], [address] WBC (Bld) [#/Vol] 11.9 10*3/uL High 4.4-11.0 [facility] Comment on above: Performed By: #### L 100.0500, L500.4050 ####[facility] [address] [place], [address] Comprehensive Metabolic Prof ilon 04-16-2025 Albumin [Mass/Vol] 3.5 g/dL Normal 3.5-5.0 [facility] Comment on above: Performed By: #### L 100.0500, L500.4050 ####[facility] [address] [place], [address] Albumin/Globulin [Mass ratio] 1.1 {ratio} Normal 0.9-2.4 [facility] Comment on above: Performed By: #### L 100.0500, L500.4050 ####[facility] [address] [place], [address] ALK PHOS 134 U/L High 35-104 [facility] Comment on above: Performed By: #### L 100.0500, L500.4050 ####[facility] [address] [place], [address] ALT [Catalytic activity/Vol] 140 U/L High <=34 [facility] Comment on above: Performed By: #### L 100.0500, L500.4050 ####[facility] [address] [place], [address] AST [Catalytic activity/Vol] 45 U/L High <=31 [facility] Comment on above: Performed By: #### L 100.0500, L500.4050 ####[facility] [address] [place], [address] Bilirubin [Mass/Vol] 0.89 mg/dL Normal 0.00-1.30 [facility] Comment on above: Performed By: #### L 100.0500, L500.4050 ####[facility] [address] [place], [address] BUN/CRE 6.8 RATIO Low 10-20 [facility] Comment on above: Performed By: #### L 100.0500, L500.4050 ####[facility] [address] [place], [address] Calcium [Mass/Vol] 8.6 mg/dL Normal 7.6-11.0 [facility] Comment on above: Performed By: #### L 100.0500, L500.4050 ####[facility] [address] [place], [address] Chloride [Moles/Vol] 107 mmol/L Normal 98-108 [facility] Comment on above: Performed By: #### L 100.0500, L500.4050 ####[facility] [address] [place], [address] CO2 [Moles/Vol] 18.7 mmol/L Low 21.0-32.0 [facility] Comment on above: Performed By: #### L 100.0500, L500.4050 ####[facility] [address] [place], [address] Creatinine [Mass/Vol] 0.53 mg/dL Low 0.70-1.20 [facility] Comment on above: Performed By: #### L 100.0500, L500.4050 ####[facility] [address] [place], [address] ECRCL 184.47 ml/min Normal 50-250 [facility] Comment on above: Performed By: #### L 100.0500, L500.4050 ####[facility] [address] [place], [address] GAP 13 Normal 5-15 [facility] Comment on above: Performed By: #### L 100.0500, L500.4050 ####[facility] [address] [place], [address] GFR/1.73 sq M.predicted among non-blacks MDRD (S/P/Bld) [Vol rate/Area] 133 mL/min/{1.73_m2} Normal >60 [facility] Comment on above: Result Comment: mL/m in/1.73m2 CKD-EPI Creatinine Equation (2020) Performed By: #### L 100.0500, L500.4050 ####[facility] [address] [place], [address] Globulin (S) [Mass/Vol] 3.2 g/dL Normal 2.2-4.2 [facility] Comment on above: Performed By: #### L 100.0500, L500.4050 ####[facility] [address] [place], [address] Glucose [Mass/Vol] 85 mg/dL Normal 70-99 [facility] Comment on above: Performed By: #### L 100.0500, L500.4050 ####[facility] [address] [place], [address] Potassium [Moles/Vol] 3.5 mmol/L Normal 3.3-5.1 [facility] Comment on above: Performed By: #### L 100.0500, L500.4050 ####[facility] [address] [place], [address] Sodium [Moles/Vol] 138 mmol/L Normal 133-145 [facility] Comment on above: Performed By: #### L 100.0500, L500.4050 ####[facility] [address] [place], [address] T PROT 6.7 g/dL Normal 5.9-8.4 [facility] Comment on above: Performed By: #### L 100.0500, L500.4050 ####[facility] [address] [place], [address] Urea nitrogen [Mass/Vol] 4 mg/dL Normal 4-19 [facility] Comment on above: Performed By: #### L 100.0500, L500.4050 ####[facility] [address] [place], [address] Discharge Instructionon 03-22 Discharge Instruction [facility] Medical Records Department [address] [place] [address] Instructions for Home/Discharge Instructions 04/16/25 1855 MR#: [id number] Acct: [id number] Name: NEL ALBRECHT Rep #: [id number] : 2000 24 From: Tong Woods MD PCP: Jesica Feng NP-C Status:ADM IN Discharge Instructions DC O2, CPAP, BIPAP needs Home O2 Discharge instructions: No Dressing / Incision Discharge Activity: Return to Normal Activity Dressing / Incision Call your doctor if you observe: Fever of 101 or Higher, Shortness of breath, Dizziness, Fainting spells, Swelling in the ankles, Chest pain and Increased palpitations (irregular heartbeat) Follow Up Care Test Results: Test results from this visit will be discussed in further detail at your follow-up appointment, if applicable. Discharge Plan Admission Admit Date/Time: 04/14/25 12:41 Attending Provider: Tong Woods Primary Care Provider: Jesica Feng NP Consulting Providers: Louie Jean-Baptiste; Alonzo Rogers; Colleen Urbina; Amada Jones; Brea Miranda; Amaury Patel; Raghavendra Curiel Discharge Orders/Prescriptions Prescriptions: New oxycodone 5 mg Tablet 5 mg PO Q4H PRN PRN (Reason: Pain Score 4-10) 3 Days Qty: 10 0RF amoxicillin-pot clavulanate 875-125 mg tablet 1 tab PO BID Qty: 14 0RF Referrals / Follow Up: Alonzo Rogers DO [Med Staff - Active Staff, Gastroenterology] - Within 1 Month Amaury Patel MD [Med Staff - Active Staff, General Surgery] - Within 2 Weeks Jesica Feng NP, NP-C [Primary Care Provider, Medical] - Within 1 Week Disposition Disposition (needs filled in before D/C Order can be placed): Home, Self Care 04/16/25 1859 Tong Woods MD CC: FARM LABORER-Arian Feng; DA Urbina; DA Jones; Dr. Raghavendra Curiel DO; Dr. Louie Jean-Baptiste MD; Dr. Amaury Patel MD; JUNG Reid; Alonzo Rogers DO Signed Normal [facility] ERCP Biliary/Pancreason 03-22 ERCP Biliary/Pancreas [facility] Imaging Services [address] [place] [address] ERCP Biliary/Pancreas MR#: [id number] Acct: [id number] Name: NEL ALBRECHT Rep #: [id number] : 2000 24 From: Jorge Luis garcia MD PCP: DA Bowlign Status: ADM IN Study: ERCP Biliary/Pancreas Date of Exam: 04/16/25 Exam# [id number] Ordering Dr: Alonzo Rogers DO PROCEDURE: ERCP BILIARY/PANCREAS 04/16/2025 REASON FOR EXAM: ERCP TECHNIQUE: Procedure Code: RADERCP Modality: DX Procedure: ERCP BILIARY/PANCREAS. Fluoroscopic services provided for ERCP. Fluoroscopy: 28.6 seconds. 7.8 mGy radiation dose. 5 images were submitted. COMPARISON: None FINDINGS: Intraoperative imaging provided for ERCP. The ducts are not dilated. RAD/ERCP Biliary/Pancreas IMPRESSION: Intraoperative imaging provided for ERCP. Reading Location: [id number] CC: DA Feng; Alonzo Rogers DO Brick Tosser: Signed Normal [facility] ERCP Reporton 04-16-2025 ERCP Report [facility] Medical Records Department [address] [place] [address] ERCP Report MR#: [id number] Acct: [id number] Name: NEL ALBRECHT Rep #: [id number] : 2000 24 From: Alonzo Rogers DO PCP: DA Bowling Status:ADM IN Patient Name: Nel Albrecht Procedure Date: 04/16/2025 11:59 AM Date of : 2000 Age: 24 Procedure: ERCP Indications: Bile duct stone(s), Abdominal pain of suspected biliary origin, Abdominal pain of suspected pancreatic origin, Evaluation and possible treatment of bile duct stone(s), Jaundice, Elevated liver enzymes, Acute pancreatitis Providers: Alonzo Rogers DO Medicines: Monitored Anesthesia Care Patient Profile: This is a 24 year old female. Refer to note in patient chart for documentation of history and physical. Patient has symptoms of acute right upper quadrant abdominal pain and acute jaundice. This patient has no history of previous ERCP. This patient has no history of surgical alteration of the upper digestive tract anatomy. Complications: No immediate complications. Procedure: Pre-Anesthesia Assessment: - Prior to the procedure, a History and Physical was performed, and patient medications and allergies were reviewed. The patient is competent. The risks and benefits of the procedure and the sedation options and risks were discussed with the patient. All questions were answered and informed consent was obtained. Patient identification and proposed procedure were verified by the physician in the pre-procedure area. Mental Status Examination: alert and oriented. Airway Examination: normal oropharyngeal airway and neck mobility. Respiratory Examination: clear to auscultation. CV Examination: normal. Prophylactic Antibiotics: The patient does not require prophylactic antibiotics. Prior Anticoagulants: The patient has taken no anticoagulant or antiplatelet agents except for NSAID medication. ASA Grade Assessment: II - A patient with mild systemic disease. After reviewing the risks and benefits, the patient was deemed in satisfactory condition to undergo the procedure. The anesthesia plan was to use monitored anesthesia care (MAC). Immediately prior to administration of medications, the patient was re-assessed for adequacy to receive sedatives. The heart rate, respiratory rate, oxygen saturations, blood pressure, adequacy of pulmonary ventilation, and response to care were monitored throughout the procedure. The physical status of the patient was re-assessed after the procedure. After obtaining informed consent, the scope was passed under direct vision. Throughout the procedure, the patient's blood pressure, pulse, and oxygen saturations were monitored continuously. The Duodenoscope was introduced through the mouth, and advanced to the duodenum and used to inject contrast into the bile duct. The ERCP was accomplished without difficulty. The patient tolerated the procedure well. Scope In: 12:37:30 PM Scope Out: 12:46:58 PM Total Procedure Duration Time 0 hours 9 minutes 28 seconds Findings: The leather novelty parts cutter film was normal. The esophagus was successfully intubated under direct vision. The scope was advanced to a normal major papilla in the descending duodenum without detailed examination of the pharynx, larynx and associated structures, and upper GI tract. The upper GI tract was grossly normal. A long 0.021 inch Jagwire was passed into the biliary tree. The short-nosed traction sphincterotome was passed over the guidewire and the bile duct was then deeply cannulated. Contrast was injected. I personally interpreted the bile duct images. There was brisk flow of contrast through the ducts. Image quality was adequate. Contrast extended to the entire biliary tree. Opacification of the entire opacified area, main bile duct, common bile duct, cystic duct, gallbladder, common hepatic duct, hepatic duct bifurcation, left and right hepatic ducts and all intrahepatic branches and entire biliary tree was successful. The maximum diameter of the ducts was 10 mm. The lower third of the main bile duct contained a single localized stenosis 6 mm in length. The main bile duct and common hepatic duct were diffusely dilated, acquired. The largest diameter was 10 mm. A 5 mm biliary sphincterotomy was made with a traction (standard) sphincterotome using ERBE electrocautery. There was no post-sphincterotomy bleeding. The biliary tree was swept with a 12 mm balloon starting at the upper third of the main bile duct, middle third of the main bile duct, lower third of the main duct and bifurcation. One stone was removed. No stones remained. One 10 Fr by 5 cm temporary stent was placed 5 cm into the common bile duct. Bile flowed through the stent. The stent was in good position. Impression: - A single localized bi (more content not included)... Normal [facility] Lipaseon 04-16-2025 Lipase [Catalytic activity/Vol] 271 U/L High 13- [facility] Comment on above: Result Comment: Dwayne maya note: LIPASE revised reference range effective 22. New Lipase methodology. Expected to produce lower values than the previous assay method. NEW Reference Range: 13 - 75 U/L Performed By: #### L 501.2450 #### [facility] Laboratory [address] [place], [address] MR/OP.PROVATon 04-16-2025 MR/OP.PROVAT [facility] Medical Records Department [address] [place] [address] Provation Physician Letter MR#: [id number] Acct: [id number] Name: NEL ALBRECHT Rep #: [id number] : 2000 24 From: Alonzo Rogers DO PCP: DA Bowling Status:ADM IN 04/16/2025 Jesica Feng Java Portal Developer, Java Portal Developer-c Re : ERCP procedure for Nel Albrecht Cassi Feng This procedure was performed on Wednesday, April 16, 2025. My impressions and recommendations are as follows: Impressions : - A single localized biliary stricture was found in the lower third of the main bile duct. The stricture was inflammatory. - The entire main bile duct and common hepatic duct were dilated, acquired. - Choledocholithiasis was found. Complete removal was accomplished by biliary sphincterotomy and balloon extraction. - A biliary sphincterotomy was performed. - The biliary tree was swept. - One temporary stent was placed into the common bile duct. Recommendations : My findings are described in the full procedure note, which is enclosed. If I can be of further assistance, please feel free to contact me at . Sincerely, Alonzo Rogers DO 04/16/2025 12:53:21 PM This report has been signed electronically. 04/16/25 1253 Date Alonzo Spicer Signature: Date (if indicated) CC: DA Feng; DA Urbina; DA Jones; Dr. Raghavendra Curiel DO; Dr. Tong Woods MD; Dr. Louie Jean-Baptiste MD; Dr. Amaury Patel MD; JUNG Reid; Alonzo Rogers DO Date Dictated: 04/16/25 1159 Date Transcribed: Brick Tosser: SATYA Signed [facility] MR/POSTOP.ANEon 04-16-2025 MR/POSTOP.[facility] Medical Records Department [address] [place] [address] Anesthesia Postop Eval I 04/16/251315 MR#: [id number] Acct: [id number] Name: NEL ALBRECHT Rep #: [id number] : 2000 24 From: Estrada Richey PCP: DA Bowling Status:ADM IN Y Race: C [facility] Anesthesia: Postop Eval I Current Vital Signs Temperature: 98.2 F Pulse Rate: 102 Blood Pressure: 115/72 Respiratory Rate: 18 Pulse Ox: 96 Oxygen Delivery Method: Room Air Assessment Airway patent: Yes Spontaneous unlabored respirations: Yes Mental status: Awake nausea: No Vomiting: No Anesthesia Complication: No Fluid Hydration Crystalloid volume administer (ml): 900 Total IV fluid infused: 900 Progress Note Anesthesia document: Postop Eval 1 completed: Yes 04/16/251316 Date Estrada Olson Signature: Date CC: Signed [facility] MR/TTRCTMAB0qj 04-16-2025 [facility] Medical Records Department [address] [place] [address] Anesthesia Postop Eval II 04/16/25 1741 MR#: [id number] Acct: [id number] Name: NEL ALBRECHT Rep #: [id number] : 2000 24 From: Aureliano Sebastian MD PCP: Jesica Feng FARM LABORER-Arian Status:ADM IN Y Race: C Location: [facility] [id number] Anesthesia Postop Eval I Sum Postop Eval Completion status Anesthesia document: Postop Eval 1 completed: Yes Anesthesia Postop Eval I Summary Anesthesia Postop Eval I Summary: Anesthesia Postop Eval I: Assessment Summary Airway patent Yes 04/16/25 13:17 [email or web address] Spontaneous unlabored Yes 04/16/25 13:17 [email or web address] respirations Mental status Awake 04/16/25 13:17 [email or web address] nausea No 04/16/25 13:17 [email or web address] Vomiting No 04/16/25 13:17 [email or web address] Anesthesia Postop Eval I: Fluid Summary Crystalloid volume administer 900 04/16/25 13:17 [email or web address] (ml) Colloids volume administered ( ml) Blood Product volume administered (ml) Total IV fluid infused 900 04/16/25 13:17 [email or web address] Anesthesia Postop Eval I: Summary Notes Anesthesia Complication No 04/16/25 13:17 [email or web address] Anesthesia Complication Comment: Post-operative progress note Anesthesia: Postop Eval II Evaluation Mental status: Awake and Calm Pain Level: 1 nausea: No Vomiting: No Complications Anesthesia Complication: No 04/16/25 174 Date Aureliano Sebastian MD Cosigner Signature: Date CC: Signed Normal [facility] ,Urineon 04-16-2025 Beta HCG ( test) Ql (U) Negative [facility] Comment on above: Order Comment: Femal es 12-55 or menstruation outside age [id number] Result Comment: Very dilute urine specimens, as indicated by a low specific gravity, may not contain financial foundations representative levels of hCG. If is still suspected, a first morning urine specimen should be collected 48 hours later and tested. Performed By: #### L 400.7600 ####[facility] [address] [place], [address] CBC-Complete Blood Cnt No Di ffon 04-15-2025 Erythrocyte distribution width (RBC) [Ratio] 13.1 % Normal 11.6-14.6 [facility] Comment on above: Performed By: #### L 100.0500, L500.4050 #### [facility] Laboratory [address] [place], [address] Hematocrit (Bld) [Volume fraction] 39.3 % Normal 37-47 [facility] Comment on above: Performed By: #### L 100.0500, L500.4050 #### [facility] [address] [place], [address] Hemoglobin (Bld) [Mass/Vol] 12.9 g/dL Normal 12.0-15.0 [facility] Comment on above: Performed By: #### L 100.0500, L500.4050 #### [facility] [address] [place], [address] MCH (RBC) [Entitic mass] 29.1 pg Normal 27.0-32.0 [facility] Comment on above: Performed By: #### L 100.0500, L500.4050 #### [facility] [address] [place], [address] MCHC (RBC) [Mass/Vol] 32.8 g/dL Normal 32-36 [facility] Comment on above: Performed By: #### L 100.0500, L500.4050 #### [facility] [address] [place], [address] MCV (RBC) [Entitic vol] 88.7 fL Normal 81-99 [facility] Comment on above: Performed By: #### L 100.0500, L500.4050 #### [facility] [address] [place], [address] Platelet mean volume (Bld) [Entitic vol] 9.3 fL Normal 6.2-12.0 [facility] Comment on above: Performed By: #### L 100.0500, L500.4050 #### [facility] [address] [place], [address] Platelets (Bld) [#/Vol] 272 10*3/uL Normal 150-450 [facility] Comment on above: Performed By: #### L 100.0500, L500.4050 #### [facility] [address] [place], [address] RBC (Bld) [#/Vol] 4.43 10*6/uL Normal 4.2-5.4 [facility] Comment on above: Performed By: #### L 100.0500, L500.4050 #### [facility] [address] [place], [address] RDW SD 42.3 fl Normal 35.1-43.9 [facility] Comment on above: Performed By: #### L 100.0500, L500.4050 #### [facility] [address] [place], [address] WBC (Bld) [#/Vol] 8.5 10*3/uL Normal 4.4-11.0 [facility] Comment on above: Performed By: #### L 100.0500, L500.4050 #### [facility] [address] [place], [address] Comprehensive Metabolic Prof ilon 04-15-2025 Albumin [Mass/Vol] 3.5 g/dL Normal 3.5-5.0 [facility] Comment on above: Performed By: #### L 100.0500, L500.4050 #### [facility] [address] [place], [address] Albumin/Globulin [Mass ratio] 1.3 {ratio} Normal 0.9-2.4 [facility] Comment on above: Performed By: #### L 100.0500, L500.4050 #### [facility] [address] [place], [address] ALK PHOS 155 U/L High 35-104 [facility] Comment on above: Performed By: #### L 100.0500, L500.4050 #### [facility] [address] [place], [address] ALT [Catalytic activity/Vol] 225 U/L High <=34 [facility] Comment on above: Performed By: #### L 100.0500, L500.4050 #### [facility] [address] [place], [address] AST [Catalytic activity/Vol] 125 U/L High <=31 [facility] Comment on above: Performed By: #### L 100.0500, L500.4050 #### [facility] [address] [place], [address] Bilirubin [Mass/Vol] 1.02 mg/dL Normal 0.00-1.30 [facility] Comment on above: Performed By: #### L 100.0500, L500.4050 #### [facility] [address] [place], [address] BUN/CRE 7.4 RATIO Low 10-20 [facility] Comment on above: Performed By: #### L 100.0500, L500.4050 #### [facility] [address] [place], [address] Calcium [Mass/Vol] 8.2 mg/dL Normal 7.6-11.0 [facility] Comment on above: Performed By: #### L 100.0500, L500.4050 #### [facility] [address] [place], [address] Chloride [Moles/Vol] 108 mmol/L Normal 98-108 [facility] Comment on above: Performed By: #### L 100.0500, L500.4050 #### [facility] [address] [place], [address] CO2 [Moles/Vol] 22.3 mmol/L Normal 21.0-32.0 [facility] Comment on above: Performed By: #### L 100.0500, L500.4050 #### [facility] [address] [place], [address] Creatinine [Mass/Vol] 0.56 mg/dL Low 0.70-1.20 [facility] Comment on above: Performed By: #### L 100.0500, L500.4050 #### [facility] [address] [place], [address] ECRCL 174.59 ml/min Normal 50-250 [facility] Comment on above: Performed By: #### L 100.0500, L500.4050 #### [facility] [address] [place], [address] GAP 8 Normal 5-15 [facility] Comment on above: Performed By: #### L 100.0500, L500.4050 #### [facility] [address] [place], [address] GFR/1.73 sq M.predicted among non-blacks MDRD (S/P/Bld) [Vol rate/Area] 131 mL/min/{1.73_m2} Normal >60 [facility] Comment on above: Result Comment: mL/m in/1.73m2 CKD-EPI Creatinine Equation (2020) Performed By: #### L 100.0500, L500.4050 #### [facility] [address] [place], [address] Globulin (S) [Mass/Vol] 2.7 g/dL Normal 2.2-4.2 [facility] Comment on above: Performed By: #### L 100.0500, L500.4050 #### [facility] [address] [place], [address] Glucose [Mass/Vol] 97 mg/dL Normal 70-99 [facility] Comment on above: Performed By: #### L 100.0500, L500.4050 #### [facility] [address] [place], [address] Potassium [Moles/Vol] 3.7 mmol/L Normal 3.3-5.1 [facility] Comment on above: Performed By: #### L 100.0500, L500.4050 #### [facility] [address] [place], [address] Sodium [Moles/Vol] 138 mmol/L Normal 133-145 [facility] Comment on above: Performed By: #### L 100.0500, L500.4050 #### [facility] [address] [place], [address] T PROT 6.2 g/dL Normal 5.9-8.4 [facility] Comment on above: Performed By: #### L 100.0500, L500.4050 #### [facility] [address] [place], [address] Urea nitrogen [Mass/Vol] 4 mg/dL Normal 4-19 [facility] Comment on above: Performed By: #### L 100.0500, L500.4050 #### [facility] [address] [place], [address] Consultation - Surgicalon 10 -26-2025 Consultation - Surgical [facility] Medical Records Department [address] [place] [address] Consultation - Surgical 04/15/25 1325 MR#: [id number] Acct: [id number] Name: NEL ALBRECHT Rep #: [id number] : 2000 24 From: Amaury Patel MD PCP: Jesica Feng, FARM LABORER-C Status:ADM IN Location: HI3 [id number] Assessment Plan Assessment/Plan (1) Gallstone pancreatitis: PLAN: Plan The patient is a 24-year-old female who was admitted with abdominal pain and was found to have gallstone pancreatitis. The tentative plan is for her to undergo ERCP tomorrow. From a general surgery standpoint she would certainly benefit from cholecystectomy to prevent further recurrences of pancreatitis secondary to gallstones. I explained to her that this does not help resolve the current episode of pancreatitis, and prevents this from occurring in the future. We discussed options of having this performed during this hospitalization versus waiting for inflammation to subside and doing this as an outpatient. At this point I tend to lean towards outpatient cholecystectomy in a few weeks. The reason for this, is the fact that Sharon- pancreatic fluid was identified on MRI suggesting more advanced pancreatitis. Will continue to follow along and see how her pancreatitis resolves in the next couple of days. Patient and are agreeable to this plan. HPI Consult Data Date of Consult: 04/15/25 HPI Narrative Reason for Consultation: Gallstone pancreatitis HPI Narrative: NEL ALBRECHT, is a 24 F who presented to [facility] emergency department on 04/14/2025 with abdominal pain. Patient also presented with nausea and vomiting. It sounds as though patient has been having issues with gallstones for the past 1 to 2 months. She was actually supposed to meet with a general surgeon in [place] next week. Patient was having worsening right upper quadrant pain which prompted her visit to the emergency department. While in the emergency department, she underwent laboratory testing that showed an elevated bilirubin of about 2.5. Her AST and ALT were elevated as well. Alkaline phosphatase was about 200. Her lipase was greater than 3000. Right upper quadrant ultrasound showed a distended gallbladder with stones but no gallbladder wall thickening or surrounding fluid. She had an MRCP recently performed that showed no gallbladder wall thickening or fluid and common bile duct appeared normal. MRCP did show inflammation around the pancreas along with Sharon-pancreatic fluid consistent with pancreatitis. She is tentatively scheduled for ERCP tomorrow however her bilirubin has returned to normal. A general surgery consult was obtained to determine timing of cholecystectomy whether it is to be done during this hospitalization or performed in the near future as an outpatient. [facility] Medical History Gallstones Home Medications ???Medication ???Instructions ???Recorded ???Last Taken ???Type NK 04/14/25 Unknown History Allergy/AdvReac Type Severity Reaction Status Date / Time No Known Allergies Allergy Verified 04/14/25 09:22 Social History Smoking Status: Never smoker Physical Exam Narrative She is alert and oriented x 3. She is in no acute distress. Abdomen is soft. She has mild diffuse tenderness to palpation. Minimal right upper quadrant tenderness Lab / Micro Data 04/15/25 05:20 04/15/25 05:20 Labs: Laboratory Results - last 24 hr 04/15/25 05:20: WBC 8.5, RBC 4.43, Hgb 12.9, Hct 39.3, MCV 88.7, MCH 29.1, MCHC 32.8, RDW Std Deviation 42.3, RDW Coeff of Miles 13.1, Plt Count 272, MPV 9.3, Sodium 138, Potassium 3.7, Chloride 108, Carbon Dioxide 22.3, Anion Gap 8, BUN 4, Creatinine 0.56 L, Estim Creat Clear Calc 174.59, Est GFR (MDRD) Non-Af 131, BUN/Creatinine Ratio 7.4 L, Glucose 97, Calcium 8.2, Total Bilirubin 1.02, A ST 125 H, ALT 225 H, Alkaline Phosphatase 155 H, Total Protein 6.2, Albumin 3.5, Globulin 2.7, Albumin/Globulin Ratio 1.3 Imaging Radiology Impression MRCP 04/14/25 10:43 IMPRESSION: Findings are suggestive of interstitial edematous pancreatitis with acute peripancreatic fluid (Elizabeth C). Advise clinical and laboratory correlation. Gall bladder calculi with mural thickening/edema, possibly cholecystitis. Prominent biliary tracts with no obvious intraluminal low signal calculi or obvious masses. Reading Location: IFEANYITHERESE Charges/Coding Visit Charges Inpatient E M: 56493 Init Hosp L3 04/15/25 1332 Cosigner Signature (if applicable): CC: FARM LABORERTanner ButtJesica Dolores Feng Signed Normal [facility] CBC W/Diff, Automatedon 03-22 Absolute Lymph 1.03 X10 3/uL Normal 0.83-4.51 [facility] Comment on above: Performed By: #### L 500.4050, L700.6800, L501.2450, L100.0100 ####[facility] [address] [place], [address] Absolute Neut 7.9 X10 3/uL High 2.0-7.7 [facility] Comment on above: Performed By: #### L 500.4050, L700.6800, L501.2450, L100.0100 ####[facility] [address] [place], [address] Basophils/100 WBC (Bld) 0.3 % Normal 0-1 [facility] Comment on above: Performed By: #### L 500.4050, L700.6800, L501.2450, L100.0100 ####[facility] [address] [place], [address] Eosinophils/100 WBC (Bld) 0.4 % Normal 0-5 [facility] Comment on above: Performed By: #### L 500.4050, L700.6800, L501.2450, L100.0100 ####[facility] [address] [place], [address] Erythrocyte distribution width (RBC) [Ratio] 12.9 % Normal 11.6-14.6 [facility] Comment on above: Performed By: #### L 500.4050, L700.6800, L501.2450, L100.0100 ####[facility] [address] [place], [address] Hematocrit (Bld) [Volume fraction] 44.2 % Normal 37-47 [facility] Comment on above: Performed By: #### L 500.4050, L700.6800, L501.2450, L100.0100 ####[facility] [address] [place], [address] Hemoglobin (Bld) [Mass/Vol] 14.9 g/dL Normal 12.0-15.0 [facility] Comment on above: Performed By: #### L 500.4050, L700.6800, L501.2450, L100.0100 ####[facility] [address] [place], [address] IG% 0.200 Normal 0.0-0.9 [facility] Comment on above: Result Comment: IG% - Immature Granulocytes (promyelocytes, myelocytes and metamyelocytes) > 1% indicates that a LEFT SHIFT is Present. Performed By: #### L 500.4050, L700.6800, L501.2450, L100.0100 ####[facility] [address] [place], [address] Lymphocytes/100 WBC (Bld) 10.7 % Low 19-41 [facility] Comment on above: Performed By: #### L 500.4050, L700.6800, L501.2450, L100.0100 ####[facility] [facility] [address] [place], [address] MCH (RBC) [Entitic mass] 28.9 pg Normal 27.0-32.0 [facility] Comment on above: Performed By: #### L 500.4050, L700.6800, L501.2450, L100.0100 ####[facility] [address] [place], [address] MCHC (RBC) [Mass/Vol] 33.7 g/dL Normal 32-36 [facility] Comment on above: Performed By: #### L 500.4050, L700.6800, L501.2450, L100.0100 ####[facility] [address] [place], [address] MCV (RBC) [Entitic vol] 85.7 fL Normal 81-99 [facility] Comment on above: Performed By: #### L 500.4050, L700.6800, L501.2450, L100.0100 ####[facility] [address] [place], [address] Monocytes/100 WBC (Bld) 5.7 % Normal 0-10 [facility] Comment on above: Performed By: #### L 500.4050, L700.6800, L501.2450, L100.0100 ####[facility] [address] [place], [address] Neutrophils/100 WBC (Bld) 82.7 % High 47-70 [facility] Comment on above: Performed By: #### L 500.4050, L700.6800, L501.2450, L100.0100 ####[facility] [address] [place], [address] Nucleated RBC (Bld) [#/Vol] 0 10*3/uL Normal 0-5 [facility] Comment on above: Performed By: #### L 500.4050, L700.6800, L501.2450, L100.0100 ####[facility] [address] [place], [address] Platelet mean volume (Bld) [Entitic vol] 9.2 fL Normal 6.2-12.0 [facility] Comment on above: Performed By: #### L 500.4050, L700.6800, L501.2450, L100.0100 ####[facility] [address] [place], [address] Platelets (Bld) [#/Vol] 344 10*3/uL Normal 150-450 [facility] Comment on above: Performed By: #### L 500.4050, L700.6800, L501.2450, L100.0100 ####[facility] [address] [place], [address] RBC (Bld) [#/Vol] 5.16 10*6/uL Normal 4.2-5.4 [facility] Comment on above: Performed By: #### L 500.4050, L700.6800, L501.2450, L100.0100 ####[facility] [address] [place], [address] RDW SD 40.2 fl Normal 35.1-43.9 [facility] Comment on above: Performed By: #### L 500.4050, L700.6800, L501.2450, L100.0100 ####[facility] [address] [place], [address] WBC (Bld) [#/Vol] 9.6 10*3/uL Normal 4.4-11.0 [facility] Comment on above: Performed By: #### L 500.4050, L700.6800, L501.2450, L100.0100 ####[facility] [address] [place], [address] Comprehensive Metabolic [facility] 04-14-2025 Albumin [Mass/Vol] 4.5 g/dL Normal 3.5-5.0 [facility] Comment on above: Performed By: #### L 500.4050, L700.6800, L501.2450, L100.0100 ####[facility] [address] [place], [address] Albumin/Globulin [Mass ratio] 1.2 {ratio} Normal 0.9-2.4 [facility] Comment on above: Performed By: #### L 500.4050, L700.6800, L501.2450, L100.0100 ####[facility] [address] [place], [address] ALK PHOS 195 U/L High 35-104 [facility] Comment on above: Performed By: #### L 500.4050, L700.6800, L501.2450, L100.0100 ####[facility] [address] [place], [address] ALT [Catalytic activity/Vol] 403 U/L High <=34 [facility] Comment on above: Performed By: #### L 500.4050, L700.6800, L501.2450, L100.0100 ####[facility] [address] [place], [address] AST [Catalytic activity/Vol] 554 U/L High <=31 [facility] Comment on above: Performed By: #### L 500.4050, L700.6800, L501.2450, L100.0100 ####[facility] [address] [place], [address] Bilirubin [Mass/Vol] 2.47 mg/dL High 0.00-1.30 [facility] Comment on above: Performed By: #### L 500.4050, L700.6800, L501.2450, L100.0100 ####[facility] [address] [place], [address] BUN/CRE 12.0 RATIO Normal 10-20 [facility] Comment on above: Performed By: #### L 500.4050, L700.6800, L501.2450, L100.0100 ####[facility] [address] [place], [address] Calcium [Mass/Vol] 9.8 mg/dL Normal 7.6-11.0 [facility] Comment on above: Performed By: #### L 500.4050, L700.6800, L501.2450, L100.0100 ####[facility] [address] [place], [address] Chloride [Moles/Vol] 104 mmol/L Normal 98-108 [facility] Comment on above: Performed By: #### L 500.4050, L700.6800, L501.2450, L100.0100 ####[facility] [address] [place], [address] CO2 [Moles/Vol] 22.7 mmol/L Normal 21.0-32.0 [facility] Comment on above: Performed By: #### L 500.4050, L700.6800, L501.2450, L100.0100 ####[facility] [address] [place], [address] Creatinine [Mass/Vol] 0.69 mg/dL Low 0.70-1.20 [facility] Comment on above: Performed By: #### L 500.4050, L700.6800, L501.2450, L100.0100 ####[facility] [address] [place], [address] GAP 13 Normal 5-15 [facility] Comment on above: Performed By: #### L 500.4050, L700.6800, L501.2450, L100.0100 ####[facility] [address] [place], [address] GFR/1.73 sq M.predicted among non-blacks MDRD (S/P/Bld) [Vol rate/Area] 124 mL/min/{1.73_m2} Normal >60 [facility] Comment on above: Result Comment: mL/m in/1.73m2 CKD-EPI Creatinine Equation (2020) Performed By: #### L 500.4050, L700.6800, L501.2450, L100.0100 ####[facility] [address] [place], [address] Globulin (S) [Mass/Vol] 3.7 g/dL Normal 2.2-4.2 [facility] Comment on above: Performed By: #### L 500.4050, L700.6800, L501.2450, L100.0100 ####[facility] [address] [place], [address] Glucose [Mass/Vol] 120 mg/dL High 70-99 [facility] Comment on above: Performed By: #### L 500.4050, L700.6800, L501.2450, L100.0100 ####[facility] [address] [place], [address] Potassium [Moles/Vol] 4.2 mmol/L Normal 3.3-5.1 [facility] Comment on above: Performed By: #### L 500.4050, L700.6800, L501.2450, L100.0100 ####[facility] [address] [place], [address] Sodium [Moles/Vol] 139 mmol/L Normal 133-145 [facility] Comment on above: Performed By: #### L 500.4050, L700.6800, L501.2450, L100.0100 ####[facility] [address] [place], [address] T PROT 8.3 g/dL Normal 5.9-8.4 [facility] Comment on above: Performed By: #### L 500.4050, L700.6800, L501.2450, L100.0100 ####[facility] [address] [place], [address] Urea nitrogen [Mass/Vol] 8 mg/dL Normal 4-19 [facility] Comment on above: Performed By: #### L 500.4050, L700.6800, L501.2450, L100.0100 ####[facility] [address] [place], [address] Emergency Department Summary on 04-14-[address] [facility] Medical Records Department [address] [place] [address] Emergency Department Summary 04/14/25 MR#: [id number] Acct: [id number] Name: NEL ALBRECHT Rep #: [id number] : 2000 24 From: Cornell Serna MD PCP: Jesica Feng NP-C Status:REG ER Location: ED HPI HPI - GI History of Present Illness Chief Complaint: Abd Pain Narrative Narrative: 24-year-old female who by significant past medical history with the exception of being diagnosed with gallstones about a month ago in [place], presents with what she considers a gallbladder attack that she has been having more frequently. It was about a month ago when her symptoms began and she was diagnosed with gallstones. She states she has an appointment on Wednesday with a surgeon for possible outpatient cholecystectomy. Yesterday evening at around 6 PM after eating she developed right upper quadrant pain, nausea and vomiting. She states her last attack of biliary colic was earlier in the week on Wednesday, approximately 3 days ago, but it lasted longer than usual. She has been having more frequent attacks. While she denies any fevers or chills, no hematemesis, no problems with bowel movements, she still having pain in the right upper quadrant radiating to her back. She denies any lower abdominal pain or pelvic pain. Last menstrual period was last week. [facility] Medical History (Updated 04/14/25 @ 12:57 by Cornell Serna MD) Gallstones Home Medications ???Medication ???Instructions ???Recorded ???Last Taken ???Type NK 04/14/25 Unknown History Allergy/AdvReac Type Severity Reaction Status Date / Time No Known Allergies Allergy Verified 04/14/25 09:22 Social History Smoking Status: Never smoker ROS ROS ED ROS Narrative Review of systems is positive for right upper quadrant abdominal pain radiating to back, positive nausea and vomiting. No fevers or chills. No hematemesis. No problems with bowel movements. No exacerbating or alleviating factors. Increasing frequency of biliary colic episodes. Lasting longer as well. EXAM Physical Exam Narrative Exam Narrative: Afebrile. Vital signs noted. Nontoxic appearing. Cardiovascular examination reveals regular rate and rhythm. Lungs are clear to auscultation bilaterally. The abdomen is soft with positive tenderness to palpation of the right upper quadrant. No guarding or rebound. Questionable Rice sign. Positive bowel sounds. Neurological examination nonfocal, nonlateralizing. No noted jaundice or scleral icterus. Const Vital Signs: 04/14/25 09:23 04/14/25 11:56 04/14/25 12:20 Temperature 98.7 F Temperature Source Oral Pulse Rate 78 83 64 Respiratory Rate 18 16 18 Blood Pressure 145/105 H 144/101 H 145/98 H Blood Pressure Mean 118 115 113 Pulse Ox 98 100 100 Oxygen Delivery Method Room Air Room Air Room Air MDM MDM MDM Narrative Medical decision making narrative: The differential diagnosis includes but not limited to biliary colic versus acute cholecystitis versus choledocholithiasis/membreno creatitis. Patient will be administered morphine and ondansetron for pain and nausea. She was bolused normal saline. An ultrasound, CBC, CMP, lipase, and serum were ordered.. Patient initially administered morphine for analgesia, but she states that her pain was worsening with it. She was then given fentanyl. I reviewed her laboratory work and she has a white count that is normal at 9.6, hemoglobin normal at 14.9, platelet count normal at 344. CMP is significant for glucose of 120 with a normal anion gap of 13, normal BUN, creatinine low at 0.69. AST is elevated at 554 with ALT of 403 and alk phos of 195. Total bilirubin elevated at 2.47. Lipase is greater than 3000. This is consistent with gallstone pancreatitis. Serum is negative. Ultrasound was obtained of the gallbladder/right upper quadrant which shows cholelithiasis without evidence of acute cholecystitis. MRI was available as they were here for another patient, so MRCP was ordered. I discussed patient with Dr. Curiel who has confirmed that gastroenterology is rounding and available for ERCP. Disposition is admitted in stable condition. History Record Review Discussion w/independent historian: Patient and Family () Additional record(s) reviewed:: No prior records (No prior ED visit) Lab Data Attestation: I reviewed the patient's lab results. Labs: Laboratory Results - last 24 hr 04/14/25 10:00 WBC 9.6 RBC 5.16 Hgb 14.9 Hct 44.2 MCV 85.7 MCH 28.9 MCHC 33.7 RDW Std Deviation 40.2 RDW Coeff of Miles 12.9 Plt Count 344 MPV 9.2 Immature Gran % (Auto) 0.200 Neut % (Auto) 82.7 H Lymph % (Auto) 10.7 L [place] % (Auto) (more content not included)... Normal [facility] Gallbladderon 04-14-2025 Gallbladder [facility] Imaging Services [address] [place] [address] Gallbladder MR#: [id number] Acct: [id number] Name: NEL ALBRECHT Rep #: [id number] : 2000 F 24 From: Raleigh Moss MD PCP: Jesica Feng NP-C Status: REG ER Study: Gallbladder Date of Exam: 04/14/25 Exam# [id number] Ordering Dr: Cornell Serna MD PROCEDURE: GALLBLADDER 04/14/2025 REASON FOR EXAM: PAIN TECHNIQUE: Procedure Code: USGB Modality: US Procedure: GALLBLADDER COMPARISON: None. FINDINGS: Liver: Unremarkable. Gallbladder: The gallbladder is distended. Layering stones in the gallbladder. No gallbladder wall thickening. No pericholecystic fluid. The technologist reported a negative sonographic Rice's sign. Common bile duct: The common bile duct measures 6 mm in inner diameter which is within normal limits. Pancreas: Unremarkable as visualized. US/Gallbladder IMPRESSION: Cholelithiasis with no evidence of acute cholecystitis. Reading Location: [facility] CC: FARM LAB[employer]ER-C Jesica Feng; Dr. Cornell Serna MD Brick Tosser: Signed Normal [facility] H AND P Exam - Hospitaliston 04-14-2025 H&P Exam - Hospitalist [facility] Medical Records Department [address] [place] [address] H P Exam - Hospitalist 04/14/25 1241 MR#: [id number] Acct: [id number] Name: NEL ALBRECHT Rep #: [id number] : 2000 24 From: Raghavendra Curiel DO PCP: Jesica Feng, DA Status:ADM IN Location: MS3 HU249-8 HPI - General General Date of Admission: 04/14/25 Date of Service: 04/14/25 Chief Complaint: Abdominal pain and nausea with vomiting HPI Narrative NEL ALBRECHT, is a 24 F who presented to [facility] ED on 04/14/2025 with abdominal pain and nausea with vomiting. Patient lives at home with her , has good functional status at baseline. She notes that she went to [facility] about a month ago and was diagnosed with gallstones there. She was going to meet with a surgeon this coming Wednesday to discuss possible outpatient cholecystectomy. Noted that she had been having more frequent gallbladder attacks over the past several weeks. She developed right upper quadrant pain and nausea with vomiting yesterday evening around 6 PM after eating dinner. She continued to have fairly consistent pain overnight and into this morning, so she came in for further evaluation. Labs in the ED notable for total bilirubin 2.47, AST 554, ALT 4 3, alk phos 195, lipase greater than 3000. Gallbladder ultrasound showed a distended gallbladder with layering stones in the gallbladder but no gallbladder wall thickening or pericholecystic fluid and normal common bile duct measurements. MRCP was completed with read currently pending. She otherwise had a normal white blood cell count and was afebrile, normotensive and mentating appropriately. Given concern for pancreatitis, hospitalist was contacted for admission. I saw the patient at bedside in the ED. Patient had been given doses of IV pain medication and noted feeling moderately improved with these. On abdominal exam she did still have tenderness to palpation fairly diffusely but her abdomen was soft and nondistended. She stated she was feeling thirsty but not hungry at this point. Denied any other acute concerns currently. Will be admitted for further management. [facility] Medical History (Updated 04/14/25 @ 12:57 by Cornell Serna MD) Gallstones Home Medications ???Medication ???Instructions ???Recorded ???Last Taken ???Type NK 04/14/25 Unknown History Allergy/AdvReac Type Severity Reaction Status Date / Time No Known Allergies Allergy Verified 04/14/25 09:22 Social History Smoking Status: Never smoker ROS Constitutional Constitutional: Reports fatigue; Denies chills, fever(s) or weakness Cardiovascular Cardiovascular: Denies chest pain Respiratory/Chest Respiratory/Chest: Denies shortness of breath at rest Gastrointestinal Gastrointestinal: Reports abdominal pain, nausea and vomiting; Denies constipation or diarrhea Genitourinary Genitourinary: Denies dysuria Musculoskeletal Musculoskeletal: Denies arthralgias or myalgias Neurologic Neurologic: Denies dizziness, focal weakness or headache(s) Vital Signs Vital Signs Vital Signs: 04/14/25 09:23 04/14/25 11:56 04/14/25 12:20 Temperature 98.7 F Temperature Source Oral Pulse Rate 78 83 64 Respiratory Rate 18 16 18 Blood Pressure 145/105 H 144/101 H 145/98 H Blood Pressure Mean 118 115 113 Pulse Ox 98 100 100 Oxygen Delivery Method Room Air Room Air Room Air Weight Weight: 93.8 kg Body Mass Index (BMI) 34.4 Physical Exam Const alert, oriented x3 and no apparent distress Constitutional Narrative: Young female, mildly fatigued and mildly uncomfortable appearing due to ongoing abdominal pain, otherwise sitting back in bed and answering questions appropriately. General Appearance: cooperative HEENT normocephalic, head/scalp atraumatic, hearing grossly normal bilaterally, nasal mucous membranes and turbinates normal and moist oral mucous membranes Eyes PERRL, EOMs intact bilaterally and conjunctivae normal Neck full ROM Chest inspection of chest normal Resp normal respiratory effort, normal air movement, no use of accessory muscles and clear to auscultation bilaterally Cardio regular rate, regular rhythm, no murmurs and peripheral pulses 2+ throughout GI GI Narrative: Abdomen mild to moderately tender diffusely on palpation; otherwise soft and nondistended on palpation. Back/Spine normal ROM Extremity normal to inspection, full ROM and no pedal edema Skin no rashes or lesions noted Psych mental status grossly normal Results Lab / Micro Data 04/14/25 10:00 04/14/25 10:00 Labs: Laboratory Results - last 24 hr 04/14/25 10:00: WBC 9.6, RBC 5.16, Hgb 14.9, Hct 44.2, MCV 85.7, MCH 28.9, MCHC 33.7, RDW Std Deviation 4 (more content not included)... Normal [facility] Lipaseon 04-14-2025 Lipase [Catalytic activity/Vol] U/L High 13-75 [facility] Comment on above: Result Comment: Dwayne maya note: LIPASE revised reference range effective 22. New Lipase methodology. Expected to produce lower values than the previous assay method. 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 It was about a month ago when her symptoms began and she was diagnosed with gallstones. She states she has an appointment on Kim with a surgeon for possible outpatient cholecystectomy. Yesterday evening at around 6 PM after eating she developed right upper quadrant pain, nausea and vomiting. She states her last attack of biliary colic was earlier in the week on Wednesday, approximately 3 days ago, but it lasted longer than usual. She has been having more frequent attacks. Total Bilirubin 2.47 H, AST 554 H, ALT 403 H, Alkaline Phosphatase 195 H, Lipase > 3000 H Ultrasound of the right upper quadrant: Liver: Unremarkable. Gallbladder: The gallbladder is distended. Layering stones in the gallbladder. No gallbladder wall thickening. No pericholecystic fluid. The technologist reported a negative sonographic Rice's sign. Common bile duct: The common bile duct measures 6 mm [facility] Medical History Gallstones Home Medications ???Medication ???Instructions ???Recorded ???Last Taken ???Type NK 04/14/25 Unknown History Allergy/AdvReac Type Severity Reaction Status Date / Time No Known Allergies Allergy Verified 04/14/25 09:22 Social History Smoking Status: Never smoker ROS Constitutional Constitutional: Reports fatigue; Denies chills, fever(s) or weakness Cardiovascular Cardiovascular: Denies chest pain Respiratory/Chest Respiratory/Chest: Denies shortness of breath at rest Gastrointestinal Gastrointestinal: Reports abdominal pain, nausea and vomiting; Denies constipation or diarrhea Genitourinary Genitourinary: Denies dysuria Musculoskeletal Musculoskeletal: Denies arthralgias or myalgias Neurologic Neurologic: Denies dizziness, focal weakness or headache(s) Physical Exam Const alert, oriented x3 and no apparent distress General Appearance: cooperative HEENT normocephalic, head/scalp atraumatic, hearing grossly normal bilaterally, nasal mucous membranes and turbinates normal and moist oral mucous membranes Eyes PERRL, EOMs intact bilaterally and conjunctivae normal Neck full ROM Chest inspection of chest normal Resp normal respiratory effort, normal air movement, no use of accessory muscles and clear to auscultation bilaterally Cardio regular rate, regular rhythm, no murmurs and peripheral pulses 2+ throughout GI GI Narrative: Abdomen mild to moderately tender diffusely on palpation; otherwise soft and nondistended on palpation. Back/Spine normal ROM Extremity normal to inspection, full ROM and no pedal edema Skin no rashes or lesions noted Psych mental status grossly normal Lab / Micro Data 04/14/25 10:00 04/14/25 10:00 Labs: Laboratory Results - last 24 hr 04/14/25 10:00: WBC 9.6, RBC 5.16, Hgb 14.9, Hct 44.2, MCV 85.7, MCH 28.9, MCHC 33.7, RDW Std Deviation 40.2, RDW Coeff of Miles 12.9, Plt Count 344, MPV 9.2, Immature Gran % (Auto) 0.200, Neut % (Auto) 82.7 H, Lymph % (Auto) 10.7 L, [place] % (Auto) 5.7, Eos % (Auto) 0.4, Baso % (Auto) 0.3, A bsolute Neuts (auto) 7.9 H, Absolute Lymphs (auto) 1.03, Nucleated RBC % 0, Sodium 139, Potassium 4.2, Chloride 104, Carbon Dioxide 22.7, Anion Gap 13, BUN 8, Creatinine 0.69 L, Est GFR (MDRD) Non- Af 124, BUN/Creatinine Ratio 12.0, Glucose 120 H, Calcium 9.8, Total Bilirubin 2.47 H, AST 554 H, A LT 403 H, Alkaline Phosphatase 195 H, Total Protein 8.3, Albumin 4.5, Globulin 3.7, Albumin/Globulin Ratio 1.2, Lipase > 3000 H, Serum , Qual NEGATIVE Imaging Radiology Impression Gallbladder Ultrasound 04/14/25 09:45 IMPRESSION: Cholelithiasis with no evidence of acute cholecystitis. Reading Location: [facility] Assessment Plan Assessment/Plan (1) Intractable epigastric abdominal pain: (2) Transaminitis: (3) Nausea and vomiting: (4) Gallstone pancreatitis: PLAN: The patient is a 24-year-old female with a known history of cholelithiasis presenting with a worsening frequency and severity of biliar (more content not included)... 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 COMPARISON: 14-Apr-2025 US FINDINGS: Diffusely swollen pancreas showing high signal with extensive surrounding fat stranding and edema associated non and partially encapsulated fluid signal extending along the mesenteric roots and retroperitoneal spaces. Distended gall bladder showing mural thickening and edema with multiple tiny low signal calculi and sludge. Relatively prominent intra and extra-hepatic biliary tracts with no obvious intraluminal low signal calculi or obvious masses. Average sized liver showing homogenous parenchymal signal. The spleen and adrenals are normal in size and signal intensity. Both kidneys are normal in size and position. No hydronephrosis or focal masses could be seen in both kidneys. Small and large bowel loops appear largely collapsed however, is grossly unremarkable. Stomach shows no significant abnormality. Minimal ascites. No significant lymph node enlargement is seen in the abdomen. The visualized osseous structure in thoracolumbar spine shows No marrow infiltrative lesions. MRI/MRCP Abdomen without Contrast IMPRESSION: Findings are suggestive of interstitial edematous pancreatitis with acute peripancreatic fluid (Elizabeth C). Advise clinical and laboratory correlation. Gall bladder calculi with mural thickening/edema, possibly cholecystitis. Prominent biliary tracts with no obvious intraluminal low signal calculi or obvious masses. Reading Location: [place] [address] CC: FARM [employer]ER-C Jesica Feng; Dr. Cornell Serna MD Brick Tosser: Signed Normal [facility] ,Serum,hCG Quali.on 04-14-2025 HCG, SERUM QUAL Negative Normal [facility] Comment on above: Performed By: #### L 500.4050, L700.6800, L501.2450, L100.0100 ####[facility] [id number] [place], [address] ED MED ADMINISTRATION DETAIL on 02-27-2025 ED MED ADMINISTRATION DETAIL Post Anesthesia Care Unit Nurse - NEL ALBRECHT, : 2000, , Medication Administration Record [address] [address] [id number] 02/25/2025 Patient: NEL ALBRECHT Sex: Female : 2000 Age: 24y MEASUREMENTS: Wt: 93.9 kg, Ht/Satya: 65.0 in, BMI: 34.45 ALLERGIES: No known drug allergies Medication Ordered Medication Administration Date/Time 1 of 1 Normal [facility] ED NURSES CLINICAL NOTEon ED NURSES CLINICAL NOTE Nurse Narrative - NEL ALBRECHT, : 2000, , Nurse Clinical Narrative [address] [address] [id number] 02/25/2025 02:09:00 Patient: NEL ALBRECHT Sex: Female : 2000 Age: 24y Disposition: Discharge to Home Disposition Decision Time: 07:32 02/25/2025 Departure Time: 07:44 02/25/2025 TRIAGE Arrived by private vehicle. Historian: (patient). Accompanied by family. [facility] Triage time: 02:21 02/25/2025. Acuity: LEVEL 2. Chief Complaint: NAUSEA (Epigastric pain). Onset. (1 AM). SEPSIS SCREEN: NEGATIVE. SIRS criteria negative. SEVERE SEPSIS SCREEN NEGATIVE. No signs of organ dysfunction present. -- 02:49 02/25/25 EDT Maranda Porter R.N. 02:47 02/25/25. BP: 118/78 (regular cuff) taken on left arm. MAP: 91. HR: 70. Regular and normal rate. RR: 16. Regular and unlabored. O2 saturation: 97% on room air. Temperature: 98.1 F (oral). Pain level now 1/10. (pain 6-7/10 at home). -- 02:48 02/25/25 EDT Maranda Porter R.N. Measurements: 02:44 02/25/25 Wt: 93.9 kg, Ht/Satya: 65.0 in, BMI: 34.45 -- 02:44 02/25/25 EDT Maranda Porter R.N. Medications: Multi Vitamin oral -- 02:41 02/25/25 EDT Maranda Porter R.N. B Complex -- 02:42 02/25/25 EDT Maranda Porter R.N. 1 of 4 Nurse Narrative - NEL ALBRECHT, : 2000, , niacin oral -- 02:42 02/25/25 EDT Maranda Porter R.N. Fannie's wort oral -- 02:42 02/25/25 EDT Maranda Porter R.N. magnesium -- 02:42 02/25/25 EDT Maranda Proter R.N. [place] 3-6-9 oral -- 02:42 02/25/25 EDT Maranda Porter R.N. 02:21 02/25/25. Preferred Pharmacy: ; [facility]). -- 02:49 02/25/25 EDT Maranda Porter R.N. Allergies: no known drug allergies -- 02:41 02/25/25 EDT Maranda Porter R.N. Problems: no known problem -- 02:43 02/25/25 EDT Maranda Porter R.N. Surgeries: no known surgical history -- 02:43 02/25/25 EDT Maranda Porter R.N. History 02:21 02/25/25. PAST MEDICAL HX: LNMP: 1. Para 1. Abortions 0. (). ( Pt had a baby 3 weeks ago 02/03/25. Pt HTN during her .). SOCIAL HX: Never smoker. No alcohol use or drug use. The patient has not traveled outside the [place] Infectious disease exposure: No infectious disease exposure. ABUSE ASSESSMENT: The patient answered yes to the question(s) Do you feel safe in your home? and no to the question(s) Are you afraid to go home?. SELF HARM ASSESSMENT: Self harm assessment was performed. The patient answered no to the question(s) Have you recently felt down, depressed, or hopeless? and Do you have thoughts of harming or killing yourself?. FALL RISK ASSESSMENT: Fall risk assessment completed. No risk factors identified. -- 02:49 02/25/25 EDT Maranda Porter R.N. 2 of 4 Nurse Narrative - NEL ALBRECHT, : 2000, , Interventions 02:21 02/25/25. Advanced care plan (). -- 02:49 02/25/25 EDT Maranda Porter R.N. PHYSICAL ASSESSMENT 02:47 02/25/25. BP: 118/78 (regular cuff) taken on left arm. MAP: 91. HR: 70. Regular and normal rate. RR: 16. Regular and unlabored. O2 saturation: 97% on room air. Temperature: 98.1 F (oral). Pain level now 1/10. (pain 6-7/10 at home). -- 05:18 02/25/25 EDT Maranda Porter R.N. 03:18 02/25/25. Ambulatory to room. Patient gowned. GENERAL / NEURO / PSYCH: Alert. Oriented X 4. HEENT: Pupils equal, round and reactive to light. RESPIRATORY: Respirations not labored. Breath sounds within normal limits. CVS: Pulses within normal limits. GI / : ( Pt c/o pain to epigastric area. Pt felt nauseated, but did not have any vomiting.). Abdomen soft. SKIN: Skin is warm and dry. -- 05:20 02/25/25 EDT Maranda Porter R.N. 03:46 02/25/25. HR: 81 bpm. O2 saturation: 97%. -- 05:18 02/25/25 EDT Maranda Porter R.N. 03:47 02/25/25. BP: 122/84 MAP: 91 mmHg. HR: 80 bpm. -- 05:18 02/25/25 EDT Maranda Porter R.N. NURSING PROGRESS NOTES 02:20 02/25/25. Patient gowned. Head of bed elevated. Side rails up x 1. Bed placed in lowest position. Brakes of bed on. -- 02:35 02/25/25 EDT Maranda Porter R.N. 03:20 02/25/25. Cardiac rhythm: normal sinus rhythm. television news reporter, NIBP monitor and pulse oximeter placed on patient. Side rails up x 2. Bed placed in lowest position. Brakes of bed on. -- 05:21 02/25/25 EDT Maranda Porter R.N. 03:20 02/25/25. Site #1 started in the right hand with a 20g needle with good blood return; 2 attempts. Blood drawn: rainbow set tube(s). Labeled in the presence of the patient and sent to the lab. Saline lock flushed with 5 mL saline. -- 03:25 02/25/25 EDT Maranda Porter R.N. 04:37 02/25/25. ED physician at the patient's bedside (04:37 02/25/2025). ( Dr.. Bal in room to talk with pt. Additional orders written). -- 04:52 02/25/25 EDT Maranda Porter R.N. (more content not included)... Normal [facility] ED ORDER SHEET (CPOE ONLY)on 02-27-2025 ED ORDER SHEET (CPOE ONLY) Order Sheet - NEL ALBRECHT, : 2000, , Order Sheet [address] [address] [id number] 02/25/2025 Patient: NEL ALBRECHT Sex: Female : 2000 Age: 24y MEASUREMENTS: Wt: 93.9 kg, Ht/Satya: 65.0 in, BMI: 34.45 ALLERGIES: No known drug allergies MEDICATION/IV/DRIP/FLUI D ORDERS Order Description Priority Entered Acknowledged Completed LAB ORDERS Order Description Priority Entered Acknowledged Collected Completed CBC w Diff Stat Stat 02:30 02/25/2025 02:49 02/25/2025 02:52 02/25/2025 Keiry Reis Debra Schrock, R.N. R.N. BNP Stat Stat 02:30 02/25/2025 02:49 02/25/2025 02:52 02/25/2025 Keiry Reis Debra Schrock, R.N. R.N. CMP Stat Stat 02:30 02/25/2025 02:49 02/25/2025 02:52 02/25/2025 Keiry Reis Debra Schrock, R.N. R.N. D-Dimer Stat Stat 02:30 02/25/2025 02:49 02/25/2025 02:52 02/25/2025 Keiry Reis Debra Schrock, R.N. R.N. EKG - ED Stat Stat 02:02/25/2025 02:47 02/25/2025 02:52 02/25/2025 1 of 3 Order Sheet - TRENA NEL, : 2000, , Keiry Reis Deusenberry, R.N. R.N. Troponin-I Protocol Stat 02:30 02/25/2025 02:49 02/25/2025 02:52 02/25/2025 (STAT 1hr) (Sched: q1h Keiry Reis Debra Schrock, X2); Stat 1 of 2 R.N. RIsabelN. Troponin-I Protocol Stat 02:30 02/25/2025 03:52 02/25/2025 03:52 02/25/2025 (STAT 1hr) (Sched: q1h Keiry Reis Debra Schrock, X2); Stat 2 of 2 R.N. R.N. Lipase Stat Stat 02:30 02/25/2025 02:49 02/25/2025 02:52 02/25/2025 Keiry Reis Debra Schrock, R.N. R.Lachelle HCG, Qual Serum Stat Stat 02:30 02/25/2025 02:49 02/25/2025 02:52 02/25/2025 Keiry Reis Debra Schrock, R.N. R.NIsabel Schedule for outpatient 07:22 02/25/2025 07:58 02/25/2025 07:58 02/25/2025 gallbladder ultrasound Keiry Reis Natalie Yoder, sarina. Diagnosis: R.N. R.N. abdominal pain. DIAGNOSTIC STUDY ORDERS Order Description Priority Entered Acknowledged Completed Chest 1V Stat Stat 02:30 02/25/2025 02:50 03:24 Alex Bal D.O. 02/25/2025 02/25/2025 Maranda Noland R.N. R.NIsabel Order Comments: 02:30 02/25/2025: Status: Not . Alex Bal D.O. Reason for Study: Chest Pain CT Chest PE Study Stat Stat 04:21 02/25/2025 04:51 07:08 Alex Bal D.O. 02/25/2025 02/25/2025 Maranda Noland R.N. RIsabelNIsabel 2 of 3 Order Sheet - NEL ALBRECHT, : 2000, , Reason for Study: Pulmonary Disease CT ABD/PEL w Cont Stat Stat 04:21 02/25/2025 04:51 07:08 Alex Bal D.O. 02/25/2025 02/25/2025 Maranda Noland R.N. R.NIsabel Reason for Study: Abdominal Pain STAFF ORDERS Order Description Priority Entered Acknowledged Collected Completed Oxygen titrate to 92% 02:30 02/25/2025 02:50 02/25/2025 02:52 02/25/2025 Keiry Reis Debra Schrock, R.N. R.N. Guitar Teacher 02:30 02/25/2025 02:49 02/25/2025 02:52 02/25/2025 Keiry Reis Debra Schrock, R.N. RErna Vital signs every 15 02:30 02/25/2025 02:50 02/25/2025 02:52 02/25/2025 minutes Keiry Reis Debra Schrock, R.N. R.N. IV Saline Lock 02:30 02/25/2025 02:49 02/25/2025 02:52 02/25/2025 Keiry Reis Debra Schrock, R.N. R.N. [Electronically signed by Alex Bal D.O. (02/27/2025 07:01 EDT)] 3 of 3 Normal [facility] ED PHYSICIAN CLINICAL REPORT on 02-27-2025 ED PHYSICIAN CLINICAL REPORT Narrative - NEL ALBRECHT, : 2000, , Physician Clinical Narrative [address] [address] [id number] 02/25/2025 02:09:00 Patient: ENL ALBRECHT Sex: Female : 2000 Age: 24y Disposition: Discharge to Home Disposition Decision Time: 07:32 02/25/2025 Departure Time: 07:44 02/25/2025 Measurements Wt: 93.9 kg, Ht/Satya: 65.0 in, BMI: 34.45 Initial Vital Sign Measured Time BP MAP HR RR O2Sat ETCO2 Temp Pain GCS RTS 02:47 02/25/2025 118/78 91 70 16 97% RA 98.1 F 1 Time Seen: 02:19 02/25/2025. Arrived- By private vehicle. Historian- patient. HISTORY OF PRESENT ILLNESS Chief Complaint: CHEST PAIN. Is still present. It is described as located in the central chest area and epigastric area and radiating to the upper back. At its maximum, severity described as 8 / 10. When seen in the E.D., severity described as 2 / 10. The patient has had difficulty breathing. Similar symptoms previously. None. Recent medical care: The patient was seen recently by a health care provider. ( Delivered a baby 3 weeks ago). REVIEW OF SYSTEMS SKIN: No skin rash. : No difficulty with urination. GI: The patient has had abdominal pain. No black stools or bloody stools. MUSCULOSKELETAL: No joint pain. THROAT: No sore throat. NEUROLOGICAL: No fainting 1 of 14 NEL Pierce, : 2000, , episodes or headache. CVS: No pedal edema. The patient has had calf pain. RESPIRATORY: No cough. CONSTITUTIONAL: No fever or chills. ENDO/HEME/LYMPH: No enlarged lymph nodes. EYES: No blurred vision. Status: Not . PAST HISTORY See nurses notes. no known problem Surgeries: no known surgical history Medications: B Complex magnesium Multi Vitamin oral niacin oral [place] 3-6-9 oral Fannie's wort oral Allergies: no known drug allergies SOCIAL HISTORY Never smoker. No alcohol use or drug use. ADDITIONAL NOTES The nursing notes have been reviewed. PHYSICAL EXAM Appearance: Alert. Oriented X3. No acute distress. Eyes: Pupils equal, round and reactive to light. ENT: Nose normal. Pharynx normal. 2 of 14 NEL Pierce, : 2000, , Neck: Normal inspection. Neck supple. CVS: Normal heart rate and rhythm. Heart sounds normal. Pulses normal. Respiratory: No respiratory distress. Breath sounds normal. Chest nontender. Abdomen: Soft and nontender. Bowel sounds normal. Obese. Skin: Skin warm and dry. No rash. Extremities: Extremities exhibit normal ROM. No lower extremity edema. Neuro: Oriented X 3. No motor deficit. No sensory deficit. LABS, X-RAYS, AND EKG 12-LEAD EKG: EKG time: 02:21 02/25/2025. Normal sinus rhythm. Rate: 68. Normal P waves. Normal QRS complex. Normal ST and T waves. The study has been interpreted contemporaneously by me. The EKG appears to be a good tracing. Interpretation time: 02:22 02/25/2025. Chest CT: (No evidence of pulmonary embolism. No evidence of consolidation, pleural effusion or pneumothorax. No evidence of thoracic aortic aneurysm or dissection. No lymphadenopathy. Heart size is normal. No pericardial effusion. Large airways are patent.). Chest CT performed with contrast. The study was interpreted by the radiologist. Interpretation time: 07:17 02/25/2025. CT Abdomen - Pelvis: No free air or free fluid in the abdomen or pelvis. No evidence of bowel obstruction. Normal appendix. Moderate fecal load. No evidence of hydronephrosis or nephrolithiasis. 3.2 cm left adnexal cyst. Abdomen - pelvic CT performed with IV contrast. The study was interpreted by the radiologist. Interpretation time: 07:17 02/25/2025. Laboratory Tests: CBC + DIFF Final MAYKEL: 02/25/2025 03:10:00 EDT MsgRcvd: 02/25/2025 03:33 EDT Lab Test Result Reference Status Received 02/25/2025 03:33 CBC + DIFF Final EDT CBC-COMPLETE BLOOD COUNT 11.4 x 10/UL 02/25/2025 03:33 WBC 4.5 - 10.8 Final Above high normal EDT 02/25/2025 03:33 RBC 4.67 x 10/UL 4.10 - 5.30 Final EDT 3 of 14 [facility] - NLE ALBRECHT, : 2000, , 02/25/2025 03:33 HEMOGLOBIN 13.6 g/dl 12.0 - 16.0 Final EDT 02/25/2025 03:33 HEMATOCRIT 40.9 % 34.0 - 46.0 Final EDT 02/25/2025 03:33 MCV 88 fl 80 - 99 Final EDT 02/25/2025 03:33 MCH 29 pg 27 - 33 Final EDT 02/25/2025 03:33 MCHC 33 X10 3 32 - 36 Final EDT 02/25/2025 03:33 RDW/CV 13.2 % 12.0 - 15.6 Final EDT 02/25/2025 03:33 PLATELET 348 x10/UL 150 - 450 Final EDT 02/25/2025 03:33 MPV 7.0 fl 6.6 - 10.5 Final EDT AUTOMATED DIFFERENTIAL 02/25/2025 03:33 NEUT % 75.8 % 46.0 - 76.0 Final EDT 17.1 % 02/25/2025 03:33 LYMPH % 20.0 - 45.0 Final Belo (more content not included)... Normal [facility] ED SUPER BILLon 02-27-2025 ED [facility]ILL [facility] [place], : 2000, , [place] [address] [id number] 02/25/2025 Patient: NEL ALBRECHT Sex: Female : 2000 Age: 24y Item Professional Category Description Facility Code Code Quantity Fee Total Nurse/E/M EMERGENCY [id number] 1 $0.00 $0.00 DEPARTMENT VISIT HIGH/URGENT SEVERITY (58247-64) Grand Total $0.00 Providers Alex Bal D.O. Chief Complaint CHEST PAIN. Principal Diagnosis Acute right upper quadrant abdominal pain. Chest pain of GI origin. Single simple left ovarian cyst. No ruptured ovarian cyst or torsion of ovary. 1 of 2 NEL Fernandes, : 2000, , ICD-10 Codes R10.11: Right upper quadrant pain R07.9: Chest pain, unspecified N83.299: Other ovarian cyst, unspecified side N83.202: Unspecified ovarian cyst, left side 2 of 2 Normal [facility] ED VISIT SUMMARYon ED VISIT SUMMARY Visit Overview - NEL ALBRECHT : 2000, , Visit [address] [address] [id number] 02/25/2025 Patient: NEL ALBRECHT Sex: Female : 2000 Age: 24y 02/27/2025 07:01 AM EDT ED Arrival:02:09 02/25/2025 EDT Status:not Recent Travel:no Language:deu Adv Directive: Isolation Status: Ethnicity:N Fall Risk:no risk Infectious Disease Exposure:no Measurements:5'5 / 165.1 Self-Harm Status:risk Sepsis Screen:negative cm 207.0 lb / 93.9 kg Chief Complaint:NAUSEA, (1 AM), (Epigastric pain ), and ([facility] ) ALLERGIES No Known Drug Allergies HOME MEDICATIONS B Complex magnesium Multi Vitamin oral niacin oral [place] 3-6-9 oral Fannie's wort oral 1 of 3 Visit Overview - NEL ALBRECHT, : 2000, , PAST MEDICAL HISTORY / PROBLEMS LNMP: 1. Para 1. Abortions 0. () None See nurses notes PAST SURGICAL HISTORY No Surgeries SOCIAL HISTORY Smoking status: No Alcohol use: No Drug use: No ED COURSE MEDICATIONS GIVEN IN EMERGENCY DEPARTMENT IV SITE INFORMATION INTAKE OUTPUT REASSESMENT (most recent) 06:30 02/25/25. Reassurance given. The patient reports no complaints and the patient is calm and resting quietly. Side rails up x 2. Bed placed in lowest position. Brakes of bed on. VITAL SIGNS First Vitals Last Vitals Temp 02:47 02/25/25 98.1 F Temp 07:17 02/25/25 BP 02:47 02/25/25 118/78 BP 07:02/25/25 121/87 HR 02:47 02/25/25 70 HR 07:17 02/25/25 84 RR 02:47 02/25/25 16 RR 07:17 02/25/25 O2 Sat 02:47 02/25/25 97% RA O2 Sat 07:17 02/25/25 Pain 02:47 02/25/25 1 Pain 07:02/25/25 ETCO2 02:47 02/25/25 ETCO2 07:02/25/25 2 of 3 Visit Overview - NEL ALBRECHT, : 2000, , First Vitals Last Vitals GCS 02:47 02/25/25 GCS 07:17 02/25/25 RTS 02:47 02/25/25 RTS 07:17 02/25/25 PROCEDURES NURSING INTERVENTIONS LABS / STUDIES LABS / STUDIES ORDERED BNP CBC w Diff Chest 1V CMP CT ABD/PEL w Cont CT Chest PE Study D-Dimer EKG - ED HCG, Qual Serum Lipase Schedule for outpatient gallbladder ultrasound please. Diagnosis: abdominal pain. Troponin-I Protocol (STAT 1hr) Troponin-I Protocol (STAT 1hr) CLINICAL IMPRESSION ACUTE RIGHT UPPER QUADRANT ABDOMINAL PAIN CHEST PAIN OF GI ORIGIN SINGLE SIMPLE LEFT OVARIAN CYST. NO RUPTURED OVARIAN CYST OR TORSION OF OVARY 3 of 3 Normal [facility] ED VITALS FLOW SHEETon 02-27 ED VITALS FLOW SHEET Vitals - NEL ALBRECHT, : 2000, , Vital Sign Flow Sheet [address] [address] [id number] 02/25/2025 Patient: NEL ALBRECHT Sex: Female : 2000 Age: 24y Measurements Wt: 93.9 kg, Ht/Satya: 65.0 in, BMI: 34.45 Measured Time BP MAP HR RR O2Sat ETCO2 Temp Pain GCS RTS 07:17 02/25/2025 121/87 96 84 07:17 02/25/2025 87 18 98% 07:12 02/25/2025 96 20 98% 07:07 02/25/2025 79 20 97% 07:02 02/25/2025 79 17 98% 06:57 02/25/2025 75 21 97% 06:52 02/25/2025 75 19 97% 06:47 02/25/2025 112/73 82 68 06:47 02/25/2025 70 21 96% 06:42 02/25/2025 80 15 97% 06:37 02/25/2025 72 19 97% 06:32 02/25/2025 69 20 97% 06:27 02/25/2025 76 16 98% 06:22 02/25/2025 72 20 98% 06:17 02/25/2025 110/70 83 68 1 of 3 NEL Leo, : 2000, , Measured Time BP MAP HR RR O2Sat ETCO2 Temp Pain GCS RTS 06:17 02/25/2025 68 17 97% 06:12 02/25/2025 69 17 97% 06:07 02/25/2025 83 20 97% 06:02 02/25/2025 70 21 97% 05:57 02/25/2025 77 17 97% 05:52 02/25/2025 79 19 97% 05:47 02/25/2025 126/83 94 71 05:47 02/25/2025 75 19 99% 05:41 02/25/2025 86 18 98% 05:36 02/25/2025 86 16 98% 05:31 02/25/2025 78 16 98% 05:26 02/25/2025 58 16 99% 05:21 02/25/2025 74 19 99% 05:17 02/25/2025 115/73 80 76 05:16 02/25/2025 85 16 97% 05:11 02/25/2025 89 18 97% 05:06 02/25/2025 82 18 97% 05:01 02/25/2025 78 18 97% 04:56 02/25/2025 81 20 97% 04:51 02/25/2025 93 17 97% 04:47 02/25/2025 113/76 88 76 04:46 02/25/2025 79 17 98% 04:41 02/25/2025 82 20 97% 04:36 02/25/2025 90 21 97% 04:31 02/25/2025 90 19 98% 2 of 3 NEL Leo, : 2000, , Measured Time BP MAP HR RR O2Sat ETCO2 Temp Pain GCS RTS 04:21 02/25/2025 82 16 98% 04:17 02/25/2025 132/84 101 78 04:16 02/25/2025 79 17 98% 04:11 02/25/2025 75 18 96% 04:06 02/25/2025 84 15 97% 04:01 02/25/2025 81 14 96% 03:56 02/25/2025 80 19 96% 03:51 02/25/2025 78 19 96% 03:47 02/25/2025 122/84 91 80 03:46 02/25/2025 81 97% 02:47 02/25/2025 118/78 91 70 16 97% RA 98.1 F 1 3 of 3 Normal [facility] US RUQ (GB/PANCREAS)on 02-26 US RUQ (GB/PANCREAS) [place] [address] Patient: NEL ALBRECHT Phone#: : 2000 Age: 24 Gender: F Pt. Type: Out Account: [id number] Location: [facility] Ordering: ALEX BAL Exam Date: 02/26/2025/7:28 Family Phys: CRYSTAL UPTAIN Charge Code: 488507 Physician: [place] Order #: [id number] Dose#: PROCEDURE: RUQ (GB) ULTRASOUND COMPARISON: None. INDICATIONS: Epigastric pain FINDINGS: LIVER: Normal. Normal size and echotexture. No significant masses. BILIARY: The gallbladder is contracted. Multiple intraluminal calculi are present. Gallbladder wall is thickness. The common bile is normal at 3 point millimeters. PANCREAS: Normal. No visible mass, abnormal atrophy, or ductal dilatation. RIGHT KIDNEY: Normal. No mass or obstruction. OTHER: Negative. CONCLUSION: 1. Cholelithiasis. DICTATED BY: THAIS SANTOS MD ON 02/26/2025 AT 8:49 APPROVED BY: THAIS SANTOS MD ON 02/26/2025 AT 8:52 Normal [facility] CBC + DIFFon 02-25-2025 Baso # 0.03 x10EE3/UL Normal 0.00 - 0.10 [facility] Comment on above: Performed By: #### 2 94842 #### [facility],[address] [place] [address] Basophils/100 WBC (Bld) 0.3 % Normal 0.0 - 2.0 [facility] Comment on above: Performed By: #### 2 [address]01 #### [place] [address] CBC + DIFF Normal [facility] Comment on above: Result Comment: CBC- COMPLETE BLOOD COUNT Performed By: #### 2 [id number] #### [place] [address] EO # 0.29 x10EE3/UL Normal 0.00 - 0.50 [facility] Comment on above: Performed By: #### 2 86108 #### [place] [address] Eosinophils/100 WBC (Bld) 2.6 % Normal 0.0 - 7.0 [facility] Comment on above: Performed By: #### 2 07778 #### [place] [address] Erythrocyte distribution width (RBC) [Ratio] 13.2 % Normal 12.0 - 15.6 [facility] Comment on above: Performed By: #### 2 53253 #### [place] [address] Hematocrit (Bld) [Volume fraction] 40.9 % Normal 34.0 - 46.0 [facility] Comment on above: Performed By: #### 2 99608 #### [place] [address] Hemoglobin (Bld) [Mass/Vol] 13.6 g/dL Normal 12.0 - 16.0 [facility] Comment on above: Performed By: #### 2 96776 #### [place] [address] Lymph # 1.95 x10EE3/UL Normal 0.80 - 2.80 [facility] Comment on above: Performed By: #### 2 96919 #### [facility],[address] [place] [address] Lymphocytes/100 WBC (Bld) 17.1 % Low 20.0 - 45.0 [facility] Comment on above: Performed By: #### 2 02256 #### [facility],[address] [place] [address] MANUAL DIFF N/A Normal [facility] Comment on above: Performed By: #### 2 84650 #### [facility],[address] [place] [address] MCH (RBC) [Entitic mass] 29 pg Normal 27 - 33 [facility] Comment on above: Performed By: #### 2 84814 #### [facility],[address] [place] [address] MCHC 33 X10 3 Normal 32 - 36 [facility] Comment on above: Performed By: #### 2 32729 #### [facility],[address] [place] [address] MCV (RBC) [Entitic vol] 88 fL Normal 80 - 99 [facility] Comment on above: Performed By: #### 2 [id number] #### [facility],[address] [place] [address] [place] # 0.49 x10EE3/UL Normal 0.20 - 1.00 [facility] Comment on above: Performed By: #### 2 42197 #### [facility],[address] [place] [address] MONOS % 4.3 % Normal 0.0 - 10.0 [facility] Comment on above: Performed By: #### 2 61258 #### [place] [address] Morphology [place] (Bld) [Interp] N/A Normal [facility] Comment on above: Performed By: #### 2 05568 #### [facility],[address],[place] [address] Neut # 8.62 x10EE3/UL High 1.50 - 7.10 [facility] Comment on above: Performed By: #### 2 22858 #### [facility],[address] [place] [id number] Neutrophils/100 WBC (Bld) 75.8 % Normal 46.0 - 76.0 [facility] Comment on above: Performed By: #### 2 04431 #### [facility],[address] [place] [id number] PLATELET 348 x10EE3/UL Normal 150 - 450 [facility] Comment on above: Performed By: #### 2 70725 #### [facility],[address] [place] [id number] Platelet mean volume (Bld) [Entitic vol] 7.0 fL Normal 6.6 - 10.5 [facility] Comment on above: Result Comment: AUTO MATED DIFFERENTIAL Performed By: #### 2 14578 #### [facility],[address] [place] [address] 05882 RBC 4.67 x 10EE6/UL Normal 4.10 - 5.30 [facility] Comment on above: Performed By: #### 2 00853 #### [facility],[address] [place] [address] 79318 WBC 11.4 x 10EE3/UL High 4.5 - 10.8 [facility] Comment on above: Performed By: #### 2 90667 #### [facility],[address] [place] [address] 54204 CHEST 1 VIEWon 02-25-2025 CHEST 1 VIEW [place] [address] Patient: NEL ALBRECHT Phone#: : [phone] Age: 24 Gender: F Pt. Type: ER Account: [id number] Location: 052 Ordering: ALEX BAL Exam Date: 02/25/2025/4:20 Family Phys: Charge Code: [id number] Physician: [place] Order #: [id number] Dose#: PROCEDURE: X-RAY CHEST 1 VIEW COMPARISON: None. INDICATIONS: Chest pain. FINDINGS: LUNGS: Normal. No significant pulmonary parenchymal abnormalities. VASCULATURE: Normal. Unremarkable pulmonary vasculature. CARDIAC: Normal. No cardiac silhouette abnormality or cardiomegaly. MEDIASTINUM: Normal. No visible mass or adenopathy. PLEURA: Normal. No effusion or pleural thickening. BONES: Normal. No fracture or visible bony lesion. OTHER: Negative. CONCLUSION: No acute disease. Dictated by: Thais Santos MD on 02/25/2025 at 20:59 Approved by: Thais Santos MD on 02/25/2025 at 20:59 Normal [facility] CMP with eGFRon 02-25-2025 AGE 24 years Normal [facility] Comment on above: Performed By: #### 2 82268 #### [facility],[address] [place] [address] Albumin [Mass/Vol] 3.3 g/dL Low 3.4 - 5.0 [facility] Comment on above: Performed By: #### 2 32272 #### [facility],[address] [place] [address] Albumin/Globulin [Mass ratio] 0.8 {ratio} Low 0.9 - 1.6 [facility] Comment on above: Performed By: #### 2 61682 #### [facility],[address] [place], [place] [id number] ALK PHOS 102 U/L Normal 46 - 116 [facility] Comment on above: Performed By: #### 2 11933 #### [facility],[address] [place] [address] 77332 ALT [Catalytic activity/Vol] 39 U/L Normal 16 - 63 [facility] Comment on above: Performed By: #### 2 98208 #### [facility],[address] [place] [address] 73197 Anion gap [Moles/Vol] 15 mmol/L Normal 10 - 20 [facility] Comment on above: Performed By: #### 2 72720 #### [facility],[address] [place], [place] [id number] AST [Catalytic activity/Vol] 27 U/L Normal 13 - 39 [facility] Comment on above: Performed By: #### 2 70708 #### [facility],[address] [place], [place] [id number] B/C RATIO 15 ratio Normal 0 - 30 [facility] Comment on above: Performed By: #### 2 37852 #### [facility],[address] [place], [place] [id number] Bilirubin [Mass/Vol] 0.2 mg/dL Normal 0.2 - 1.0 [facility] Comment on above: Performed By: #### 2 29559 #### [facility],[address] [place], [place] [address] Calcium [Mass/Vol] 9.3 mg/dL Normal 8.5 - 10.1 [facility] Comment on above: Performed By: #### 2 20815 #### [facility],[address] [place], [place] [address] Chloride [Moles/Vol] 103 mmol/L Normal 98 - 107 [facility] Comment on above: Performed By: #### 2 67081 #### [facility],[address] [place] [address]879 CMP with eGFR Normal [facility] Comment on above: Result Comment: COMP REHENSIVE METABOLIC PANEL Performed By: #### 2 08507 #### [facility],[address] [place] [address] 02921 CO2 [Moles/Vol] 26.3 mmol/L Normal 21.0 - 32.0 [facility] Comment on above: Performed By: #### 2 34030 #### [facility],[address] [place], [place] [address] Creatinine [Mass/Vol] 0.81 mg/dL Normal 0.55 - 1.02 [facility] Comment on above: Performed By: #### 2 84600 #### [facility],[address] [place] [address]375 GFR/1.73 sq M.predicted among non-blacks MDRD (S/P/Bld) [Vol rate/Area] mL/min/{1.73_m2} Normal 60 - 999 [facility] Comment on above: Performed By: #### 2 46580 #### [facility],[address] [place] [address] Result Comment: ACCO RDING TO THE NATIONAL KIDNEY DISEASE EDUCATION PROGRAM(NKDE), A NORMAL eGFR IS A VALUE GREATER THAN OR EQUAL TO 60 ML/MIN/1.73 SQ METERS. CHRONIC KIDNEY DISEASE: <60mL/MIN/1.73 SQ METERS KIDNEY FAILURE: <15mL/MIN/1.73 SQ METERS THIS TEST SHOULD ONLY BE USED FOR PATIENTS 18 YEARS OF AGE AND OLDER. Globulin (S) [Mass/Vol] 4.2 g/dL High 1.5 - 3.8 [facility] Comment on above: Performed By: #### 2 21788 #### [facility],[address] [place] [address] 31996 Glucose [Mass/Vol] 108 mg/dL High 74 - 106 [facility] Comment on above: Performed By: #### 2 29207 #### [facility],[address] [place] [address] 36341 Potassium [Moles/Vol] 4.0 mmol/L Normal 3.5 - 5.1 [facility] Comment on above: Performed By: #### 2 41855 #### [facility],[address] [place] [address] 01096 Protein [Mass/Vol] 7.5 g/dL Normal 6.4 - 8.2 [facility] Comment on above: Performed By: #### 2 59649 #### [facility],[address] [place] [address] 71730 Sodium [Moles/Vol] 140 mmol/L Normal 136 - 145 [facility] Comment on above: Performed By: #### 2 02628 #### [facility],[address] [place] [address] 36550 Urea nitrogen [Mass/Vol] 12 mg/dL Normal 7 - 18 [facility] Comment on above: Performed By: #### 2 84141 #### [facility],[address] [place] [address] ABDOMEN/PELVIS [facility] 2024 CT ABDOMEN/PELVIS [place] [address] Patient: NEL ALBRECHT Phone#: : [phone] Age: 24 Gender: F Pt. Type: ER Account: [id number] Location: [facility] Ordering: ALEX BAL Exam Date: 02/25/2025/5:25 Family Phys: Charge Code: [id number] Physician: [place] Order #: [id number] Dose#: 18.6 PROCEDURE: CT ABDOMEN/PELVIS WITH CONTRAST COMPARISON: None. INDICATIONS: Abdominal pain. TECHNIQUE: After obtaining the patient's consent, CT images were created with non-ionic intravenous contrast material. All CT scans at this facility use dose modulation, iterative reconstruction, and/or weight based dosing when appropriate to reduce radiation dose to as low as reasonably achievable. IV CONTRAST: Omnipaque 350,80ml TOTAL DOSE: 18.6 CTDIvol(mGy) FINDINGS: LIVER: Normal. No enlargement, atrophy, abnormal density, or significant focal lesion. BILIARY: Normal. No visible dilatation or calcification. PANCREAS: Normal. No lesion, fluid collection, ductal dilatation, or atrophy. SPLEEN: Normal. No enlargement or focal lesion. KIDNEYS: Normal. No mass, obstruction, or calcification. ADRENALS: Normal. No mass or enlargement. AORTA/VASCULAR: Normal. No aneurysm or dissection. RETROPERITONEUM: Normal. No mass or adenopathy. BOWEL/MESENTERY: Mild stool retention. No visible mass, obstruction, or bowel wall thickening. ABDOMINAL WALL: Normal. No mass or hernia. URINARY BLADDER: Normal. No visible focal wall thickening, lesion, or calculus. PELVIC NODES: Normal. No adenopathy. PELVIC ORGANS: A 2.5 centimeter left adnexal cyst is present. Pelvic organs appropriate for patient age. BONES: Normal. No bony lesion or fracture. LUNG BASES: Normal. No visible pulmonary or pleural disease. OTHER: Negative. Continued Report - Page 2 of 2 Patient: NEL ALBRECHT Phone#: : 2000 Age: 24 Gender: F Pt. Type: ER Account: [id number] Location: 052 Ordering: ALEX BAL Exam Date: 02/25/2025/5:25 Family Phys: Charge Code: [id number] Physician: [place] Order #: [id number] Dose#: 18.6 CONCLUSION: 1. There is no evidence of acute thoracic, abdominal or pelvic abnormality. Dictated by: Thais Santos MD on 02/25/2025 at 20:31 Approved by: Thais Santos MD on 02/25/2025 at 20:35 Normal [facility] CT CHEST (PE PROTOCOL)on CT CHEST (PE PROTOCOL) [place] [address] Patient: NEL ALBRECHT Phone#: : 2000 Age: 24 Gender: F Pt. Type: ER Account: [id number] Location: 052 Ordering: ALEX BAL Exam Date: 02/25/2025/5:25 Family Phys: Charge Code: [id number] Physician: [place] Order #: [id number] Dose#: 8.4 PROCEDURE: CT CHEST WITH CONTRAST FOR PE COMPARISON: None. INDICATIONS: Chest pain. TECHNIQUE: After obtaining the patient's consent, CT images were obtained with non-ionic intravenous contrast material. Multi-planar images were created to optimize visualization of vascular anatomy with MPR/MIPS and 3D imaging. All CT scans at this facility use dose modulation, iterative reconstruction, and/or weight based dosing when appropriate to reduce radiation dose to as low as reasonably achievable. IV CONTRAST: Omnipaque 350,80ml TOTAL DOSE: 8.4 CTDIvol(mGy) FINDINGS: VASCULATURE: Normal. No visible pulmonary arterial thrombus or attenuation. AORTA: Normal. No aneurysm or dissection. LUNGS: Normal. No visible pulmonary disease. SUSIE: Normal. No mass or adenopathy. MEDIASTINUM: Normal. No mass or adenopathy. CARDIAC: Normal. No enlargement, pericardial thickening, or significant calcification. PLEURA: Normal. No mass or effusion. CHEST WALL: Normal. No mass or axillary adenopathy. LIMITED ABDOMEN: Normal. Limited images of the upper abdomen are unremarkable. BONES: Normal. No bony lesion or fracture. OTHER: Negative. CONCLUSION: 1. There is no evidence of acute thoracic abnormality. There is no evidence of pulmonary embolus. Dictated by: Thais Santos MD on 02/25/2025 at 20:35 Continued Report - Page 2 of 2 Patient: NEL ALBRECHT Phone#: : 2000 Age: 24 Gender: F Pt. Type: ER Account: [id number] Location: [facility] Ordering: ALEX BAL Exam Date: 02/25/2025/5:25 Family Phys: Charge Code: [id number] Physician: [place] Order #: [id number] Dose#: 8.4 Approved by: Thais Santos MD on 02/25/2025 at 20:37 Normal [facility] D-DIMER, QUANTITATIVEon 09-0 D-DIMER QUANT 327 ng/ml High 0 - 230 [facility] Comment on above: Performed By: #### 2 77939 #### [facility],[address] [place], [place] [id number] D-DIMER, QUANTITATIVE Normal [facility] Comment on above: Result Comment: RICARDA T D-DIMER Performed By: #### 2 08913 #### [facility],[address] [place], [place] [address] LIPASEon 02-25-2025 Lipase [Catalytic activity/Vol] 74.0 U/L Normal 15.0 - 78.0 [facility] Comment on above: Result Comment: *PLE ASE NOTE THAT RANGES FOR LIPASE HAVE CHANGED OF 06/18/23 DUE TO AN ASSAY UPDATE BY THE HEALTH CARE COACH.THE NEW ASSAY RANGE IS 6-250 U/L, WITH A REFERENCE RANGE OF 16-77 U/L. Performed By: #### 2 54738 #### [facility],[address] [place] [address] NT-proBNPon 02-25-2025 Natriuretic peptide B (Bld) [Mass/Vol] 16 pg/mL Normal 0 - 125 [facility] Comment on above: Performed By: #### 2 38332 #### [facility],[address] [place] [address] SERUM QUALon 02-25 EXTERNAL QC DONE? YES Normal [facility] Comment on above: Performed By: #### 2 97697 #### [facility],[address] [place] [address] INTERNAL QC PASS Normal [facility] Comment on above: Performed By: #### 2 15287 #### [facility],[address] [place] [address] SER Negative Normal NEGATIVE [facility] Comment on above: Performed By: #### 2 78800 #### [facility],[address] [place] [address] TROPONINon 02-25-2025 HS TROPONIN <4.0 Normal 0.0 - 51.4 [facility] Comment on above: Performed By: #### 2 35268 #### [facility],[address] [place] [address] HS TROPONIN <4.0 Normal 0.0 - 51.4 [facility] Comment on above: Performed By: #### 2 82392 #### [facility],[address] [place] [address] CBC + DIFFon 02-04-2025 Baso # 0.03 x10EE3/UL Normal 0.00 - 0.10 [facility] Comment on above: Performed By: #### 2 53581 #### [facility],[address] [place] [address] 05061 Basophils/100 WBC (Bld) 0.3 % Normal 0.0 - 2.0 [facility], [facility], [employer]. Work Phone: Comment on above: Performed By: #### 2 57766 #### [facility],[address] [place] [address] CBC + DIFF Normal [facility] Comment on above: Result Comment: CBC- COMPLETE BLOOD COUNT Performed By: #### 2 59770 #### [facility],[address] [place] [address] 84814 EO # 0.08 x10EE3/UL Normal 0.00 - 0.50 [facility] Comment on above: Performed By: #### 2 49757 #### [facility],[address] [place] [address] 43168 Eosinophils/100 WBC (Bld) 0.6 % Normal 0.0 - 7.0 [facility], [facility].; [place] [employer] [facility], [employer]. Work Phone: Comment on above: Performed By: #### 2 48053 #### [facility],[address] [place], [place] [address] Erythrocyte distribution width (RBC) [Ratio] 13.4 % Normal 12.0 - 15.6 [facility], [facility].; [place] [employer], [employer]. Work Phone: Comment on above: Performed By: #### 2 96325 #### [facility],[address] [place] [address] 25169 Hematocrit (Bld) [Volume fraction] 30.1 % Low 34.0 - 46.0 [facility], [facility].; [facility], [employer]. Work Phone: Comment on above: Performed By: #### 2 31796 #### [facility],[address] [place] [address] 63588 Hemoglobin (Bld) [Mass/Vol] 9.9 g/dL Low 12.0 - 16.0 [facility]; [facility] Work Phone: Comment on above: Performed By: #### 2 78789 #### [place] [id number] Lymph # 2.05 x10EE3/UL Normal 0.80 - 2.80 [facility] Comment on above: Performed By: #### 2 48098 #### [place] [address] Lymphocytes/100 WBC (Bld) 14.7 % Low 20.0 - 45.0 [facility]; [facility] Work Phone: Comment on above: Performed By: #### 2 55277 #### [place] [address] MANUAL DIFF N/A Normal [facility]; [facility] Work Phone: Comment on above: Performed By: #### 2 17584 #### [place] [id number] MCH (RBC) [Entitic mass] 29 pg Normal 27 - 33 [facility]; [facility] Work Phone: Comment on above: Performed By: #### 2 28889 #### [place] [address] MCHC 33 X10 3 Normal 32 - 36 [facility] Comment on above: Performed By: #### 2 31384 #### [place] [id number] MCV (RBC) [Entitic vol] 89 fL Normal 80 - 99 [facility]; [facility], [facility]. Work Phone: Comment on above: Performed By: #### 2 56974 #### [facility],[address] [place] [address]886 [place] # 0.98 x10EE3/UL Normal 0.20 - 1.00 [facility] Comment on above: Performed By: #### 2 45371 #### [address] [address] MONOS % 7.0 % Normal 0.0 - 10.0 [facility] Comment on above: Performed By: #### 2 25177 #### [address] [address] Morphology [place] (Bld) [Interp] N/A Normal [facility]; [facility], [facility] Work Phone: Comment on above: Performed By: #### 2 06153 #### [address] [address] Neut # 10.80 x10EE3/UL High 1.50 - 7.10 [facility] Comment on above: Performed By: #### 2 64408 #### [address] [address] Neutrophils/100 WBC (Bld) 77.4 % High 46.0 - 76.0 [facility].; [facility], [facility] Work Phone: Comment on above: Performed By: #### 2 81796 #### [address] [address] PLATELET 295 x10EE3/UL Normal 150 - 450 [facility] Comment on above: Performed By: #### 2 70861 #### [facility],[address] [place] [address] 67127 Platelet mean volume (Bld) [Entitic vol] 7.4 fL Normal 6.6 - 10.5 [facility]; [facility]. Work Phone: Comment on above: Result Comment: AUTO MATED DIFFERENTIAL Performed By: #### 2 59262 #### [facility],[address] [place] [address] RBC 3.37 x 10EE6/UL Low 4.10 - 5.30 [facility] Comment on above: Performed By: #### 2 82052 #### [facility],[address] [place] [address] WBC 14.0 x 10EE3/UL High 4.5 - 10.8 [facility] Comment on above: Performed By: #### 2 31142 #### [facility],[address] [place] [address] Laboratory - Hematology and Cell countson 02-04-2025 Basophils (Bld) [#/Vol] 0.03 {3/UL} Normal 0.00 - 0.10 {3/UL} [facility].; [facility] [employer]. Work Phone: CBC W Auto Differential panel (Bld) CBC + DIFF Normal [facility]; [facility] [employer]. Work Phone: Eosinophils (Bld) [#/Vol] 0.08 {3/UL} Normal 0.00 - 0.50 {3/UL} [facility].; [facility] [employer]. Work Phone: Lymphocytes (Bld) [#/Vol] 2.05 {3/UL} Normal 0.80 - 2.80 {3/UL} [facility] [employer].; [facility] [employer]. Work Phone: MCHC (RBC) [Mass/Vol] 33 {X10_3} Normal 32 - 36 {X10_3} [facility].; [employer]. Work Phone: Monocytes (Bld) [#/Vol] 0.98 {3/UL} Normal 0.20 - 1.00 {3/UL} [facility].; [facility]. Work Phone: Monocytes/100 WBC (Bld) 7.0 % Normal 0.0 - 10.0 % [facility].; [facility]. Work Phone: Neutrophils (Bld) [#/Vol] 10.80 {3/UL} Abnormal 1.50 - 7.10 {3/UL} [facility].; [facility] [employer]. Work Phone: Platelets (Bld) [#/Vol] 295 {3/UL} Normal 150 - 450 {3/UL} [facility].; [facility]. Work Phone: RBC (Bld) [#/Vol] 3.37 {6/UL} Abnormal 4.10 - 5.3 0 {6/UL} [facility].; [place] [employer]. Work Phone: WBC (Bld) [#/Vol] 14.0 {3/UL} Abnormal 4.5 - 10.8 {3/UL} [facility].; [place] [employer]. Work Phone: BB TYPE & SCREENon 5 ABO A Normal [facility] Comment on above: Performed By: #### 2 77855 #### [facility],[address] [place] [address] ANTIBODY SCR Negative Normal [facility] Comment on above: Performed By: #### 2 46965 #### [facility],[address] [place] [address] BB TYPE & SCREEN Normal [facility] Comment on above: Result Comment: TYPE , Rh, AND SCREEN Performed By: #### 2 57293 #### [facility],[address] [place] [address] Rh Nom (Bld) Negative Normal [facility].; [facility]. Work Phone: Comment on above: Performed By: #### 2 16050 #### [facility],[address] [place] [address]378 CBC + DIFFon 02-01-2025 Baso # 0.03 x10EE3/UL Normal 0.00 - 0.10 [facility] Comment on above: Performed By: #### 2 11993 #### [facility],[address] [place] [address] 82021 Basophils/100 WBC (Bld) 0.3 % Normal 0.0 - 2.0 [facility].; [facility], [employer] Work Phone: Comment on above: Performed By: #### 2 00835 #### [facility],[address] [place] [address]797 CBC + DIFF Normal [facility] Comment on above: Result Comment: CBC- COMPLETE BLOOD COUNT Performed By: #### 2 91904 #### [facility],[address] [place] [address] 84690 EO # 0.11 x10EE3/UL Normal 0.00 - 0.50 [facility] Comment on above: Performed By: #### 2 35791 #### [facility],[address] [place] [address] 88110 Eosinophils/100 WBC (Bld) 0.9 % Normal 0.0 - 7.0 [facility].; [employer] Work Phone: Comment on above: Performed By: #### 2 20891 #### [facility],[address] [place] [address]72 Erythrocyte distribution width (RBC) [Ratio] 13.0 % Normal 12.0 - 15.6 [facility].; [place] [employer], [employer]. Work Phone: Comment on above: Performed By: #### 2 29244 #### [facility],[address] [place] [address] 29962 Hematocrit (Bld) [Volume fraction] 33.7 % Low 34.0 - 46.0 [facility]; [facility] Work Phone: Comment on above: Performed By: #### 2 45485 #### [place] [address] Hemoglobin (Bld) [Mass/Vol] 11.5 g/dL Low 12.0 - 16.0 [facility]; [place] [employer] Work Phone: Comment on above: Performed By: #### 2 83025 #### [place] [id number] Lymph # 2.12 x10EE3/UL Normal 0.80 - 2.80 [facility] Comment on above: Performed By: #### 2 43807 #### [address] [address] Lymphocytes/100 WBC (Bld) 17.6 % Low 20.0 - 45.0 [facility]; [place] [employer] [facility] Work Phone: Comment on above: Performed By: #### 2 49357 #### [address] [address] MANUAL DIFF N/A Normal [facility]; [place] [employer] [facility] Work Phone: Comment on above: Performed By: #### 2 91494 #### [address] [address] MCH (RBC) [Entitic mass] 30 pg Normal 27 - 33 [facility]; [place] [employer] [facility] Work Phone: Comment on above: Performed By: #### 2 05024 #### [address] [address] MCHC 34 X10 3 Normal 32 - 36 [facility] Comment on above: Performed By: #### 2 01757 #### [facility],[address] [place] [address]13 MCV (RBC) [Entitic vol] 89 fL Normal 80 - 99 [facility].; [facility] Work Phone: Comment on above: Performed By: #### 2 98419 #### [facility],[address] [place] [address] [place] # 0.77 x10EE3/UL Normal 0.20 - 1.00 [facility] Comment on above: Performed By: #### 2 81291 #### [address] [address] MONOS % 6.4 % Normal 0.0 - 10.0 [facility] Comment on above: Performed By: #### 2 36508 #### [address] [address] Morphology [place] (Bld) [Interp] N/A Normal [facility]; [facility] Work Phone: Comment on above: Performed By: #### 2 70805 #### [address] [address] Neut # 9.03 x10EE3/UL High 1.50 - 7.10 [facility] Comment on above: Performed By: #### 2 36030 #### [address] [address] Neutrophils/100 WBC (Bld) 74.9 % Normal 46.0 - 76.0 [facility].; [facility] [facility] Work Phone: Comment on above: Performed By: #### 2 [id number] #### [address] [address] PLATELET 335 x10EE3/UL Normal 150 - 450 [facility] Comment on above: Performed By: #### 2 52371 #### [facility],[address] [place] [address] Platelet mean volume (Bld) [Entitic vol] 7.7 fL Normal 6.6 - 10.5 [facility], [facility]. Work Phone: Comment on above: Result Comment: AUTO MATED DIFFERENTIAL Performed By: #### 2 86431 #### [facility],[address] [place] [address]20 RBC 3.79 x 10EE6/UL Low 4.10 - 5.30 [facility] Comment on above: Performed By: #### 2 57826 #### [facility],[address] [place] [address]896 WBC 12.1 x 10EE3/UL High 4.5 - 10.8 [facility] Comment on above: Performed By: #### 2 29631 #### [facility],[address] [place] [address] CMP with eGFRon 02-01-2025 AGE 24 years Normal [facility] Comment on above: Performed By: #### 2 87016 #### [facility],[address] [place] [address]34 Albumin [Mass/Vol] 2.3 g/dL Low 3.4 - 5.0 [facility].; [facility], [facility] Work Phone: Comment on above: Performed By: #### 2 14890 #### [facility],[address] [place] [address] Albumin/Globulin [Mass ratio] 0.5 {ratio} Low 0.9 - 1.6 [facility] Comment on above: Performed By: #### 2 78339 #### [facility],[address] [place] [address] 1964[address] ALK PHOS 116 U/L Normal 46 - 116 [facility] Comment on above: Performed By: #### 2 04999 #### [facility],[address] [place] [address]207 ALT [Catalytic activity/Vol] 23 U/L Normal 16 - 63 [facility].; [facility], [employer]. Work Phone: Comment on above: Performed By: #### 2 32407 #### [facility],[address] [place] [address] Anion gap [Moles/Vol] 17 mmol/L Normal 10 - 20 [facility].; [facility], [facility]. Work Phone: Comment on above: Performed By: #### 2 45729 #### [address] [address] AST [Catalytic activity/Vol] 18 U/L Normal 13 - 39 [facility].; [place] [employer] [facility] Work Phone: Comment on above: Performed By: #### 2 18243 #### [address] [address] B/C RATIO 22 ratio Normal 0 - 30 [facility] Comment on above: Performed By: #### 2 37761 #### [address] [address] Bilirubin [Mass/Vol] 0.2 mg/dL Normal 0.2 - 1.0 [facility], [employer]. Work Phone: Comment on above: Performed By: #### 2 71449 #### [facility],[address] [place] [address] Calcium [Mass/Vol] 9.8 mg/dL Normal 8.5 - 10.1 [facility].; [facility], [employer]. Work Phone: Comment on above: Performed By: #### 2 01476 #### [facility],[address] [place] [address]162 Chloride [Moles/Vol] 105 mmol/L Normal 98 - 107 [facility].; [facility] Work Phone: Comment on above: Performed By: #### 2 79351 #### [facility],[address] [place] [address] CMP with eGFR Normal [facility] Comment on above: Result Comment: COMP REHENSIVE METABOLIC PANEL Performed By: #### 2 57632 #### [facility],[address] [place] [address] CO2 [Moles/Vol] 18.4 mmol/L Low 21.0 - 32.0 [facility].; [facility]. Work Phone: Comment on above: Performed By: #### 2 32892 #### [facility],[address] [place], [place] [id number] Creatinine [Mass/Vol] 0.49 mg/dL Low 0.55 - 1.02 [facility].; [facility] Work Phone: Comment on above: Performed By: #### 2 52773 #### [facility],[address] [place] [address] GFR/1.73 sq M.predicted among non-blacks MDRD (S/P/Bld) [Vol rate/Area] mL/min/{1.73_m2} Normal 60 - 999 [facility] Comment on above: Performed By: #### 2 27020 #### [facility],[address] [place] [address] Result Comment: ACCO RDING TO THE NATIONAL KIDNEY DISEASE EDUCATION PROGRAM(NKDE), A NORMAL eGFR IS A VALUE GREATER THAN OR EQUAL TO 60 ML/MIN/1.73 SQ METERS. CHRONIC KIDNEY DISEASE: <60mL/MIN/1.73 SQ METERS KIDNEY FAILURE: <15mL/MIN/1.73 SQ METERS THIS TEST SHOULD ONLY BE USED FOR PATIENTS 18 YEARS OF AGE AND OLDER. Globulin (S) [Mass/Vol] 4.2 g/dL High 1.5 - 3.8 [facility].; [facility], [facility]. Work Phone: Comment on above: Performed By: #### 2 84113 #### [address] [address] Glucose [Mass/Vol] 98 mg/dL Normal 74 - 106 [facility], [facility].; [place] [employer] Work Phone: Comment on above: Performed By: #### 2 77969 #### [address] [address] Potassium [Moles/Vol] 4.0 mmol/L Normal 3.5 - 5.1 [facility], [facility].; [facility] Work Phone: Comment on above: Performed By: #### 2 56273 #### [address] [address] Protein [Mass/Vol] 6.5 g/dL Normal 6.4 - 8.2 [facility], [facility].; [place] [employer] [facility] Work Phone: Comment on above: Performed By: #### 2 15679 #### [address] [address] Sodium [Moles/Vol] 136 mmol/L Normal 136 - 145 [facility].; [place] [employer] [facility], [facility]. Work Phone: Comment on above: Performed By: #### 2 38454 #### [address] [address] Urea nitrogen [Mass/Vol] 11 mg/dL Normal 7 - 18 [facility], [facility].; [place] [employer] Work Phone: Comment on above: Performed By: #### 2 40538 #### [facility],[address] [place], [place] [address] Laboratory - Blood bankon ABO group Nom (Bld) A Normal [facility]; [facility] Work Phone: Blood group antibody screen Ql Negative Normal [facility]; [facility] Work Phone: Blood type and Indirect antibody screen panel (Bld) Normal [facility]; [facility] Work Phone: Laboratory - Chemistry and C hemistry - challengeon 02-01-2025 Albumin [Mass/Vol] 0.5 g/dL Abnormal 0.9 - 1.6 [facility]; [facility] Work Phone: ALP [Catalytic activity/Vol] 116 U/L Normal 46 - 116 U/L [facility]; [facility] Work Phone: Bilirubin [Mass/Vol] Negative Normal [facility]; [facility] Work Phone: Comprehensive metabolic 2000 panel CMP with eGFR Normal [facility]; [facility] Work Phone: Creatinine [Mass/Vol] 30.20 mg/dL Normal [facility]; [facility] Work Phone: GFR/1.73 sq M.predicted among blacks MDRD (S/P/Bld) [Vol rate/Area] mL/min/{1.73_m2} Normal 60 - 999 {ML/MINUTE} [facility]; [facility] Work Phone: GFR/1.73 sq M.predicted MDRD (S/P/Bld) [Vol rate/Area] mL/min/{1.73_m2} Normal 60 - 999 {ML/MINUTE} [facility]; [facility] Work Phone: Glucose [Mass/Vol] NORM Normal [facility]; [facility] Work Phone: pH (Bld) 6.5 [pH] Normal [facility]; [facility] Work Phone: Protein (24H U) [Mass/Vol] 41.40 mg/dL Abnormal 0.00 - 10.00 mg/dL [facility]; [facility] Work Phone: Protein [Mass/Vol] 30 g/dL Abnormal [facility]; [facility] Work Phone: Urea nitrogen/Creatinine [Mass ratio] 22 {ratio} Normal 0 - 30 {ratio} [facility]; [facility] Work Phone: Laboratory - Hematology and Cell countson 02-01-2025 Basophils (Bld) [#/Vol] 0.03 {3/UL} Normal 0.00 - 0.10 {3/UL} [facility]; [place] [facility] Work Phone: CBC W Auto Differential panel (Bld) CBC + DIFF Normal [facility]; [facility] Work Phone: Eosinophils (Bld) [#/Vol] 0.11 {3/UL} Normal 0.00 - 0.50 {3/UL} [facility]; [place] [employer] Work Phone: Lymphocytes (Bld) [#/Vol] 2.12 {3/UL} Normal 0.80 - 2.80 {3/UL} [facility]; [facility] Work Phone: MCHC (RBC) [Mass/Vol] 34 {X10_3} Normal 32 - 36 {X10_3} [facility]; [place] [employer] Work Phone: Monocytes (Bld) [#/Vol] 0.77 {3/UL} Normal 0.20 - 1.00 {3/UL} [facility]; [facility] Work Phone: Monocytes/100 WBC (Bld) 6.4 % Normal 0.0 - 10.0 % [facility]; [facility] Work Phone: Neutrophils (Bld) [#/Vol] 9.03 {3/UL} Abnormal 1.50 - 7.10 {3/UL} [facility]; [place] [employer] Work Phone: Platelets (Bld) [#/Vol] 335 {3/UL} Normal 150 - 450 {3/UL} [facility]; [facility] Work Phone: RBC (Bld) [#/Vol] 3.79 {6/UL} Abnormal 4.10 - 5.3 0 {6/UL} [facility]; [facility] [employer]. Work Phone: WBC (Bld) [#/Vol] 12.1 {3/UL} Abnormal 4.5 - 10.8 {3/UL} [facility]; [facility] [employer]. Work Phone: WBC (Bld) [#/Vol] Negative Normal [facility]; [facility] [employer] Work Phone: Laboratory - Microbiology an d Antimicrobial susceptibilityon 02-01-2025 Bacteria identified Cx Nom (Unsp spec) NONE Normal [facility]; [place] [employer] Work Phone: Laboratory - Specimen inform ationon 02-01-2025 Specimen type Nom (Spec) R Normal [facility]; [facility] Work Phone: Laboratory - Urinalysison Glucose Test strip (U) [Mass/Vol] Negative Normal [facility]; [facility] Protein Ql (U) Negative Normal [facility]; [facility]. Urinalysis dipstick W Reflex Microscopic panel (U) URINALYSIS WITH MICROSCOPY Normal [facility]; [facility]. Work Phone: Yeast LM Ql (Urine sed) NONE Normal [facility].; [place] [facility]. Work Phone: No Panel Informationon 02-01 AGE 24 {years} Normal [facility]; [place] [facility]. Work Phone: Blood Negative Normal [facility]; [place] [facility]. Work Phone: URINALYSIS WITH MICROSCOPYon 02-01-2025 Amorphous NONE Normal [facility]; [place] [facility]. Work Phone: Comment on above: Performed By: #### 2 14134 #### [facility],[address] [place] [address] Bacteria NONE Normal [facility] Comment on above: Performed By: #### 2 23233 #### [place] [address] Bilirubin Ql (U) Negative Normal NORMAL: NEGATIVE [facility] Comment on above: Performed By: #### 2 13797 #### [place] [address] Casts NONE Normal [facility]; [place] [facility]. Work Phone: Comment on above: Performed By: #### 2 01876 #### [place] [address] Clarity (U) sl.cloudy Normal NORMAL: CLEAR [facility].; [place] [facility]. Work Phone: Comment on above: Performed By: #### 2 24607 #### [facility],[address],[place] [address] Color (U) yellow Normal NORMAL: YELLOW [facility].; [employer] Work Phone: Comment on above: Performed By: #### 2 43009 #### [facility],[address] [place], [place] [id number] Crystals LM Nom (Urine sed) NONE Normal [facility].; [employer] Work Phone: Comment on above: Performed By: #### 2 66591 #### [facility],[address] [place], [place] [address] Epi Cells NONE Normal [facility], [facility].; [employer], [employer]. Work Phone: Comment on above: Performed By: #### 2 25615 #### [facility],[address] [place] [address] Glucose Ql (U) NORM Normal NORMAL: NORMAL [facility] Comment on above: Performed By: #### 2 77955 #### [facility],[address] [place] [address] Hemoglobin Ql (U) Negative Normal NORMAL: NEGATIVE [facility] Comment on above: Performed By: #### 2 46518 #### [facility],[address] [place] [address] Ketone Negative Normal NORMAL: NEGATIVE [facility].; [place] [employer], [employer]. Work Phone: Comment on above: Performed By: #### 2 29869 #### [facility],[address] [place] [address] Leukocytes Negative Normal NORMAL: NEGATIVE [facility] Comment on above: Result Comment: URIN E MICROSCOPIC Performed By: #### 2 46208 #### [facility],[address] [place] [address] Mucous NONE Normal [facility].; [facility], [employer]. Work Phone: Comment on above: Performed By: #### 2 76391 #### [facility],[address] [place] [address] Nitrite Ql (U) Negative Normal NORMAL: NEGATIVE [facility]; [facility] Work Phone: Comment on above: Performed By: #### 2 64932 #### [facility],[address] [place] [address] pH (U) 6.5 [pH] Normal NORMAL: 5.0-8.0 [facility] Comment on above: Performed By: #### 2 54419 #### [facility],[address] [place] [address] Protein Ql (U) 30 Abnormal NORMAL: NEGATIVE [facility] Comment on above: Performed By: #### 2 49389 #### [place] [address] Rbc NONE Normal 0-3 / hpf [facility].; [place] [employer] [facility] Work Phone: Comment on above: Performed By: #### 2 99942 #### [place] [address] Sp Hiddenite 1.010 Normal NORMAL: 1.010-1.030 [facility]; [facility] Work Phone: Comment on above: Performed By: #### 2 18462 #### [facility],[address] [place] [address] Specimen Type R Normal [facility] Comment on above: Performed By: #### 2 00911 #### [place] [address] URINALYSIS WITH MICROSCOPY Normal [facility] Comment on above: Result Comment: URIN ALYSIS Performed By: #### 2 52436 #### [place] [address] Urobilinog NORM Normal NORMAL: NORMAL [facility]; [facility] Work Phone: Comment on above: Performed By: #### 2 60566 #### [facility],[address] [place] [address] Wbc NONE Normal 0-5 / hpf [facility]; [facility] Work Phone: Comment on above: Performed By: #### 2 35814 #### [facility],[address] [place] [address] Yeast NONE Normal [facility] Comment on above: Performed By: #### 2 23742 #### [facility],[address] [place] [address] URINE CREATININE AND PROTEIN RATIOon 02-01-2025 CREATININE UR 30.20 mg/dl Normal [facility] Comment on above: Performed By: #### 2 27564 #### [facility],[address] [place] [address] PC RATIO 1.37 mg/dL Normal 0.00 - 10.00 [facility]; [facility], [facility] Work Phone: Comment on above: Performed By: #### 2 64087 #### [facility],[address] [place] [address] Protein (U) [Mass/Vol] 41.40 mg/dL High 0.00 - 10.00 [facility] Comment on above: Performed By: #### 2 17264 #### [facility],[address] [place] [address] STREPTOCOCCUS, GROUP B CULTU REon 01-21-2025 STREPTOCOCCUS, GROUP B CULTURE SEE NOTE Normal [facility] Comment on above: Result Comment: STREPTOCOCCUS, GROUP B CULTURE Micro Number: [id number] Test Status: Final Specimen Source: Vaginal/anorectal Specimen Quality: Adequate Result: No group B Streptococcus isolated Note per CDC guidelines optimal recovery is achieved by swabbing both the lower vagina and rectum (through the anal sphincter). Performed By: #### 5 617 #### [facility] [address], [address] [place] [address] Wedding Decorator: Zacarias Maloney MD Laboratory - Urinalysison Glucose Test strip (U) [Mass/Vol] Negative Normal [employer] Protein Ql (U) Negative Normal [facility] [address].; [employer], [employer]. No Panel Informationon 01-16 STREPTOCOCCUS, GROUP B CULTURE SEE NOTE Normal [employer], [employer]. Laboratory - Urinalysison Glucose Test strip (U) [Mass/Vol] Negative Normal [employer], [employer]. Protein Ql (U) Negative Normal [facility] [address] [employer], [employer]. Laboratory - Chemistry and C hemistry - challengeon 12-13-2024 Glucose Glucometer (BldC) [Moles/Vol] 88 Normal 60 - 120 [employer]. Laboratory - Urinalysison Glucose Test strip (U) [Mass/Vol] Negative Normal [employer].; [employer], [employer]. Protein Ql (U) Negative Normal [facility] [address].; [employer]. GLUCOSE, GESTATIONAL SCREEN (50G)-135 CUTOFFon 11-10-2024 Glucose [Mass/Vol] 138 mg/dL High <135 [facility] Comment on above: Result Comment: One hour value of > or = 135 mg/dL indicates the need for a diagnostic 75 g dose 2-hour or 100 g dose 3-hour oral glucose tolerance test; patient fasting is required. Performed By: #### 5 02, 1167 #### [facility] [address], [address] [place] [address] Wedding Decorator: Zacarias Maloney MD HEMOGLOBINon 11-10-2024 Hemoglobin (Bld) [Mass/Vol] 12.2 g/dL Normal 11.7-15.5 [facility] Comment on above: Performed By: #### 5 , 0494 #### [facility] [address], [address] [place], [place] [id number] Wedding Decorator: Zacarias Maloney MD Laboratory - Chemistry and C hemistry - challengeon 11-09-2024 Glucose [Mass/Vol] 138 mg/dL Abnormal [facility].; [facility]. Laboratory - Hematology and Cell countson 11-09-2024 Hemoglobin (Bld) [Mass/Vol] 12.2 g/dL Normal 11.7 - 15.5 g/dL [facility].; [facility], [facility]. Laboratory - Urinalysison Glucose Test strip (U) [Mass/Vol] Negative Normal [facility]; [facility] Protein Ql (U) Negative Normal [facility], [facility] OBSTETRIC PANELon 10-13-2024 ABO group Nom (Bld) A Normal [facility] Comment on above: Performed By: #### 7 #### [facility] [address], [address] [place], [place] [phone] Wedding Decorator: Zacarias Maloney MD ANTIBODY SCREEN, RBC W/REFL ID, TITER AND AG Detected Normal [facility] Comment on above: Result Comment: Refe rence range No antibodies detected This assay is a screening test for the detection of red blood cell antibodies. The test is not to be used for pretransfusion screening or for the medical management of an alloimmunized . Performed By: #### 7 #### [facility] [address], [address] [place] [phone] Wedding Decorator: Zacarias Maloney MD Basophils (Bld) [#/Vol] 0.046 10*3/uL Normal 0-200 [facility] Comment on above: Performed By: #### 7 #### [facility] [address], [address] [place] [phone] Wedding Decorator: Zacarias Maloney MD Basophils/100 WBC (Bld) 0.4 % Normal [facility] Comment on above: Performed By: #### 7 , #### [facility] of [place] [address] Wedding Decorator: Zacarias Maloney MD Eosinophils (Bld) [#/Vol] 0.228 10*3/uL Normal 15-500 [facility] Comment on above: Performed By: #### 7 45, #### [facility] of [place] [address] Wedding Decorator: Zacarias Maloney MD Eosinophils/100 WBC (Bld) 2.0 % Normal [facility] Comment on above: Performed By: #### 7 , #### [facility] of [place] [address] Wedding Decorator: Zacarias Maloney MD Erythrocyte distribution width (RBC) [Ratio] 12.0 % Normal 11.0-15.0 [facility] Comment on above: Performed By: #### 7 45, #### [facility] of [place] [address] Wedding Decorator: Zacarias Maloney MD Hematocrit (Bld) [Volume fraction] 33.9 % Low 35.0-45.0 [facility] Comment on above: Performed By: #### 7 45, #### [facility] of [place] [address] Wedding Decorator: Zacarias Maloney MD Hemoglobin (Bld) [Mass/Vol] 11.5 g/dL Low 11.7-15.5 [facility] Comment on above: Performed By: #### 7 , #### [facility] of [place] [address] Wedding Decorator: Zacarias Maloney MD HEPATITIS B SURFACE ANTIGEN Non-Reactive Normal NON-REACTIVE [facility] Comment on above: Result Comment: For additional information, please refer to http://education.[employer].Avancert/faq/UHJ593 (This link is being provided for informational/ educational purposes only.) Performed By: #### 7 , , #### [facility] of [place] [address] Wedding Decorator: Zacarias Maloney MD Lymphocytes (Bld) [#/Vol] 1.949 10*3/uL Normal 850-3900 [facility] Comment on above: Performed By: #### 7 , , #### [facility] of [address], [address] [place] [address] Wedding Decorator: Zacarias Maloney MD Lymphocytes/100 WBC (Bld) 17.1 % Normal [facility] Comment on above: Performed By: #### 7 , , #### [facility] of [place] [address] Wedding Decorator: Zacarias Maloney MD MCH (RBC) [Entitic mass] 32.1 pg Normal 27.0-33.0 [facility] Comment on above: Performed By: #### 7 , #### [facility] of [place] [address] Wedding Decorator: Zacarias Maloney MD MCHC (RBC) [Mass/Vol] 33.9 g/dL Normal 32.0-36.0 [facility] Comment on above: Result Comment: For adults, a slight decrease in the calculated MCHC value (in the range of 30 to 32 g/dL) is most likely not clinically significant; however, it should be interpreted with caution in correlation with other red cell parameters and the patient's clinical condition. Performed By: #### 7 , , #### [facility] [place] [address] Wedding Decorator: Zacarias Maloney MD MCV (RBC) [Entitic vol] 94.7 fL Normal 80.0-100.0 [facility] Comment on above: Performed By: #### 7 , , #### [facility] of [address], [address] [place] [address] Wedding Decorator: Zacarias Maloney MD Monocytes (Bld) [#/Vol] 0.73 10*3/uL Normal 200-950 [facility] Comment on above: Performed By: #### 7 45, , #### [facility] of [address], [address] [place] [address] Wedding Decorator: Zacarias Maloney MD Monocytes/100 WBC (Bld) 6.4 % Normal [facility] Comment on above: Performed By: #### 7 45, , #### [facility] [place] [address] Wedding Decorator: Zacarias Maloney MD Neutrophils (Bld) [#/Vol] 8.447 10*3/uL High 6312-6868 [facility] Comment on above: Performed By: #### 7 45, , #### [facility] [place] [address] Wedding Decorator: Zacarias Maloney MD Neutrophils/100 WBC (Bld) 74.1 % Normal [facility] Comment on above: Performed By: #### 7 , , #### [facility] [place] [address] Wedding Decorator: Zacarias Maloney MD Platelet mean volume (Bld) [Entitic vol] 9.3 fL Normal 7.5-12.5 [facility] Comment on above: Performed By: #### 7 45, , #### [facility] of [address], [address] [place] [address] Wedding Decorator: Zacarias Maloney MD Platelets (Bld) [#/Vol] 288 10*3/uL Normal 140-400 [facility] Comment on above: Performed By: #### 7 , , #### [facility] of [address], [address] [place] [address] Wedding Decorator: Zacarias Maloney MD RBC (Bld) [#/Vol] 3.58 10*6/uL Low 3.80-5.10 [facility] Comment on above: Performed By: #### 7 , , #### [facility] [address], [address] [place] [address] Wedding Decorator: Zacarias Maloney MD RH TYPE Negative Normal [facility] Comment on above: Result Comment: For additional information, please refer to http://education.[employer]/faq/OZI990 (This link is being provided for informational/ educational purposes only.) Performed By: #### 7 , , #### [facility] [place] [address] Wedding Decorator: Zacarias Maloney MD RPR (DX) W/REFL TITER AND CONFIRMATORY TESTING Non-Reactive Normal NON-REACTIVE [facility] Comment on above: Result Comment: No laboratory evidence of syphilis. If recent exposure is suspected, submit a new sample in 2-4 weeks. Performed By: #### 7 , , #### [facility] [address], [address] [place] [address] Wedding Decorator: Zacarias Maloney MD RUBELLA AB (IGG), IMMUNE STATUS <0.90 Low [facility] Comment on above: Result Comment: Inde x Interpretation ----- <0.90 Not consistent with immunity 0.90-0.99 Equivocal > or = 1.00 Consistent with immunity The presence of rubella IgG antibody suggests immunization or past or current infection with rubella virus. Performed By: #### 7 , , #### [facility] [address], [address] [place] [address] Wedding Decorator: Zacarias Maloney MD WBC (Bld) [#/Vol] 11.4 10*3/uL High 3.8-10.8 [facility] Comment on above: Performed By: #### 7 , , #### [facility] [place] [address] [place] [address] Wedding Decorator: Zacarias Maloney MD PROGESTERONEon 10-13-2024 PROGESTERONE 42.4 ng/mL Normal [facility] Comment on above: Result Comment: Refe rence Ranges Female Follicular Phase < 1.0 Luteal Phase 2.6-21.5 Post menopausal < 0.5 1st Trimester 4.1-34.0 2nd Trimester 24.0-76.0 3rd Trimester 52.0-302.0 Performed By: #### 7 , #### [facility] [place] [address] Wedding Decorator: Zacarias Maloney MD TSH W/REFLEX TO FT4on 2024 TSH W/REFLEX TO FT4 1.59 mIU/L Normal [facility] Comment on above: Result Comment: Refe rence Range > or = 20 Years 0.40-4.50 Ranges First trimester 0.26-2.66 Second trimester 0.55-2.73 Third trimester 0.43-2.91 Performed By: #### 7 , #### [facility] [place] [address] Wedding Decorator: Zacarias Maloney MD Laboratory - Blood bankon ABO group Nom (Bld) A Normal [facility], [facility].; [facility], [facility]. Rh Nom (Amn fld) Negative Normal [facility], [facility].; [facility], [facility]. Laboratory - Hematology and Cell countson 2024 Basophils (Bld) [#/Vol] 0.046 10*3/uL Normal 0 - 200 {cells/uL} [facility], [facility].; [facility], [facility]. Basophils/100 WBC (Bld) 0.4 % Normal [facility], [facility].; [facility], [facility]. Eosinophils (Bld) [#/Vol] 0.228 10*3/uL Normal 15 - 500 {cells/uL} [facility], [facility].; [facility], [facility]. Eosinophils/100 WBC (Bld) 2.0 % Normal [facility]. Erythrocyte distribution width (RBC) [Ratio] 12.0 % Normal 11.0 - 15.0 % [facility].; [facility] Hematocrit (Bld) [Volume fraction] 33.9 % Abnormal 35.0 - 45.0 % [facility].; [facility], [facility] Hemoglobin (Bld) [Mass/Vol] 11.5 g/dL Abnormal 11.7 - 15.5 g/dL [facility].; [facility], [facility] Lymphocytes (Bld) [#/Vol] 1.949 10*3/uL Normal 850 - 3900 {cells/uL} [facility].; [facility] Lymphocytes/100 WBC (Bld) 17.1 % Normal [facility].; [facility], [facility]. MCH (RBC) [Entitic mass] 32.1 pg Normal 27.0 - 33.0 pg [facility].; [facility], [facility]. MCHC (RBC) [Mass/Vol] 33.9 g/dL Normal 32.0 - 36.0 g/dL [facility].; [facility], [facility]. MCV (RBC) [Entitic vol] 94.7 fL Normal 80.0 - 100.0 fL [facility].; [facility], [facility]. Monocytes (Bld) [#/Vol] 0.73 10*3/uL Normal 200 - 950 {cells/uL} [facility].; [facility], [facility]. Monocytes/100 WBC (Bld) 6.4 % Normal [facility].; [facility], [facility]. Neutrophils (Bld) [#/Vol] 8.447 10*3/uL Abnormal 1500 - 7800 {cells/uL} [facility].; [facility], [facility]. Neutrophils/100 WBC (Bld) 74.1 % Normal [facility].; [facility], [facility]. Platelet mean volume (Bld) [Entitic vol] 9.3 fL Normal 7.5 - 12.5 fL [facility].; [facility], [facility]. Platelets (Bld) [#/Vol] 288 10*3/uL Normal 140 - 400 [facility]; [facility], [facility]. RBC (Bld) [#/Vol] 3.58 10*6/uL Abnormal 3.80 - 5.1 0 {Million/uL} [facility].; [facility], [facility]. WBC (Bld) [#/Vol] 11.4 10*3/uL Abnormal 3.8 - 10.8 [facility].; [facility]. Laboratory - Urinalysison Glucose Test strip (U) [Mass/Vol] Negative Normal [facility].; [facility] Protein Ql (U) Negative Normal [facility]. No Panel Informationon 10-12 ANTIBODY SCREEN, RBC W/REFL ID, TITER AND AG Detected Normal [facility]; [facility] HEPATITIS B SURFACE ANTIGEN Non-Reactive Normal [facility]; [facility]. PROGESTERONE 42.4 ng/mL Normal [facility].; [facility], [facility]. RPR (DX) W/REFL TITER AND CONFIRMATORY TESTING Non-Reactive Normal [facility].; [facility]. RUBELLA AB (IGG), IMMUNE STATUS <0.90 Abnormal [facility]; [facility], [facility]. TSH W/REFLEX TO FT4 1.59 {mIU/L} Normal [facility]; [facility]. ANAon 08-12-2021 Nuclear Ab IF (S) [Titer] 40 {titer} Normal Neg 40 [facility] ([place]) Comment on above: Result Comment: JOHNY Screen and Titer methodology is an immunofluorescent technique utilizing Hep2 Substrate. Performed By: #### Geovanna TYSON JOHNY #### [address] [address] ESRon 08-12-2021 Erythrocyte Sed Rate 21 mm/hr High 0-20 [facility] ([place]) Comment on above: Performed By: #### E , JOHNY #### [address] [address] FEon 07-05-2021 Iron [Mass/Vol] 78 ug/dL Normal 50-170 [facility] ([place]) Comment on above: Performed By: #### C BC, ADIFF, ANEU, FERR, FE, IBC, MONO #### [address] [address] Diana 07-05-2021 Ferritin [Mass/Vol] 56.1 ng/mL Normal 8.0-252.0 [facility] ([place]) Comment on above: Performed By: #### C BC, ADIFF, ANEU, FERR, FE, IBC, MONO #### [place] [address] IBCon 07-05-2021 TIBC 368 mcg/dL Normal 250-500 [facility] ([place]) Comment on above: Performed By: #### C BC, ADIFF, ANEU, FERR, FE, IBC, MONO #### [place] [address] MONOon 07-05-2021 Mononucleosis Positive Abnormal Negative [facility] ([place]) Comment on above: Performed By: #### C BC, ADIFF, ANEU, FERR, FE, IBC, MONO #### [address] [address] .Auto Diffon 07-04-2021 Basophil, Absolute 0.00 10 3/mcL Normal 0.00-0.27 [facility] ([place]) Comment on above: Performed By: #### C BC, ADIFF, ANEU, FERR, FE, IBC, MONO #### [address] [address] Basophils/100 WBC (Bld) 0.3 % Normal 0.0-2.5 [facility] ([place]) Comment on above: Performed By: #### C BC, ADIFF, ANEU, FERR, FE, IBC, MONO #### [address] [address] Eosinophil, Absolute 0.10 10 3/mcL Normal 0.00-0.65 [facility] ([place]) Comment on above: Performed By: #### C BC, ADIFF, ANEU, FERR, FE, IBC, MONO #### [address] [address] Eosinophils/100 WBC (Bld) 1.2 % Normal 0.0-6.0 [facility] ([place]) Comment on above: Performed By: #### C BC, ADIFF, ANEU, FERR, FE, IBC, MONO #### [address] [address] Lymphocyte, Absolute 1.80 10 3/mcL Normal 0.90-4.32 [facility] ([place]) Comment on above: Performed By: #### C BC, ADIFF, ANEU, FERR, FE, IBC, MONO #### [address] [address] Lymphocytes/100 WBC (Bld) 31.0 % Normal 20.0-40.0 [facility] ([place]) Comment on above: Performed By: #### C BC, ADIFF, ANEU, FERR, FE, IBC, MONO #### [address] [address] Monocyte, Absolute 0.50 10 3/mcL Normal 0.09-1.40 [facility] ([place]) Comment on above: Performed By: #### C BC, ADIFF, ANEU, FERR, FE, IBC, MONO #### [address] [address] Monocytes/100 WBC (Bld) 8.7 % Normal 2.0-13.0 [facility] ([place]) Comment on above: Performed By: #### C BC, ADIFF, ANEU, FERR, FE, IBC, MONO #### [address] [address] Neutrophils/100 WBC (Bld) 58.8 % Normal 50.0-75.0 [facility] ([place]) Comment on above: Performed By: #### C BC, ADIFF, ANEU, FERR, FE, IBC, MONO #### [address] [address] .NEUABSon 07-04-2021 Neutrophil, Absolute 3.30 10 3/mcL Normal 2.25-8.10 [facility] ([place]) Comment on above: Performed By: #### C BC, ADIFF, ANEU, FERR, FE, IBC, MONO #### [address] [address] CBCon 07-04-2021 Erythrocyte distribution width (RBC) [Ratio] 12.4 % Normal 11.5-15.5 [facility] ([place]) Comment on above: Performed By: #### C BC, ADIFF, ANEU, FERR, FE, IBC, MONO #### [place] [address] Hematocrit (Bld) [Volume fraction] 39.0 % Normal 34.0-46.0 [facility] ([place]) Comment on above: Performed By: #### C BC, ADIFF, ANEU, FERR, FE, IBC, MONO #### [place] [address] Hgb 13.4 G/dL Normal 12.0-16.0 [facility] ([place]) Comment on above: Performed By: #### C BC, ADIFF, ANEU, FERR, FE, IBC, MONO #### [place] [address] MCH (RBC) [Entitic mass] 31.2 pg Normal 27.0-33.0 [facility] ([place]) Comment on above: Performed By: #### C BC, ADIFF, ANEU, FERR, FE, IBC, MONO #### [place] [address] MCHC 34.3 G/dL Normal 32.0-36.0 [facility] ([place]) Comment on above: Performed By: #### C BC, ADIFF, ANEU, FERR, FE, IBC, MONO #### [place] [address] MCV (RBC) [Entitic vol] 90.9 fL Normal 80.0-99.0 [facility] ([place]) Comment on above: Performed By: #### C BC, ADIFF, ANEU, FERR, FE, IBC, MONO #### [address] [address] Platelet 258 10 3/mcL Normal 150-450 [facility] ([place]) Comment on above: Performed By: #### C BC, ADIFF, ANEU, FERR, FE, IBC, MONO #### [address] [address] Platelet mean volume (Bld) [Entitic vol] 8.2 fL Normal 6.6-10.5 [facility] ([place]) Comment on above: Performed By: #### C BC, ADIFF, ANEU, FERR, FE, IBC, MONO #### [address] [address] RBC 4.29 10 6/mcL Normal 4.10-5.30 [facility] ([place]) Comment on above: Performed By: #### C BC, ADIFF, ANEU, FERR, FE, IBC, MONO #### [address] [address] WBC 5.60 10 3/mcL Normal 4.50-10.80 [facility] ([place]) Comment on above: Performed By: #### C BC, ADIFF, ANEU, FERR, FE, IBC, MONO #### [address] [address] Vital Signs Date Time Vital Sign Value Performing Clinician Zach thayer 02-14-2025 09:22-0400 Diastolic blood pressure 85 mm[Hg] [employer] PAPER FEEDER Work Phone: [facility], [employer] [facility]. Comment on above: Patient Position: Si tting; Cuff Location: Left Arm; Cuff Size: Thigh 02-14-2025 09:22-0400 Heart rate 90 /min [employer] Work Phone: [employer] [facility]. Comment on above: Pattern: Regular 02-14-2025 09:22-0400 Systolic blood pressure 114 mm[Hg] Krysten Ora PAPER FEEDER Work Phone: [employer].; [facility]. Comment on above: Patient Position: Si tting; Cuff Location: Left Arm; Cuff Size: Thigh 02-01-2025 15:43-0400 Body weight 107.05 kg Brie Deng MA [employer].; [employer]. 02-01-2025 15:43-0400 Diastolic blood pressure 92 mm[Hg] Brie Deng MA [employer].; [employer]. Comment on above: Patient Position: Si tting; Cuff Location: Left Arm; Cuff Size: Standard 02-01-2025 15:43-0400 Heart rate 80 /min Brie Deng MA [employer].; [employer]. Comment on above: Pattern: Regular 02-01-2025 15:43-040 Systolic blood pressure 144 mm[Hg] Brie Deng MA [employer].; [employer]. Comment on above: Patient Position: Si tting; Cuff Location: Left Arm; Cuff Size: Standard 01-16-2025 15:43-0400 Body weight 103.42 kg Lars Sharif RN [employer].; [employer]. 01-16-2025 15:43-0400 Diastolic blood pressure 83 mm[Hg] Lars Sharif RN [employer]. Comment on above: Patient Position: Si tting; Cuff Location: Left Arm; Cuff Size: Standard 01-16-2025 15:43-0400 Heart rate 93 /min Lars Sharif RN [employer].; [employer]. Comment on above: Pattern: Regular 01-16-2025 15:43-0400 Systolic blood pressure 119 mm[Hg] Lars Sharif RN [employer].; [employer]. Comment on above: Patient Position: Si tting; Cuff Location: Left Arm; Cuff Size: Standard 01-04-2025 16:04-0400 Body height 165.1 cm Lars Sharif RN [employer].; [employer]. 01-04-2025 16:04-0400 Body mass index (BMI) [Ratio] 37.61 kg/m2 Lars Sharif RN [facility].; [employer]. 01-04-2025 16:04-0400 Body surface area Derived from formula 2.08 m2 Lars Sharif RN [facility].; [facility]. 01-04-2025 16:04-0400 Body weight 102.51 kg Lars Sharif RN [facility].; [employer]. 01-04-2025 16:04-0400 Diastolic blood pressure 84 mm[Hg] Lars Sharif RN [facility].; [employer]. Comment on above: Patient Position: Si tting; Cuff Location: Left Arm; Cuff Size: Standard 01-04-2025 16:04-0400 Heart rate 88 /min Lars Sharif RN [facility].; [employer]. Comment on above: Pattern: Regular 01-04-2025 16:04-0400 Systolic blood pressure 126 mm[Hg] Lars Sharif RN [place] [employer]. Comment on above: Patient Position: Si tting; Cuff Location: Left Arm; Cuff Size: Standard 12-13-2024 16:15-0400 Body weight 100.7 kg Lars Sharif RN [facility].; [place] [employer]. 12-13-2024 16:15-0400 Diastolic blood pressure 80 mm[Hg] Lars Sharif RN [employer].; [employer]. Comment on above: Patient Position: Si tting; Cuff Location: Left Arm; Cuff Size: Standard 12-13-2024 16:15-0400 Heart rate 93 /min Lars Sharif RN [place] [employer].; [employer]. Comment on above: Pattern: Regular 12-13-2024 16:15-0400 Systolic blood pressure 118 mm[Hg] Lars Sharif RN [place] [employer]. Comment on above: Patient Position: Si tting; Cuff Location: Left Arm; Cuff Size: Standard 11-09-2024 15:46-0400 Body weight 92.53 kg Krysten Payan PAPER FEEDER Work Phone: [facility].; [employer]. 11-09-2024 15:46-0400 Diastolic blood pressure 89 mm[Hg] Krysten Payan LPN Work Phone: [facility].; [employer]. Comment on above: Patient Position: Si tting; Cuff Location: Left Arm; Cuff Size: Thigh 11-09-2024 15:46-0400 Heart rate 105 /min Krysten Payan LPN Work Phone: [facility].; [employer]. Comment on above: Pattern: Regular 11-09-2024 15:46-0400 Systolic blood pressure 125 mm[Hg] Krysten Payan LPN Work Phone: [facility].; [employer]. Comment on above: Patient Position: Si tting; Cuff Location: Left Arm; Cuff Size: Thigh 2024 10:51-0400 Body height 165.1 cm Daysi Aleman LPN [facility], [facility].; [employer]. 2024 10:51-0400 Body mass index (BMI) [Ratio] 33.61 kg/m2 Daysi Aleman LPN [facility], [facility].; [employer], [employer]. 2024 10:51-0400 Body surface area Derived from formula 1.99 m2 Daysi Aleman LPN [facility], [facility].; [employer] [facility]. 2024 10:51-0400 Body weight 91.63 kg Daysi Aleman LPN [facility], [facility].; [employer]. 2024 10:51-0400 Diastolic blood pressure 74 mm[Hg] Daysi Aleman LPN [facility], [facility].; [employer]. Comment on above: Patient Position: Si tting; Cuff Location: Left Arm; Cuff Size: Standard 2024 10:51-0400 Heart rate 89 /min Daysi Aleman LPN [facility].; [employer]. Comment on above: Pattern: Regular 2024 10:51-4512 Systolic blood pressure 111 mm[Hg] Daysi Aleman LPN [employer].; [email or web address] [facility]. Comment on above: Patient Position: Si tting; Cuff Location: Left Arm; Cuff Size: Standard Encounters Encounter Date Encounter Type Care Provider Facility Start: 04-18-2025 ambulatory Alonzo Rogers Facility :[facility] Start: 04-18-2025 End: 04-20-2025 Evaluation and management of inpatient Louie Jean-Baptiste Facility:[facility] Start: 04-14-2025 ambulatory Raghavendra Chiang ility:[facility] Start: 04-14-2025 End: 04-16-2025 [facility] Start: 02-26-2025 End: 02-26-2025 ambulatory [facility] Start: 02-25-2025 End: 02-25-2025 Emergency department patient visit [facility] Start: 02-14-2025 End: 02-08-2025 Historical Summary Crystal Uptain CNM Work Phone: [employer]. Start: 02-14-2025 End: 02-14-2025 Patient encounter procedure Crystal Uptain CNM Work Phone: [employer]. Start: 02-14-2025 Follow-up encounter Crystal Up tain CNM Work Phone: [employer]. Start: 02-01-2025 Evaluation and management of inpatient CRYSTAL CNM [facility] Start: 02-01-2025 End: 02-04-2025 Evaluation and management of inpatient CRYSTAL CNM [facility] Start: 02-01-2025 End: 02-01-2025 Office outpatient visit 15 minutes Crystal Uptain CNM Work Phone: [employer] Start: 01-16-2025 End: 01-16-2025 Office outpatient visit 15 minutes Crystal Uptain CNM Work Phone: [employer] Start: 01-16-2025 Review Crystal Uptain CNM Work Phone: [employer] Start: 01-04-2025 End: 01-04-2025 Office outpatient visit 15 minutes Crystal Uptain CNM Work Phone: [employer] Start: 12-13-2024 End: 12-13-2024 Office outpatient visit 15 minutes Crystal Uptain CNM Work Phone: [employer] Start: 12-13-2024 Review Crystal Uptain CNM Work Phone: [employer] Start: 11-09-2024 End: 11-09-2024 Patient encounter procedure Crystal Uptain CNM Work Phone: [employer] Start: 10-13-2024 End: 10-13-2024 Historical Summary Crystal Uptain CNM Work Phone: [employer] Start: 2024 End: 10-13-2024 Office outpatient visit 15 minutes Crystal Uptain CNM Work Phone: [employer] Start: 2024 Review Crystal Uptain CNM Work Phone: [employer] Procedures Date Procedure Procedure Detail Performing Clinician Start: 02-01-2025 End: 02-01-2025 nonstress test Crystal K Uptain CN M Work Phone: Start: 02-01-2025 End: 02-01-2025 Ob care antepartum vag dlvr & Crystal K Uptain CNM Work Phone: Start: 01-16-2025 End: 01-16-2025 Ob care antepartum vag dlvr & Crystal K Uptain CNM Work Phone: Start: 01-04-2025 End: 01-04-2025 Ob care antepartum vag dlvr & Crystal K Uptain CNM Work Phone: Start: 12-13-2024 End: 12-13-2024 Rhophylac injection Crystal K Uptain CNM Work Phone: Start: 12-13-2024 End: 12-13-2024 Ob care antepartum vag dlvr & Crystal K Uptain CNM Work Phone: Start: 11-09-2024 End: 11-15-2024 Us preg uterus after 1st trimest 06/21 gestation Duran Valle MD Work Phone: Start: 11-09-2024 End: 11-09-2024 Ob care antepartum vag dlvr & Duran Valle MD Work Phone: Start: 2024 End: 2024 No Known Past Surgical History Daysi Aleman LPN Start: 2024 End: 10-13-2024 Ob care antepartum vag dlvr & Crystal K Uptain CNM Work Phone: Microscopic examinat ion of cervical Papanicolaou smear Daysi Aleman LPN Comment on above: never Microscopic examinat ion of cervical Papanicolaou smear Brie Deng MA Comment on above: never Plan of Treatment Date Care Activity Detail Author Start: 04-02-2025 Patient encounter procedure Medical; PP PHYSICAL - pp phy (baby is [place] pt per Dad) [employer]. Start: 02-Apr-2025 10:20-04:00 JACOB Jacome Crystal K Appointment Request [employer]. Start: 02-08-2025 Patient encounter procedure Medical; OB - 1 wk ob [employer]. Start: 08-Feb-2025 15:40-04:00 JACOB Jacome Crystal K Appointment Request [employer]. Start: 02-01-2025 Patient encounter procedure Medical; OB - 2 wk ob [employer]. Start: 01-Feb-2025 15:40-04:00 Naa CNEdouard Crystal K Appointment Request [employer]. Start: 01-20-2025 Patient encounter procedure Medical; Child Class - CBC W/ (PD) [employer]. Start: 20-Jan-2025 08:00-04:00 JACOB Jacome Crystal K Appointment Request videoNEXT Start: 01-16-2025 Patient encounter procedure Medical; OB - 2 wk ob + GBS [employer]. Start: 16-Jan-2025 15:40-04:00 JACOB Jacome Appointment Request [employer]. Start: 01-16-2025 Ob care antepartum v ag dlvr & OBSTETRICAL CARE ([id number]) Start: 16-Jan-2025 Intent videoNEXT; [employer]. Start: 01-16-2025 Cul prsmptv pthgnc organism scrn w/colony estimj STREP GROUP B CULTURE ([id number]) Start: 16-Jan-2025 08:54-04:00 Request videoNEXT; [employer]. Start: 01-16-2025 Urnls dip stick/tabl et rgnt auto w/o microscopy Urinalysis-OB (in house*) ([id number]) Start: 16-Jan-2025 08:54-04:00 Request videoNEXT; [employer]. Start: 01-04-2025 Patient encounter procedure Medical; OB - 3 wk ob-- recheck position [employer]. Start: 04-Jan-2025 15:50-04:00 JACOB Jacome Appointment Request [employer]. Start: 12-13-2024 Patient encounter procedure Medical; OB - 5 wk ob [employer]. Start: 13-Dec-2024 16:00-04:00 JACOB Jacome Appointment Request [employer]. Start: 12-13-2024 Ob care antepartum v ag dlvr & OBSTETRICAL CARE ([id number]) Start: 13-Dec-2024 Intent [employer].; [employer]. Start: 12-13-2024 Urnls dip stick/tabl et rgnt auto w/o microscopy Urinalysis-OB (in house*) ([id number]) Start: 13-Dec-2024 12:02-04:00 Request [employer].; [employer]. Start: 11-09-2024 Patient encounter procedure Medical; OB - anatomy scan and GTT needs to sign special ob pkg [employer]. Start: 09-Nov-2024 15:20-04:00 MD Duran Valle A Appointment Request [employer] Start: 2024 Assay of progesterone PROGESTE CLIFF ([id number]) Start: 12-Oct-2024 11:58-04:00 Request videoNEXT; [employer]. Start: 2024 Assay of thyroid stimulating hormone tsh TSH W/ REFL FREE T4 ([id number]) Start: 12-Oct-2024 11:57-04:00 Request videoNEXT; videoNEXT Start: 2024 Obstetric panel OBSTETRIC PANGeovanna Rodríguez ([id number]) Start: 12-Oct-2024 11:57-04:00 Request [employer]; [employer]. Start: 2024 End: 2024 Ob care antepartum vag dlvr & OBSTETRICAL CARE ([id number]) Date: 12-Oct-2024 [employer]; [employer] Payers Date Payer Category Payer Self-pay 2025 Unknown [id number] 2000 Unknown [id number] 2.16.8 [id number] 2000 Unknown [id number] 2.16.8 40.1.474598.3.579.2.651 2000 Unknown [id number] 2.16.8 40.1.920227.3.579.2.651 2000 Unknown [id number] 2.16.8 40.1.041947.3.579.2.651 Unknown Unknown 145-2 Unknown [id number] 2.16.8 40.1.012048.3.579.2.462 Unknown [id number] 2.16.8 40.1.315880.3.579.2.462 Unknown [id number] 2.16.8 40.1.437387.3.579.2.462 Unknown [id number] 2.16.8 40.1.573107.3.579.2.462 Unknown [id number] 2.16.8 40.1.906405.3.579.2.462 Unknown [id number] 2.16.8 40.1.001340.3.579.2.462 Unknown [id number] 2.16.8 40.1.107860.3.579.2.462 Unknown [id number] 2.16.8 40.1.780617.3.579.2.462 Unknown [id number] 2.16.8 40.1.302853.3.579.2.462 Unknown [id number] 2.16.8 40.1.469585.3.579.2.462 Unknown [id number] 2.16.8 40.1.639908.3.579.2.462 Unknown [id number] 2.16.8 40.1.005508.3.579.2.462 Unknown [id number] 2.16.8 40.1.454333.3.579.2.462 Unknown [id number] 2.16.8 40.1.594298.3.579.2.462 Unknown [id number] 2.16.8 40.1.122800.3.579.2.462 Unknown [id number] 2.16.8 40.1.053452.3.579.2.462 Social History Date Type Detail Facility Spouse Spouse [facility] [employer], [employer] Tobacco Use: Tobacco Use: ; N ever smoker. [facility] [employer] Female [facility] [employer] [facility].; [employer], [employer] Work Phone: Start: 2024 End: 02-01-2025 [facility] [employer] Never smoked tobacco [facility], [facility].; [employer] Work Phone: Discharge summary note 04-20-2025 Note Date & Type Note Facility 04-20-2025 Note [facility] Medical Records Department [address] [place] [address] Discharge Summary 04/20/25 1538 MR#: [id number] Acct: [id number] Name: NEL ALBRECHT Rep #: [id number] : 2000 24 From: Tong Woods MD PCP: DA Bowling Status:ADM IN Location: [facility] [place] BX653-7 Providers Date of Admission: 04/18/25 Primary Care Physician: DA Bowling Consultations 04/18/25 16:02 Consult: Gastroenterology Routine Consulting Provider: [facility] Reason for Consult: recurrent abd pain, recent gallstone pancreatitis EMERGENT Consult: No Notified: Yes Date Notified: 04/18/25 Time Notified: 16:04 Method of Notification: Text Consult: General Surgery Routine Consulting Provider: Robles Elizondo Reason for Consult: recurrent abd pain, recent gallstone pancreatitis EMERGENT Consult: No Notified: Yes Date Notified: 04/18/25 Time Notified: 16:06 Method of Notification: Text Reason For Visit: ABDOMINAL PAIN Diagnosis Discharge Diagnosis (1) Gallstone pancreatitis: Status: Acute Code(s): K85.10 - Biliary acute pancreatitis without necrosis or infection Medications at Discharge Home Medications amoxicillin 875 mg-potassium clavulanate 125 mg tablet 1 tab PO BID #14 tabs 04/16/25 oxycodone 5 mg tablet 5 mg PO Q4H PRN PRN Pain Score 4-10 3 days #10 tabs 04/16/25 Hospital Course Operations None Procedures None Summary of Care Provided Minutes Spent on Discharge: 35 Hospital Course: Per HPI: NEL ALBRECHT, is a 24 F who presented to [facility] ED on 04/18/2025 with recurrent abdominal pain. Patient was hospitalized here from 04/14-04/16 for gallstone pancreatitis. ERCP with Dr. Rogers on 04/16 with choledocholithiasis found with complete removal, single localized biliary stricture found in the lower third of the main bile duct, one temporary stent placed into the common bile duct. Patient feeling well postoperatively and was able to tolerate diet, so she was discharged home that evening. She returned to the ED today with recurrent abdominal pain. CT abdomen pelvis showed continued acute pancreatitis and multiple small gallstones with gallbladder wall thickening. However, lipase and LFTs were continue to downtrend well. She was given doses of pain medication without much improvement, so hospitalist was contacted for admission. I saw the patient at bedside in the ED, was present. Patient was sitting back fairly comfortably in bed and answering questions appropriately. She has a flat affect and this was present on prior admission as well. She reported mild improvement in pain with the pain medication. Notes that she feels thirsty currently, does not feel hungry. No other acute concerns currently. Will be admitted for further management. Hospital Course: 1. Improved gallstone pancreatitis???24-year-old female presented initially to the hospital with right upper quadrant abdominal pain on 04/14/2025. At that time she was evaluated by general surgery and gastroenterology, she underwent an ERCP with stone removal and a temporary stent placement. Given the inflammation and her lipase at that time was greater than 3000 General Surgery requested to hold off for cholecystectomy until the inflammation had improved. She was discharged on the day of her ERCP as she had significant improvement in her pain and was tolerating a diet. She was discharged with oxycodone and 7 days of Augmentin. She presented back to the hospital 04/18/2025, less than 48 hours after discharge because of pain. At this point all of her laboratory markers were significantly improved and her lipase was normal. CT of the abdomen at this time showed some inflammation around the tail of her pancreas. She was continued on IV antibiotics and she was evaluated by gastroenterology and general surgery. General surgery still feels that they need to wait until the inflammation improves and gastroenterology felt that the stent was in good position. I discussed with her the possibility of discharge today she expressed understanding of the risk and benefits of going home and she is okay with going home today. The case was discussed with gastroenterology and general surgery all of whom felt that she was stable for discharge home and they had separate conversations with her about this. She will continue with the previously prescribed medications on her last discharge and she will need outpatient follow-up once again with gastroenterology in a month to remove the stent as well as general surgery for her outpatient cholecystectomy. Physical Exam Narrative General: Alert, Oriented x3, Cooperative, No apparent distress HEENT: Atraumatic, PERRLA, EOMI, Normocephalic Oral: Moist Mucosa Neck: Supple, No JVD Lungs: Diminished, Normal air movement, No rhonchi, No (more content not included)... [facility] Discharge summary note 04-16-2025 Note Date & Type Note Facility 04-16-2025 Note [facility] Medical Records Department [address] [place] [address] Discharge Summary 04/16/25 1900 MR#: [id number] Acct: [id number] Name: NEL ALBRECHT Rep #: [id number] : 2000 24 From: Tong Woods MD PCP: DA Bowling Status:DIS IN Location: [facility] [place] [id number] Providers Date of Admission: 04/14/25 Primary Care Physician: DA Bowling Consultations 04/14/25 14:07 Consult: Gastroenterology Routine Consulting Provider: [facility] Reason for Consult: suspected gallstone pancreatitis EMERGENT Consult: No Notified: Yes Date Notified: 04/14/25 Time Notified: 14:17 Method of Notification: Text 04/15/25 11:19 Consult: General Surgery Routine Consulting Provider: Amaury Patel Reason for Consult: gallstone pancreatitis EMERGENT Consult: No MD Notified: Yes Date Notified: 04/15/25 Time Notified: 11:28 Method of Notification: Text Reason For Visit: GALLSTONE PANCREATITIS Diagnosis Discharge Diagnosis (1) Gallstone pancreatitis: Status: Acute Code(s): K85.10 - Biliary acute pancreatitis without necrosis or infection Medications at Discharge Home Medications amoxicillin 875 mg-potassium clavulanate 125 mg tablet 1 tab PO BID #14 tabs 04/16/25 oxycodone 5 mg tablet 5 mg PO Q4H PRN PRN Pain Score 4-10 3 days #10 tabs 04/16/25 Hospital Course Operations ERCP Procedures None Summary of Care Provided Minutes Spent on Discharge: 36 Hospital Course: Per HPI: NEL ALBRECHT, is a 24 F who presented to [facility] ED on 04/14/2025 with abdominal pain and nausea with vomiting. Patient lives at home with her , has good functional status at baseline. She notes that she went to [facility] about a month ago and was diagnosed with gallstones there. She was going to meet with a surgeon this coming Wednesday to discuss possible outpatient cholecystectomy. Noted that she had been having more frequent gallbladder attacks over the past several weeks. She developed right upper quadrant pain and nausea with vomiting yesterday evening around 6 PM after eating dinner. She continued to have fairly consistent pain overnight and into this morning, so she came in for further evaluation. Labs in the ED notable for total bilirubin 2.47, AST 554, ALT 4 3, alk phos 195, lipase greater than 3000. Gallbladder ultrasound showed a distended gallbladder with layering stones in the gallbladder but no gallbladder wall thickening or pericholecystic fluid and normal common bile duct measurements. MRCP was completed with read currently pending. She otherwise had a normal white blood cell count and was afebrile, normotensive and mentating appropriately. Given concern for pancreatitis, hospitalist was contacted for admission. I saw the patient at bedside in the ED. Patient had been given doses of IV pain medication and noted feeling moderately improved with these. On abdominal exam she did still have tenderness to palpation fairly diffusely but her abdomen was soft and nondistended. She stated she was feeling thirsty but not hungry at this point. Denied any other acute concerns currently. Will be admitted for further management. Hospital Course: 1. Gallstone pancreatitis???24-year-old female presented to the hospital with right upper quadrant abdominal pain as well as nausea and vomiting. She was found to have acute and elevated lipase as well as LFTs. Her bilirubin was elevated though this subsequently improved appearing to have passed a gallstone. She been having issues for at least a month that she had gone to an outside hospital a month ago with similar issues. She is planning on following up with a general surgeon at that time however this episode occurred prior to having her cholecystectomy. She underwent an ERCP on 04/16/2025 that demonstrated a small gallstone in her duct with inflammatory stricture. The ducts were swept and a temporary stent was placed. On return from her ERCP she was started on a low-fat regular diet which she tolerated without any significant abdominal pain. I discussed with gastroenterology the possibility of discharge which they agreed to recommending 7 days of Augmentin on discharge. I discussed with the patient and her the plan for discharge and she expressed understanding of the risks and benefits of going home and would like to go home today. Will continue with Augmentin for 7 days and provide 3 days of pain medication. I recommend that she follow-up with gastroenterology in a month for stent removal and I also recommend that she follow-up with general surgery for cholecystectomy once inflammation has improved. Also recommend she follow- up with primary care doctor in 3 to 5 days. Physical Exam Narrative General: Alert, Oriented x3, Cooperative, No apparent distress HEENT: Atr (more content not included)... [facility] Summary Purpose Family History No Family History Records Found Colon Cancer Status:Active Comments:Materna l Grandmother. Hemophilia Status:Active Comments:Negativ e Family History Of. Hypertension Status:Active Comments:Mother. Lung Cancer Status:Active Comments:Paterna l Grandfather. Colon Cancer Status:Active Comments:Materna l Grandmother. Hemophilia Status:Active Comments:Negativ e Family History Of. Hypertension Status:Active Comments:Mother. Lung Cancer Status:Active Comments:Paterna l Grandfather. Colon Cancer Status:Active Comments:Materna l Grandmother. Hemophilia Status:Active Comments:Negativ e Family History Of. Hypertension Status:Active Comments:Mother. Lung Cancer Status:Active Comments:Paterna l Grandfather. Colon Cancer Status:Active Comments:Materna l Grandmother. Hemophilia Status:Active Comments:Negativ e Family History Of. Hypertension Status:Active Comments:Mother. Lung Cancer Status:Active Comments:Paterna l Grandfather. Colon Cancer Status:Active Comments:Materna l Grandmother. Hemophilia Status:Active Comments:Negativ e Family History Of. Hypertension Status:Active Comments:Mother. Lung Cancer Status:Active Comments:Paterna l Grandfather. Colon Cancer Status:Active Comments:Materna l Grandmother. Hemophilia Status:Active Comments:Negativ e Family History Of. Hypertension Status:Active Comments:Mother. Lung Cancer Status:Active Comments:Paterna l Grandfather. Colon Cancer Status:Active Comments:Materna l Grandmother. Hemophilia Status:Active Comments:Negativ e Family History Of. Hypertension Status:Active Comments:Mother. Lung Cancer Status:Active Comments:Paterna l Grandfather. Colon Cancer Status:Active Comments:Materna l Grandmother. Hemophilia Status:Active Comments:Negativ e Family History Of. Hypertension Status:Active Comments:Mother. Lung Cancer Status:Active Comments:Paterna l Grandfather. Colon Cancer Status:Active Comments:Materna l Grandmother. Hemophilia Status:Active Comments:Negativ e Family History Of. Hypertension Status:Active Comments:Mother. Lung Cancer Status:Active Comments:Paterna l Grandfather. Colon Cancer Status:Active Comments:Materna l Grandmother. Hemophilia Status:Active Comments:Negativ e Family History Of. Hypertension Status:Active Comments:Mother. Lung Cancer Status:Active Comments:Paterna l Grandfather. Colon Cancer Status:Active Comments:Materna l Grandmother. Hemophilia Status:Active Comments:Negativ e Family History Of. Hypertension Status:Active Comments:Mother. Lung Cancer Status:Active Comments:Paterna l Grandfather. Colon Cancer Status:Active Comments:Materna l Grandmother. Hemophilia Status:Active Comments:Negativ e Family History Of. Hypertension Status:Active Comments:Mother. Lung Cancer Status:Active Comments:Paterna l Grandfather. Colon Cancer Status:Active Comments:Materna l Grandmother. Hemophilia Status:Active Comments:Negativ e Family History Of. Hypertension Status:Active Comments:Mother. Lung Cancer Status:Active Comments:Paterna l Grandfather. Colon Cancer Status:Active Comments:Materna l Grandmother. Hemophilia Status:Active Comments:Negativ e Family History Of. Hypertension Status:Active Comments:Mother. Lung Cancer Status:Active Comments:Paterna l Grandfather. Colon Cancer Status:Active Comments:Materna l Grandmother. Hemophilia Status:Active Comments:Negativ e Family History Of. Hypertension Status:Active Comments:Mother. Lung Cancer Status:Active Comments:Paterna l Grandfather. Colon Cancer Status:Active Comments:Materna l Grandmother. Hemophilia Status:Active Comments:Negativ e Family History Of. Hypertension Status:Active Comments:Mother. Lung Cancer Status:Active Comments:Paterna l Grandfather. Colon Cancer Status:Active Comments:Materna l Grandmother. Hemophilia Status:Active Comments:Negativ e Family History Of. Hypertension Status:Active Comments:Mother. Lung Cancer Status:Active Comments:Paterna l Grandfather. Colon Cancer Status:Active Comments:Materna l Grandmother. Hemophilia Status:Active Comments:Negativ e Family History Of. Hypertension Status:Active Comments:Mother. Lung Cancer Status:Active Comments:Paterna l Grandfather. Colon Cancer Status:Active Comments:Materna l Grandmother. Hemophilia Status:Active Comments:Negativ e Family History Of. Hypertension Status:Active Comments:Mother. Lung Cancer Status:Active Comments:Paterna l Grandfather. Colon Cancer Status:Active Comments:Materna l Grandmother. Hemophilia Status:Active Comments:Negativ e Family History Of. Hypertension Status:Active Comments:Mother. Lung Cancer Status:Active Comments:Paterna l Grandfather. Colon Cancer Status:Active Comments:Materna l Grandmother. Hemophilia Status:Active Comments:Negativ e Family History Of. Hypertension Status:Active Comments:Mother. Lung Cancer Status:Active Comments:Paterna l Grandfather. Colon Cancer Status:Active Comments:Materna l Grandmother. Hemophilia Status:Active Comments:Negativ e Family History Of. Hypertension Status:Active Comments:Mother. Lung Cancer Status:Active Comments:Paterna l Grandfather. Colon Cancer Status:Active Comments:Materna l Grandmother. Hemophilia Status:Active Comments:Negativ e Family History Of. Hypertension Status:Active Comments:Mother. Lung Cancer Status:Active Comments:Paterna l Grandfather. Advance Directives No Advanced Directives Records FoundNo Advanced Directives Records FoundNo Advanced Directives Records FoundNo Advanced Directives Records FoundNo Advanced Directives Records Found Additional Source Comments INFORMATION SOURCE (unrecogn ized section and content) DATE CREATED AUTHOR 08/12/2021 [facility] ([place]) DATE CREATED AUTHOR AUTHOR'S ORGANIZ ATION 01/22/2025 [facility] DATE CREATED AUTHOR AUTHOR'S ORGANIZ ATION 03/05/2025 [facility] DATE CREATED AUTHOR AUTHOR'S ORGANIZ ATION 04/27/2025 [facility] DATE CREATED AUTHOR AUTHOR'S ORGANIZ ATION 05/02/2025 [facility] FOR RECORDS PERTAINING TO PATIENTS WHO ARE OR HAVE BEEN ENROLLED IN A CHEMICAL DEPENDENCY/SUBSTANCEABUSE PROGRAM, SOME INFORMATION MAY BE OMITTED. This clinical summary was aggregated from multiple sources. Caution should be exercised in using it in the provision of clinical care. This summary normalizes information from multiple sources, and as a consequence, information in this document may materially change the coding, format and clinical context of patient data. In addition, data may be omitted in some cases. CLINICAL DECISIONS SHOULD BE BASED ON THE PRIMARY CLINICAL RECORDS. [facility]. provides no warranty or guarantee of the accuracy or completeness of information in this document.
--- NOTE | 2025-06-15 09:04 | EKG12_ITS ---
Test Reason : PRE OP Blood Pressure : */* mmHG Vent. Rate : 67 BPM Atrial Rate : 67 BPM P-R Int : 156 ms QRS Dur : 84 ms QT Int : 394 ms P-R-T Axes : 31 63 48 degrees QTcB Int : 416 ms Normal sinus rhythm with sinus arrhythmia Normal ECG Confirmed by Juan Cardona ([id number]), graphic editor JESICA BERNAL ([id number]) on 06/22/2025 10:26:05 AM Referred By: Jesica Feng Confirmed By: Juan Cardona
--- NOTE | 2025-06-15 09:10 | PCM.HP.STD ---
[facility] - General General Date of Admission: 06/15/25 Date of Service: 06/15/25 Chief Complaint: Biliary stent removal HPI Narrative NEL ALBRECHT, is a 24 F who presents [24-year-old female presented initially to the hospital with right upper quadrant abdominal pain on 04/14/2025. At that time she was evaluated by general surgery and gastroenterology, she underwent an ERCP with stone removal and a temporary stent placement. Given the inflammation and her lipase at that time was greater than 3000 General Surgery requested to hold off for cholecystectomy until the inflammation had improved. She was discharged on the day of her ERCP as she had significant improvement in her pain and was tolerating a diet. She was discharged with oxycodone and 7 days of Augmentin. She presented back to the hospital 04/18/2025, less than 48 hours after discharge because of pain. At this point all of her laboratory markers were significantly improved and her lipase was normal. CT of the abdomen at this time showed some inflammation around the tail of her pancreas. She comes back in today for stent removal.] [facility] Medical History Anxiety Depression Gallstones Home Medications ?Medication ?Instructions ?Recorded ?Last Taken ?Type amoxicillin 875 mg-potassium 1 tab PO BID #14 tabs 04/16/25 04/18/25 05:30 Rx clavulanate 125 mg tablet oxycodone 5 mg tablet 5 mg PO Q4H PRN PRN Pain Score 04/16/25 Unknown Rx 4-10 3 days #10 tabs Allergy/AdvReac Type Severity Reaction Status Date / Time No Known Allergies Allergy Verified 06/15/25 09:02 Surgical History History of cholecystectomy Social History Smoking Status: Never smoker ROS Constitutional Constitutional: Denies fatigue, fever(s), poor appetite, weight gain or weight loss Gastrointestinal Gastrointestinal: Denies belching, bloating, change in bowel habits, change in stool character, chewing difficulty, coffee ground emesis, constipation, cramping, diarrhea, dyspepsia, dysphagia, early satiety, excessive flatus, fecal incontinence, heartburn, hematemesis, hematochezia, hemorrhoids, loose stools, melena, nausea, odynophagia, rectal bleeding, tenesmus, vomiting or weight changes Patient's Goals Of Care . What would you like to achieve or improve as a result of your hospital stay?: nothing Physical Exam Const alert, oriented x3, no apparent distress and healthy appearing General Appearance: cooperative GI normal to inspection, nondistended, normoactive bowel sounds, soft to palpation, non-tender and non-distended Percussion: normal to percussion Rectal Exam: deferred Assessment & Plan Assessment/Plan (1) Pancreatitis: QUALIFIERS: Chronicity: acute Pancreatitis type: biliary Acute pancreatitis complication: unspecified Qualified Code(s): K85.10 - Biliary acute pancreatitis without necrosis or infection (2) Abdominal pain: QUALIFIERS: Abdominal location: upper abdomen, unspecified Qualified Code(s): R10.10 - Upper abdominal pain, unspecified (3) Intractable epigastric abdominal pain: (4) Transaminitis: (5) Cholelithiasis: QUALIFIERS: Cholelithiasis location: gallbladder Cholecystitis presence: with cholecystitis Cholecystitis acuity: acute Biliary obstruction: without biliary obstruction Qualified Code(s): K80.00 - Calculus of gallbladder with acute cholecystitis without obstruction PLAN: She will undergo biliary stent removal. She was explained alternatives, risk and benefits including withstanding bleeding, infection, sepsis, perforation and post ERCP pancreatitis. She we will have an ASA of 3.
[2025-06-15] MEDS: Lactated Ringers 1,000 ML 15 ML IV (09:18)
[2025-06-15 09:26] LABS: Internal QC Validated? YES +Cl - CLEAR BKGD; Pregnancy, Serum, hCG Quali. NEGATIVE Negative
--- NOTE | 2025-06-15 09:30 | PRE.ANES_ITS ---
ASA Classification* ASA Classification ASA Classification: 2 Assessment & Plan Anesthesia* Anesthesia Assessment Anesthesia Assessment: Discussed sedation and/or anesthesia options, risks, benefits, and alternatives with patient/parents/legal guardian/POA. Questions invited. The patient/parents/legal guardian/POA seems to understand and agrees to proceed with anesthesia plan. Reviewed the physical assessment, medical history, allergy history and patient home medications list prior to surgery/procedure/anesthetic and documented any changes. Performed airway and anesthesia risk assessments. Anesthesia Type Anesthesia Type: MAC History Source History Obtained from:: Patient and Chart Anesthesia Focused Assessment* Temperature: 98.2 F Pulse Rate: 84 Blood Pressure: 121/89 Respiratory Rate: 16 Pulse Ox: 99 Oxygen Delivery Method: Room Air Airway Assessment Mouth opens: >3 cm Mallampati Score: III Teeth Condition: Missing (Patient is missing several teeth. The rest are tight.) Neck Range of motion (ROM): Full ROM Labs Anesthesia Preop lab: CBC WBC, (4.4-11.0) 11.8 K/mm3 H 04/20/25, 06:10 RBC, (4.2-5.4) 4.21 M/mm3 04/20/25, 06:10 Hgb, (12.0-15.0) 11.9 g/dL L 04/20/25, 06:10 Hct, (37-47) 36.5 % L 04/20/25, 06:10 Plt Count, (150-450) 387 K/mm3 04/20/25, 06:10 CHEMISTRY Potassium, (3.3-5.1) 3.7 mmol/L 04/20/25, 06:10 Sodium, (133-145) 140 mmol/L 04/20/25, 06:10 Magnesium, (1.5-2.2) 1.7 mg/dL 04/18/25, 11:45 Phosphorus, (2.7-4.5) 2.8 mg/dL 04/18/25, 11:45 BUN, (4-19) 5 mg/dL 04/20/25, 06:10 Creatinine, (0.70-1.20) 0.50 mg/dL L 04/20/25, 06:10 Glucose, (70-99) 92 mg/dL 04/20/25, 06:10 COAG Urine Test Negative Negative 04/16/25, 10:50 Pre-Assessment Diagnosis/Proposed Procedure Planned Operative Procedure(s): Endoscopic retrograde cholangiopancreatography with possible biopsy and possible sphincterotomy with stone removal. 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 When Was Last Pacemaker Check QUESTION #4 FULL TEXT: You/Your Family Experience fever (hyperthermia) with Anesthesia Last Oral Intake Last Oral intake: Last Oral Intake NPO since 23:00 06/15/25 09:11 Meds taken in AM with sips of No 06/15/25 09:11 water? Meds patient instructed to take am of surgery PONV PONV - brasswind instrument repairer: PONV - brasswind instrument repairer Female HX of Motion Sickness HX of N/V After Surgery Non-Smoker Duration of Surgery greater than 60 minutes Number of Risk Factors PONV Score Height & Weight Height & Weight: Anesthesia: Height & Weight Height 5 ft 5 in 06/15/25 09:11 Weight: 90.7 kg 06/15/25 09:11 Body Mass Index (BMI) 33.3 06/15/25 09:11 Respiratory Assessment Respiratory Assessment - brasswind instrument repairer: Respiratory Tract Infection Hx - brasswind instrument repairer Hx Respiratory Tract Infection No 04/16/25 08:58 STOP Sleep Apnea STOP Sleep Apnea - brasswind instrument repairer: STOP Sleep Apnea - brasswind instrument repairer Hx Hypertension No 04/18/25 16:22 Hx Sleep Apnea No 04/18/25 16:22 CPAP BIPAP Do you snore loudly (louder than talking or can be heard Do you often feel tired/ fatigued/ sleepy during daytime? Has anyone observed you stop breathing during sleep? STOP Results QUESTION #5 FULL TEXT : Do you snore loudly (louder than talking or can be heard through closed doors)? 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 Specify any problems Hx of Preganancy in last 3 Months Nurse Filling Out Transfusion & Questions: Date: Time: Patient unable to answer at this time (ie. confused, unrespo /Reproduction History /Reproductive History - brasswind instrument repairer: /Reproductive Hx- brasswind instrument repairer Hx Now Gestational Age (in weeks): EDC: Hx Hx Para Hx Section SAB No 04/18/25 16:22 Does the father of the baby or his family experience fever w Father of the baby Malignant Hypertension history comment Active Medications Active Medications: Current Medications Generic Name Dose Route Start Last Admin Trade Name Freq PRN Reason Stop Dose Admin Lactated Ringer's 1,000 mls @ 15 mls/hr 06/15/25 09:15 06/15/25 09:18 IV 15 mls/hr .Q48H CALLUM Administration PFSH Medical History Anxiety Depression Gallstones Home Medications ?Medication ?Instructions ?Recorded ?Last Taken ?Type amoxicillin 875 mg-potassium 1 tab PO BID #14 tabs 04/18/25 05:30 Rx clavulanate 125 mg tablet oxycodone 5 mg tablet 5 mg PO Q4H PRN PRN Pain Sco re 04/16/25 Unknown Rx 4-10 3 days #10 tabs Allergy/AdvReac Type Severity Reaction Status Date / Time morphine AdvReac Other Verified 06/15/25 09:39 Surgical History History of cholecystectomy Social History Smoking Status: Never smoker Review of Systems (Anesthesia) ROS Narrative System reviewed and no additional complaints, except as documented.
--- NOTE | 2025-06-15 09:30 | FLU_PTH ---
PATIENT: NEL ALBRECHT LOC: EN U#:[id number] AGE/SX: ROOM: RE06/15/[address]: Dr. Alonzo Rogers DO : 2000 BED: DIS: 06/15/2025 SPEC #: [id number] RECD: 06/15/25 10:20 STATUS: JIA REMelissa #: [id number] MAYKEL: 06/15/25 09:[address]: Alonzo Rogers DEPT: CYTOLOGY RECD BY: Pamela Helton ENTERED: 06/15/25 11:26 SP TYPE: Fluid OTHR DR: Jesica Feng, OCC THERAPIST-C Tissues: Bile duct, NOS Procedures: Special Stain Group II Surgery Specimen Level IV Cytospin Fluid HEADER OPERATION: ERCP, stent removal, balloon dilation PRE-OP DIAGNOSIS: Biliary stent removal TISSUE SUBMITTED: A- Biliary stent DIAGNOSIS CYTOLOGY A. Biliary stent, ERCP (cytospin, cellblock): - No malignant cells identified. CYTOLOGY STUDY Slides are reviewed. CYTOLOGY GROSS A. Received is 10cm bluish-black stent with 0.2 ml of yellow thick material labeled with the patient's name and and designated per the requisition as Biliary stent. Submitted for cytology and cell block preparation. Mr 06/15/2025 CPT: 83828, 92008
--- NOTE | 2025-06-15 09:58 | RAD_ITS ---
PROCEDURE: ERCP BILIARY/PANCREAS; O.R. FLUORO FOR C-ARM 06/15/2025 REASON FOR EXAM: ERCP, STENT REMOVAL TECHNIQUE: Procedure Code: RADERCP; RADORFL_C_ARM Modality: DX Procedure: ERCP BILIARY/PANCREAS; O.R. FLUORO FOR C-ARM. Fluoroscopy time: 65.2 seconds. Dose: 24.50 mGy. RAD/ERCP Biliary/Pancreas IMPRESSION: Fluoroscopic guidance was provided for ERCP. 9 fluoroscopic images were obtain ed. Reading Location: [place] [address]
--- NOTE | 2025-06-15 09:58 | RAD_ITS ---
PROCEDURE: ERCP BILIARY/PANCREAS; O.R. FLUORO FOR C-ARM 06/15/2025 REASON FOR EXAM: ERCP, STENT REMOVAL TECHNIQUE: Procedure Code: RADERCP; RADORFL_C_ARM Modality: DX Procedure: ERCP BILIARY/PANCREAS; O.R. FLUORO FOR C-ARM. Fluoroscopy time: 65.2 seconds. Dose: 24.50 mGy. RAD/O.R. Fluoro for C-Arm IMPRESSION: Fluoroscopic guidance was provided for ERCP. 9 fluoroscopic images were obtain ed. Reading Location: [place] [address]
--- NOTE | 2025-06-15 10:28 | PCM.POST.ANE ---
Anesthesia: Postop Eval I Current Vital Signs Temperature: 97 F Pulse Rate: 89 Blood Pressure: 112/81 Respiratory Rate: 16 Pulse Ox: 95 Oxygen Delivery Method: Room Air Assessment Airway patent: Yes Spontaneous unlabored respirations: Yes Mental status: Asleep nausea: No Vomiting: No Anesthesia Complication: No Fluid Hydration Crystalloid volume administer (ml): 800 Total IV fluid infused: 800 Progress Note Anesthesia document: Postop Eval 1 completed: Yes
[2025-06-15] MEDS: Lactated Ringers 1,000 ML 999 ML IV ×2 (11:00→12:41)
--- NOTE | 2025-06-15 11:31 | OP.ERCP_ITS ---
Patient Name: Beth Arechiga Procedure Date: 06/15/2025 8:13 AM Date of : 2000 Age: 24 Procedure: ERCP Indications: Abdominal pain of suspected biliary origin, Biliary stent removal Providers: Alonzo Rogers DO Referring MD: Jesica Feng Professor Of Biological Sciences, Professor Of Biological Sciences-c Medicines: Monitored Anesthesia Care Patient Profile: This is a 24 year old female. Refer to note in patient chart for documentation of history and physical. Patient has symptoms of acute right upper quadrant abdominal pain. Her most recent ERCP for stent and ERCP for stone removal was within the past three months. She is status post laparoscopic cholecystectomy within the past three months. Complications: No immediate complications. Procedure: Pre-Anesthesia Assessment: - Prior to the procedure, a History and Physical was performed, and patient medications and allergies were reviewed. The patient is competent. The risks and benefits of the procedure and the sedation options and risks were discussed with the patient. All questions were answered and informed consent was obtained. Patient identification and proposed procedure were verified by the physician in the pre-procedure area. Mental Status Examination: alert and oriented. Airway Examination: normal oropharyngeal airway and neck mobility. Respiratory Examination: clear to auscultation. CV Examination: normal. Prophylactic Antibiotics: The patient does not require prophylactic antibiotics. Prior Anticoagulants: The patient has taken no anticoagulant or antiplatelet agents. ASA Grade Assessment: II - A patient with mild systemic disease. After reviewing the risks and benefits, the patient was deemed in satisfactory condition to undergo the procedure. The anesthesia plan was to use monitored anesthesia care (MAC). Immediately prior to administration of medications, the patient was re-assessed for adequacy to receive sedatives. The heart rate, respiratory rate, oxygen saturations, blood pressure, adequacy of pulmonary ventilation, and response to care were monitored throughout the procedure. The physical status of the patient was re-assessed after the procedure. After obtaining informed consent, the scope was passed under direct vision. Throughout the procedure, the patient's blood pressure, pulse, and oxygen saturations were monitored continuously. The Duodenoscope was introduced through the mouth, and advanced to the duodenum and used to inject contrast into the bile duct. The ERCP was accomplished without difficulty. The patient tolerated the procedure well. Scope In: 9:58:25 AM Scope Out: 10:11:38 AM Total Procedure Duration Time 0 hours 13 minutes 13 seconds Findings: The ceramic artist film was normal. The esophagus was successfully intubated under direct vision. The scope was advanced to a normal major papilla in the descending duodenum without detailed examination of the pharynx, larynx and associated structures, and upper GI tract. The upper GI tract was grossly normal. One stent was removed from the biliary tree using a snare and sent for cytology. The stent was found to be partially occluded via the water column test. The bile duct was deeply cannulated with the short-nosed traction sphincterotome. Contrast was injected. I personally interpreted the bile duct images. Ductal flow of contrast was adequate. Image quality was adequate. Contrast extended to the entire biliary tree. Opacification of the entire opacified area and entire biliary tree was successful. The maximum diameter of the ducts was 10 mm. The lower third of the main bile duct contained three stones, the largest of which was 6 mm in diameter. The main bile duct was moderately dilated, with a stone causing an obstruction. The largest diameter was 10 mm. A long 0.021 inch Jagwire was passed into the biliary tree. A 5 mm biliary sphincterotomy was made with a traction (standard) sphincterotome using ERBE electrocautery. There was no post-sphincterotomy bleeding. The biliary tree was swept with a 12 mm balloon starting at the bifurcation. Sludge was swept from the duct. All stones were removed. Impression: - The entire main bile duct was moderately dilated, with a stone causing an obstruction. - Choledocholithiasis was found. Complete removal was accomplished by biliary sphincterotomy and balloon extraction. - One stent was removed from the biliary tree. - A biliary sphincterotomy was performed. - The biliary tree was swept. Procedure Code(s): --- Professional --- 88883, Endoscopic retrograde cholangiopancreatography (ERCP); with removal of foreign body(s) or stent(s) from biliary/pancreatic duct(s) 31080, Endoscopic retrograde cholangiopancreatography (ERCP); with removal of calculi/debris from biliary/pancreatic duct(s) 36609, Endoscopic retrograde cholangiopancreatography (ERCP); with sphincterotomy/papillotomy 31178, 26, Endoscopic catheterization of the biliary ductal system, radiological supervision and interpretation CPT copyright 2021 [employer]. All rights reserved. The codes documented in this report are preliminary and upon substitute crossing guard review may be revised to meet current compliance requirements. Alonzo Rogers DO 06/15/2025 11:30:27 AM This report has been signed electronically. Number of Addenda: 0 Note Initiated On: 06/15/2025 8:13 AM
--- NOTE | 2025-06-15 11:31 | OP.PROVAT_ITS ---
06/15/2025 Jesica Feng Acid Remover, Acid Remover-c Re : ERCP procedure for Beth Arechiga Dear Ping This procedure was performed on Sunday, June 15, 2025. My impressions and recommendations are as follows: Impressions : - The entire main bile duct was moderately dilated, with a stone causing an obstruction. - Choledocholithiasis was found. Complete removal was accomplished by biliary sphincterotomy and balloon extraction. - One stent was removed from the biliary tree. - A biliary sphincterotomy was performed. - The biliary tree was swept. Recommendations : My findings are described in the full procedure note, which is enclosed. If I can be of further assistance, please feel free to contact me at . Sincerely, Alonzo Rogers, 06/15/2025 11:30:27 AM This report has been signed electronically.
--- NOTE | 2025-06-15 16:10 | PCM.POSTANE2 ---
Anesthesia Postop Eval I Sum Postop Eval Completion status Anesthesia document: Postop Eval 1 completed: Yes Anesthesia Postop Eval I Summary Anesthesia Postop Eval I Summary: Anesthesia Postop Eval I: Assessment Summary Airway patent Yes 06/15/25 10:29 [email or web address] Spontaneous unlabored Yes 06/15/25 10:29 [email or web address] respirations Mental status Asleep 06/15/25 10:29 [email or web address] nausea No 06/15/25 10:29 [email or web address] Vomiting No 06/15/25 10:29 [email or web address] Anesthesia Postop Eval I: Fluid Summary Crystalloid volume administer 800 06/15/25 10:29 [email or web address] (ml) Colloids volume administered ( ml) Blood Product volume administered (ml) Total IV fluid infused 800 06/15/25 10:29 [email or web address] Anesthesia Postop Eval I: Summary Notes Anesthesia Complication No 06/15/25 10:29 [email or web address] Anesthesia Complication Comment: Post-operative progress note Anesthesia: Postop Eval II Evaluation Mental status: Awake Pain Level: 1 nausea: No Vomiting: No
== END 2025-06-15 14:30 | disposition home or self-care (01) ==
LOC: EN 08:33 → AC 08:35
PROVIDERS: Anesthesiology; PCP Nurse Practitioner Family; Referring Provider Nurse Practitioner Family; Visit Provider Internal Medicine Gastroenterology
PROC: (CPT 43260; principal; 2025-06-15 09:10)
DX: Z46.59 Encounter for fitting and adjustment of other gastrointestinal appliance and device (principal); K85.10 Biliary acute pancreatitis without necrosis or infection; K80.43 Calculus of bile duct with acute cholecystitis with obstruction; R74.01 Elevation of levels of liver transaminase levels
CPT/HCPCS: 43262; 43275; 43264; 74330; 76000; 84703; 88108; 88305; 88313; 93005; J2405

== ENCOUNTER 2025-06-17 00:21 | Emergency (ER) | payer OTHER, SELFPAY ==
[2025-06-17 00:21] VITALS: BP 156/100; PULSE 125; RESP 20; TEMP 37.2; O2SAT 100; BMI 40.5
--- NOTE | 2025-06-17 00:45 | CT_ITS ---
PROCEDURE: CT CHEST, ABD, PEL W/CONTRAST 06/16/2025 REASON FOR EXAM: ABDOMINAL PAIN FEVER STATUS POST ERCP TECHNIQUE: Chest, abdomen and pelvis CT with intravenous contrast. Coronal and Sagittal reconstruction series were provided. One or more dose reduction techniques were used (e.g., Automated exposure control, adjustment of the mA and/or kV according to patient size, use of iterative reconstruction technique. PATIENT PREPARATION: Per protocol ORAL CONTRAST TYPE: None. CONTRAST: 100 CC OF ISOVUE 370. COMPARISON: MRCP 04/14/2025, CT abdomen pelvis 04/18/2025 FINDINGS: CT CHEST: Hardware: None. Lymph nodes: No enlarged mediastinal, hilar, or axillary lymph nodes. Heart and Vasculature: Nonenlarged. No pericardial effusion. Thoracic aorta and pulmonary arteries are unremarkable. Lungs and Airways: Bibasilar dependent atelectasis. No focal consolidation. Airways are patent. Pleura: No pleural effusion or pneumothorax. Bones: Unremarkable. No acute fractures. CT ABDOMEN/PELVIS: Liver: Mildly enlarged measuring 20.4 cm craniocaudally. Mild diffuse hepatic steatosis. No obvious hepatic mass. Gallbladder: Surgically absent. No biliary ductal dilatation. Spleen: Mildly enlarged measuring 13.9 cm in long axis. Pancreas: Normal size without evidence of mass surrounding inflammation or ductal dilation. Adrenals: No adrenal masses. Kidneys: Normal renal sizes. No hydronephrosis. Bladder: Unremarkable. Reproductive Organs: Normal uterine size and contour. Fluid-filled endometrium. Bilateral adnexal cysts. Bowel: No bowel obstruction. No inflammatory changes. Appendix: The appendix is not identified. There is no inflammatory process identified in the right lower quadrant to suggest appendicitis. Lymph nodes: Unremarkable. Vasculature: The abdominal aorta and IVC are normal. Peritoneum / Retroperitoneum: No free fluid or air. Bones: Unremarkable. No acute fractures. CT/CT Chest, Abd, Pel w/Contrast IMPRESSION: 1. Interval resolution of previously noted pancreatitis. 2. Cholecystectomy with unremarkable appearance of the gallbladder fossa. 3. Mild hepatomegaly and mild diffuse hepatic steatosis. 4. No acute findings in the abdomen or pelvis as imaged. Reading Location: [facility]
--- OUTSIDE RECORDS SUMMARY | 2025-06-17 00:49 | XMS RPT_ITS | CCD ---
Author Organization [facility] Care Team Providers Care Audio/Video Technician Name Role Phone Uptain CNM, Crystal K [...] Admitting Unavailable Raghavendra Curiel Attending Unavailable Ping PRICE ANALYST, [facility]avail[facility] Estiven, Louie Consulting Unavailable Friend, Alonzo Consulting Unavailable Colleen Urbina Consulting Unavailable Amada Jones Consulting Unavailable Brea Miranda Consulting Unavailable Raghavendra Curiel Consulting Unavailable Raghavendra Curiel Admitting Unavailable Estiven, Louie Consulting Unavailable Ping PRICE ANALYST, [facility] Unavailabl e Tong Woods Attending Unavailable Friend, Alonzo Consulting Unavailable Carlitos, Colleen Consulting Unavailable Amada Jones Consulting Unavailable Brea Miranda Consulting Unavailable Amaury Patel Consulting Unavailable Raghavendra Curiel Consulting Unavailable Estiven, Louie Consulting Unavailable Ping PRICE ANALYST, [facility] Unavailabl e Raghavendra Curiel [...] visit: This patient is a transfer from [facility], they were not happy with the care [...] can have them come in sooner. DP [facility] 36on 04-23-2025 36 Name of Caller: Carmela emmanuel Contact (voicemail only - neighborhood phone -- [employer]) Reason for Appointment: Patient has gallstones and was suggested to call you by friends of theirs [employer] -- fax number was given for all testing that's already been done Office Name: Surgery Medication Refills need, if any: n/a Medication Name: n/a [facility] CBC W/Diff, Automatedon 10-3 Absolute Lymph 1.76 X10 3/uL Normal 0.83-4.51 [facility] Comment on above: Performed By: #### L 500.4050, L100.0100 ####[facility] [address] [place], [address] Absolute Neut 8.9 X10 3/uL High 2.0-7.7 [facility] Comment on above: Performed By: #### L 500.4050, L100.0100 ####[facility] [address] [place], [address] Basophils/100 WBC (Bld) 0.3 % Normal 0-1 [facility] Comment on above: Performed By: #### L 500.4050, L100.0100 ####[facility] [address] [place], [address] Eosinophils/100 WBC (Bld) 0.8 % Normal 0-5 [facility] Comment on above: Performed By: #### L 500.4050, L100.0100 ####[facility] [address] [place], [address] Erythrocyte distribution width (RBC) [Ratio] 13.2 % Normal 11.6-14.6 [facility] Comment on above: Performed By: #### L 500.4050, L100.0100 ####[facility] [address] [place], [address] Hematocrit (Bld) [Volume fraction] 36.5 % Low 37-47 [facility] Comment on above: Performed By: #### L 500.4050, L100.0100 ####[facility] [address] [place], [address] Hemoglobin (Bld) [Mass/Vol] 11.9 g/dL Low 12.0-15.0 [facility] Comment on above: Performed By: #### L 500.4050, L100.0100 ####[facility] [address] [place], [address] IG% 0.600 Normal 0.0-0.9 [facility] Comment on above: Result Comment: IG% - Immature Granulocytes (promyelocytes, myelocytes and metamyelocytes) > 1% indicates that a LEFT SHIFT is Present. Performed By: #### L 500.4050, L100.0100 ####[facility] [address] [place], [address] Lymphocytes/100 WBC (Bld) 15.0 % Low 19-41 [facility] Comment on above: Performed By: #### L 500.4050, L100.0100 ####[facility] [address] [place], [address] MCH (RBC) [Entitic mass] 28.3 pg Normal 27.0-32.0 [facility] Comment on above: Performed By: #### L 500.4050, L100.0100 ####[facility] [address] [place], [address] MCHC (RBC) [Mass/Vol] 32.6 g/dL Normal 32-36 [facility] Comment on above: Performed By: #### L 500.4050, L100.0100 ####[facility] [address] [place], [address] MCV (RBC) [Entitic vol] 86.7 fL Normal 81-99 [facility] Comment on above: Performed By: #### L 500.4050, L100.0100 ####[facility] [address] [place], [address] Monocytes/100 WBC (Bld) 7.4 % Normal 0-10 [facility] Comment on above: Performed By: #### L 500.4050, L100.0100 ####[facility] [address] [place], [address] Neutrophils/100 WBC (Bld) 75.9 % High 47-70 [facility] Comment on above: Performed By: #### L 500.4050, L100.0100 ####[facility] [address] [place], [address] Nucleated RBC (Bld) [#/Vol] 0 10*3/uL Normal 0-5 [facility] Comment on above: Performed By: #### L 500.4050, L100.0100 ####[facility] [address] [place], [address] Platelet mean volume (Bld) [Entitic vol] 8.8 fL Normal 6.2-12.0 [facility] Comment on above: Performed By: #### L 500.4050, L100.0100 ####[facility] [address] [place], [address] Platelets (Bld) [#/Vol] 387 10*3/uL Normal 150-450 [facility] Comment on above: Performed By: #### L 500.4050, L100.0100 ####[facility] [address] [place], [address] RBC (Bld) [#/Vol] 4.21 10*6/uL Normal 4.2-5.4 [facility] Comment on above: Performed By: #### L 500.4050, L100.0100 ####[facility] [address] [place], [address] RDW SD 41.4 fl Normal 35.1-43.9 [facility] Comment on above: Performed By: #### L 500.4050, L100.0100 ####[facility] [address] [place], [address] WBC (Bld) [#/Vol] 11.8 10*3/uL High 4.4-11.0 [facility] Comment on above: Performed By: #### L 500.4050, L100.0100 ####[facility] [address] [place], [address] Comprehensive Metabolic Prof ilon 04-20-2025 Albumin [Mass/Vol] 3.4 g/dL Low 3.5-5.0 [facility] Comment on above: Performed By: #### L 500.4050, L100.0100 ####[facility] [address] [place], [address] Albumin/Globulin [Mass ratio] 1.0 {ratio} Normal 0.9-2.4 [facility] Comment on above: Performed By: #### L 500.4050, L100.0100 ####[facility] [address] [place], [address] ALK PHOS 108 U/L High 35-104 [facility] Comment on above: Performed By: #### L 500.4050, L100.0100 ####[facility] [address] [place], [address] ALT [Catalytic activity/Vol] 29 U/L Normal <=34 [facility] Comment on above: Performed By: #### L 500.4050, L100.0100 ####[facility] [address] [place], [address] AST [Catalytic activity/Vol] 11 U/L Normal <=31 [facility] Comment on above: Performed By: #### L 500.4050, L100.0100 ####[facility] [address] [place], [address] Bilirubin [Mass/Vol] 0.34 mg/dL Normal 0.00-1.30 [facility] Comment on above: Performed By: #### L 500.4050, L100.0100 ####[facility] [address] [place], [address] BUN/CRE 9.8 RATIO Low 10-20 [facility] Comment on above: Performed By: #### L 500.4050, L100.0100 ####[facility] [address] [place], [address] Calcium [Mass/Vol] 9.3 mg/dL Normal 7.6-11.0 [facility] Comment on above: Performed By: #### L 500.4050, L100.0100 ####[facility] [address] [place], [address] Chloride [Moles/Vol] 105 mmol/L Normal 98-108 [facility] Comment on above: Performed By: #### L 500.4050, L100.0100 ####[facility] [address] [place], [address] CO2 [Moles/Vol] 22.8 mmol/L Normal 21.0-32.0 [facility] Comment on above: Performed By: #### L 500.4050, L100.0100 ####[facility] [address] [place], [address] Creatinine [Mass/Vol] 0.50 mg/dL Low 0.70-1.20 [facility] Comment on above: Performed By: #### L 500.4050, L100.0100 ####[facility] [address] [place], [address] ECRCL 196.98 ml/min Normal 50-250 [facility] Comment on above: Performed By: #### L 500.4050, L100.0100 ####[facility] [address] [place], [address] GAP 12 Normal 5-15 [facility] Comment on above: Performed By: #### L 500.4050, L100.0100 ####[facility] [address] [place], [address] GFR/1.73 sq M.predicted among non-blacks MDRD (S/P/Bld) [Vol rate/Area] 134 mL/min/{1.73_m2} Normal >60 [facility] Comment on above: Result Comment: mL/m in/1.73m2 CKD-EPI Creatinine Equation (2020) Performed By: #### L 500.4050, L100.0100 ####[facility] [address] [place], [address] Globulin (S) [Mass/Vol] 3.4 g/dL Normal 2.2-4.2 [facility] Comment on above: Performed By: #### L 500.4050, L100.0100 ####[facility] [address] [place], [address] Glucose [Mass/Vol] 92 mg/dL Normal 70-99 [facility] Comment on above: Performed By: #### L 500.4050, L100.0100 ####[facility] [address] [place], [address] Potassium [Moles/Vol] 3.7 mmol/L Normal 3.3-5.1 [facility] Comment on above: Performed By: #### L 500.4050, L100.0100 ####[facility] [address] [place], [address] Sodium [Moles/Vol] 140 mmol/L Normal 133-145 [facility] Comment on above: Performed By: #### L 500.4050, L100.0100 ####[facility] [address] [place], [address] T PROT 6.8 g/dL Normal 5.9-8.4 [facility] Comment on above: Performed By: #### L 500.4050, L100.0100 ####[facility] [address] [place], [address] Urea nitrogen [Mass/Vol] 5 mg/dL Normal 4-19 [facility] Comment on above: Performed By: #### L 500.4050, L100.0100 ####[facility] [address] [place], [address] Discharge Instructionon 3 Discharge Instruction [facility] Medical Records Department [address] [place] [address] Instructions for Home/Discharge Instructions 04/20/25 1440 MR#: [id number] Acct: [id number] Name: NEL ALBRECHT Rep #: [id number] : 2000 24 From: Tong Woods MD PCP: Jesica Feng PRICE ANALYSTTanner Status:ADM IN Discharge Instructions DC O2, CPAP, [...] Alonzo Rogers; Colleen Urbina; Amada Jones; Brea Mrianda; Robles Elizondo; Raghavendra Curiel Instructions Patient Instructions: [...] - Within 2 Weeks Jesica Feng NP, PRICE ANALYST-C [Primary Care Provider, Medical] - Within 1 Week Disposition Disposition (needs filled in before D/C Order can be placed): Home, Self Care 04/20/25 1442 Tong Woods MD CC: PRICE ANALYST-C Jesica Feng; PRICE ANALYST-C Colleen Urbina; PRICE ANALYST-C Amada Jones; Dr. Raghavendra Curiel DO; Dr. Robles Elizondo MD; Dr. Louie Jean-Baptiste MD; JUNG Reid; Alonzo Rogers DO Signed Normal [facility] CBC-Complete Blood Cnt No Di ffon 04-19-2025 Erythrocyte distribution width (RBC) [Ratio] 13.3 % Normal 11.6-14.6 [facility] Comment on above: Performed By: #### L 100.0500, L500.4050 #### [facility] [address] [place], [address] Hematocrit (Bld) [Volume fraction] 32.7 % Low 37-47 [facility] Comment on above: Performed By: #### L 100.0500, L500.4050 #### [facility] [address] [place], [address] Hemoglobin (Bld) [Mass/Vol] 10.7 g/dL Low 12.0-15.0 [facility] Comment on above: Performed By: #### L 100.0500, L500.4050 #### [facility] [address] [place], [address] MCH (RBC) [Entitic mass] 28.3 pg Normal 27.0-32.0 [facility] Comment on above: Performed By: #### L 100.0500, L500.4050 #### [facility] [address] [place], [address] MCHC (RBC) [Mass/Vol] 32.7 g/dL Normal 32-36 [facility] Comment on above: Performed By: #### L 100.0500, L500.4050 #### [facility] [address] [place], [address] MCV (RBC) [Entitic vol] 86.5 fL Normal 81-99 [facility] Comment on above: Performed By: #### L 100.0500, L500.4050 #### [facility] [address] [place], [address] Platelet mean volume (Bld) [Entitic vol] 9.0 fL Normal 6.2-12.0 [facility] Comment on above: Performed By: #### L 100.0500, L500.4050 #### [facility] [address] [place], [address] Platelets (Bld) [#/Vol] 331 10*3/uL Normal 150-450 [facility] Comment on above: Performed By: #### L 100.0500, L500.4050 #### [facility] [address] [place], [address] RBC (Bld) [#/Vol] 3.78 10*6/uL Low 4.2-5.4 [facility] Comment on above: Performed By: #### L 100.0500, L500.4050 #### [facility] [address] [place], [address] RDW SD 42.2 fl Normal 35.1-43.9 [facility] Comment on above: Performed By: #### L 100.0500, L500.4050 #### [facility] [address] [place], [address] WBC (Bld) [#/Vol] 11.3 10*3/uL High 4.4-11.0 [facility] Comment on above: Performed By: #### L 100.0500, L500.4050 #### [facility] [address] [place], [address] Comprehensive Metabolic Prof [facility] 04-19-2025 Albumin [Mass/Vol] 3.2 g/dL Low 3.5-5.0 [facility] Comment on above: Performed By: #### L 100.0500, L500.4050 #### [facility] [address] [place], [address] Albumin/Globulin [Mass ratio] 1.1 {ratio} Normal 0.9-2.4 [facility] Comment on above: Performed By: #### L 100.0500, L500.4050 #### [facility] [address] [place], [address] ALK PHOS 79 U/L Normal 35-104 [facility] Comment on above: Performed By: #### L 100.0500, L500.4050 #### [facility] [address] [place], [address] ALT [Catalytic activity/Vol] 39 U/L High <=34 [facility] Comment on above: Performed By: #### L 100.0500, L500.4050 #### [facility] [address] [place], [address] AST [Catalytic activity/Vol] 11 U/L Normal <=31 [facility] Comment on above: Performed By: #### L 100.0500, L500.4050 #### [facility] [address] [place], [address] Bilirubin [Mass/Vol] 0.45 mg/dL Normal 0.00-1.30 [facility] Comment on above: Performed By: #### L 100.0500, L500.4050 #### [facility] [address] [place], [address] BUN/CRE 6.3 RATIO Low 10-20 [facility] Comment on above: Performed By: #### L 100.0500, L500.4050 #### [facility] [address] [place], [address] Calcium [Mass/Vol] 8.6 mg/dL Normal 7.6-11.0 [facility] Comment on above: Performed By: #### L 100.0500, L500.4050 #### [facility] [address] [place], [address] Chloride [Moles/Vol] 107 mmol/L Normal 98-108 [facility] Comment on above: Performed By: #### L 100.0500, L500.4050 #### [facility] [address] [place], [address] CO2 [Moles/Vol] 21.9 mmol/L Normal 21.0-32.0 [facility] Comment on above: Performed By: #### L 100.0500, L500.4050 #### [facility] [address] [place], [address] Creatinine [Mass/Vol] 0.49 mg/dL Low 0.70-1.20 [facility] Comment on above: Performed By: #### L 100.0500, L500.4050 #### [facility] [address] [place], [address] ECRCL 201.00 ml/min Normal 50-250 [facility] Comment on above: Performed By: #### L 100.0500, L500.4050 #### [facility] [address] [place], [address] GAP 11 Normal 5-15 [facility] Comment on above: Performed By: #### L 100.0500, L500.4050 #### [facility] [address] [place], [address] GFR/1.73 sq M.predicted among non-blacks MDRD (S/P/Bld) [Vol rate/Area] 135 mL/min/{1.73_m2} Normal >60 [facility] Comment on above: Result Comment: mL/m in/1.73m2 CKD-EPI Creatinine Equation (2020) Performed By: #### L 100.0500, L500.4050 #### [facility] [address] [place], [address] Globulin (S) [Mass/Vol] 3.0 g/dL Normal 2.2-4.2 [facility] Comment on above: Performed By: #### L 100.0500, L500.4050 #### [facility] [address] [place], [address] Glucose [Mass/Vol] 95 mg/dL Normal 70-99 [facility] Comment on above: Performed By: #### L 100.0500, L500.4050 #### [facility] [address] [place], [address] Potassium [Moles/Vol] 3.2 mmol/L Low 3.3-5.1 [facility] Comment on above: Performed By: #### L 100.0500, L500.4050 #### [facility] [address] [place], [address] Sodium [Moles/Vol] 140 mmol/L Normal 133-145 [facility] Comment on above: Performed By: #### L 100.0500, L500.4050 #### [facility] [address] [place], [address] T PROT 6.2 g/dL Normal 5.9-8.4 [facility] Comment on above: Performed By: #### L 100.0500, L500.4050 #### [facility] [address] [place], [address] Urea nitrogen [Mass/Vol] 3 mg/dL Low 4-19 [facility] Comment on above: Performed By: #### L 100.0500, L500.4050 #### [facility] [address] [place], [address] Abdomen/Pelvis W IV Cont ONL Yon 04-18-2025 Abdomen/Pelvis W IV Cont ONLY [facility] Imaging Services [address] [place] [address] Abdomen/Pelvis W IV Cont ONLY MR#: [id number] Acct: [id number] Name: NEL ALBRECHT Rep #: [id number] : 2000 F 24 From: Jorge Luis garcia MD PCP: Jesica Feng, ROMÁN-C Status: REG ER Study: Abdomen/Pelvis W IV Cont ONLY Date of Exam: Exam# [id number] Ordering Dr: Rachael Leon DO PROCEDURE: ABDOMEN/PELVIS [...] fluid and gallbladder wall thickening. Reading Location: [id number] CC: DA Feng; Dr. Rachale Leon DO [employer] Salesman: Signed Normal [facility] CBC W/Diff, Automatedon 10-2 Absolute Lymph 2.01 X10 3/uL Normal 0.83-4.51 [facility] Comment on above: Performed By: #### L 501.2450, L100.0100, L500.4050, L700.6800 #### [facility] [address] [place], [address] Absolute Neut 6.9 X10 3/uL Normal 2.0-7.7 [facility] Comment on above: Performed By: #### L 501.2450, L100.0100, L500.4050, L700.6800 #### [facility] [address] [place], [address] Basophils/100 WBC (Bld) 0.4 % Normal 0-1 [facility] Comment on above: Performed By: #### L 501.2450, L100.0100, L500.4050, L700.6800 #### [facility] [address] [place], [address] Eosinophils/100 WBC (Bld) 0.6 % Normal 0-5 [facility] Comment on above: Performed By: #### L 501.2450, L100.0100, L500.4050, L700.6800 #### [facility] [address] [place], [address] Erythrocyte distribution width (RBC) [Ratio] 13.2 % Normal 11.6-14.6 [facility] Comment on above: Performed By: #### L 501.2450, L100.0100, L500.4050, L700.6800 #### [facility] [address] [place], [address] Hematocrit (Bld) [Volume fraction] 33.3 % Low 37-47 [facility] Comment on above: Performed By: #### L 501.2450, L100.0100, L500.4050, L700.6800 #### [facility] [address] [place], [address] Hemoglobin (Bld) [Mass/Vol] 11.3 g/dL Low 12.0-15.0 [facility] Comment on above: Performed By: #### L 501.2450, L100.0100, L500.4050, L700.6800 #### [facility] [address] [place], [address] IG% 0.400 Normal 0.0-0.9 [facility] Comment on above: Result Comment: IG% - Immature Granulocytes (promyelocytes, myelocytes and metamyelocytes) > 1% indicates that a LEFT SHIFT is Present. Performed By: #### L 501.2450, L100.0100, L500.4050, L700.6800 #### [facility] [address] [place], [address] Lymphocytes/100 WBC (Bld) 20.8 % Normal 19-41 [facility] Comment on above: Performed By: #### L 501.2450, L100.0100, L500.4050, L700.6800 #### [facility] [address] [place], [address] MCH (RBC) [Entitic mass] 29.0 pg Normal 27.0-32.0 [facility] Comment on above: Performed By: #### L 501.2450, L100.0100, L500.4050, L700.6800 #### [facility] [address] [place], [address] MCHC (RBC) [Mass/Vol] 33.9 g/dL Normal 32-36 [facility] Comment on above: Performed By: #### L 501.2450, L100.0100, L500.4050, L700.6800 #### [facility] [address] [place], [address] MCV (RBC) [Entitic vol] 85.6 fL Normal 81-99 [facility] Comment on above: Performed By: #### L 501.2450, L100.0100, L500.4050, L700.6800 #### [facility] [address] [place], [address] Monocytes/100 WBC (Bld) 6.7 % Normal 0-10 [facility] Comment on above: Performed By: #### L 501.2450, L100.0100, L500.4050, L700.6800 #### [facility] [address] [place], [address] Neutrophils/100 WBC (Bld) 71.1 % High 47-70 [facility] Comment on above: Performed By: #### L 501.2450, L100.0100, L500.4050, L700.6800 #### [facility] [address] [place], [address] Nucleated RBC (Bld) [#/Vol] 0 10*3/uL Normal 0-5 [facility] Comment on above: Performed By: #### L 501.2450, L100.0100, L500.4050, L700.6800 #### [facility] [address] [place], [address] Platelet mean volume (Bld) [Entitic vol] 9.0 fL Normal 6.2-12.0 [facility] Comment on above: Performed By: #### L 501.2450, L100.0100, L500.4050, L700.6800 #### [facility] [address] [place], [address] Platelets (Bld) [#/Vol] 351 10*3/uL Normal 150-450 [facility] Comment on above: Performed By: #### L 501.2450, L100.0100, L500.4050, L700.6800 #### [facility] [address] [place], [address] RBC (Bld) [#/Vol] 3.89 10*6/uL Low 4.2-5.4 [facility] Comment on above: Performed By: #### L 501.2450, L100.0100, L500.4050, L700.6800 #### [facility] [address] [place], [address] RDW SD 41.8 fl Normal 35.1-43.9 [facility] Comment on above: Performed By: #### L 501.2450, L100.0100, L500.4050, L700.6800 #### [facility] [address] [place], [address] WBC (Bld) [#/Vol] 9.7 10*3/uL Normal 4.4-11.0 [facility] Comment on above: Performed By: #### L 501.2450, L100.0100, L500.4050, L700.6800 #### [facility] [address] [place], [address] Comprehensive Metabolic Prof [facility] 04-18-2025 Albumin [Mass/Vol] 3.6 g/dL Normal 3.5-5.0 [facility] Comment on above: Performed By: #### L 501.2450, L100.0100, L500.4050, L700.6800 ####[facility] [address] [place], [address] Albumin/Globulin [Mass ratio] 1.1 {ratio} Normal 0.9-2.4 [facility] Comment on above: Performed By: #### L 501.2450, L100.0100, L500.4050, L700.6800 ####[facility] [address] [place], [address] ALK PHOS 109 U/L High 35-104 [facility] Comment on above: Performed By: #### L 501.2450, L100.0100, L500.4050, L700.6800 ####[facility] [address] [place], [address] ALT [Catalytic activity/Vol] 58 U/L High <=34 [facility] Comment on above: Performed By: #### L 501.2450, L100.0100, L500.4050, L700.6800 ####[facility] [address] [place], [address] AST [Catalytic activity/Vol] 13 U/L Normal <=31 [facility] Comment on above: Performed By: #### L 501.2450, L100.0100, L500.4050, L700.6800 ####[facility] [address] [place], [address] Bilirubin [Mass/Vol] 0.37 mg/dL Normal 0.00-1.30 [facility] Comment on above: Performed By: #### L 501.2450, L100.0100, L500.4050, L700.6800 ####[facility] [address] [place], [address] BUN/CRE 6.4 RATIO Low 10-20 [facility] Comment on above: Performed By: #### L 501.2450, L100.0100, L500.4050, L700.6800 ####[facility] [address] [place], [address] Calcium [Mass/Vol] 8.9 mg/dL Normal 7.6-11.0 [facility] Comment on above: Performed By: #### L 501.2450, L100.0100, L500.4050, L700.6800 ####[facility] [address] [place], [address] Chloride [Moles/Vol] 104 mmol/L Normal 98-108 [facility] Comment on above: Performed By: #### L 501.2450, L100.0100, L500.4050, L700.6800 ####[facility] [address] [place], [address] CO2 [Moles/Vol] 24.5 mmol/L Normal 21.0-32.0 [facility] Comment on above: Performed By: #### L 501.2450, L100.0100, L500.4050, L700.6800 ####[facility] [address] [place], [address] Creatinine [Mass/Vol] 0.56 mg/dL Low 0.70-1.20 [facility] Comment on above: Performed By: #### L 501.2450, L100.0100, L500.4050, L700.6800 ####[facility] [address] [place], [address] ECRCL 175.57 ml/min Normal 50-250 [facility] Comment on above: Performed By: #### L 501.2450, L100.0100, L500.4050, L700.6800 ####[facility] [address] [place], [address] GAP 11 Normal 5-15 [facility] Comment on above: Performed By: #### L 501.2450, L100.0100, L500.4050, L700.6800 ####[facility] [address] [place], [address] GFR/1.73 sq M.predicted among non-blacks MDRD (S/P/Bld) [Vol rate/Area] 131 mL/min/{1.73_m2} Normal >60 [facility] Comment on above: Result Comment: mL/m in/1.73m2 CKD-EPI Creatinine Equation (2020) Performed By: #### L 501.2450, L100.0100, L500.4050, L700.6800 ####[facility] [address] [place], [address] Globulin (S) [Mass/Vol] 3.1 g/dL Normal 2.2-4.2 [facility] Comment on above: Performed By: #### L 501.2450, L100.0100, L500.4050, L700.6800 ####[facility] [address] [place], [address] Glucose [Mass/Vol] 87 mg/dL Normal 70-99 [facility] Comment on above: Performed By: #### L 501.2450, L100.0100, L500.4050, L700.6800 ####[facility] [address] [place], [address] Potassium [Moles/Vol] 2.9 mmol/L Low 3.3-5.1 [facility] Comment on above: Performed By: #### L 501.2450, L100.0100, L500.4050, L700.6800 ####[facility] [address] [place], [address] Sodium [Moles/Vol] 140 mmol/L Normal 133-145 [facility] Comment on above: Performed By: #### L 501.2450, L100.0100, L500.4050, L700.6800 ####[facility] [address] [place], [address] T PROT 6.7 g/dL Normal 5.9-8.4 [facility] Comment on above: Performed By: #### L 501.2450, L100.0100, L500.4050, L700.6800 ####[facility] [address] [place], [address] Urea nitrogen [Mass/Vol] 4 mg/dL Normal 4-19 [facility] Comment on above: Performed By: #### L 501.2450, L100.0100, L500.4050, L700.6800 ####[facility] [address] [place], [address] Consultation - Surgicalon Consultation - Surgical [facility] Medical Records Department [address] [place] [address] Consultation - Surgical 04/18/25 1805 MR#: [id number] Acct: [id number] Name: NEL ALBRECHT Rep #: [id number] : 2000 24 From: Robles Elizondo MD PCP: DA Bowling Status:ADM IN Location: [facility] BX617-5 Assessment Plan Assessment/Plan (1) Gallstone pancreatitis: PLAN: [...] Elizondo MD General Surgery Endocrine Surgery Pager: [facility] [address] [place] [address], [facility], [address] [place] [address] Office: [phone] HPI Consult Data Date of Consult: 04/18/25 HPI Narrative Reason for Consultation: History of gallstone pancreatitis with present concern for possible acute c HPI Narrative: NEL ALBRECHT, is a 24 F who presents to [facility] after recent discharge 04/16/2025 following treatment for [...] the pancreas in keeping with acute pancreatitis. PENDING SALE TO [facility] Medical History Anxiety Depression Gallstones Home [...] 33.3 L (more content not included)... Normal [facility] Emergency Department Summary on 04-18-2025 Emergency Department Summary [facility] Medical Records Department [address] [place] [address] Emergency Department Summary 04/18/25 MR#: [id number] Acct: [id number] Name: NEL ALBRECHT Rep #: [id number] : 2000 24 From: Rachael Leon DO PCP: Jesica Feng NP-C Status:ADM IN Location: [facility] [id number] HPI HPI - GI History of Present [...] not take her gallbladder until that improved. [facility] Medical History Gallstones Home Medications ???Medication ???Instructions [...] Orientation: a (more content not included)... Normal [facility] Ferritinon 04-18-2025 Ferritin [Mass/Vol] 169 ng/mL Normal 22-378 [facility] Comment on above: Order Comment: Comme nts: ok to add onComments: ok to add on Performed By: #### L 503.6550, L503.6030, L501.5200, L501.2300 ####[facility] [address] [facility] [place], [address] H AND P Exam - Hospitaliston 04-18-2025 H&P Exam - Hospitalist [facility] Medical Records Department [address] [place] [address] H P Exam - Hospitalist 04/18/25 1407 MR#: [id number] Acct: [id number] Name: NEL ALBRECHT Rep #: [id number] : 2000 24 From: Raghavendra Curiel DO PCP: Jesica Feng, PRICE ANALYST-C Status:ADM IN Location: [facility] FW065-2 HPI - General General Date of Admission: 04/18/25 Date of Service: 04/18/25 Chief Complaint: Recurrent abdominal pain HPI Narrative NEL STODDARDHERMINIA, is a 24 F who presented to [facility] ED on 04/18/2025 with recurrent abdominal pain. [...] currently. Will be admitted for further management. PENDING SALE TO [facility] Medical History Anxiety Depression Gallstones Home [...] (Auto) 71.1 H, Lymph % (Auto) 20.8, Pipestone % (Auto) 6.7, Eos % (Auto) 0.6, Baso % (Auto) 0.4, Absolute Neuts (auto) 6.9, Absolute Lymphs (auto) 2. (more content not included)... Normal [facility] Iron+Iron Binding Capacityon 04-18-2025 Iron [Mass/Vol] 16 ug/dL Low 50-170 [facility] Comment on above: Order Comment: Comme nts: ok to add onComments: ok to add onok to add on Performed By: #### L 503.6550, L503.6030, L501.5200, L501.2300 ####[facility] [address] [place], [address] IRON SATURATION 5.3 Low 13-59 [facility] Comment on above: Order Comment: Comme nts: ok to add onComments: ok to add onok to add on Performed By: #### L 503.6550, L503.6030, L501.5200, L501.2300 ####[facility] [address] [place], [address] TIBC 302 ug/dL Normal 250-450 [facility] Comment on above: Order Comment: Comme nts: ok to add onComments: ok to add onok to add on Performed By: #### L 503.6550, L503.6030, L501.5200, L501.2300 ####[facility] [address] [place], [address] UIBC 286 ug/dL Normal 228-428 [facility] Comment on above: Order Comment: Comme nts: ok to add onComments: ok to add onok to add on Performed By: #### L 503.6550, L503.6030, L501.5200, L501.2300 ####[facility] [address] [place], [address] Lipaseon 04-18-2025 Lipase [Catalytic activity/Vol] 51 U/L Normal 13-75 [facility] Comment on above: Result Comment: Dwayne maya note: LIPASE revised reference range effective 22. New Lipase methodology. Expected to produce lower values than the previous assay method. NEW Reference Range: 13 - 75 U/L Performed By: #### L 501.2450, L100.0100, L500.4050, L700.6800 ####[facility] [address] [place], [address] MR/CON.PCM.GIon 04-18-2025 MR/CON.PCM.GI [facility] Medical Records Department [address] [place] [address] Consultation - GI 04/18/25 1728 MR#: [id number] Acct: [id number] Name: NEL ALBRECHT Rep #: [id number] : 2000 24 From: Alonzo Friend DO PCP: DA Bowling Status:ADM IN Location: [facility] XO391-3 HPI Consult Data Date of Consult: 04/18/25 [...] hospitalization, she was diagnosed with gallstones at [facility] following similar symptoms. * She reports an increase in the frequency of gallbladder attacks in recent weeks. * The current illness began on 04/13/2025 at approximately 6 PM, with right upper quadrant pain, nausea, and vomiting, following dinner. * The pain persisted overnight and prompted her presentation to [facility] ED on 04/14/2025. * Diagnosed with gallstone [...] biliary stent. * Multiple stones and cholecystitis. PENDING SALE TO [facility] Medical History Anxiety Depression Gallstones Home [...] (Auto) 71.1 H, Lymph % (Auto) 20.8, Pipestone % (Auto) 6.7, Eos % (Auto) 0.6, [...] fluid and gallbladder wall thickening. Reading Location: [facility] (more content not included)... Normal [facility] Magnesiumon 04-18-2025 Magnesium [Mass/Vol] 1.7 mg/dL Normal 1.5-2.2 [facility] Comment on above: Order Comment: Comme nts: ok to add onComments: ok to add on Performed By: #### L 503.9892, L503.6030, L501.5200, L501.2300 ####[facility] [address] [place], [address] Phosphoruson 04-18-2025 Phosphate [Mass/Vol] 2.8 mg/dL Normal 2.7-4.5 [facility] Comment on above: Order Comment: Comme nts: ok to add onComments: ok to add on Performed By: #### L 503.6550, L503.6030, L501.5200, L501.2300 ####[facility] [address] [place], [address] ,Serum,hCG Quali.on 04-18-2025 HCG, SERUM QUAL Negative Normal [facility] Comment on above: Performed By: #### L 501.2450, L100.0100, L500.4050, L700.6800 #### [facility] [address] [place], [address] CBC-Complete Blood Cnt No Di ffon 04-16-2025 Erythrocyte distribution width (RBC) [Ratio] 13.1 % Normal 11.6-14.6 [facility] Comment on above: Performed By: #### L 100.0500, L500.4050 ####[facility] [address] [place], [address] Hematocrit (Bld) [Volume fraction] 39.2 % Normal 37-47 [facility] Comment on above: Performed By: #### L 100.0500, L500.4050 ####[facility] [address] [place], [address] Hemoglobin (Bld) [Mass/Vol] 12.5 g/dL Normal 12.0-15.0 [facility] Comment on above: Performed By: #### L 100.0500, L500.4050 ####[facility] [address] [place], [address] MCH (RBC) [Entitic mass] 28.3 pg Normal 27.0-32.0 [facility] Comment on above: Performed By: #### L 100.0500, L500.4050 ####[facility] [address] [place], [address] MCHC (RBC) [Mass/Vol] 31.9 g/dL Low 32-36 [facility] Comment on above: Performed By: #### L 100.0500, L500.4050 ####[facility] [address] [place], [address] MCV (RBC) [Entitic vol] 88.7 fL Normal 81-99 [facility] Comment on above: Performed By: #### L 100.0500, L500.4050 ####[facility] [address] [place], [address] Platelet mean volume (Bld) [Entitic vol] 9.3 fL Normal 6.2-12.0 [facility] Comment on above: Performed By: #### L 100.0500, L500.4050 ####[facility] [address] [place], [address] Platelets (Bld) [#/Vol] 297 10*3/uL Normal 150-450 [facility] Comment on above: Performed By: #### L 100.0500, L500.4050 ####[facility] [address] [place], [address] RBC (Bld) [#/Vol] 4.42 10*6/uL Normal 4.2-5.4 [facility] Comment on above: Performed By: #### L 100.0500, L500.4050 ####[facility] [address] [place], [address] RDW SD 42.2 fl Normal 35.1-43.9 [facility] Comment on above: Performed By: #### L 100.0500, L500.4050 ####[facility] [address] [place], [address] WBC (Bld) [#/Vol] 11.9 10*3/uL High 4.4-11.0 [facility] Comment on above: Performed By: #### L 100.0500, L500.4050 ####[facility] [address] [place], [address] Comprehensive Metabolic Prof ilon 04-16-2025 Albumin [Mass/Vol] 3.5 g/dL Normal 3.5-5.0 [facility] Comment on above: Performed By: #### L 100.0500, L500.4050 ####[facility] [address] [place], [address] Albumin/Globulin [Mass ratio] 1.1 {ratio} Normal 0.9-2.4 [facility] Comment on above: Performed By: #### L 100.0500, L500.4050 ####[facility] [address] [place], [address] ALK PHOS 134 U/L High 35-104 [facility] Comment on above: Performed By: #### L 100.0500, L500.4050 ####[facility] [address] [place], [address] ALT [Catalytic activity/Vol] 140 U/L High <=34 [facility] Comment on above: Performed By: #### L 100.0500, L500.4050 ####[facility] [address] [place], [address] AST [Catalytic activity/Vol] 45 U/L High <=31 [facility] Comment on above: Performed By: #### L 100.0500, L500.4050 ####[facility] [address] [place], [address] Bilirubin [Mass/Vol] 0.89 mg/dL Normal 0.00-1.30 [facility] Comment on above: Performed By: #### L 100.0500, L500.4050 ####[facility] [address] [place], [address] BUN/CRE 6.8 RATIO Low 10-20 [facility] Comment on above: Performed By: #### L 100.0500, L500.4050 ####[facility] [address] [place], [address] Calcium [Mass/Vol] 8.6 mg/dL Normal 7.6-11.0 [facility] Comment on above: Performed By: #### L 100.0500, L500.4050 ####[facility] [address] [place], [address] Chloride [Moles/Vol] 107 mmol/L Normal 98-108 [facility] Comment on above: Performed By: #### L 100.0500, L500.4050 ####[facility] [address] [place], [address] CO2 [Moles/Vol] 18.7 mmol/L Low 21.0-32.0 [facility] Comment on above: Performed By: #### L 100.0500, L500.4050 ####[facility] [address] [place], [address] Creatinine [Mass/Vol] 0.53 mg/dL Low 0.70-1.20 [facility] Comment on above: Performed By: #### L 100.0500, L500.4050 ####[facility] [address] [place], [address] ECRCL 184.47 ml/min Normal 50-250 [facility] Comment on above: Performed By: #### L 100.0500, L500.4050 ####[facility] [address] [place], [address] GAP 13 Normal 5-15 [facility] Comment on above: Performed By: #### L 100.0500, L500.4050 ####[facility] [address] [place], [address] GFR/1.73 sq M.predicted among non-blacks MDRD (S/P/Bld) [Vol rate/Area] 133 mL/min/{1.73_m2} Normal >60 [facility] Comment on above: Result Comment: mL/m in/1.73m2 CKD-EPI Creatinine Equation (2020) Performed By: #### L 100.0500, L500.4050 ####[facility] [address] [place], [address] Globulin (S) [Mass/Vol] 3.2 g/dL Normal 2.2-4.2 [facility] Comment on above: Performed By: #### L 100.0500, L500.4050 ####[facility] [address] [place], [address] Glucose [Mass/Vol] 85 mg/dL Normal 70-99 [facility] Comment on above: Performed By: #### L 100.0500, L500.4050 ####[facility] [address] [place], [address] Potassium [Moles/Vol] 3.5 mmol/L Normal 3.3-5.1 [facility] Comment on above: Performed By: #### L 100.0500, L500.4050 ####[facility] [address] [place], [address] Sodium [Moles/Vol] 138 mmol/L Normal 133-145 [facility] Comment on above: Performed By: #### L 100.0500, L500.4050 ####[facility] [address] [place], [address] T PROT 6.7 g/dL Normal 5.9-8.4 [facility] Comment on above: Performed By: #### L 100.0500, L500.4050 ####[facility] [address] [place], [address] Urea nitrogen [Mass/Vol] 4 mg/dL Normal 4-19 [facility] Comment on above: Performed By: #### L 100.0500, L500.4050 ####[facility] [address] [place], [address] Discharge Instructionon 03-22 Discharge Instruction [facility] Medical Records Department [address] [place] [address] Instructions for Home/Discharge Instructions 04/16/25 1855 MR#: [id number] Acct: [id number] Name: NEL ALBRECHT Rep #: [id number] : 2000 24 From: Tong Woods MD [...] Care 04/16/25 1859 Tong Woods MD CC: PRICE ANALYST-Arian Feng; DA Urbina; DA Jones; Dr. Raghavendra Curiel DO; Dr. Louie Jean-Baptiste MD; Dr. Amaury Patel MD; JUNG Reid; Alonzo Rogers DO Signed [facility] ERCP Biliary/Pancreason 03-22 ERCP Biliary/Pancreas [facility] Imaging Services [address] [place] [address] ERCP Biliary/Pancreas MR#: [id number] Acct: [id number] Name: NEL ALBRECHT Rep #: [id number] : 2000 24 From: Jorge Luis garcia MD PCP: DA Bowling Status: ADM IN Study: ERCP Biliary/Pancreas Date of Exam: 04/16/25 Exam# [id number] Ordering Dr: Alonzo Rogers DO PROCEDURE: ERCP BILIARY/PANCREAS 04/16/2025 REASON FOR EXAM: ERCP TECHNIQUE: Procedure Code: RADERCP Modality: DX Procedure: ERCP BILIARY/PANCREAS. Fluoroscopic services provided for ERCP. Fluoroscopy: 28.6 seconds. 7.8 mGy radiation dose. 5 images were submitted. COMPARISON: None FINDINGS: Intraoperative imaging provided for ERCP. The ducts are not dilated. RAD/ERCP Biliary/Pancreas IMPRESSION: Intraoperative imaging provided for ERCP. Reading Location: [id number] CC: DA Feng; Alonzo Rogers DO Outside Parts Salesman: Signed [facility] ERCP Reporton 04-16-2025 ERCP Report [facility] Medical Records Department [address] [place] [address] ERCP Report MR#: [id number] Acct: [id number] Name: NEL ALBRECHT Rep #: [id number] : 2000 24 From: Alonzo Rogers DO PCP: DA Bowilng Status:ADM IN Patient Name: Nel Albrecht Procedure [...] hours 9 minutes 28 seconds Findings: The complaint evaluation officer film was normal. The esophagus was successfully [...] localized bi (more content not included)... [facility] Lipaseon 04-16-2025 Lipase [Catalytic activity/Vol] 271 U/L High 13- [facility] Comment on above: Result Comment: Dwayne maya note: LIPASE revised reference range effective 22. New Lipase methodology. Expected to produce lower values than the previous assay method. NEW Reference Range: 13 - 75 U/L Performed By: #### L 501.2450 #### [facility] [address] [place], [address] MR/OP.PROVATon 04-16-2025 MR/OP.PROVAT [facility] Medical Records Department [address] [place] [address] Provation Physician Letter MR#: [id number] Acct: [id number] Name: NEL ALBRECHT Rep #: [id number] : 2000 24 From: Alonzo Rogers DO PCP: DA Bowling Status:ADM IN 04/16/2025 Jesica Feng Brazer Helper Induction, Brazer Helper Induction-c Re : ERCP procedure for Nel Albrecht [...] DO Date Dictated: 04/16/25 1159 Date Transcribed: Outside Parts Salesman: SATYA Signed [facility] MR/POSTOP.ANEon 04-16-2025 MR/POSTOP.[facility] Medical Records Department [address] [place] [address] Anesthesia Postop Eval I 04/16/251315 MR#: [id number] Acct: [id number] Name: NEL ALBRECHT Rep #: [id number] : 2000 24 From: Estrada Richey PCP: DA Bowling Status:ADM IN Y Race: [facility]: Postop Eval I Current Vital Signs [...] Date Estrada Olson Signature: Date CC: Signed [facility] MR/HKUVKKSQ8jz 04-16-2025 [facility] Medical Records Department [address] [place] [address] Anesthesia Postop Eval II 04/16/25 1741 MR#: [id number] Acct: [id number] Name: NEL ALBRECHT Rep #: [id number] : 2000 24 From: Aureliano Sebastian MD PCP: Jesica Feng PRICE ANALYST-Arian Status:ADM IN Y Race: C Location: [facility] IS614-5 Anesthesia Postop Eval I Sum Postop Eval [...] MD Cosigner Signature: Date CC: Signed [facility] ,Urineon 04-16-2025 Beta HCG ( test) Ql (U) Negative [facility] Comment on above: Order Comment: Femal es 12-55 or menstruation outside age [id number] Result Comment: Very dilute urine specimens, as indicated by a low specific gravity, may not contain cash posting representative levels of hCG. If is still suspected, a first morning urine specimen should be collected 48 hours later and tested. Performed By: #### L 400.7600 ####[facility] [address] [place], [address] CBC-Complete Blood Cnt No Di ffon 04-15-2025 Erythrocyte distribution width (RBC) [Ratio] 13.1 % Normal 11.6-14.6 [facility] Comment on above: Performed By: #### L 100.0500, L500.4050 #### [facility] [address] [place], [address] Hematocrit (Bld) [Volume fraction] 39.3 % Normal 37-47 [facility] Comment on above: Performed By: #### L 100.0500, L500.4050 #### [facility] [address] [place], [address] Hemoglobin (Bld) [Mass/Vol] 12.9 g/dL Normal 12.0-15.0 [facility] Comment on above: Performed By: #### L 100.0500, L500.4050 #### [facility] [address] [place], [address] MCH (RBC) [Entitic mass] 29.1 pg Normal 27.0-32.0 [facility] Comment on above: Performed By: #### L 100.0500, L500.4050 #### [facility] [address] [place], [address] MCHC (RBC) [Mass/Vol] 32.8 g/dL Normal 32-36 [facility] Comment on above: Performed By: #### L 100.0500, L500.4050 #### [facility] [address] [place], [address] MCV (RBC) [Entitic vol] 88.7 fL Normal 81-99 [facility] Comment on above: Performed By: #### L 100.0500, L500.4050 #### [facility] [address] [place], [address] Platelet mean volume (Bld) [Entitic vol] 9.3 fL Normal 6.2-12.0 [facility] Comment on above: Performed By: #### L 100.0500, L500.4050 #### [facility] [address] [place], [address] Platelets (Bld) [#/Vol] 272 10*3/uL Normal 150-450 [facility] Comment on above: Performed By: #### L 100.0500, L500.4050 #### [facility] [address] [place], [address] RBC (Bld) [#/Vol] 4.43 10*6/uL Normal 4.2-5.4 [facility] Comment on above: Performed By: #### L 100.0500, L500.4050 #### [facility] [address] [place], [address] RDW SD 42.3 fl Normal 35.1-43.9 [facility] Comment on above: Performed By: #### L 100.0500, L500.4050 #### [facility] [address] [place], [address] WBC (Bld) [#/Vol] 8.5 10*3/uL Normal 4.4-11.0 [facility] Comment on above: Performed By: #### L 100.0500, L500.4050 #### [facility] [address] [place], [address] Comprehensive Metabolic Prof ilon 04-15-2025 Albumin [Mass/Vol] 3.5 g/dL Normal 3.5-5.0 [facility] Comment on above: Performed By: #### L 100.0500, L500.4050 #### [facility] [address] [place], [address] Albumin/Globulin [Mass ratio] 1.3 {ratio} Normal 0.9-2.4 [facility] Comment on above: Performed By: #### L 100.0500, L500.4050 #### [facility] [address] [place], [address] ALK PHOS 155 U/L High 35-104 [facility] Comment on above: Performed By: #### L 100.0500, L500.4050 #### [facility] [address] [place], [address] ALT [Catalytic activity/Vol] 225 U/L High <=34 [facility] Comment on above: Performed By: #### L 100.0500, L500.4050 #### [facility] [address] [place], [address] AST [Catalytic activity/Vol] 125 U/L High <=31 [facility] Comment on above: Performed By: #### L 100.0500, L500.4050 #### [facility] [address] [place], [address] Bilirubin [Mass/Vol] 1.02 mg/dL Normal 0.00-1.30 [facility] Comment on above: Performed By: #### L 100.0500, L500.4050 #### [facility] [address] [place], [address] BUN/CRE 7.4 RATIO Low 10-20 [facility] Comment on above: Performed By: #### L 100.0500, L500.4050 #### [facility] [address] [place], [address] Calcium [Mass/Vol] 8.2 mg/dL Normal 7.6-11.0 [facility] Comment on above: Performed By: #### L 100.0500, L500.4050 #### [facility] [address] [place], [address] Chloride [Moles/Vol] 108 mmol/L Normal 98-108 [facility] Comment on above: Performed By: #### L 100.0500, L500.4050 #### [facility] [address] [place], [address] CO2 [Moles/Vol] 22.3 mmol/L Normal 21.0-32.0 [facility] Comment on above: Performed By: #### L 100.0500, L500.4050 #### [facility] [address] [place], [address] Creatinine [Mass/Vol] 0.56 mg/dL Low 0.70-1.20 [facility] Comment on above: Performed By: #### L 100.0500, L500.4050 #### [facility] [address] [place], [address] ECRCL 174.59 ml/min Normal 50-250 [facility] Comment on above: Performed By: #### L 100.0500, L500.4050 #### [facility] [address] [place], [address] GAP 8 Normal 5-15 [facility] Comment on above: Performed By: #### L 100.0500, L500.4050 #### [facility] [address] [place], [address] GFR/1.73 sq M.predicted among non-blacks MDRD (S/P/Bld) [Vol rate/Area] 131 mL/min/{1.73_m2} Normal >60 [facility] Comment on above: Result Comment: mL/m in/1.73m2 CKD-EPI Creatinine Equation (2020) Performed By: #### L 100.0500, L500.4050 #### [facility] [address] [place], [address] Globulin (S) [Mass/Vol] 2.7 g/dL Normal 2.2-4.2 [facility] Comment on above: Performed By: #### L 100.0500, L500.4050 #### [facility] [address] [place], [address] Glucose [Mass/Vol] 97 mg/dL Normal 70-99 [facility] Comment on above: Performed By: #### L 100.0500, L500.4050 #### [facility] [address] [place], [address] Potassium [Moles/Vol] 3.7 mmol/L Normal 3.3-5.1 [facility] Comment on above: Performed By: #### L 100.0500, L500.4050 #### [facility] [address] [place], [address] Sodium [Moles/Vol] 138 mmol/L Normal 133-145 [facility] Comment on above: Performed By: #### L 100.0500, L500.4050 #### [facility] [address] [place], [address] T PROT 6.2 g/dL Normal 5.9-8.4 [facility] Comment on above: Performed By: #### L 100.0500, L500.4050 #### [facility] [address] [place], [address] Urea nitrogen [Mass/Vol] 4 mg/dL Normal 4-19 [facility] Comment on above: Performed By: #### L 100.0500, L500.4050 #### [facility] [address] [place], [address] Consultation - Surgicalon 10 -26-2025 Consultation - Surgical [facility] Medical Records Department [address] [place] [address] Consultation - Surgical 04/15/25 1325 MR#: [id number] Acct: [id number] Name: NEL ALBRECHT Rep #: [id number] : 2000 24 From: Amaury Patel MD PCP: Jesica Feng, PRICE ANALYST-C Status:ADM IN Location: ME3 JK364-2 Assessment Plan Assessment/Plan (1) Gallstone pancreatitis: PLAN: [...] is a 24 F who presented to [facility] emergency department on 04/14/2025 with abdominal pain. Patient also presented with nausea and vomiting. It sounds as though patient has been having issues with gallstones for the past 1 to 2 months. She was actually supposed to meet with a general surgeon in [place] next week. Patient was having worsening right [...] in the near future as an outpatient. PENDING SALE TO [facility] Medical History Gallstones Home Medications ???Medication [...] IFEANYITHERESE Charges/Coding Visit Charges Inpatient E M: 31897 Init Hosp L3 04/15/25 1332 Cosigner Signature (if applicable): CC: PRICE ANALYSTTanner ButtJesica Dolores Feng Signed Normal [facility] CBC W/Diff, Automatedon 03-22 Absolute Lymph 1.03 X10 3/uL Normal 0.83-4.51 [facility] Comment on above: Performed By: #### L 500.4050, L700.6800, L501.2450, L100.0100 ####[facility] [address] [place], [address] Absolute Neut 7.9 X10 3/uL High 2.0-7.7 [facility] Comment on above: Performed By: #### L 500.4050, L700.6800, L501.2450, L100.0100 ####[facility] [address] [place], [address] Basophils/100 WBC (Bld) 0.3 % Normal 0-1 [facility] Comment on above: Performed By: #### L 500.4050, L700.6800, L501.2450, L100.0100 ####[facility] [address] [place], [address] Eosinophils/100 WBC (Bld) 0.4 % Normal 0-5 [facility] Comment on above: Performed By: #### L 500.4050, L700.6800, L501.2450, L100.0100 ####[facility] [address] [place], [address] Erythrocyte distribution width (RBC) [Ratio] 12.9 % Normal 11.6-14.6 [facility] Comment on above: Performed By: #### L 500.4050, L700.6800, L501.2450, L100.0100 ####[facility] [address] [place], [address] Hematocrit (Bld) [Volume fraction] 44.2 % Normal 37-47 [facility] Comment on above: Performed By: #### L 500.4050, L700.6800, L501.2450, L100.0100 ####[facility] [address] [place], [address] Hemoglobin (Bld) [Mass/Vol] 14.9 g/dL Normal 12.0-15.0 [facility] Comment on above: Performed By: #### L 500.4050, L700.6800, L501.2450, L100.0100 ####[facility] [address] [place], [address] IG% 0.200 Normal 0.0-0.9 [facility] Comment on above: Result Comment: IG% - Immature Granulocytes (promyelocytes, myelocytes and metamyelocytes) > 1% indicates that a LEFT SHIFT is Present. Performed By: #### L 500.4050, L700.6800, L501.2450, L100.0100 ####[facility] [address] [place], [address] Lymphocytes/100 WBC (Bld) 10.7 % Low 19-41 [facility] Comment on above: Performed By: #### L 500.4050, L700.6800, L501.2450, L100.0100 ####[facility] [address] [place], [address] MCH (RBC) [Entitic mass] 28.9 pg Normal 27.0-32.0 [facility] Comment on above: Performed By: #### L 500.4050, L700.6800, L501.2450, L100.0100 ####[facility] [address] [place], [address] MCHC (RBC) [Mass/Vol] 33.7 g/dL Normal 32-36 [facility] Comment on above: Performed By: #### L 500.4050, L700.6800, L501.2450, L100.0100 ####[facility] [address] [place], [address] MCV (RBC) [Entitic vol] 85.7 fL Normal 81-99 [facility] Comment on above: Performed By: #### L 500.4050, L700.6800, L501.2450, L100.0100 ####[facility] [address] [place], [address] Monocytes/100 WBC (Bld) 5.7 % Normal 0-10 [facility] Comment on above: Performed By: #### L 500.4050, L700.6800, L501.2450, L100.0100 ####[facility] [address] [place], [address] Neutrophils/100 WBC (Bld) 82.7 % High 47-70 [facility] Comment on above: Performed By: #### L 500.4050, L700.6800, L501.2450, L100.0100 ####[facility] [address] [place], [address] Nucleated RBC (Bld) [#/Vol] 0 10*3/uL Normal 0-5 [facility] Comment on above: Performed By: #### L 500.4050, L700.6800, L501.2450, L100.0100 ####[facility] [address] [place], [address] Platelet mean volume (Bld) [Entitic vol] 9.2 fL Normal 6.2-12.0 [facility] Comment on above: Performed By: #### L 500.4050, L700.6800, L501.2450, L100.0100 ####[facility] [address] [place], [address] Platelets (Bld) [#/Vol] 344 10*3/uL Normal 150-450 [facility] Comment on above: Performed By: #### L 500.4050, L700.6800, L501.2450, L100.0100 ####[facility] [address] [place], [address] RBC (Bld) [#/Vol] 5.16 10*6/uL Normal 4.2-5.4 [facility] Comment on above: Performed By: #### L 500.4050, L700.6800, L501.2450, L100.0100 ####[facility] [address] [place], [address] RDW SD 40.2 fl Normal 35.1-43.9 [facility] Comment on above: Performed By: #### L 500.4050, L700.6800, L501.2450, L100.0100 ####[facility] [address] [place], [address] WBC (Bld) [#/Vol] 9.6 10*3/uL Normal 4.4-11.0 [facility] Comment on above: Performed By: #### L 500.4050, L700.6800, L501.2450, L100.0100 ####[facility] [address] [place], [address] Comprehensive Metabolic [facility] 04-14-2025 Albumin [Mass/Vol] 4.5 g/dL Normal 3.5-5.0 [facility] Comment on above: Performed By: #### L 500.4050, L700.6800, L501.2450, L100.0100 ####[facility] [address] [place], [address] Albumin/Globulin [Mass ratio] 1.2 {ratio} Normal 0.9-2.4 [facility] Comment on above: Performed By: #### L 500.4050, L700.6800, L501.2450, L100.0100 ####[facility] [address] [place], [address] ALK PHOS 195 U/L High 35-104 [facility] Comment on above: Performed By: #### L 500.4050, L700.6800, L501.2450, L100.0100 ####[facility] [address] [place], [address] ALT [Catalytic activity/Vol] 403 U/L High <=34 [facility] Comment on above: Performed By: #### L 500.4050, L700.6800, L501.2450, L100.0100 ####[facility] [address] [place], [address] AST [Catalytic activity/Vol] 554 U/L High <=31 [facility] Comment on above: Performed By: #### L 500.4050, L700.6800, L501.2450, L100.0100 ####[facility] [address] [place], [address] Bilirubin [Mass/Vol] 2.47 mg/dL High 0.00-1.30 [facility] Comment on above: Performed By: #### L 500.4050, L700.6800, L501.2450, L100.0100 ####[facility] [address] [place], [address] BUN/CRE 12.0 RATIO Normal 10-20 [facility] Comment on above: Performed By: #### L 500.4050, L700.6800, L501.2450, L100.0100 ####[facility] [address] [place], [address] Calcium [Mass/Vol] 9.8 mg/dL Normal 7.6-11.0 [facility] Comment on above: Performed By: #### L 500.4050, L700.6800, L501.2450, L100.0100 ####[facility] [address] [place], [address] Chloride [Moles/Vol] 104 mmol/L Normal 98-108 [facility] Comment on above: Performed By: #### L 500.4050, L700.6800, L501.2450, L100.0100 ####[facility] [address] [place], [address] CO2 [Moles/Vol] 22.7 mmol/L Normal 21.0-32.0 [facility] Comment on above: Performed By: #### L 500.4050, L700.6800, L501.2450, L100.0100 ####[facility] [address] [place], [address] Creatinine [Mass/Vol] 0.69 mg/dL Low 0.70-1.20 [facility] Comment on above: Performed By: #### L 500.4050, L700.6800, L501.2450, L100.0100 ####[facility] [address] [place], [address] GAP 13 Normal 5-15 [facility] Comment on above: Performed By: #### L 500.4050, L700.6800, L501.2450, L100.0100 ####[facility] [address] [place], [address] GFR/1.73 sq M.predicted among non-blacks MDRD (S/P/Bld) [Vol rate/Area] 124 mL/min/{1.73_m2} Normal >60 [facility] Comment on above: Result Comment: mL/m in/1.73m2 CKD-EPI Creatinine Equation (2020) Performed By: #### L 500.4050, L700.6800, L501.2450, L100.0100 ####[facility] [address] [place], [address] Globulin (S) [Mass/Vol] 3.7 g/dL Normal 2.2-4.2 [facility] Comment on above: Performed By: #### L 500.4050, L700.6800, L501.2450, L100.0100 ####[facility] [address] [place], [address] Glucose [Mass/Vol] 120 mg/dL High 70-99 [facility] Comment on above: Performed By: #### L 500.4050, L700.6800, L501.2450, L100.0100 ####[facility] [address] [place], [address] Potassium [Moles/Vol] 4.2 mmol/L Normal 3.3-5.1 [facility] Comment on above: Performed By: #### L 500.4050, L700.6800, L501.2450, L100.0100 ####[facility] [address] [place], [address] Sodium [Moles/Vol] 139 mmol/L Normal 133-145 [facility] Comment on above: Performed By: #### L 500.4050, L700.6800, L501.2450, L100.0100 ####[facility] [address] [place], [address] T PROT 8.3 g/dL Normal 5.9-8.4 [facility] Comment on above: Performed By: #### L 500.4050, L700.6800, L501.2450, L100.0100 ####[facility] [address] [place], [address] Urea nitrogen [Mass/Vol] 8 mg/dL Normal 4-19 [facility] Comment on above: Performed By: #### L 500.4050, L700.6800, L501.2450, L100.0100 ####[facility] [address] [place], [address] Emergency Department Summary on 04-14-2025 Emergency Department Summary [facility] Medical Records Department [address] [place] [address] Emergency Department Summary 04/14/25 MR#: [id number] Acct: [id number] Name: NEL ALBRECHT Rep #: [id number] : 2000 24 From: Cornell Serna MD PCP: Jesica Feng NP-C Status:REG ER Location: ED HPI HPI - GI History of Present Illness Chief Complaint: Abd Pain Narrative Narrative: 24-year-old female who by significant past medical history with the exception of being diagnosed with gallstones about a month ago in [place], presents with what she considers a gallbladder [...] pain. Last menstrual period was last week. [facility] Medical History (Updated 04/14/25 @ 12:57 by [...] 82.7 H Lymph % (Auto) 10.7 L [place] % (Auto) (more content not included)... Normal [facility] Gallbladderon 04-14-2025 Gallbladder [facility] Imaging Services [address] [place] [address] Gallbladder MR#: [id number] Acct: [id number] Name: NEL ALBRECHT Rep #: [id number] : 2000 F 24 From: Raleigh Moss MD PCP: Jesica Feng NP-C Status: REG ER Study: Gallbladder Date of Exam: 04/14/25 Exam# [id number] Ordering Dr: Cornell Serna MD PROCEDURE: GALLBLADDER [...] no evidence of acute cholecystitis. Reading Location: [facility] CC: PRICE ANALYST-C Jesica Feng; Dr. Cornell Serna MD Outside Parts Salesman: Signed Normal [facility] H AND P Exam - Hospitaliston 04-14-2025 H&P Exam - Hospitalist [facility] Medical Records Department [address] [place] [address] H P Exam - Hospitalist 04/14/25 1241 MR#: [id number] Acct: [id number] Name: NEL ALBRECHT Rep #: [id number] : 2000 24 From: Raghavendra Curiel DO PCP: Jesica Feng, DA Status:ADM IN Location: MS3 [id number] HPI - General General Date of Admission: 04/14/25 Date of Service: 04/14/25 Chief Complaint: Abdominal pain and nausea with vomiting HPI Narrative NEL ALBRECHT, is a 24 F who presented to [facility] ED on 04/14/2025 with abdominal pain and nausea with vomiting. Patient lives at home with her , has good functional status at baseline. She notes that she went to [facility] about a month ago and was [...] currently. Will be admitted for further management. PENDING SALE TO [facility] Medical History (Updated 04/14/25 @ 12:57 [...] Deviation 4 (more content not included)... Normal [facility] Lipaseon 04-14-2025 Lipase [Catalytic activity/Vol] U/L High 13-75 [facility] Comment on above: Result Comment: Dwayne maya note: LIPASE revised reference range effective 22. New Lipase methodology. Expected to produce lower values than the previous assay method. NEW Reference Range: 13 - 75 U/L Performed By: #### L 500.4050, L700.6800, L501.2450, L100.0100 ####[facility] [address] [place], [address] MR/CON.PCM.GIon 04-14-2025 MR/CON.PCM.[facility] Medical Records Department [address] [place] [address] Consultation - GI 04/14/25 2101 MR#: [id number] Acct: [id number] Name: NEL ALBRECHT Rep #: [id number] : 2000 24 From: Alonzo Rogers DO PCP: Jesica Feng, PRICE ANALYST-C Status:ADM IN Location: ME3 VT083-5 HPI Consult Data Date of Consult: 04/14/25 HPI Narrative Reason for Consultation: Gallstone pancreatitis HPI Narrative: NEL ALBRECHT, is a 24-year-old female who by significant past medical history with the exception of being diagnosed with gallstones about a month ago in [place], presents with what she considers a gallbladder [...] The common bile duct measures 6 mm PENDING SALE TO [facility] Medical History Gallstones Home Medications ???Medication [...] 82.7 H, Lymph % (Auto) 10.7 L, [place] % (Auto) 5.7, Eos % (Auto) 0.4, [...] no evidence of acute cholecystitis. Reading Location: [facility] Assessment Plan Assessment/Plan (1) Intractable epigastric abdominal pain: (2) Transaminitis: (3) Nausea and vomiting: (4) Gallstone pancreatitis: PLAN: The patient is a 24-year-old female with a known history of cholelithiasis presenting with a worsening frequency and severity of biliar (more content not included)... Normal [facility] MRCP Abdomen without Contras ton 04-14-2025 MRCP Abdomen without Contrast [facility] Imaging Services [address] [place] [address] MRCP Abdomen without Contrast MR#: [id number] Acct: [id number] Name: NEL ALBRECHT Rep #: [id number] : 2000 F 24 From: Kale robles MD PCP: Jesica Feng, PRICE ANALYST-C Status: ADM IN Study: MRCP Abdomen without Contrast Date of Exam: Exam# [id number] Ordering Dr: Cornell Serna MD PROCEDURE: MRCP [...] signal calculi or obvious masses. Reading Location: [place] [address] CC: PRICE ANALYST-C Jesica Feng; Dr. Cornell Serna MD Outside Parts Salesman: Signed [facility] ,Serum,hCG Quali.on 04-14-2025 HCG, SERUM QUAL Negative Normal [facility] Comment on above: Performed By: #### L 500.4050, L700.6800, L501.2450, L100.0100 ####[facility] [address] [place], [address] ED MED ADMINISTRATION DETAIL on 02-27-2025 ED MED ADMINISTRATION DETAIL Sales Development Executive - NEL ALBRECHT, : 2000, , Medication Administration Record [address] [address] [id number] 02/25/2025 Patient: NEL ALBRECHT Sex: Female : 2000 Age: 24y MEASUREMENTS: Wt: 93.9 kg, Ht/Satya: 65.0 in, BMI: 34.45 ALLERGIES: No known drug allergies Medication Ordered Medication Administration Date/Time 1 of 1 Normal [facility] ED NURSES CLINICAL NOTEon ED NURSES CLINICAL NOTE Nurse Narrative - NEL ALBRECHT, : 2000, , Nurse Clinical Narrative [address] [address] [id number] 02/25/2025 02:09:00 Patient: NEL ALBRECHT Sex: Female : 2000 Age: 24y Disposition: Discharge to Home Disposition Decision Time: 07:32 02/25/2025 Departure Time: 07:44 02/25/2025 TRIAGE Arrived by private vehicle. Historian: (patient). Accompanied by family. [facility] Triage time: 02:21 02/25/2025. Acuity: LEVEL [...] R.N. magnesium -- 02:42 02/25/25 EDT Maranda Porter R.N. [place] 3-6-9 oral -- 02:42 02/25/25 EDT Maranda [...] 03:20 02/25/25. Cardiac rhythm: normal sinus rhythm. school bus monitor, NIBP monitor and pulse oximeter placed on [...] Porter R.N. (more content not included)... Normal [facility] ED ORDER SHEET (CPOE ONLY)on 02-27-2025 ED ORDER SHEET (CPOE ONLY) Order Sheet - NEL ALBRECHT, : 2000, , Order Sheet [address] [address] [id number] 02/25/2025 Patient: NEL ALBRECHT Sex: Female : [...] 02/25/2025 Keiry Reis Debra Schrock, R.N. R.N. Project Control Officer 02:30 02/25/2025 02:49 02/25/2025 02:52 02/25/2025 Keiry Reis Debra Schrock, R.N. RErna Vital signs every 15 02:30 02/25/2025 02:50 02/25/2025 02:52 02/25/2025 minutes Keiry Reis Debra Schrock, R.N. R.N. IV Saline Lock 02:30 02/25/2025 02:49 02/25/2025 02:52 02/25/2025 Keiry Reis Debra Schrock, R.N. R.N. [Electronically signed by Alex Bal D.O. (02/27/2025 07:01 EDT)] 3 of 3 Normal [facility] ED PHYSICIAN CLINICAL REPORT on 02-27-2025 ED PHYSICIAN CLINICAL REPORT Narrative - NEL ALBRECHT, : 2000, , Physician Clinical Narrative [address] [address] [id number] 02/25/2025 02:09:00 Patient: NEL ALBRECHT Sex: Female [...] magnesium Multi Vitamin oral niacin oral [place] 3-6-9 oral Fannie's wort oral Allergies: no [...] - 5.30 Final EDT 3 of 14 [facility] - NEL ALBRECHT, : 2000, , 02/25/2025 03:33 HEMOGLOBIN [...] Final Belo (more content not included)... Normal [facility] ED SUPER BILLon 02-27-2025 [facility] : 2000, , [place] [address] [id number] 02/25/2025 Patient: NEL ALBRECHT Sex: Female : 2000 Age: 24y Item Professional Category Description Facility Code Code Quantity Fee Total Nurse/E/M EMERGENCY 132094 1 $0.00 $0.00 DEPARTMENT VISIT HIGH/URGENT SEVERITY (72559-66) Grand Total $0.00 Providers Alex Bal D.O. [...] cyst, left side 2 of 2 Normal [facility] ED VISIT SUMMARYon ED VISIT SUMMARY Visit Overview - NEL ALBRECHT : 2000, , Visit [address] [address] [id number] 02/25/2025 Patient: NEL ALBRECHT Sex: Female : 2000 Age: 24y 02/27/2025 07:01 AM EDT ED Arrival:02:09 02/25/2025 EDT Status:not Recent Travel:no Language:deu Adv Directive: Isolation Status: Ethnicity:N Fall Risk:no risk Infectious Disease Exposure:no Measurements:5'5 / 165.1 Self-Harm Status:risk Sepsis Screen:negative cm 207.0 lb / 93.9 kg Chief Complaint:NAUSEA, (1 AM), (Epigastric pain ), and ([facility] ) ALLERGIES No Known Drug Allergies HOME MEDICATIONS B Complex magnesium Multi Vitamin oral niacin oral [place] 3-6-9 oral Fannie's wort oral 1 of [...] TORSION OF OVARY 3 of 3 Normal [facility] ED VITALS FLOW SHEETon 02-27 ED VITALS FLOW SHEET Vitals - NEL ALBRECHT, : 2000, , Vital Sign Flow Sheet [address] [address] [id number] 02/25/2025 Patient: NEL ALBRECHT Sex: Female : [...] 98.1 F 1 3 of 3 Normal [facility] US RUQ (GB/PANCREAS)on 02-26 US RUQ (GB/PANCREAS) [place] [address] Patient: NEL ALBRECHT Phone#: : 2000 Age: 24 Gender: F Pt. Type: Out Account: [id number] Location: [facility] Ordering: ALEX BAL Exam Date: 02/26/2025/7:28 Family Phys: CRYSTAL UPTAIN Charge Code: [id number] Physician: Twiggs Order #: [id number] Dose#: PROCEDURE: RUQ (GB) ULTRASOUND COMPARISON: None. [...] SANTOS MD ON 02/26/2025 AT 8:52 Normal [facility] CBC + DIFFon 02-25-2025 Baso # 0.03 x10EE3/UL Normal 0.00 - 0.10 [facility] Comment on above: Performed By: #### 2 [address] #### [facility],[address] [place] [address] Basophils/100 WBC (Bld) 0.3 % Normal 0.0 - 2.0 [facility] Comment on above: Performed By: #### 2 [address] #### [place] [address] CBC + DIFF Normal [facility] [facility] Comment on above: Result Comment: CBC- COMPLETE BLOOD COUNT Performed By: #### 2 73916 #### [place] [address] EO # 0.29 x10EE3/UL Normal 0.00 - 0.50 [facility] Comment on above: Performed By: #### 2 06614 #### [place] [address] Eosinophils/100 WBC (Bld) 2.6 % Normal 0.0 - 7.0 [facility] Comment on above: Performed By: #### 2 31931 #### [place] [address] Erythrocyte distribution width (RBC) [Ratio] 13.2 % Normal 12.0 - 15.6 [facility] Comment on above: Performed By: #### 2 27695 #### [place] [address] Hematocrit (Bld) [Volume fraction] 40.9 % Normal 34.0 - 46.0 [facility] Comment on above: Performed By: #### 2 50201 #### [place] [address] Hemoglobin (Bld) [Mass/Vol] 13.6 g/dL Normal 12.0 - 16.0 [facility] Comment on above: Performed By: #### 2 17694 #### [place] [address] Lymph # 1.95 x10EE3/UL Normal 0.80 - 2.80 [facility] Comment on above: Performed By: #### 2 97823 #### [facility],[address] [place] [address] Lymphocytes/100 WBC (Bld) 17.1 % Low 20.0 - 45.0 [facility] Comment on above: Performed By: #### 2 54084 #### [facility],[address] [place] [address] MANUAL DIFF N/A Normal [facility] Comment on above: Performed By: #### 2 70793 #### [facility],[address] [place] [address] MCH (RBC) [Entitic mass] 29 pg Normal 27 - 33 [facility] Comment on above: Performed By: #### 2 84032 #### [facility],[address] [place] [address] MCHC 33 X10 3 Normal 32 - 36 [facility] Comment on above: Performed By: #### 2 46373 #### [facility],[address] [place] [address] MCV (RBC) [Entitic vol] 88 fL Normal 80 - 99 [facility] Comment on above: Performed By: #### 2 30063 #### [facility],[address] [place] [address] [place] # 0.49 x10EE3/UL Normal 0.20 - 1.00 [facility] Comment on above: Performed By: #### 2 34552 #### [facility],[address] [place] [address] MONOS % 4.3 % Normal 0.0 - 10.0 [facility] Comment on above: Performed By: #### 2 25018 #### [place] [address] Morphology Grover (Bld) [Interp] N/A Normal [facility] Comment on above: Performed By: #### 2 45386 #### [facility],[address],[place] [address] Neut # 8.62 x10EE3/UL High 1.50 - 7.10 [facility] Comment on above: Performed By: #### 2 49779 #### [facility],[address] [place] [address]253 Neutrophils/100 WBC (Bld) 75.8 % Normal 46.0 - 76.0 [facility] Comment on above: Performed By: #### 2 46994 #### [facility],[address] [place] [address]1468 PLATELET 348 x10EE3/UL Normal 150 - 450 [facility] Comment on above: Performed By: #### 2 45198 #### [facility],[address] [place] [address]3968 Platelet mean volume (Bld) [Entitic vol] 7.0 fL Normal 6.6 - 10.5 [facility] Comment on above: Result Comment: AUTO MATED DIFFERENTIAL Performed By: #### 2 46687 #### [facility],[address] [place] [address] 23657 RBC 4.67 x 10EE6/UL Normal 4.10 - 5.30 [facility] Comment on above: Performed By: #### 2 95897 #### [facility],[address] [place] [address] 15326 WBC 11.4 x 10EE3/UL High 4.5 - 10.8 [facility] Comment on above: Performed By: #### 2 24420 #### [facility],[address] [place] [address] 75013 CHEST 1 VIEWon 02-25-2025 CHEST 1 VIEW [place] [address] Patient: NEL ALBRECHT Phone#: : [phone] Age: 24 Gender: F Pt. Type: ER Account: [id number] Location: 052 Ordering: ALEX BAL Exam Date: 02/25/2025/4:20 Family Phys: Charge Code: [id number] Physician: Twiggs Order #: [id number] Dose#: PROCEDURE: X-RAY CHEST 1 VIEW COMPARISON: [...] Santos MD on 02/25/2025 at 20:59 Normal [facility] CMP with eGFRon 02-25-2025 AGE 24 years Normal [facility] Comment on above: Performed By: #### 2 45765 #### [facility],[address] [place] [address] Albumin [Mass/Vol] 3.3 g/dL Low 3.4 - 5.0 [facility] Comment on above: Performed By: #### 2 70502 #### [facility],[address] [place] [address] Albumin/Globulin [Mass ratio] 0.8 {ratio} Low 0.9 - 1.6 [facility] Comment on above: Performed By: #### 2 04024 #### [facility],[address] [place], [place] [id number] ALK PHOS 102 U/L Normal 46 - 116 [facility] Comment on above: Performed By: #### 2 38479 #### [facility],[address] [place] [address] 41500 ALT [Catalytic activity/Vol] 39 U/L Normal 16 - 63 [facility] Comment on above: Performed By: #### 2 83065 #### [facility],[address] [place] [address] 10550 Anion gap [Moles/Vol] 15 mmol/L Normal 10 - 20 [facility] Comment on above: Performed By: #### 2 90750 #### [facility],[address] [place], [place] [id number] AST [Catalytic activity/Vol] 27 U/L Normal 13 - 39 [facility] Comment on above: Performed By: #### 2 54099 #### [facility],[address] [place], [place] [id number] B/C RATIO 15 ratio Normal 0 - 30 [facility] Comment on above: Performed By: #### 2 50970 #### [facility],[address] [place], [place] [id number] Bilirubin [Mass/Vol] 0.2 mg/dL Normal 0.2 - 1.0 [facility] Comment on above: Performed By: #### 2 16764 #### [facility],[address] [place], [place] [address] Calcium [Mass/Vol] 9.3 mg/dL Normal 8.5 - 10.1 [facility] Comment on above: Performed By: #### 2 58941 #### [facility],[address] [place], [place] [address] Chloride [Moles/Vol] 103 mmol/L Normal 98 - 107 [facility] Comment on above: Performed By: #### 2 76267 #### [facility],[address] [place] [address] 33047 CMP with eGFR Normal [facility] Comment on above: Result Comment: COMP REHENSIVE METABOLIC PANEL Performed By: #### 2 65004 #### [facility],[address] [place] [address] 37054 CO2 [Moles/Vol] 26.3 mmol/L Normal 21.0 - 32.0 [facility] Comment on above: Performed By: #### 2 96269 #### [facility],[address] [place], [place] [address] Creatinine [Mass/Vol] 0.81 mg/dL Normal 0.55 - 1.02 [facility] Comment on above: Performed By: #### 2 30584 #### [facility],[address] [place] [address] 77133 GFR/1.73 sq M.predicted among non-blacks MDRD (S/P/Bld) [Vol rate/Area] mL/min/{1.73_m2} Normal 60 - 999 [facility] Comment on above: Performed By: #### 2 83433 #### [facility],[address] [place] [address] Result Comment: ACCO RDING TO THE NATIONAL KIDNEY DISEASE EDUCATION PROGRAM(NKDE), A NORMAL eGFR IS A VALUE GREATER THAN OR EQUAL TO 60 ML/MIN/1.73 SQ METERS. CHRONIC KIDNEY DISEASE: <60mL/MIN/1.73 SQ METERS KIDNEY FAILURE: <15mL/MIN/1.73 SQ METERS THIS TEST SHOULD ONLY BE USED FOR PATIENTS 18 YEARS OF AGE AND OLDER. Globulin (S) [Mass/Vol] 4.2 g/dL High 1.5 - 3.8 [facility] Comment on above: Performed By: #### 2 04525 #### [facility],[address] [place] [address]486 Glucose [Mass/Vol] 108 mg/dL High 74 - 106 [facility] Comment on above: Performed By: #### 2 18475 #### [facility],[address] [place] [address] 18337 Potassium [Moles/Vol] 4.0 mmol/L Normal 3.5 - 5.1 [facility] Comment on above: Performed By: #### 2 65501 #### [facility],[address] [place] [address] 05445 Protein [Mass/Vol] 7.5 g/dL Normal 6.4 - 8.2 [facility] Comment on above: Performed By: #### 2 59705 #### [facility],[address] [place] [address] 23350 Sodium [Moles/Vol] 140 mmol/L Normal 136 - 145 [facility] Comment on above: Performed By: #### 2 55618 #### [facility],[address] [place] [address] 72615 Urea nitrogen [Mass/Vol] 12 mg/dL Normal 7 - 18 [facility] Comment on above: Performed By: #### 2 21227 #### [facility],[address] [place] [address] ABDOMEN[facility]PELVIS [facility] 2024 CT ABDOMEN/PELVIS [place] [address] Patient: NEL ALBRECHT Phone#: : [phone] Age: 24 Gender: F Pt. Type: ER Account: [id number] Location: [facility] Ordering: ALEX BAL Exam Date: 02/25/2025/5:25 Family Phys: Charge Code: [id number] Physician: Twiggs Order #: [id number] Dose#: 18.6 PROCEDURE: CT ABDOMEN/PELVIS WITH CONTRAST [...] 24 Gender: F Pt. Type: ER Account: [id number] Location: 052 Ordering: ALEX BAL Exam Date: 02/25/2025/5:25 Family Phys: Charge Code: [id number] Physician: Twiggs Order #: [id number] Dose#: 18.6 CONCLUSION: 1. There is no evidence of acute thoracic, abdominal or pelvic abnormality. Dictated by: Thais Santos MD on 02/25/2025 at 20:31 Approved by: Thais Santos MD on 02/25/2025 at 20:35 Normal [facility] CT CHEST (PE PROTOCOL)on CT CHEST (PE PROTOCOL) [place] [address] Patient: NEL ALBRECHT Phone#: : 2000 Age: 24 Gender: F Pt. Type: ER Account: [id number] Location: 052 Ordering: ALEX BAL Exam Date: 02/25/2025/5:25 Family Phys: Charge Code: [id number] Physician: Twiggs Order #: [id number] Dose#: 8.4 PROCEDURE: CT CHEST WITH CONTRAST [...] 24 Gender: F Pt. Type: ER Account: [id number] Location: [facility] Ordering: ALEX BAL Exam Date: 02/25/2025/5:25 Family Phys: Charge Code: [id number] Physician: Twiggs Order #: [id number] Dose#: 8.4 Approved by: Thais Santos MD on 02/25/2025 at 20:37 Normal [facility] D-DIMER, QUANTITATIVEon 09-0 D-DIMER QUANT 327 ng/ml High 0 - 230 [facility] Comment on above: Performed By: #### 2 86826 #### [facility],[address] [place], [place] [address] D-DIMER, QUANTITATIVE Normal [facility] Comment on above: Result Comment: RICARDA T D-DIMER Performed By: #### 2 40374 #### [facility],[address] [place], [place] [id number] LIPASEon 02-25-2025 Lipase [Catalytic activity/Vol] 74.0 U/L Normal 15.0 - 78.0 [facility] Comment on above: Result Comment: *PLE ASE NOTE THAT RANGES FOR LIPASE HAVE CHANGED OF 06/18/23 DUE TO AN ASSAY UPDATE BY THE PRODUCTION LINE SOLDERER.THE NEW ASSAY RANGE IS 6-250 U/L, WITH A REFERENCE RANGE OF 16-77 U/L. Performed By: #### 2 89692 #### [facility],[address] [place] [address] NT-proBNPon 02-25-2025 Natriuretic peptide B (Bld) [Mass/Vol] 16 pg/mL Normal 0 - 125 [facility] Comment on above: Performed By: #### 2 85549 #### [facility],[address] [place] [address] SERUM QUALon 02-25 EXTERNAL QC DONE? YES Normal [facility] Comment on above: Performed By: #### 2 64430 #### [facility],[address] [place] [address] INTERNAL QC PASS Normal [facility] Comment on above: Performed By: #### 2 65774 #### [facility],[address] [place] [address] SER Negative Normal NEGATIVE [facility] Comment on above: Performed By: #### 2 58122 #### [facility],[address] [place] [address] TROPONINon 02-25-2025 HS TROPONIN <4.0 Normal 0.0 - 51.4 [facility] Comment on above: Performed By: #### 2 77715 #### [facility],[address] [place] [address] HS TROPONIN <4.0 Normal 0.0 - 51.4 [facility] Comment on above: Performed By: #### 2 35048 #### [facility],[address] [place] [address] CBC + DIFFon 02-04-2025 Baso # 0.03 x10EE3/UL Normal 0.00 - 0.10 [facility] Comment on above: Performed By: #### 2 80677 #### [facility],[address] [place] [address] 51250 Basophils/100 WBC (Bld) 0.3 % Normal 0.0 - 2.0 [facility], [facility].; [facility], [employer] Work Phone: Comment on above: Performed By: #### 2 70335 #### [facility],[address] [place] [address] CBC + DIFF Normal [facility] Comment on above: Result Comment: CBC- COMPLETE BLOOD COUNT Performed By: #### 2 60901 #### [facility],[address] [place] [address]903 EO # 0.08 x10EE3/UL Normal 0.00 - 0.50 [facility] Comment on above: Performed By: #### 2 53637 #### [facility],[address] [place] [address] 98207 Eosinophils/100 WBC (Bld) 0.6 % Normal 0.0 - 7.0 [facility], [facility].; [facility], [employer]. Work Phone: Comment on above: Performed By: #### 2 94012 #### [facility],[address] [place], [place] [id number] Erythrocyte distribution width (RBC) [Ratio] 13.4 % Normal 12.0 - 15.6 [facility], [facility].; [place] [employer], [employer]. Work Phone: Comment on above: Performed By: #### 2 13613 #### [facility],[address] [place] [address]888 Hematocrit (Bld) [Volume fraction] 30.1 % Low 34.0 - 46.0 [facility], [facility].; [facility], [employer]. Work Phone: Comment on above: Performed By: #### 2 04755 #### [facility],[address] [place] [address] 14153 Hemoglobin (Bld) [Mass/Vol] 9.9 g/dL Low 12.0 - 16.0 [facility]; [facility] [employer] Work Phone: Comment on above: Performed By: #### 2 44242 #### [place] [id number] Lymph # 2.05 x10EE3/UL Normal 0.80 - 2.80 [facility] Comment on above: Performed By: #### 2 41557 #### [place] [address] Lymphocytes/100 WBC (Bld) 14.7 % Low 20.0 - 45.0 [facility]; [facility] Work Phone: Comment on above: Performed By: #### 2 54807 #### [place] [address] MANUAL DIFF N/A Normal [facility]; [facility] [employer] Work Phone: Comment on above: Performed By: #### 2 28306 #### [place] [id number] MCH (RBC) [Entitic mass] 29 pg Normal 27 - 33 [facility]; [facility] Work Phone: Comment on above: Performed By: #### 2 09887 #### [place] [address] MCHC 33 X10 3 Normal 32 - 36 [facility] Comment on above: Performed By: #### 2 94973 #### [place] [id number] MCV (RBC) [Entitic vol] 89 fL Normal 80 - 99 [facility]; [facility], [facility]. Work Phone: Comment on above: Performed By: #### 2 92607 #### [facility],[address] [place] [address]204 [place] # 0.98 x10EE3/UL Normal 0.20 - 1.00 [facility] Comment on above: Performed By: #### 2 24510 #### [address] [address] MONOS % 7.0 % Normal 0.0 - 10.0 [facility] Comment on above: Performed By: #### 2 40743 #### [address] [address] Morphology Grover (Bld) [Interp] N/A Normal [facility]; [facility], [facility] Work Phone: Comment on above: Performed By: #### 2 75212 #### [address] [address] Neut # 10.80 x10EE3/UL High 1.50 - 7.10 [facility] Comment on above: Performed By: #### 2 58759 #### [address] [address] Neutrophils/100 WBC (Bld) 77.4 % High 46.0 - 76.0 [facility], [facility] Work Phone: Comment on above: Performed By: #### 2 15351 #### [address] [address] PLATELET 295 x10EE3/UL Normal 150 - 450 [facility] Comment on above: Performed By: #### 2 71401 #### [facility],[address] [place] [address] 09886 Platelet mean volume (Bld) [Entitic vol] 7.4 fL Normal 6.6 - 10.5 [facility]; [facility] [employer]. Work Phone: Comment on above: Result Comment: AUTO MATED DIFFERENTIAL Performed By: #### 2 99892 #### [facility],[address] [place] [address] RBC 3.37 x 10EE6/UL Low 4.10 - 5.30 [facility] Comment on above: Performed By: #### 2 94898 #### [facility],[address] [place] [address] WBC 14.0 x 10EE3/UL High 4.5 - 10.8 [facility] Comment on above: Performed By: #### 2 59543 #### [facility],[address] [place] [address] Laboratory - Hematology and Cell countson 02-04-2025 Basophils (Bld) [#/Vol] 0.03 {3/UL} Normal 0.00 - 0.10 {3/UL} [facility].; [facility] [employer]. Work Phone: CBC W Auto Differential panel (Bld) CBC + DIFF Normal [facility]; [facility] [employer]. Work Phone: Eosinophils (Bld) [#/Vol] 0.08 {3/UL} Normal 0.00 - 0.50 {3/UL} [facility].; [facility] [employer]. Work Phone: Lymphocytes (Bld) [#/Vol] 2.05 {3/UL} Normal 0.80 - 2.80 {3/UL} [facility] [employer].; [facility] [employer]. Work Phone: MCHC (RBC) [Mass/Vol] 33 {X10_3} Normal 32 - 36 {X10_3} [facility].; [employer]. Work Phone: Monocytes (Bld) [#/Vol] 0.98 {3/UL} Normal 0.20 - 1.00 {3/UL} [facility].; [facility] [employer]. Work Phone: Monocytes/100 WBC (Bld) 7.0 % Normal 0.0 - 10.0 % [facility].; [facility] [employer]. Work Phone: Neutrophils (Bld) [#/Vol] 10.80 {3/UL} Abnormal 1.50 - 7.10 {3/UL} [facility].; [facility] [employer]. Work Phone: Platelets (Bld) [#/Vol] 295 {3/UL} Normal 150 - 450 {3/UL} [facility] [employer].; [facility]. Work Phone: RBC (Bld) [#/Vol] 3.37 {6/UL} Abnormal 4.10 - 5.3 0 {6/UL} [facility] [employer].; [employer] [employer]. Work Phone: WBC (Bld) [#/Vol] 14.0 {3/UL} Abnormal 4.5 - 10.8 {3/UL} [facility] [employer].; [employer] [employer]. Work Phone: BB TYPE & SCREENon 5 ABO A Normal [facility] Comment on above: Performed By: #### 2 84067 #### [facility],[address] [place] [address] ANTIBODY SCR Negative Normal [facility] Comment on above: Performed By: #### 2 71804 #### [facility],[address] [place] [address] BB TYPE & SCREEN Normal [facility] Comment on above: Result Comment: TYPE , Rh, AND SCREEN Performed By: #### 2 23273 #### [facility],[address] [place] [address] Rh Nom (Bld) Negative Normal [facility].; [facility] [employer]. Work Phone: Comment on above: Performed By: #### 2 08602 #### [facility],[address] [place] [address] 85888 CBC + DIFFon 02-01-2025 Baso # 0.03 x10EE3/UL Normal 0.00 - 0.10 [facility] Comment on above: Performed By: #### 2 72536 #### [facility],[address] [place] [address] 76956 Basophils/100 WBC (Bld) 0.3 % Normal 0.0 - 2.0 [facility].; [facility], [employer] Work Phone: Comment on above: Performed By: #### 2 29956 #### [facility],[address] [place] [address] 00135 CBC + DIFF Normal [facility] Comment on above: Result Comment: CBC- COMPLETE BLOOD COUNT Performed By: #### 2 37707 #### [facility],[address] [place] [address] 66824 EO # 0.11 x10EE3/UL Normal 0.00 - 0.50 [facility] Comment on above: Performed By: #### 2 49877 #### [facility],[address] [place] [address] 73295 Eosinophils/100 WBC (Bld) 0.9 % Normal 0.0 - 7.0 [facility].; [employer] Work Phone: Comment on above: Performed By: #### 2 81647 #### [facility],[address] [place] [address] 24848 Erythrocyte distribution width (RBC) [Ratio] 13.0 % Normal 12.0 - 15.6 [facility].; [employer] [employer], [employer] Work Phone: Comment on above: Performed By: #### 2 95135 #### [facility],[address] [place] [address] 21077 Hematocrit (Bld) [Volume fraction] 33.7 % Low 34.0 - 46.0 [facility]; [facility] Work Phone: Comment on above: Performed By: #### 2 33142 #### [place] [address] Hemoglobin (Bld) [Mass/Vol] 11.5 g/dL Low 12.0 - 16.0 [facility]; [employer] Work Phone: Comment on above: Performed By: #### 2 91346 #### [place] [id number] Lymph # 2.12 x10EE3/UL Normal 0.80 - 2.80 [facility] Comment on above: Performed By: #### 2 01093 #### [address] [address] Lymphocytes/100 WBC (Bld) 17.6 % Low 20.0 - 45.0 [facility]; [place] [facility] Work Phone: Comment on above: Performed By: #### 2 32157 #### [address] [address] MANUAL DIFF N/A Normal [facility]; [place] [facility] Work Phone: Comment on above: Performed By: #### 2 95383 #### [address] [address] MCH (RBC) [Entitic mass] 30 pg Normal 27 - 33 [facility]; [place] [facility] Work Phone: Comment on above: Performed By: #### 2 13221 #### [address] [address] MCHC 34 X10 3 Normal 32 - 36 [facility] Comment on above: Performed By: #### 2 16635 #### [facility],[address] [place] [address]86[address] MCV (RBC) [Entitic vol] 89 fL Normal 80 - 99 [facility].; [facility] [facility] Work Phone: Comment on above: Performed By: #### 2 20613 #### [facility],[address] [place] [address] [place] # 0.77 x10EE3/UL Normal 0.20 - 1.00 [facility] Comment on above: Performed By: #### 2 98874 #### [address] [address] MONOS % 6.4 % Normal 0.0 - 10.0 [facility] Comment on above: Performed By: #### 2 84951 #### [address] [address] Morphology Grover (Bld) [Interp] N/A Normal [facility]; [facility] Work Phone: Comment on above: Performed By: #### 2 70257 #### [address] [address] Neut # 9.03 x10EE3/UL High 1.50 - 7.10 [facility] Comment on above: Performed By: #### 2 56659 #### [address] [address] Neutrophils/100 WBC (Bld) 74.9 % Normal 46.0 - 76.0 [facility].; [facility] Work Phone: Comment on above: Performed By: #### 2 75352 #### [address] [address] PLATELET 335 x10EE3/UL Normal 150 - 450 [facility] Comment on above: Performed By: #### 2 05583 #### [facility],[address] [place] [address] Platelet mean volume (Bld) [Entitic vol] 7.7 fL Normal 6.6 - 10.5 [facility].; [facility], [facility]. Work Phone: Comment on above: Result Comment: AUTO MATED DIFFERENTIAL Performed By: #### 2 50025 #### [facility],[address] [place] [address] RBC 3.79 x 10EE6/UL Low 4.10 - 5.30 [facility] Comment on above: Performed By: #### 2 77206 #### [facility],[address] [place] [address] WBC 12.1 x 10EE3/UL High 4.5 - 10.8 [facility] Comment on above: Performed By: #### 2 89187 #### [facility],[address] [place] [address] CMP with eGFRon 02-01-2025 AGE 24 years Normal [facility] Comment on above: Performed By: #### 2 96705 #### [facility],[address] [place] [address] Albumin [Mass/Vol] 2.3 g/dL Low 3.4 - 5.0 [facility].; [facility], [facility] Work Phone: Comment on above: Performed By: #### 2 26115 #### [facility],[address] [place] [address] Albumin/Globulin [Mass ratio] 0.5 {ratio} Low 0.9 - 1.6 [facility] Comment on above: Performed By: #### 2 60865 #### [facility],[address] [place] [address] ALK PHOS 116 U/L Normal 46 - 116 [facility] Comment on above: Performed By: #### 2 16482 #### [facility],[address] [place] [address] ALT [Catalytic activity/Vol] 23 U/L Normal 16 - 63 [facility].; [facility], [employer]. Work Phone: Comment on above: Performed By: #### 2 28852 #### [facility],[address] [place] [address] Anion gap [Moles/Vol] 17 mmol/L Normal 10 - 20 [facility].; [facility], [facility]. Work Phone: Comment on above: Performed By: #### 2 88916 #### [address] [address] AST [Catalytic activity/Vol] 18 U/L Normal 13 - 39 [facility].; [facility] Work Phone: Comment on above: Performed By: #### 2 97176 #### [address] [address] B/C RATIO 22 ratio Normal 0 - 30 [facility] Comment on above: Performed By: #### 2 87521 #### [address] [address] Bilirubin [Mass/Vol] 0.2 mg/dL Normal 0.2 - 1.0 [facility].; [facility], [employer]. Work Phone: Comment on above: Performed By: #### 2 95695 #### [facility],[address] [place] [address] Calcium [Mass/Vol] 9.8 mg/dL Normal 8.5 - 10.1 [facility].; [facility], [employer]. Work Phone: Comment on above: Performed By: #### 2 92996 #### [facility],[address] [place] [address] Chloride [Moles/Vol] 105 mmol/L Normal 98 - 107 [facility].; [facility] Work Phone: Comment on above: Performed By: #### 2 24040 #### [facility],[address] [place] [address] CMP with eGFR Normal [facility] Comment on above: Result Comment: COMP REHENSIVE METABOLIC PANEL Performed By: #### 2 88578 #### [facility],[address] [place] [address] CO2 [Moles/Vol] 18.4 mmol/L Low 21.0 - 32.0 [facility].; [facility]. Work Phone: Comment on above: Performed By: #### 2 83614 #### [facility],[address] [place], [place] [id number] Creatinine [Mass/Vol] 0.49 mg/dL Low 0.55 - 1.02 [facility].; [facility] Work Phone: Comment on above: Performed By: #### 2 97599 #### [facility],[address] [place] [address] GFR/1.73 sq M.predicted among non-blacks MDRD (S/P/Bld) [Vol rate/Area] mL/min/{1.73_m2} Normal 60 - 999 [facility] Comment on above: Performed By: #### 2 33123 #### [facility],[address] [place] [address] Result Comment: ACCO RDING TO THE NATIONAL KIDNEY DISEASE EDUCATION PROGRAM(NKDE), A NORMAL eGFR IS A VALUE GREATER THAN OR EQUAL TO 60 ML/MIN/1.73 SQ METERS. CHRONIC KIDNEY DISEASE: <60mL/MIN/1.73 SQ METERS KIDNEY FAILURE: <15mL/MIN/1.73 SQ METERS THIS TEST SHOULD ONLY BE USED FOR PATIENTS 18 YEARS OF AGE AND OLDER. Globulin (S) [Mass/Vol] 4.2 g/dL High 1.5 - 3.8 [facility].; [facility], [facility]. Work Phone: Comment on above: Performed By: #### 2 08631 #### [address] [address] Glucose [Mass/Vol] 98 mg/dL Normal 74 - 106 [facility], [facility].; [place] [employer] Work Phone: Comment on above: Performed By: #### 2 72647 #### [address] [address] Potassium [Moles/Vol] 4.0 mmol/L Normal 3.5 - 5.1 [facility], [facility].; [facility] Work Phone: Comment on above: Performed By: #### 2 28402 #### [address] [address] Protein [Mass/Vol] 6.5 g/dL Normal 6.4 - 8.2 [facility], [facility].; [facility] Work Phone: Comment on above: Performed By: #### 2 10382 #### [address] [address] Sodium [Moles/Vol] 136 mmol/L Normal 136 - 145 [facility].; [facility], [facility]. Work Phone: Comment on above: Performed By: #### 2 66574 #### [address] [address] Urea nitrogen [Mass/Vol] 11 mg/dL Normal 7 - 18 [facility], [facility].; [place] [employer] Work Phone: Comment on above: Performed By: #### 2 10122 #### [facility],[address] [place], [place] [id number] Laboratory - Blood bankon ABO group Nom (Bld) A Normal [facility]; [facility] Work Phone: Blood group antibody screen Ql Negative Normal [facility]; [facility] Work Phone: Blood type and Indirect antibody screen panel (Bld) Normal [facility]; [facility] Work Phone: Laboratory - Chemistry and C hemistry - challengeon 02-01-2025 Albumin [Mass/Vol] 0.5 g/dL Abnormal 0.9 - 1.6 [facility]; [facility] Work Phone: ALP [Catalytic activity/Vol] 116 U/L Normal 46 - 116 U/L [facility]; [facility] Work Phone: Bilirubin [Mass/Vol] Negative Normal [facility]; [facility] Work Phone: Comprehensive metabolic 2000 panel CMP with eGFR Normal [facility]; [facility] Work Phone: Creatinine [Mass/Vol] 30.20 mg/dL Normal [facility]; [facility] Work Phone: GFR/1.73 sq M.predicted among blacks MDRD (S/P/Bld) [Vol rate/Area] mL/min/{1.73_m2} Normal 60 - 999 {ML/MINUTE} [facility]; [facility] Work Phone: GFR/1.73 sq M.predicted MDRD (S/P/Bld) [Vol rate/Area] mL/min/{1.73_m2} Normal 60 - 999 {ML/MINUTE} [facility]; [facility] Work Phone: Glucose [Mass/Vol] NORM Normal [facility]; [facility] Work Phone: pH (Bld) 6.5 [pH] Normal [facility]; [facility] Work Phone: Protein (24H U) [Mass/Vol] 41.40 mg/dL Abnormal 0.00 - 10.00 mg/dL [facility]; [facility] Work Phone: Protein [Mass/Vol] 30 g/dL Abnormal [facility]; [facility] Work Phone: Urea nitrogen/Creatinine [Mass ratio] 22 {ratio} Normal 0 - 30 {ratio} [facility]; [facility] Work Phone: Laboratory - Hematology and Cell countson 02-01-2025 Basophils (Bld) [#/Vol] 0.03 {3/UL} Normal 0.00 - 0.10 {3/UL} [facility]; [facility] [facility] Work Phone: CBC W Auto Differential panel (Bld) CBC + DIFF Normal [facility]; [facility] Work Phone: Eosinophils (Bld) [#/Vol] 0.11 {3/UL} Normal 0.00 - 0.50 {3/UL} [facility]; [employer] [employer] Work Phone: Lymphocytes (Bld) [#/Vol] 2.12 {3/UL} Normal 0.80 - 2.80 {3/UL} [facility]; [facility] Work Phone: MCHC (RBC) [Mass/Vol] 34 {X10_3} Normal 32 - 36 {X10_3} [facility]; [employer] [employer] Work Phone: Monocytes (Bld) [#/Vol] 0.77 {3/UL} Normal 0.20 - 1.00 {3/UL} [facility]; [facility] Work Phone: Monocytes/100 WBC (Bld) 6.4 % Normal 0.0 - 10.0 % [facility]; [facility] Work Phone: Neutrophils (Bld) [#/Vol] 9.03 {3/UL} Abnormal 1.50 - 7.10 {3/UL} [facility]; [employer] Work Phone: Platelets (Bld) [#/Vol] 335 {3/UL} Normal 150 - 450 {3/UL} [facility]; [facility] Work Phone: RBC (Bld) [#/Vol] 3.79 {6/UL} Abnormal 4.10 - 5.3 0 {6/UL} [facility]; [facility] [employer] Work Phone: WBC (Bld) [#/Vol] 12.1 {3/UL} Abnormal 4.5 - 10.8 {3/UL} [facility]; [facility] [employer]. Work Phone: WBC (Bld) [#/Vol] Negative Normal [facility]; [facility] [employer] Work Phone: Laboratory - Microbiology an d Antimicrobial susceptibilityon 02-01-2025 Bacteria identified Cx Nom (Unsp spec) NONE Normal [facility]; [employer] Work Phone: Laboratory - Specimen inform ationon 02-01-2025 Specimen type Nom (Spec) R Normal [facility]; [facility] Work Phone: Laboratory - Urinalysison Glucose Test strip (U) [Mass/Vol] Negative Normal [facility]; [facility] Protein Ql (U) Negative Normal [facility]; [facility]. Urinalysis dipstick W Reflex Microscopic panel (U) URINALYSIS WITH MICROSCOPY Normal [facility]; [facility]. Work Phone: Yeast LM Ql (Urine sed) NONE Normal [facility].; [facility] [facility]. Work Phone: No Panel Informationon 02-01 AGE 24 {years} Normal [facility]; [place] [facility]. Work Phone: Blood Negative Normal [facility]; [place] [facility]. Work Phone: URINALYSIS WITH MICROSCOPYon 02-01-2025 Amorphous NONE Normal [facility]; [place] [facility]. Work Phone: Comment on above: Performed By: #### 2 25020 #### [facility],[address] [place] [address] Bacteria NONE Normal [facility] Comment on above: Performed By: #### 2 23564 #### [place] [address] Bilirubin Ql (U) Negative Normal NORMAL: NEGATIVE [facility] Comment on above: Performed By: #### 2 27070 #### [place] [address] Casts NONE Normal [facility]; [place] [facility]. Work Phone: Comment on above: Performed By: #### 2 63751 #### [place] [address] Clarity (U) sl.cloudy Normal NORMAL: CLEAR [facility].; [place] [facility]. Work Phone: Comment on above: Performed By: #### 2 87489 #### [facility],[address],[place] [address] Color (U) yellow Normal NORMAL: YELLOW [facility].; [employer] Work Phone: Comment on above: Performed By: #### 2 51069 #### [facility],[address] [place], [place] [id number] Crystals LM Nom (Urine sed) NONE Normal [facility].; [employer] Work Phone: Comment on above: Performed By: #### 2 47635 #### [facility],[address] [place], [place] [address] Epi Cells NONE Normal [facility], [facility].; [employer], [employer] Work Phone: Comment on above: Performed By: #### 2 20212 #### [facility],[address] [place] [address] Glucose Ql (U) NORM Normal NORMAL: NORMAL [facility] Comment on above: Performed By: #### 2 09262 #### [facility],[address] [place] [address] Hemoglobin Ql (U) Negative Normal NORMAL: NEGATIVE [facility] Comment on above: Performed By: #### 2 83845 #### [facility],[address] [place] [address] Ketone Negative Normal NORMAL: NEGATIVE [facility].; [place] [employer] Work Phone: Comment on above: Performed By: #### 2 38571 #### [facility],[address] [place] [address] Leukocytes Negative Normal NORMAL: NEGATIVE [facility] Comment on above: Result Comment: URIN E MICROSCOPIC Performed By: #### 2 31592 #### [facility],[address] [place] [address] Mucous NONE Normal [facility].; [facility], [employer]. Work Phone: Comment on above: Performed By: #### 2 05458 #### [facility],[address] [place] [address] Nitrite Ql (U) Negative Normal NORMAL: NEGATIVE [facility]; [facility] Work Phone: Comment on above: Performed By: #### 2 47121 #### [facility],[address] [place] [address] pH (U) 6.5 [pH] Normal NORMAL: 5.0-8.0 [facility] Comment on above: Performed By: #### 2 52668 #### [facility],[address] [place] [address] Protein Ql (U) 30 Abnormal NORMAL: NEGATIVE [facility] Comment on above: Performed By: #### 2 46417 #### [place] [address] Rbc NONE Normal 0-3 / hpf [facility].; [place] [facility] Work Phone: Comment on above: Performed By: #### 2 58406 #### [place] [address] [place] 1.010 Normal NORMAL: 1.010-1.030 [facility]; [facility] Work Phone: Comment on above: Performed By: #### 2 53059 #### [facility],[address] [place] [address] Specimen Type R Normal [facility] Comment on above: Performed By: #### 2 37961 #### [place] [address] URINALYSIS WITH MICROSCOPY Normal [facility] Comment on above: Result Comment: URIN ALYSIS Performed By: #### 2 67210 #### [place] [address] Urobilinog NORM Normal NORMAL: NORMAL [facility]; [facility] Work Phone: Comment on above: Performed By: #### 2 00373 #### [facility],[address] [place] [address] Wbc NONE Normal 0-5 / hpf [facility]; [facility] Work Phone: Comment on above: Performed By: #### 2 67046 #### [facility],[address] [place] [address] Yeast NONE Normal [facility] Comment on above: Performed By: #### 2 02461 #### [facility],[address] [place] [address] URINE CREATININE AND PROTEIN RATIOon 02-01-2025 CREATININE UR 30.20 mg/dl Normal [facility] Comment on above: Performed By: #### 2 12295 #### [facility],[address] [place] [address] PC RATIO 1.37 mg/dL Normal 0.00 - 10.00 [facility]; [facility], [facility] Work Phone: Comment on above: Performed By: #### 2 03526 #### [facility],[address] [place] [address] Protein (U) [Mass/Vol] 41.40 mg/dL High 0.00 - 10.00 [facility] Comment on above: Performed By: #### 2 65418 #### [facility],[address] [place] [address] STREPTOCOCCUS, GROUP B CULTU REon 01-21-2025 STREPTOCOCCUS, GROUP B CULTURE SEE NOTE Normal [facility] Comment on above: Result Comment: STREPTOCOCCUS, GROUP B CULTURE Micro Number: [id number] Test Status: Final Specimen Source: Vaginal/anorectal Specimen Quality: Adequate Result: No group B Streptococcus isolated Note per CDC guidelines optimal recovery is achieved by swabbing both the lower vagina and rectum (through the anal sphincter). Performed By: #### 5 617 #### [facility] [address], [address] [place] [address] Client Service Representative: Zacarias Maloney MD Laboratory - Urinalysison Glucose Test strip (U) [Mass/Vol] Negative Normal [employer]. Protein Ql (U) Negative Normal [facility] [employer], [employer]. No Panel Informationon 01-16 STREPTOCOCCUS, GROUP B CULTURE SEE NOTE Normal [employer], [employer]. Laboratory - Urinalysison Glucose Test strip (U) [Mass/Vol] Negative Normal [employer], [employer]. Protein Ql (U) Negative Normal [facility] [employer].; [employer], [employer]. Laboratory - Chemistry and C hemistry - challengeon 12-13-2024 Glucose Glucometer (BldC) [Moles/Vol] 88 Normal 60 - 120 [employer]. Laboratory - Urinalysison Glucose Test strip (U) [Mass/Vol] Negative Normal [employer].; [employer], [employer]. Protein Ql (U) Negative Normal [facility] [employer]. GLUCOSE, GESTATIONAL SCREEN (50G)-135 CUTOFFon 11-10-2024 Glucose [Mass/Vol] 138 mg/dL High <135 [facility] Comment on above: Result Comment: One hour value of > or = 135 mg/dL indicates the need for a diagnostic 75 g dose 2-hour or 100 g dose 3-hour oral glucose tolerance test; patient fasting is required. Performed By: #### 5 81, 0864 #### [facility] [address], [address] [place] [address] Client Service Representative: Zacarias Maloney MD HEMOGLOBINon 11-10-2024 Hemoglobin (Bld) [Mass/Vol] 12.2 g/dL Normal 11.7-15.5 [facility] Comment on above: Performed By: #### 5 , 5061 #### [facility] [address], [address] [place], [place] [id number] Client Service Representative: Zacarias Maloney MD Laboratory - Chemistry and C hemistry - challengeon 11-09-2024 Glucose [Mass/Vol] 138 mg/dL Abnormal [facility].; [facility]. Laboratory - Hematology and Cell countson 11-09-2024 Hemoglobin (Bld) [Mass/Vol] 12.2 g/dL Normal 11.7 - 15.5 g/dL [facility].; [facility], [facility]. Laboratory - Urinalysison Glucose Test strip (U) [Mass/Vol] Negative Normal [facility]; [facility] Protein Ql (U) Negative Normal [facility].; [facility], [facility] OBSTETRIC PANELon 10-13-2024 ABO group Nom (Bld) A Normal [facility] Comment on above: Performed By: #### 7 #### [facility] [address], [address] [place], [place] [phone] Client Service Representative: Zacarias Maloney MD ANTIBODY SCREEN, RBC W/REFL [...] Performed By: #### 7 #### [facility] [address], [address] [place] [phone] Client Service Representative: Zacarias Maloney MD Basophils (Bld) [#/Vol] 0.046 10*3/uL Normal 0-200 [facility] Comment on above: Performed By: #### 7 #### [facility] [address], [address] [place] [phone] Client Service Representative: Zacarias Maloney MD Basophils/100 WBC (Bld) 0.4 % Normal [facility] Comment on above: Performed By: #### 7 , #### [facility] [place] [address] Client Service Representative: Zacarias Maloney MD Eosinophils (Bld) [#/Vol] 0.228 10*3/uL Normal 15-500 [facility] Comment on above: Performed By: #### 7 45, #### [facility] [place] [address] Client Service Representative: Zacarias Maloney MD Eosinophils/100 WBC (Bld) 2.0 % Normal [facility] Comment on above: Performed By: #### 7 , #### [facility] [place] [address] Client Service Representative: Zacarias Maloney MD Erythrocyte distribution width (RBC) [Ratio] 12.0 % Normal 11.0-15.0 [facility] Comment on above: Performed By: #### 7 45, #### [facility] [place] [address] Client Service Representative: Zacarias Maloney MD Hematocrit (Bld) [Volume fraction] 33.9 % Low 35.0-45.0 [facility] Diagnostics Comment on above: Performed By: #### 7 45, #### [facility] [place] [address] Client Service Representative: Zacarias Maloney MD Hemoglobin (Bld) [Mass/Vol] 11.5 g/dL Low 11.7-15.5 [facility] Comment on above: Performed By: #### 7 , #### [facility] [place] [address] Client Service Representative: Zacarias Maloney MD HEPATITIS B SURFACE ANTIGEN Non-Reactive Normal NON-REACTIVE [facility] Comment on above: Result Comment: For additional information, please refer to http://education.relocality.[employer]/faq/DFI277 (This link is being provided for informational/ educational purposes only.) Performed By: #### 7 , , #### [facility] [place] [address] Client Service Representative: Zacarias Maloney MD Lymphocytes (Bld) [#/Vol] 1.949 10*3/uL Normal 850-3900 [facility] Comment on above: Performed By: #### 7 , , #### [facility] of [address], [address] [place] [address] Client Service Representative: Zacarias Maloney MD Lymphocytes/100 WBC (Bld) 17.1 % Normal [facility] Comment on above: Performed By: #### 7 , , #### [facility] [place] [address] Client Service Representative: Zacarias Maloney MD MCH (RBC) [Entitic mass] 32.1 pg Normal 27.0-33.0 [facility] Comment on above: Performed By: #### 7 , #### [facility] [place] [address] Client Service Representative: Zacarias Maloney MD MCHC (RBC) [Mass/Vol] 33.9 [...] 7 , , #### [facility] [place] [address] Client Service Representative: Zacarias Maloney MD MCV (RBC) [Entitic vol] 94.7 fL Normal 80.0-100.0 [facility] Comment on above: Performed By: #### 7 , , #### [facility] [address], [address] [place] [address] Client Service Representative: Zacarias Maloney MD Monocytes (Bld) [#/Vol] 0.73 10*3/uL Normal 200-950 [facility] Comment on above: Performed By: #### 7 45, , #### [facility] [address], [address] [place] [address] Client Service Representative: Zacarias Maloney MD Monocytes/100 WBC (Bld) 6.4 % Normal [facility] Comment on above: Performed By: #### 7 45, , #### [facility] [place] [address] Client Service Representative: Zacarias Maloney MD Neutrophils (Bld) [#/Vol] 8.447 10*3/uL High 3799-6530 [facility] Comment on above: Performed By: #### 7 45, , #### [facility] [place] [address] Client Service Representative: Zacarias Maloney MD Neutrophils/100 WBC (Bld) 74.1 % Normal [facility] Comment on above: Performed By: #### 7 , , #### [facility] [place] [address] Client Service Representative: Zacarias Maloney MD Platelet mean volume (Bld) [Entitic vol] 9.3 fL Normal 7.5-12.5 [facility] Comment on above: Performed By: #### 7 45, , #### [facility] [address], [address] [place] [address] Client Service Representative: Zacarias Maloney MD Platelets (Bld) [#/Vol] 288 10*3/uL Normal 140-400 [facility] Comment on above: Performed By: #### 7 , , #### [facility] [address], [address] [place] [address] Client Service Representative: Zacarias Maloney MD RBC (Bld) [#/Vol] 3.58 10*6/uL Low 3.80-5.10 [facility] Comment on above: Performed By: #### 7 , , #### [facility] [address], [address] [place] [address] Client Service Representative: Zacarias Maloney MD RH TYPE Negative Normal [facility] Comment on above: Result Comment: For additional information, please refer to http://education.[employer]/faq/KZY968 (This link is being provided for informational/ educational purposes only.) Performed By: #### 7 , , #### [facility] [place] [address] Client Service Representative: Zacarias Maloney MD RPR (DX) W/REFL TITER AND CONFIRMATORY TESTING Non-Reactive Normal NON-REACTIVE [facility] Comment on above: Result Comment: No laboratory evidence of syphilis. If recent exposure is suspected, submit a new sample in 2-4 weeks. Performed By: #### 7 , , #### [facility] [address], [address] [place] [address] Client Service Representative: Zacarias Maloney MD RUBELLA AB (IGG), IMMUNE STATUS <0.90 Low [facility] Comment on above: Result Comment: Inde x Interpretation ----- <0.90 Not consistent with immunity 0.90-0.99 Equivocal > or = 1.00 Consistent with immunity The presence of rubella IgG antibody suggests immunization or past or current infection with rubella virus. Performed By: #### 7 , , #### [facility] [address], [address] [place] [address] Client Service Representative: Zacarias Maloney MD WBC (Bld) [#/Vol] 11.4 10*3/uL High 3.8-10.8 [facility] Comment on above: Performed By: #### 7 , , #### [facility] [place] [address] [place] [address] Client Service Representative: Zacarias Maloney MD PROGESTERONEon 10-13-2024 PROGESTERONE 42.4 ng/mL Normal [facility] Comment on above: Result Comment: Refe rence Ranges Female Follicular Phase < 1.0 Luteal Phase 2.6-21.5 Post menopausal < 0.5 1st Trimester 4.1-34.0 2nd Trimester 24.0-76.0 3rd Trimester 52.0-302.0 Performed By: #### 7 , #### [facility] [place] [address] Client Service Representative: Zacarias Maloney MD TSH W/REFLEX TO FT4on 2024 TSH W/REFLEX TO FT4 1.59 mIU/L Normal [facility] Comment on above: Result Comment: Refe rence Range > or = 20 Years 0.40-4.50 Ranges First trimester 0.26-2.66 Second trimester 0.55-2.73 Third trimester 0.43-2.91 Performed By: #### 7 , #### [facility] [place] [address] Client Service Representative: Zacarias Maloney MD Laboratory - Blood bankon ABO group Nom (Bld) A Normal [facility], [facility].; [facility], [facility]. Rh Nom (Amn fld) Negative Normal [facility], [facility].; [facility], [facility]. Laboratory - Hematology and Cell countson 2024 Basophils (Bld) [#/Vol] 0.046 10*3/uL Normal 0 - 200 {cells/uL} [facility], [facility].; [facility], [facility]. Basophils/100 WBC (Bld) 0.4 % Normal [facility], [facility].; [facility], [facility]. Eosinophils (Bld) [#/Vol] 0.228 10*3/uL Normal 15 - 500 {cells/uL} [facility], [facility].; [facility], [facility]. Eosinophils/100 WBC (Bld) 2.0 % Normal [facility].; [facility]. Erythrocyte distribution width (RBC) [Ratio] 12.0 % Normal 11.0 - 15.0 % [facility].; [facility] Hematocrit (Bld) [Volume fraction] 33.9 % Abnormal 35.0 - 45.0 % [facility].; [facility], [facility] Hemoglobin (Bld) [Mass/Vol] 11.5 g/dL Abnormal 11.7 - 15.5 g/dL [facility].; [facility], [facility] Lymphocytes (Bld) [#/Vol] 1.949 10*3/uL Normal 850 - 3900 {cells/uL} [facility].; [facility] Lymphocytes/100 WBC (Bld) 17.1 % Normal [facility].; [facility], [facility]. MCH (RBC) [Entitic mass] 32.1 pg Normal 27.0 - 33.0 pg [facility].; [facility], [facility]. MCHC (RBC) [Mass/Vol] 33.9 g/dL Normal 32.0 - 36.0 g/dL [facility].; [facility], [facility]. MCV (RBC) [Entitic vol] 94.7 fL Normal 80.0 - 100.0 fL [facility].; [facility], [facility]. Monocytes (Bld) [#/Vol] 0.73 10*3/uL Normal 200 - 950 {cells/uL} [facility].; [facility], [facility]. Monocytes/100 WBC (Bld) 6.4 % Normal [facility].; [facility], [facility]. Neutrophils (Bld) [#/Vol] 8.447 10*3/uL Abnormal 1500 - 7800 {cells/uL} [facility].; [facility], [facility]. Neutrophils/100 WBC (Bld) 74.1 % Normal [facility].; [facility], [facility]. Platelet mean volume (Bld) [Entitic vol] 9.3 fL Normal 7.5 - 12.5 fL [facility].; [facility], [facility]. Platelets (Bld) [#/Vol] 288 10*3/uL Normal 140 - 400 [facility]; [facility], [facility]. RBC (Bld) [#/Vol] 3.58 10*6/uL Abnormal 3.80 - 5.1 0 {Million/uL} [facility].; [facility], [facility]. WBC (Bld) [#/Vol] 11.4 10*3/uL Abnormal 3.8 - 10.8 [facility].; [facility]. Laboratory - Urinalysison Glucose Test strip (U) [Mass/Vol] Negative Normal [facility].; [facility] Protein Ql (U) Negative Normal [facility].; [facility]. No Panel Informationon 10-12 ANTIBODY SCREEN, RBC W/REFL ID, TITER AND AG Detected Normal [facility]; [facility] HEPATITIS B SURFACE ANTIGEN Non-Reactive Normal [facility]; [facility]. PROGESTERONE 42.4 ng/mL Normal [facility].; [facility], [facility]. RPR (DX) W/REFL TITER AND CONFIRMATORY TESTING Non-Reactive Normal [facility].; [facility]. RUBELLA AB (IGG), IMMUNE STATUS <0.90 Abnormal [facility]; [facility], [facility]. TSH W/REFLEX TO FT4 1.59 {mIU/L} Normal [facility]; [facility]. ANAon 08-12-2021 Nuclear Ab IF (S) [Titer] 40 {titer} Normal Neg 40 [facility] ([place]) Comment on above: Result Comment: JOHNY Screen and Titer methodology is an immunofluorescent technique utilizing Hep2 Substrate. Performed By: #### Geovanna TYSON JOHNY #### [address] [address] ESRon 08-12-2021 Erythrocyte Sed Rate 21 mm/hr High 0-20 [facility] ([place]) Comment on above: Performed By: #### E , JOHNY #### [address] [address] FEon 07-05-2021 Iron [Mass/Vol] 78 ug/dL Normal 50-170 [facility] ([place]) Comment on above: Performed By: #### C BC, ADIFF, ANEU, FERR, FE, IBC, MONO #### [address] [address] Diana 07-05-2021 Ferritin [Mass/Vol] 56.1 ng/mL Normal 8.0-252.0 [facility] ([place]) Comment on above: Performed By: #### C BC, ADIFF, ANEU, FERR, FE, IBC, MONO #### [place] [address] IBCon 07-05-2021 TIBC 368 mcg/dL Normal 250-500 [facility] ([place]) Comment on above: Performed By: #### C BC, ADIFF, ANEU, FERR, FE, IBC, MONO #### [place] [address] MONOon 07-05-2021 Mononucleosis Positive Abnormal Negative [facility] ([place]) Comment on above: Performed By: #### C BC, ADIFF, ANEU, FERR, FE, IBC, MONO #### [address] [address] .Auto Diffon 07-04-2021 Basophil, Absolute 0.00 10 3/mcL Normal 0.00-0.27 [facility] ([place]) Comment on above: Performed By: #### C BC, ADIFF, ANEU, FERR, FE, IBC, MONO #### [address] [address] Basophils/100 WBC (Bld) 0.3 % Normal 0.0-2.5 [facility] ([place]) Comment on above: Performed By: #### C BC, ADIFF, ANEU, FERR, FE, IBC, MONO #### [address] [address] Eosinophil, Absolute 0.10 10 3/mcL Normal 0.00-0.65 A [facility] ([place]) Comment on above: Performed By: #### C BC, ADIFF, ANEU, FERR, FE, IBC, MONO #### [address] [address] Eosinophils/100 WBC (Bld) 1.2 % Normal 0.0-6.0 [facility] ([place]) Comment on above: Performed By: #### C BC, ADIFF, ANEU, FERR, FE, IBC, MONO #### [address] [address] Lymphocyte, Absolute 1.80 10 3/mcL Normal 0.90-4.32 [facility] ([place]) Comment on above: Performed By: #### C BC, ADIFF, ANEU, FERR, FE, IBC, MONO #### [address] [address] Lymphocytes/100 WBC (Bld) 31.0 % Normal 20.0-40.0 [facility] ([place]) Comment on above: Performed By: #### C BC, ADIFF, ANEU, FERR, FE, IBC, MONO #### [address] [address] Monocyte, Absolute 0.50 10 3/mcL Normal 0.09-1.40 [facility] ([place]) Comment on above: Performed By: #### C BC, ADIFF, ANEU, FERR, FE, IBC, MONO #### [address] [address] Monocytes/100 WBC (Bld) 8.7 % Normal 2.0-13.0 [facility] ([place]) Comment on above: Performed By: #### C BC, ADIFF, ANEU, FERR, FE, IBC, MONO #### [address] [address] Neutrophils/100 WBC (Bld) 58.8 % Normal 50.0-75.0 [facility] ([place]) Comment on above: Performed By: #### C BC, ADIFF, ANEU, FERR, FE, IBC, MONO #### [address] [address] .NEUABSon 07-04-2021 Neutrophil, Absolute 3.30 10 3/mcL Normal 2.25-8.10 A [facility] ([place]) Comment on above: Performed By: #### C BC, ADIFF, ANEU, FERR, FE, IBC, MONO #### [address] [address] CBCon 07-04-2021 Erythrocyte distribution width (RBC) [Ratio] 12.4 % Normal 11.5-15.5 [facility] ([place]) Comment on above: Performed By: #### C BC, ADIFF, ANEU, FERR, FE, IBC, MONO #### [place] [address] Hematocrit (Bld) [Volume fraction] 39.0 % Normal 34.0-46.0 [facility] ([place]) Comment on above: Performed By: #### C BC, ADIFF, ANEU, FERR, FE, IBC, MONO #### [place] [address] Hgb 13.4 G/dL Normal 12.0-16.0 [facility] ([place]) Comment on above: Performed By: #### C BC, ADIFF, ANEU, FERR, FE, IBC, MONO #### [place] [address] MCH (RBC) [Entitic mass] 31.2 pg Normal 27.0-33.0 [facility] ([place]) Comment on above: Performed By: #### C BC, ADIFF, ANEU, FERR, FE, IBC, MONO #### [place] [address] MCHC 34.3 G/dL Normal 32.0-36.0 [facility] ([place]) Comment on above: Performed By: #### C BC, ADIFF, ANEU, FERR, FE, IBC, MONO #### [place] [address] MCV (RBC) [Entitic vol] 90.9 fL Normal 80.0-99.0 [facility] ([place]) Comment on above: Performed By: #### C BC, ADIFF, ANEU, FERR, FE, IBC, MONO #### [address] [address] Platelet 258 10 3/mcL Normal 150-450 [facility] ([place]) Comment on above: Performed By: #### C BC, ADIFF, ANEU, FERR, FE, IBC, MONO #### [address] [address] Platelet mean volume (Bld) [Entitic vol] 8.2 fL Normal 6.6-10.5 [facility] ([place]) Comment on above: Performed By: #### C BC, ADIFF, ANEU, FERR, FE, IBC, MONO #### [address] [address] RBC 4.29 10 6/mcL Normal 4.10-5.30 [facility] ([place]) Comment on above: Performed By: #### C BC, ADIFF, ANEU, FERR, FE, IBC, MONO #### [address] [address] WBC 5.60 10 3/mcL Normal 4.50-10.80 [facility] ([place]) Comment on above: Performed By: #### C BC, ADIFF, ANEU, FERR, FE, IBC, MONO #### [address] [address] Vital Signs Date Time Vital Sign Value Performing Clinician Zach thayer 02-14-2025 09:22-0400 Diastolic blood pressure 85 mm[Hg] Aniikay SAND MILLER Work Phone: [facility], [employer] [facility]. Comment on above: Patient Position: Si tting; Cuff Location: Left Arm; Cuff Size: Thigh 02-14-2025 09:22-0400 Heart rate 90 /min [employer] Work Phone: [employer] [facility] [employer]. Comment on above: Pattern: Regular 02-14-2025 09:22-0400 Systolic blood pressure 114 mm[Hg] Krysten Ora SAND MILLER Work Phone: [employer].; [employer] [facility] [employer]. Comment on above: Patient Position: Si tting; Cuff Location: Left Arm; Cuff Size: Thigh 02-01-2025 15:43-0400 Body weight 107.05 kg Brie Deng MA [employer].; [employer] 02-01-2025 15:43-0400 Diastolic blood pressure 92 mm[Hg] Brie Deng MA [employer].; [employer]. Comment on above: Patient Position: Si tting; Cuff Location: Left Arm; Cuff Size: Standard 02-01-2025 15:43-0400 Heart rate 80 /min Brie Deng MA [employer].; [employer]. Comment on above: Pattern: Regular 02-01-2025 15:43-040 Systolic blood pressure 144 mm[Hg] Brie Deng MA [employer].; [employer]. Comment on above: Patient Position: Si tting; Cuff Location: Left Arm; Cuff Size: Standard 01-16-2025 15:43-0400 Body weight 103.42 kg Lars Sharif RN [employer].; [employer]. 01-16-2025 15:43-0400 Diastolic blood pressure 83 mm[Hg] Lars Sharif RN [employer].; [employer]. Comment on above: Patient Position: Si tting; Cuff Location: Left Arm; Cuff Size: Standard 01-16-2025 15:43-0400 Heart rate 93 /min Lars Sharif RN [employer].; [employer]. Comment on above: Pattern: Regular 01-16-2025 15:43-0400 Systolic blood pressure 119 mm[Hg] Lars Sharif RN [employer].; [employer]. Comment on above: Patient Position: Si tting; Cuff Location: Left Arm; Cuff Size: Standard 01-04-2025 16:04-0400 Body height 165.1 cm Lars Sharif RN [employer].; [employer]. 01-04-2025 16:04-0400 Body mass index (BMI) [Ratio] 37.61 kg/m2 Lars Sharif RN [facility].; [employer]. 01-04-2025 16:04-0400 Body surface area Derived from formula 2.08 m2 Lars Sharif RN [facility].; [facility]. 01-04-2025 16:04-0400 Body weight 102.51 kg Lars Sharif RN [facility].; [employer] 01-04-2025 16:04-0400 Diastolic blood pressure 84 mm[Hg] Lars Sharif RN [facility].; [employer]. Comment on above: Patient Position: Si tting; Cuff Location: Left Arm; Cuff Size: Standard 01-04-2025 16:04-0400 Heart rate 88 /min Lars Sharif RN [facility].; [employer]. Comment on above: Pattern: Regular 01-04-2025 16:04-0400 Systolic blood pressure 126 mm[Hg] Lars Sharif RN [facility]. Comment on above: Patient Position: Si tting; Cuff Location: Left Arm; Cuff Size: Standard 12-13-2024 16:15-0400 Body weight 100.7 kg Lars Sharif RN [facility].; [facility] [employer] 12-13-2024 16:15-0400 Diastolic blood pressure 80 mm[Hg] Lars Sharif RN [facility] [employer].; [employer] Comment on above: Patient Position: Si tting; Cuff Location: Left Arm; Cuff Size: Standard 12-13-2024 16:15-0400 Heart rate 93 /min Lars Sharif RN [facility].; [employer]. Comment on above: Pattern: Regular 12-13-2024 16:15-0400 Systolic blood pressure 118 mm[Hg] Lars Sharif RN [facility].; [employer]. Comment on above: Patient Position: Si tting; Cuff Location: Left Arm; Cuff Size: Standard 11-09-2024 15:46-0400 Body weight 92.53 kg Krysten Payan SAND MILLER Work Phone: [facility].; [employer] 11-09-2024 15:46-0400 Diastolic blood pressure 89 mm[Hg] Krysten Payan LPN Work Phone: [facility].; [employer]. Comment on above: Patient Position: Si tting; Cuff Location: Left Arm; Cuff Size: Thigh 11-09-2024 15:46-0400 Heart rate 105 /min Krysten Payan LPN Work Phone: [facility].; [employer] Comment on above: Pattern: Regular 11-09-2024 15:46-0400 Systolic blood pressure 125 mm[Hg] Krysten Payan LPN Work Phone: [facility].; [employer]. Comment on above: Patient Position: Si tting; Cuff Location: Left Arm; Cuff Size: Thigh 2024 10:51-0400 Body height 165.1 cm Daysi Aleman LPN [facility], [facility].; [employer] 2024 10:51-0400 Body mass index (BMI) [Ratio] 33.61 kg/m2 Daysi Aleman LPN [facility], [facility].; [employer] 2024 10:51-0400 Body surface area Derived from formula 1.99 m2 Daysi Aleman LPN [facility], [facility].; [employer] [facility]. 2024 10:51-0400 Body weight 91.63 kg Daysi Aleman LPN [facility], [facility].; [employer] 2024 10:51-0400 Diastolic blood pressure 74 mm[Hg] Daysi Aleman LPN [facility], [facility].; [employer]. Comment on above: Patient Position: Si tting; Cuff Location: Left Arm; Cuff Size: Standard 2024 10:51-0400 Heart rate 89 /min Daysi Aleman LPN [facility].; [employer] Comment on above: Pattern: Regular 2024 10:51-0230 Systolic blood pressure 111 mm[Hg] Daysi Aleman LPN [employer] [facility]. Comment on above: Patient Position: Si tting; Cuff Location: Left Arm; Cuff Size: Standard Encounters Encounter Date Encounter Type Care Provider Facility Start: 04-18-2025 ambulatory Alonzo Rogers Facility :[facility] Start: 04-18-2025 End: 04-20-2025 Evaluation and management of inpatient Louie Jean-Baptiste Facility:[facility] Start: 04-14-2025 ambulatory Raghavendra Chiang ility:[facility] Start: 04-14-2025 End: 04-16-2025 [facility] Start: 02-26-2025 End: 02-26-2025 ambulatory [facility] Start: 02-25-2025 End: 02-25-2025 Emergency department patient visit [facility] Start: 02-14-2025 End: 02-08-2025 Historical Summary Crystal Uptain CNM Work Phone: [employer] Start: 02-14-2025 End: 02-14-2025 Patient encounter procedure Crystal Uptain CNM Work Phone: [employer] Start: 02-14-2025 Follow-up encounter Crystal Up tain CNM Work Phone: [employer] Start: 02-01-2025 Evaluation and management of inpatient CRYSTAL CNM [facility] Start: 02-01-2025 End: 02-04-2025 Evaluation and management of inpatient CRYSTAL CNM [facility] Start: 02-01-2025 End: 02-01-2025 Office outpatient visit 15 minutes Crystal Uptain CNM Work Phone: [employer] Start: 01-16-2025 End: 01-16-2025 Office outpatient visit 15 minutes Crystal Uptain CNM Work Phone: [employer] Start: 01-16-2025 Review Crystal Uptain CNM Work Phone: [employer] Start: 01-04-2025 End: 01-04-2025 Office outpatient visit 15 minutes Crystal Uptain CNM Work Phone: [employer] Start: 12-13-2024 End: 12-13-2024 Office outpatient visit 15 minutes Crystal Uptain CNM Work Phone: [employer] Start: 12-13-2024 Review Crystal Uptain CNM Work Phone: [employer] Start: 11-09-2024 End: 11-09-2024 Patient encounter procedure Crystal Uptain CNM Work Phone: [employer] Start: 10-13-2024 End: 10-13-2024 Historical Summary Crystal Uptain CNM Work Phone: [employer] Start: 2024 End: 10-13-2024 Office outpatient visit 15 minutes Crystal Uptain CNM Work Phone: [employer] Start: 2024 Review Crystal Uptain CNM Work Phone: [employer] Procedures Date Procedure Procedure Detail Performing Clinician [...] Microscopic examinat ion of cervical Papanicolaou smear Brei Deng MA Comment on above: never Plan of Treatment Date Care Activity Detail Author Start: 04-02-2025 Patient encounter procedure Medical; PP PHYSICAL - pp phy (baby is [place] pt per Dad) [facility]. Start: 02-Apr-2025 10:20-04:00 JACOB Jacome Crystal K Appointment Request [facility]. Start: 02-08-2025 Patient encounter procedure Medical; OB - 1 wk ob [facility]. Start: 08-Feb-2025 15:40-04:00 JACOB Jacome Crystal K Appointment Request [facility]. Start: 02-01-2025 Patient encounter procedure Medical; OB - 2 wk ob [facility]. Start: 01-Feb-2025 15:40-04:00 Naa CNEdouard Crystal K Appointment Request [facility]. Start: 01-20-2025 Patient encounter procedure Medical; Child Class - CBC W/ (PD) [facility]. Start: 20-Jan-2025 08:00-04:00 JACOB Jacome Crystal K Appointment Request [facility] Start: 01-16-2025 Patient encounter procedure Medical; OB - 2 wk ob + GBS [facility]. Start: 16-Jan-2025 15:40-04:00 JACOB Jacome Appointment Request [facility]. Start: 01-16-2025 Ob care antepartum v ag dlvr & OBSTETRICAL CARE ([id number]) Start: 16-Jan-2025 Intent [facility]; [facility]. Start: 01-16-2025 Cul prsmptv pthgnc organism scrn w/[place] estimj STREP GROUP B CULTURE ([id number]) Start: 16-Jan-2025 08:54-04:00 Request [facility]; [facility]. Start: 01-16-2025 Urnls dip stick/tabl et rgnt auto w/o microscopy Urinalysis-OB (in house*) ([id number]) Start: 16-Jan-2025 08:54-04:00 Request [facility]; [facility]. Start: 01-04-2025 Patient encounter procedure Medical; OB - 3 wk ob-- recheck position [facility]. Start: 04-Jan-2025 15:50-04:00 JACOB Jacome Appointment Request [facility]. Start: 12-13-2024 Patient encounter procedure Medical; OB - 5 wk ob [facility]. Start: 13-Dec-2024 16:00-04:00 JACOB Jacome Appointment Request [facility]. Start: 12-13-2024 Ob care antepartum v ag dlvr & OBSTETRICAL CARE ([id number]) Start: 13-Dec-2024 Intent [facility] Start: 12-13-2024 Urnls dip stick/tabl et rgnt auto w/o microscopy Urinalysis-OB (in house*) ([id number]) Start: 13-Dec-2024 12:02-04:00 Request [facility].; [facility]. Start: 11-09-2024 Patient encounter procedure Medical; OB - anatomy scan and GTT needs to sign special ob pkg [employer]. Start: 09-Nov-2024 15:20-04:00 MD Duran Valle A Appointment Request [facility] Start: 2024 Assay of progesterone PROGESTE CLIFF ([id number]) Start: 12-Oct-2024 11:58-04:00 Request [facility]; [facility]. Start: 2024 Assay of thyroid stimulating hormone tsh TSH W/ REFL FREE T4 ([id number]) Start: 12-Oct-2024 11:57-04:00 Request [facility]; [facility] Start: 2024 Obstetric panel OBSTETRIC PANGeovanna Rodríguez ([id number]) Start: 12-Oct-2024 11:57-04:00 Request [employer]; [facility]. Start: 2024 End: 2024 Ob care antepartum vag dlvr & OBSTETRICAL CARE ([id number]) Date: 12-Oct-2024 [employer]; [facility] Payers Date Payer Category Payer Self-pay 2025 Unknown [id number] 2000 Unknown [id number] 2.16.8 [id number] 2000 Unknown [id number] 2.16.8 40.1.567100.3.579.2.651 2000 Unknown [id number] 2.16.8 40.1.910268.3.579.2.651 2000 Unknown [id number] 2.16.8 40.1.673826.3.579.2.651 Unknown Unknown 145-2 Unknown [id number] 2.16.8 40.1.008060.3.579.2.462 Unknown [id number] 2.16.8 40.1.162075.3.579.2.462 Unknown [id number] 2.16.8 40.1.978896.3.579.2.462 Unknown [id number] 2.16.8 40.1.199468.3.579.2.462 Unknown [id number] 2.16.8 40.1.058261.3.579.2.462 Unknown [id number] 2.16.8 40.1.913213.3.579.2.462 Unknown [id number] 2.16.8 40.1.736085.3.579.2.462 Unknown [id number] 2.16.8 40.1.305912.3.579.2.462 Unknown [id number] 2.16.8 40.1.197718.3.579.2.462 Unknown [id number] 2.16.8 40.1.506929.3.579.2.462 Unknown [id number] 2.16.8 40.1.342590.3.579.2.462 Unknown [id number] 2.16.8 40.1.581091.3.579.2.462 Unknown [id number] 2.16.8 40.1.596807.3.579.2.462 Unknown [id number] 2.16.8 40.1.975015.3.579.2.462 Unknown [id number] 2.16.8 40.1.135934.3.579.2.462 Unknown [id number] 2.16.8 40.1.342932.3.579.2.462 Social History Date Type Detail Facility Spouse Spouse [facility] [place] Self Representation [employer], [employer] Tobacco Use: Tobacco Use: ; N ever smoker. [facility] [employer] [employer] Female [facility] [employer] [facility].; [employer], [employer] Work Phone: Start: 2024 End: 02-01-2025 [facility] [employer] Never smoked tobacco [facility], [facility].; [employer] Work Phone: Discharge summary note 04-20-2025 Note Date & Type Note Facility 04-20-2025 Note [facility] Medical Records Department [address] [place] [address] Discharge Summary 04/20/25 1538 MR#: [id number] Acct: [id number] Name: NEL ALBRECHT Rep #: [id number] : 2000 24 From: Tong Woods MD PCP: DA Bowling Status:ADM IN Location: [facility] WA309-3 Providers Date of Admission: 04/18/25 Primary Care Physician: DA Bowling Consultations 04/18/25 16:02 Consult: Gastroenterology Routine Consulting Provider: [facility] Reason for Consult: recurrent abd pain, [...] is a 24 F who presented to [facility] ED on 04/18/2025 with recurrent abdominal pain. [...] No rhonchi, No (more content not included)... [facility] Discharge summary note 04-16-2025 Note Date & Type Note Facility 04-16-2025 Note [facility] Medical Records Department [address] [place] [address] Discharge Summary 04/16/25 1900 MR#: [id number] Acct: [id number] Name: NEL ALBRECHT Rep #: [id number] : 2000 24 From: Tong Woods MD PCP: DA Bowling Status:DIS IN Location: [facility] SU109-8 Providers Date of Admission: 04/14/25 Primary Care Physician: DA Bowling Consultations 04/14/25 14:07 Consult: Gastroenterology Routine Consulting Provider: [facility] Reason for Consult: suspected gallstone pancreatitis [...] is a 24 F who presented to [facility] ED on 04/14/2025 with abdominal pain and nausea with vomiting. Patient lives at home with her , has good functional status at baseline. She notes that she went to [facility] about a month ago and was [...] distress HEENT: Atr (more content not included)... [facility] Summary Purpose Family History No Family History [...] section and content) DATE CREATED AUTHOR 08/12/2021 [facility] ([place]) DATE CREATED AUTHOR AUTHOR'S ORGANIZ ATION 01/22/2025 [facility] DATE CREATED AUTHOR AUTHOR'S ORGANIZ ATION 03/05/2025 [facility] DATE CREATED AUTHOR AUTHOR'S ORGANIZ ATION 04/27/2025 [facility] DATE CREATED AUTHOR AUTHOR'S ORGANIZ ATION 05/02/2025 [facility] FOR RECORDS PERTAINING TO PATIENTS WHO ARE [...] BE BASED ON THE PRIMARY CLINICAL RECORDS. [facility] [place] [facility]. provides no warranty or guarantee of the accuracy or completeness of information in this document.
[2025-06-17] MEDS: 0.9% Normal Saline (1000mL) 1,000 ML 999 ML IV (00:54)
[2025-06-17 01:16] LABS: Mucous, Urine 0 SEEN /hpf (<or=2+)
[2025-06-17 01:29] LABS: Hematocrit 39.0 % (37-47); Hemoglobin 13.2 g/dL (12.0-15.0); Immature Granulocytes Count 0.010 X10^3/uL (0.0-0.0); Mean Corp Hgb Conc 33.8 g/dL (32-36); Mean Corpuscular Volume 86.7 fL (81-99); Mean Platelet Vol. 9.1 fl (6.2-12.0); NRBC Flagged by Analyzer 0.3 % (0-5); Platelet Count 326 K/mm3 (150-450); RBC Distribution Width CV 15.0 % (11.6-14.6); RBC Distribution Width SD 46.9 fl (35.1-43.9); Red Blood Count 4.50 M/mm3 (4.2-5.4); White Blood Count 8.0 K/mm3 (4.4-11.0)
[2025-06-17 01:30] LABS: Color, Urine Yellow (Yellow); Glucose, Dipstick Normal (Normal); Ketone-Dipstick Negative (Negative); Leukocyte Esterase-Dipstick Negative /ul (Negative); Nitrite-Dipstick Negative (Negative); Occult Blood-Urine Negative /ul (Negative); Protein-Dipstick Negative (Negative); Specific Gravity, Urine 1.005 (1.002-1.030); Urine Bilirubin Dipstick Negative (Negative)
[2025-06-17 01:34] LABS: Internal QC Validated? YES +Cl - CLEAR BKGD; Pregnancy, Serum, hCG Quali. NEGATIVE Negative
[2025-06-17 01:37] LABS: Red Blood Cells-Urine 0-5 SEEN /hpf (0-5); Squamous Epithelial Cells - UA 5-10 SEEN /hpf (5-10)
[2025-06-17 01:42] LABS: Lipase 37 U/L (13-75)
[2025-06-17 01:55] LABS: AST(SGOT) 80 U/L (<=31); Alanine Aminotransfer ALT/SGPT 132 U/L (<=34); Albumin, Serum 4.0 g/dL (3.5-5.0); Alkaline Phosphatase 110 U/L (35-104); Anion Gap 13 (7-18); BUN 7 mg/dL (4-19); BUN/Creat Ratio 9.3 RATIO (10-20); Calcium,Total 9.5 mg/dL (7.6-11.0); Carbon Dioxide 21.5 mmol/L (20.0-29.0); Chloride 102 mmol/L (96-106); Estimated Creatinine Clearance 149.12 ml/min (50-250); Globulin 3.7 g/dL (2.2-4.2); Glucose 90 mg/dL (70-99); Potassium 4.6 mmol/L (3.5-5.1)
[2025-06-17 02:00] VITALS: BP 152/100; PULSE 80; RESP 16; O2SAT 98
[2025-06-17 06:34] VITALS: BP 119/67; PULSE 90; RESP 16; O2SAT 98
[2025-06-17 08:04] VITALS: BP 119/80; PULSE 88; RESP 16; O2SAT 98
--- NOTE | 2025-06-17 08:35 | EX.ED.DYSGE1 ---
HPI History of Present Illness Chief Complaint: General Illness Narrative Narrative: Patient was seen and examined after presenting to ED for fever body aches chills nausea that started yesterday she had an ERCP on Wednesday. PFSH PFSH Medical History Anxiety Depression Gallstones Home Medications ?Medication ?Instructions ?Recorded ?Last Taken ?Type ondansetron 4 mg disintegrating 4 mg PO Q8H PRN PRN Nausea #30 tabs 06/17/25 Unknown Rx tablet Allergy/AdvReac Type Severity Reaction Status Date / Time morphine AdvReac Other Verified 06/17/25 00:23 Surgical History History of cholecystectomy Social History household members: spouse housing: house Smoking Status: Never smoker ROS ROS ED ROS Narrative Pertinent Positives: Fever chills nausea body aches status post ERCP Pertinent Negatives: Chest pain pressure shortness of breath diarrhea The remainder of review of systems negative unless otherwise stated in the HPI above. Systems reviewed including constitutional, psychiatric, cardiovascular, respiratory, integument, HENT, gastrointestinal. EXAM Physical Exam Narrative Exam Narrative: Afebrile hemodynamically stable does not appear toxic or in distress she is normocephalic atraumatic oropharynx clear normal range of motion of head and neck. Normal heart and lung sounds abdomen is soft nontender nondistended intact and equal MSPs she is warm and well-perfused Const Vital Signs: 06/17/25 00:21 06/17/25 02:00 06/17/25 06:34 Temperature 98.9 F Temperature Source Oral Pulse Rate 125 H 80 90 Respiratory Rate 20 H 16 16 Blood Pressure 156/100 H 152/100 H 119/67 Blood Pressure Mean 118 117 84 Pulse Ox 100 98 98 Oxygen Delivery Method Room Air Room Air 06/17/25 08:04 Temperature Temperature Source Pulse Rate 88 Respiratory Rate 16 Blood Pressure 119/80 Blood Pressure Mean 93 Pulse Ox 98 Oxygen Delivery Method Room Air MDM MDM MDM Narrative Medical decision making narrative: Nursing notes, triage notes, available previous documentation, and vital signs were reviewed. Any discrepancies noted were addressed. Differential Diagnoses: We will evaluate and see if there is any sort of intrathoracic or intra-abdominal insult status post ERCP or infection brewing I do have a higher suspicion for viral process will also evaluate for UTI Interventions: Zofran Fluids Given: 1 L normal saline Labs Reviewed: No leukocytosis leukopenia anemia electrolyte abnormality renal insufficiency she does have a transaminitis with an ALT of 132 AST of 80 not lipase is 37 urine without evidence of infection Imaging Reviewed: CT of the chest abdomen and pelvis showing improvement of her pancreatitis but no other acute pathology noted Previous Documentation Reviewed: None available or applicable at this time. ED Course: Patient presenting with symptoms as stated above more consistent with a viral process patient underwent extensive workup including CTs of the chest abdomen and pelvis which were unremarkable her labs and urine were also fairly unremarkable at this point time she seems to be doing better return precautions follow-up recommendations provided prescription for Zofran will be sent to her pharmacy. This note was made utilizing voice recognition software. All attempts were made to correct spelling or other errors prior to note completion. However, due to the fast-paced nature of emergency medicine, some errors may still be present. Lab Data Labs: Laboratory Results - last 24 hr 06/17/25 00:58 WBC 8.0 RBC 4.50 Hgb 13.2 Hct 39.0 MCV 86.7 MCH 29.3 MCHC 33.8 RDW Std Deviation 46.9 H RDW Coeff of Miles 15.0 H Plt Count 326 MPV 9.1 Immature Gran % (Auto) 0.100 Neut % (Auto) 67.6 Lymph % (Auto) 21.1 Lane % (Auto) 10.2 H Eos % (Auto) 0.4 Baso % (Auto) 0.6 Absolute Neuts (auto) 5.4 Absolute Lymphs (auto) 1.68 Nucleated RBC % 0.3 Sodium 136 Potassium 4.6 Chloride 102 Carbon Dioxide 21.5 Anion Gap 13 BUN 7 Creatinine 0.72 Estim Creat Clear Calc 149.12 Est GFR (MDRD) Non-Af 119 BUN/Creatinine Ratio 9.3 L Glucose 90 Lactic Acid < 1.0 Calcium 9.5 Total Bilirubin 0.37 AST 80 H ALT 132 H Alkaline Phosphatase 110 H Total Protein 7.7 Albumin 4.0 Globulin 3.7 Albumin/Globulin Ratio 1.1 Lipase 37 Serum , Qual NEGATIVE Urine Color Yellow Urine Clarity Clear Urine pH 6.5 Ur Specific [place] 1.005 Urine Protein Negative Urine Glucose (UA) Normal Urine Ketones Negative Urine Occult Blood Negative Urine Nitrite Negative Urine Bilirubin Negative Urine Urobilinogen Normal Ur Leukocyte Esterase Negative Urine RBC 0-5 SEEN Urine WBC 0-5 SEEN Ur Squamous Epith Cells 5-10 SEEN Urine Bacteria 0 SEEN Urine Mucus 0 SEEN Radiography Diagnostic Testing: Clinical Impression(s) from Imaging Studies Chest/Abdomen/Pelvis CT 06/17/25 00:45 IMPRESSION: 1. Interval resolution of previously noted pancreatitis. 2. Cholecystectomy with unremarkable appearance of the gallbladder fossa. 3. Mild hepatomegaly and mild diffuse hepatic steatosis. 4. No acute findings in the abdomen or pelvis as imaged. Reading Location: [facility] Discharge Plan Triage Chief Complaint: General Illness ED Provider: Cynthia Jolly Dx/Rx/DC Orders Clinical Impression: Febrile illness, Acute viral syndrome, Nausea Instructions: ED Viral Syndrome (Adult) Prescriptions: New ondansetron 4 mg tablet,disintegrating 4 mg PO Q8H PRN PRN (Reason: Nausea) Qty: 30 0RF Primary Care Provider: Jesica Feng NP Referrals: Jesica Feng NP, CAREER DEVELOPMENT COORDINATOR/TEACHER-C [Primary Care Provider, Medical] Activity Restrictions/Additional Instructions: Follow-up with your doctor please return if getting worse I sent a prescription for Zofran to your pharmacy Print Language: Nigerian Disposition Disposition: Home, Self Care
[2025-06-17 08:46] VITALS: BP 119/80; PULSE 88; RESP 16; TEMP 36.7; O2SAT 98
== END 2025-06-17 08:47 | disposition home or self-care (01) ==
PROVIDERS: Emergency Provider Specialist/Technologist Athletic Trainer; PCP Nurse Practitioner Family; Visit Provider Specialist/Technologist Athletic Trainer
DX: R50.9 Fever, unspecified (principal); B34.9 Viral infection, unspecified; R11.0 Nausea
CPT/HCPCS: 71260; 74177; 80053; 81001; 83605; 83690; 84703; 85025; 96361; 96374; 99283; Q9967; A4216; J2405